=== PATIENT | female | born 1970 | race Caucasian/White ===

== ENCOUNTER 2016-11-30 18:28 | Emergency (ER) | payer MEDICAID ==
[~2016-11-30] VITALS: Ht 160 cm; Wt 90.7 kg
[~2016-11-30 18:28] MED LIST: ALBU2.5V4 IH; ALPR1T PO; AMAN50SY PEG; BC PILL PO; BISA10SU6 RC; CARB15DR74 OU; CEPH-507 PO; CHOL4PAC2 PEG; CITA20TA7 PEG; DOCU50LI22 PEG; HEPA500017 INJ; HYDR-707 PO; HYDR1CAP2 PO; HYDR1TAB86 PO; HYOS0.1283 SL; IPRA0.2S51 INH; LACT-72 PEG; MAGN800O GT; MELA1TAB10 PO; METH5TAB86 PEG; METO50TA2 PEG; MTP100TCR PO; NITR-33 PO; OMEP20CA12 PO; ONDA8TAB9 PO; OXYC5SOL19 GT; PHEN100C4 PO; PHEN125O2 GT; SULF1TAB38 PO; ZLP10T PO; [UNRECOGNIZED DRUG - CODE] TP
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
[2016-11-30 19:06] LABS: BILIRUBIN,URINE NEGATIVE (NEGATIVE); KETONES,URINE NEGATIVE (NEGATIVE); LEUKOCYTE ESTERASE ,URINE 1+ (NEGATIVE); NITRITE,URINE NEGATIVE (NEGATIVE); PH,URINE 6.5 (5-9); PROTEIN,URINE NEGATIVE (NEGATIVE); UROBILINOGEN,URINE 1 MG/DL (NORMAL)
[2016-11-30 19:16] LABS: BASOPHILS % (AUTO) 1 % (0-10); EOSINOPHILS # (AUTO) 0.1 10^3/uL (0.0-0.3); EOSINOPHILS % (AUTO) 2 % (0-10); LYMPHOCYTES # (AUTO) 2.2 X 10^3 (1.0-4.0); LYMPHOCYTES % (AUTO) 35 % (12-44); MEAN CORPUSCULAR HEMOGLOBIN 32 PG (25-34); MEAN CORPUSCULAR HGB CONC 34 G/DL (32-36); MEAN CORPUSCULAR VOLUME 94 FL (80-99); MEAN PLATELET VOLUME 9.9 FL (7.4-10.4); MONOCYTES # (AUTO) 0.9 X 10^3 (0.0-1.0); MONOCYTES % (AUTO) 14 % (0-12); NEUTROPHILS # (AUTO) 3.1 X 10^3 (1.8-7.8); NEUTROPHILS % (AUTO) 49 % (42-75); PLATELET COUNT 288 10^3/uL (130-400); RED BLOOD COUNT 4.44 10^6/uL (4.35-5.85); RED CELL DISTRIBUTION WIDTH 13.1 % (10.0-14.5); WHITE BLOOD COUNT 6.3 10^3/uL (4.3-11.0)
[2016-11-30 19:31] LABS: ALBUMIN 3.9 G/DL (3.2-4.5); BILIRUBIN,TOTAL 0.3 MG/DL (0.1-1.0); CALCIUM 9.2 MG/DL (8.5-10.1); CREATININE SERUM 1.23 MG/DL (0.60-1.30); POTASSIUM 4.1 MMOL/L (3.6-5.0); TOTAL PROTEIN 7.4 G/DL (6.4-8.2)
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
[2016-11-30 20:38] VITALS: BP 102/72
== END 2016-11-30 20:38 ==
LOC: EDUNIT# 18:28 → ER 18:30
DX: R41.82 Altered mental status, unspecified (principal); Z93.1 Gastrostomy status; G81.94 Hemiplegia, unspecified affecting left nondominant side; G40.909 Epilepsy, unspecified, not intractable, without status epilepticus; Z87.820 Personal history of traumatic brain injury; Z79.899 Other long term (current) drug therapy; Z98.2 Presence of cerebrospinal fluid drainage device
CPT/HCPCS: 36415; 51701; 70450; 80053; 80164; 81000; 85025; 99284

== ENCOUNTER → 2017-04-03 | Outpatient (CLI) | payer MEDICAID ==
--- NOTE | 2017-04-03 15:37 | Diagnostic Imaging Report ---
PROCEDURE: CT head without contrast. TECHNIQUE: Multiple contiguous axial images were obtained through the brain without the use of intravenous contrast. INDICATION: Seizure and headache. Comparison made with prior examination of 11/30/2016. FINDINGS: There is prominence of the ventricles and sulci. There is some moderate chronic microvascular ischemic disease. There has been previous right craniotomy and right temporal craniectomy. There is unchanged decreased attenuation in the posterior inferior aspect of the right temporal lobe. There is some enlargement of the temporal horn of the right lateral ventricle. A left parietal ventriculostomy tube remains in place. There is no mass, hemorrhage, or extra-axial fluid collection. The visualized paranasal sinuses and mastoid air cells are clear. IMPRESSION: Atrophy and some chronic microvascular ischemic disease with unchanged decreased attenuation in the posterior inferior right temporal lobe. Previous right craniotomy and right temporal craniectomy with some underlying dural thickening which is unchanged. A left parietal ventriculostomy tube remains in place. Dictated by: Dictated on workstation # [id number]
== END ==
LOC: RAD 14:16
PROVIDERS: ATTEND Psychiatry & Neurology Neurology
DX: G31.9 Degenerative disease of nervous system, unspecified (principal); Z98.890 Other specified postprocedural states; Z98.2 Presence of cerebrospinal fluid drainage device; G40.909 Epilepsy, unspecified, not intractable, without status epilepticus; R51 Headache
CPT/HCPCS: 70450

== ENCOUNTER 2017-04-06 19:05 | Emergency (ER) | payer MEDICAID ==
[~2017-04-06] VITALS: Ht 160 cm; Wt 90.7 kg
[~2017-04-06 19:05] MED LIST changes: -HEPA500017 INJ; +HEPA500018 INJ
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
--- OUTSIDE RECORDS SUMMARY | 2017-04-06 19:12 | XMS REPORT ---
Author Author WILTON ANDERSON [facility] Address [address] [place] [address] Care Team Providers Care Requisition Approver Name Role Phone WILTON ANDERSON Unavailable PROBLEMS Type Condition ICD9-CM Code HPW79-CP Code Onset Dates Condition Status SNOMED Code Problem Right-sided low back pain without sciatica M54.5 Active 139499974 Problem Anxiety F41.9 Active 55089372 Problem History of brain shunt Z98.2 Active 882521054 Problem Inappropriate social behavior F99 Active 339548767 Problem Head injury due to trauma, sequela S09.90XS Active 66033622 Problem History of hypertension Z86.79 Active 831440911 Problem Hemiplegia, unspecified affecting left dominant side G81.92 Active 665762213 Problem Reactive depression F32.9 Active 07438624 ALLERGIES Unknown Allergies SOCIAL HISTORY No smoking Hx information available PLAN OF CARE VITAL SIGNS MEDICATIONS Medication Instructions Dosage Frequency Start Date End Date Duration Status Bactrim DS 800-160 MG Orally Twice a day 1 tablet 12h Jul,Jul 07 days Active RESULTS No Results PROCEDURES No Known procedures IMMUNIZATIONS No Known Immunizations
--- NOTE | 2017-04-06 19:56 | Diagnostic Imaging Report ---
PROCEDURE: CT head and CT cervical spine without contrast. TECHNIQUE: Multiple contiguous axial images were obtained through the brain and cervical spine without the use of intravenous contrast. Sagittal and coronal reformations through the cervical spine were then performed. INDICATION: Fall with head and neck injury CT head: Comparison is made to the study of 04/03/2017. Similar to the previous study, ventricles and sulci remain prominent. Left parietal ventriculoperitoneal shunt tube is in stable position as well. The 0.5 cm high density dural thickening along the right convexity is unchanged. There is no evidence of new hemorrhage or infarct. The calvarium is stable and the visualized paranasal sinuses are clear. IMPRESSION: Postoperative changes similar to previous study. Hyperdensity along right convexity remains compatible with dural thickening without significant change or new abnormality. CT cervical spine: There is straightening of cervical lordosis. Vertebral body heights are maintained. There is mild disc space narrowing and endplate spurring in the cervical spine, however, no fracture or subluxation is identified. There is no evidence of paraspinous hematoma. IMPRESSION: Mild cervical spondylosis without CT evidence of acute cervical spinal abnormality. Dictated by: Dictated on workstation # [id number]
--- NOTE | 2017-04-06 19:57 | Diagnostic Imaging Report ---
INDICATION: Fall with pelvic pain Single AP view of the pelvis is obtained. FINDINGS: Ventriculoperitoneal shunt tube reaches the midline of the pelvis. There is no evidence of disruption of the catheter in the visualized portions. No acute fracture or dislocation is identified. No abnormal lytic or sclerotic focus is seen, and there is no radiopaque foreign body. Left femur is rotated which limits its evaluation. IMPRESSION: No acute abnormality. Dictated by: Dictated on workstation # [id number]
--- NOTE | 2017-04-06 19:59 | Diagnostic Imaging Report ---
INDICATION: Fall with back pain. TECHNIQUE: Multiple contiguous axial CT images of the thoracic and lumbar spine are obtained with sagittal and coronal reformatted images produced. CT thoracic spine: There is mild right convexity curvature of the thoracic spine. Endplate spurring at the T8-T9 level does result in bony encroachment upon the spinal canal and causes [id number] spinal stenosis. There is also mild degenerative change at the T9-T10 and T10-T11 levels without associated stenosis. There is no evidence of acute fracture or subluxation. IMPRESSION: Endplate spurring at T8-T9 results in djig-fw-dpjwruos central spinal stenosis however there is no evidence of acute thoracic spinal abnormality. CT lumbar spine: Lumbar spinal curvature and alignment are within normal limits. There is no evidence of fracture or malalignment. Incidental note is made of bilateral renal calculi without evidence of hydronephrosis or hydroureter. There is also mild aortoiliac atherosclerotic calcification noted. There is bilateral L5 spondylolysis without significant spondylolisthesis. IMPRESSION: No CT evidence of acute lumbar spinal abnormality. Dictated by: Dictated on workstation # [id number]
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
[2017-04-06 21:26] VITALS: BP 122/80
== END 2017-04-06 21:25 ==
LOC: EDUNIT# 19:05 → ER 19:06
DX: S16.1XXA Strain of muscle, fascia and tendon at neck level, initial encounter (principal); S39.012A Strain of muscle, fascia and tendon of lower back, initial encounter; S00.83XA Contusion of other part of head, initial encounter; M54.5 Low back pain; G89.29 Other chronic pain; G40.909 Epilepsy, unspecified, not intractable, without status epilepticus; F32.9 Major depressive disorder, single episode, unspecified; Z87.820 Personal history of traumatic brain injury; Z87.442 Personal history of urinary calculi; Z98.2 Presence of cerebrospinal fluid drainage device; Z93.0 Tracheostomy status; Z87.891 Personal history of nicotine dependence; V00.811A Fall from moving wheelchair (powered), initial encounter; Y92.129 Unspecified place in nursing home as the place of occurrence of the external cause
CPT/HCPCS: 70450; 72125; 72128; 72131; 72170; 99283

== ENCOUNTER → 2017-08-04 | Outpatient (CLI) | payer MEDICAID ==
[~2017-08-04] MED LIST changes: +METO50TA15 PEG; -METO50TA2 PEG
[2017-08-04 19:31] LABS: BILIRUBIN,URINE NEGATIVE (NEGATIVE); CLARITY,URINE CLEAR; COLOR,URINE YELLOW; GLUCOSE, URINE (UA) NEGATIVE (NEGATIVE); KETONES,URINE NEGATIVE (NEGATIVE); LEUKOCYTE ESTERASE ,URINE 2+ (NEGATIVE); NITRITE,URINE NEGATIVE (NEGATIVE); PH,URINE 6 (5-9); PROTEIN,URINE 1+ (NEGATIVE); UROBILINOGEN,URINE 1 MG/DL (NORMAL)
[2017-08-04 19:39] LABS: BACTERIA,URINE FEW /HPF; RBC,URINE 0-2 /HPF
== END ==
LOC: LABNPT 19:24
PROVIDERS: ATTEND Internal Medicine
DX: N17.9 Acute kidney failure, unspecified (principal); R82.90 Unspecified abnormal findings in urine
CPT/HCPCS: 81000; 82570; 84156; 87088; 87186

== ENCOUNTER → 2017-09-01 | Outpatient (CLI) | payer MEDICAID ==
--- NOTE | 2017-09-01 11:13 | Diagnostic Imaging Report ---
INDICATION: Difficulty swallowing. TECHNIQUE: The procedure was performed in conjunction with speech pathology. Videofluoroscopy was performed during the swallowing of barium of multiple consistencies. A total of 1 minute and 4 seconds of fluoroscopy time was utilized. FINDINGS: Patient ingested thin and thick liquid as well as semisolid and solid consistency. The patient swallowed without difficulty. There is normal epiglottic tilt and laryngeal elevation. No laryngeal penetration or aspiration was observed. There is mild vallecular and piriform sinus residue which did clear after a repeat swallow. IMPRESSION: Essentially unremarkable modified barium swallow. Dictated by: Dictated on workstation # [id number]
== END ==
LOC: RAD 10:14
PROVIDERS: ATTEND Nurse Practitioner Community Health
DX: R13.10 Dysphagia, unspecified (principal)
CPT/HCPCS: 74230

== ENCOUNTER → 2018-01-09 | Outpatient (CLI) | payer MEDICAID ==
[~2018-01-09] MED LIST changes: +CARB15DR OU; -CARB15DR74 OU; -CITA20TA7 PEG; +CITA20TA9 PEG; -PHEN125O2 GT; +PHEN125O3 GT
--- NOTE | 2018-01-09 11:55 | Diagnostic Imaging Report ---
INDICATION: Hypertension and stage III kidney disease. TECHNIQUE: Multiple real-time grayscale images were obtained of the kidneys in various projections. Doppler evaluation of the renal arteries was also performed. FINDINGS: Right kidney measures 8.8 x 5.1 x 4.4 cm. The left kidney measures 9.7 x 4 x 4.2 cm. Both kidneys grossly demonstrate normal renal cortical thickness and echogenicity. Resistive indices in the right range from 0.59 to 0.66. Resistive indices in the left range from 0.52 to 0.71. The right main renal artery was obscured by bowel gas. The visualized portions of the left renal artery are unremarkable. There is no hydronephrosis, calculi or mass. Neither ureteral jet was visualized. Bladder is grossly unremarkable. IMPRESSION: Unremarkable sonographic appearance of the kidneys. Nonvisualization of the right renal artery. No evidence of a hemodynamically significant stenosis in the visualized portions of the left renal artery. Dictated by: Dictated on workstation # [id number]
== END ==
LOC: RAD 09:48
PROVIDERS: ATTEND Internal Medicine Nephrology
DX: I70.1 Atherosclerosis of renal artery (principal); I12.9 Hypertensive chronic kidney disease with stage 1 through stage 4 chronic kidney disease, or unspecified chronic kidney disease; N18.3 Chronic kidney disease, stage 3 (moderate); D63.1 Anemia in chronic kidney disease
CPT/HCPCS: 93975

== ENCOUNTER 2018-05-28 05:39 | Outpatient (CLI) | payer MEDICAID ==
[~2018-05-28] VITALS: Ht 160 cm; Wt 90.7 kg
[2018-05-28] MEDS ORDERED: AMAN100C18 PO (10:38)
[2018-05-28] MEDS ORDERED: METO50TA15 PO (10:38)
[2018-05-28] MEDS ORDERED: POTA-51 PO (10:38)
[2018-05-28] MEDS ORDERED: ACET-2267 PO (10:38)
[2018-05-28] MEDS ORDERED: CHOL500049 PO (10:38)
[2018-05-28] MEDS ORDERED: MELA1TAB27 PO (10:38)
[2018-05-28] MEDS ORDERED: TOPI100T PO (10:38)
[2018-05-28] MEDS ORDERED: MAGN400O7 PO (10:38)
[2018-05-28] MEDS ORDERED: CITA40TA19 PO (10:38)
[2018-05-28] MEDS ORDERED: ASPI-999 PO (10:38)
[2018-05-28] MEDS ORDERED: IRON100V2 IV (10:38)
[2018-05-28] MEDS ORDERED: GUAI400T71 PO (10:38)
[2018-05-28] MEDS ORDERED: DONE10TA12 PO (10:38)
[2018-05-28] MEDS ORDERED: LEVE750T19 PO (10:38)
[2018-05-28] MEDS ORDERED: METO-333 PO (10:38)
[2018-05-28] MEDS ORDERED: POLY17PO6 PO (10:38)
--- NOTE | 2018-05-28 12:56 | History & Physicial ---
History of Present Illness History of Present Illness Reason for visit/HPI to undergo Byykky-f-Xhgt placement, to address poor venous access. 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 Date of Admission 05/29/18 Date Seen by a Provider: May 28, 2018 Time Seen by a Provider: 12:52 I consulted on this patient on 05/28/18 12:51 Attending Physician Merari Kaur MD Admitting Physician Loi Villatoro MD Consult Allergies and Home Medications Allergies Coded Allergies: No Known Drug Allergies (Unverified , 05/24/10) Home Medications Acetaminophen 500 Mg Tablet, 1,000 MG PO Q6H PRN for PAIN-MILD, (Reported) Amantadine HCl 100 Mg Capsule, 100 MG PO BID, (Reported) Aspirin 81 Mg Tab.chew, 81 MG PO DAILY, (Reported) Bisacodyl 10 Mg Supp.rect, 10 MG RC DAILY PRN for CONSTIPATION, (Reported) Cholecalciferol (Vitamin D3) 50,000 Unit Capsule, 50,000 UNIT PO Sa, (Reported) Citalopram Hydrobromide 40 Mg Tablet, 40 MG PO DAILY, (Reported) Donepezil HCl 10 Mg Tablet, 20 MG PO DAILY, (Reported) Guaifenesin 400 Mg Tablet, 400 MG PO Q4H PRN for COUGH, (Reported) Hyoscyamine Sulfate 0.125 Mg Tab.subl, 1-2 TAB SL Q4H Prescribed by: SHOSHANA CHAVEZ on 03/07/162207 Ipratropium [place] 0.2 Mg/1 Ml Solution, 0.2 MG INH Q6H PRN for SHORTNESS OF BREATH, (Reported) Iron Sucrose Complex 200 Mg/10 Ml Vial, 200 MG IV DAILY, (Reported) Levetiracetam 750 Mg Tablet, 750 MG PO BID, (Reported) Magnesium Hydroxide 400 Mg/5 Ml Oral.susp, 10 ML PO DAILY PRN for CONSTIPATION- 1ST LINE, (Reported) Melatonin/Pyridoxine HCl (B6) 1 Each Tablet, 1 EACH PO DAILY, (Reported) Metoprolol Tartrate 25 Mg Tablet, 25 MG PO BID, (Reported) Metoprolol Tartrate 50 Mg Tablet, 50 MG PO BID, (Reported) Ondansetron 8 Mg Tab.rapdis, 8 MG PO Q4H Prescribed by: SHOSHANA CHAVEZ on 03/07/162207 Polyethylene Glycol 3350 17 Gm Powd.pack, 17 GM PO DAILY PRN for CONSTIPATION- 2ND LINE, (Reported) Potassium Chloride 20 Meq Tablet.er, 20 MEQ PO DAILY, (Reported) Topiramate 100 Mg Tablet, 100 MG PO BID, (Reported) Patient Home Medication List Home Medication List Reviewed: Yes Past Vetzztj-Nwralk-Yrxxhr Hx Patient Social History Employed/Student: unemployed Alcohol Use: Denies Use Recreational Drug Use: No Smoking Status: Never a Smoker Type Used: Cigarettes Recent Foreign Travel: No Contact w/other who traveled: No Recent Hopitalizations: No Recent Infectious Disease Expo: No Immunizations Up To Date Date of Pneumonia Vaccine: Aug 07, 2015 Seasonal Allergies Seasonal Allergies: No Surgeries Yes Abdominal, Gallbladder, Neurological, Renal, Tracheostomy Respiratory Yes (TRACH--REMOVED 01/04/16) Currently Using CPAP: No Currently Using BIPAP: No Cardiovascular Yes (hypotension) Hypotension Neurological Yes Paralysis, Seizure Disorder, Traumatic Brain Injury Reproductive System Hx Reproductive Disorders: No Sexually Transmitted Disease: No HIV/AIDS: No Female Reproductive Disorders: Menstrual Problems Genitourinary Yes Kidney Stones, Renal Failure Gastrointestinal No Chronic Constipation Musculoskeletal Yes Endocrine History of Endocrine Disorders: Yes HEENT History of HEENT Disorders: No Loss of Vision: Denies Hearing Impairment: Denies Cancer No Psychosocial History of Psychiatric Problem: Yes Behavioral Health Disorders: Depression Integumentary History of Skin or Integumenta: No Blood Transfusions History of Blood Disorders: No Adverse Reaction to a Blood Tr: No Review of Systems Constitutional: see HPI EENTM: no symptoms reported Respiratory: no symptoms reported Cardiovascular: no symptoms reported Gastrointestinal: no symptoms reported Genitourinary: see HPI Musculoskeletal: joint pain Skin: see HPI Physical Exam Vital Signs Capillary Refill : Height, Weight, BMI Height: 5'3.00" Weight: 200lbs. 0.0oz. [id number]; 35.4 BMI Method:Stated General Appearance: No Apparent Distress HEENT: Normal ENT Inspection Neck: Normal Inspection Respiratory: Lungs Clear Cardiovascular: Regular Rate, Rhythm Gastrointestinal: Non Tender, Soft Neurologic/Psychiatric: Alert, Oriented x3 Skin: Warm/Dry Assessment/Plan Assessment and Plan lady with chronic renal insufficiency. Poor venous access. 4 Qczawv-c-Ngzs placement Admission Diagnosis Admission Status: Other (Outpt Proc) MERARI KAUR MD May 28, 2018 12:55
[2018-05-29] MEDS ORDERED: ACHD5005 PO (13:44)
== END 2018-05-28 11:04 | disposition home or self-care (01) ==
LOC: PREOP 05:39
PROVIDERS: ATTEND Surgery
DX: Z01.818 Encounter for other preprocedural examination (principal)

== ENCOUNTER 2018-05-29 09:51 | Day surgery (SDC) | payer MEDICAID ==
[~2018-05-29] VITALS: Ht 160 cm; Wt 90.7 kg
[~2018-05-29 09:51] MED LIST changes: +ACET-2267 PO; +AMAN100C18 PO; +ASPI-999 PO; +CHOL500049 PO; +CITA40TA19 PO; +DONE10TA12 PO; +GUAI400T71 PO; +IRON100V2 IV; +LEVE750T19 PO; +MAGN400O7 PO; +MELA1TAB27 PO; +METO-333 PO; +METO50TA15 PO; +POLY17PO6 PO; +POTA-51 PO; +TOPI100T PO
[2018-05-29 10:00] VITALS: BP 107/70
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
--- OUTSIDE RECORDS SUMMARY | 2018-05-29 10:10 | XMS REPORT ---
Author Author MAYNOR KINCAID Organization [facility] Address [address] [place] [address] Care Team Providers Care Import Clerk Name Role Phone MAYNOR KINCAID Unavailable PROBLEMS Type Condition ICD9-CM Code WIV28-HI Code Onset Dates Condition Status SNOMED Code Problem Anxiety F41.9 Active 61625325 Problem Reactive depression F32.9 Active 83359887 Problem Head injury due to trauma, sequela S09.90XS Active 21765509 Problem History of hypertension Z86.79 Active 033383428 Problem Right-sided low back pain without sciatica M54.5 Active 655904188 Problem Chronic kidney disease, unspecified CKD stage N18.9 Active 127366927 Problem Dysphagia, unspecified type R13.10 Active 36436537 Problem Inappropriate social behavior F99 Active 917008166 Problem Hemiplegia, unspecified affecting left dominant side G81.92 Active 765069034 Problem Poor appetite R63.0 Active 74838589 Problem History of brain shunt Z98.2 Active 925293206 ALLERGIES No Information ENCOUNTERS Encounter Location Date Diagnosis [place] [address] [address] Mar, [facility] [id number] [place] [address]27- 6132 Feb, Seizure after head injury R56.1 and Chronic kidney disease, unspecified CKD stage N18.9 [facility] [id number] [place] [address] 09736- 2788 December, [place] [address] [place] [id number] [place] [address] 90226- 9962 December, [place] [id number] [place] [address] 37379- 5674 December, [place] [address] [place] [id number] [address] 2546 December, Physically aggressive behavior R46.89 [facility] [address] [place] [address] [id number] December, [facility] [address], [place] [address] 2546 December, [facility] [id number] [address] 2546 Nov, [facility] [address] [place] [address] [id number] Oct, Head injury due to trauma, sequela S09.90XS [facility] [place] [address] [id number] [place] [address] [id number] Sep, [facility] [place] [id number] [id number] Aug, [facility] [id number], [place] [address] 2546 Aug, [facility] [address] [place] [address] [id number] Aug, Tremor R25.1 ; Head injury due to trauma, sequela S09.90XS and Dysphagia, unspecified type R13.10 [facility] [address] [place] [address] [id number] Aug, Tremor R25.1 ; Poor appetite R63.0 and Acute renal failure with tubular necrosis N17.0 [facility] [place] [id number] [id number] Aug, [facility] [place] [id number] [id number] Aug, [facility] [address] [place] [address] [id number] Aug, Urinary tract infection without hematuria, site unspecified N39.0 and Acute renal failure, unspecified acute renal failure type N17.9 [facility] [place] [id number] [id number] Jul, [facility] [place] [address] [id number] [id number] Jul, [facility] [address] [facility] [id number], [place] [address] Jul, [facility] [address] [facility] [id number], [place] [address] Jun, [facility] [address] [place] [address] [id number] [id number] Jun, [facility] [address] [place] [id number] [id number] May, [facility] [id number], [place] [address] 64[address] May, [facility] [id number] [address] Apr, [facility] [address] [place] [address] [id number] Mar, Head injury due to trauma, sequela S09.90XS and Reactive depression F32.9 [facility] [id number], [place] [address] 4[address] Mar, [facility] [address] [place] [address] [id number] [id number] Mar, [facility] [id number], [place] [address] Mar, [facility] [address] [place] [address] [id number] Feb, Inappropriate social behavior F99 and Head injury due to trauma, sequela S09.90XS [facility] [address] [id number] [id number] Feb, [facility] [address] [id number] [id number] Feb, [facility] [id number], [place] [address] Jan, [facility] [address], [place] [address] Jan, [facility] [address] [place] [address] 86206- 7424 Jan, [facility] [address] [place] [address] 59497- 8048 December, [facility] [address] [place] [address] 66896- 4222 December, Physically aggressive behavior R46.89 [facility] [address] [place] [id number] December, Ingrowing toenail with infection L60.0 ; Physically aggressive behavior R46.89 and Head injury due to trauma, sequela S09.90XS [facility] [address] [place] [address] 56748- 9505 December, Depressive disorder, not elsewhere classified F32.9 and Dementia due to general medical condition, without behavioral disturbance F02.80 [facility] [address] [place] [id number] December, Ingrowing toenail with infection L60.0 and Head injury due to trauma, sequela S09.90XS [facility] [address] [place] [address] 79199- 9912 Nov, [facility] [address] [place] [address] 08974- 7365 Nov, Physically aggressive behavior R46.89 ; Head injury due to trauma, sequela S09.90XS and History of brain shunt Z98.2 [facility] [address], [place] [address]- 6[address] Nov, [facility] [address] [place] [id number] [place] [address] 64968- 9060 Nov, [facility] [id number] [place] [address] 16521- 0748 Nov, Inappropriate social behavior F99 [facility] [place] [address] [id number] Nov, [facility] [place] [id number] [id number] Nov, Gastroesophageal reflux disease with esophagitis K21.0 [facility] [address], [place] [address] Oct, [facility] [address] [place] [id number] Oct, Head injury due to trauma, sequela S09.90XS and Hemiplegia, unspecified affecting left dominant side G81.92 [facility] [place] [id number] [id number] Sep, [facility] [address], [place] [address] Aug, [facility] [address] [place] [id number] Aug, Head injury due to trauma, sequela S09.90XS and Hemiplegia, unspecified affecting left dominant side G81.92 [facility] [address], [place] [address] 9167 Jul, [facility] [address], [place] [address]- 8[address] Jun, [facility] [address] [place] [id number] Jun, Head injury due to trauma, sequela S09.90XS [facility] [address] Jun, [facility] [address] [place] [address] [id number] [address] May, [facility] [address] [place] [address] [id number] May, Head injury due to trauma, sequela S09.90XS [facility] [address] 34[address] May, [facility] [address] [place] [address] 49751- 1224 May, [facility] [address] [place] [address] 49076- 3096 Apr, [facility] [address] [place] [address] 35416- 1426 Apr, [facility] [address] [place] [id number] [place] [address] 92174- 4886 Apr, [facility] [address] [place] [id number] Apr, Head injury due to trauma, sequela S09.90XS [facility] [address] [place] [address] [id number] [place] [address] 64544- 3836 Mar, [facility] [address] [place] [id number] [place] [address] 52941- 9126 Mar, [facility] [address] [place] [id number] [place] [address] 90250- 3731 Mar, [facility] [address] [place] [id number] [place] [address] 02860- 8649 Mar, [facility] [address] [place] [id number] [place] [address] 41564- 3910 Mar, Head injury due to trauma, sequela S09.90XS and Reactive depression F32.9 [facility] [address] [place] [id number] [place] [address] 89969- 1706 Feb, Head injury due to trauma, sequela S09.90XS [facility] [address] [place] [address] [id number] [place] [address] 79676- 8286 Feb, [facility] [address] [place] [address] 73206- 1566 Feb, [facility] [address] [place] [address] [id number] Feb, Head injury due to trauma, sequela S09.90XS [facility] [address] [place] [address] 26892- 6632 Feb, [facility] [address] [place] [address] 93939- 5778 Jan, [facility] [address] [place] [id number] [place] [address] 87705- 1758 Jan, [facility] [address] [place] [id number] [place] [address] 27931- 9076 Jan, [facility] [address] [address]- 6622 Jan, Insomnia due to medical condition G47.01 [place] [address] [address]- 3271 December, Right-sided low back pain without sciatica M54.5 [place] [address] [place] [id number] [place] [address] 34235- 1028 December, Head injury due to trauma, initial encounter S09.90XA [place] [address] [place] [id number] [place] [address] 07146- 1370 December, Gastroesophageal reflux disease with esophagitis K21.0 [place] [address] [place] [id number] [place] [address] 02733- 6858 December, Head injury due to trauma, initial encounter S09.90XA and Essential hypertension I10 [place] [address] [place] [id number] [place] [address] 03946- 4515 Jul, Anxiety F41.9 [place] [address] 17111- 9524 Jun, Anxiety F41.9 [place] [address] [place] [id number] [place] [address] 85356- 7539 14 May, 2015 Right-sided low back pain without sciatica M54.5 ; Anxiety F41.9 and History of hypertension Z86.79 [place] [address] [place] [id number] [place] [address] 70483- 4494 12 May, 2015 [place] [address] [place] [id number] [address]- 7968 May, [facility] [address] [facility] [id number] [place] [address] May, [facility] [address] [facility] [id number] [place] [address]- 5015 May, [facility] [address] [place] [address]- 6214 Apr, [facility] [address] [facility] [id number] [place] [address]- 9117 Apr, [facility] [address] [place] [address]- 3455 Mar, [facility] [address] [place] [address]- 1813 Feb, [facility] [address] [place] [address]- 8028 Feb, [facility] [address] [place] [address]- 8374 Jan, Essential hypertension, benign 401.1 and Anxiety state, unspecified 300.00 [facility] [address] [address]- 8707 Jan, [facility] [address] [id number], [place] [address]- 0764 December, [facility] [id number], [place] [address]- 5100 December, [facility] [address] [id number] [address]- 0354 Nov, [facility] [address], [place] [address]- 5538 Nov, [facility] [id number] [address]- 2006 Oct, [facility] [address] [place] [address]- 6776 Oct, [facility] [place] [facility] [address] [id number] [place] [address]- 6596 Sep, [facility] [place] [facility] [address] [id number] [place] [address]- 8186 Sep, [facility] [place] [facility] [address] [facility] [id number] [place] [address]- 5088 Sep, [facility] [place] [facility] [address] [id number] [place] [address]- 9517 Sep, [facility] [place] [facility] [address] [facility] [id number] [place]- 8513 Sep, [facility] [place] [facility] [address] [facility] [id number] [place] [address]- 3096 Aug, [facility] [place] [facility] [address] [facility] [id number] [place] [address]- 4629 Aug, [facility] [place] [facility] [address] [facility] [id number] [place] [address]- 1875 Aug, [facility] [place] [facility] [address] [facility] [id number] [place] [address]- 3130 Aug, [facility] [place] [facility] [address] [facility] [id number] [place]- 5473 Jul, [facility] [place] [facility] [address] [facility] [id number] [place] [address]- 7451 Jul, [facility] [place] [facility] [address] [facility] [id number] [place] [address]- 1780 Jun, [facility] [place] [facility] [address] [facility] [id number] [place] [address]- 2760 Jun, [facility] [place] [facility] [address] [facility] [id number] [place] [address]- 7642 May, [facility] [place] [facility] [address] [facility] [id number] [place]- 9325 May, [facility] [place] [facility] [address] [id number] [place] [address]- 9857 Apr, [facility] [place] [facility] [address] [id number] [place] [address]- 2722 Apr, [facility] [place] [facility] [address] [id number] [place] [address]- 4878 Mar, [facility] [place] [facility] [address] [id number] [place] [address]- 5641 Mar, [facility] [place] [facility] [address] [id number] [place] [address]- 5263 Feb, [facility] [place] [facility] [address] [id number] [place] [address]- 5582 Feb, [facility] [place] [facility] [address] [id number] [place] [address]- 7989 Jan, [facility] [place] [facility] [address] [id number] [place] [address]- 0050 Jan, [facility] [place] [facility] [address] [id number] [place] [address]- 0730 December, [facility] [place] [facility] [address] [id number] [place] [address]- 8057 December, [facility] [place] [facility] [address] [id number] [place] [address]- 5486 December, [facility] [place] [facility] [address] [id number] [place] [address]- 5955 December, [facility] [place] [facility] [address] [id number] [place] [address]- 8819 December, [facility] [place] [facility] [address] [id number] [place] [address]- 0197 December, [facility] [place] [facility] [address] [id number] [place] [address]- 1102 Nov, [facility] [place] [facility] [address] [id number], [place] [address]- 1422 24 Nov, 2013 [facility] [place] [facility] [address] [id number] [place] [address]- 7098 07 Nov, 2013 [facility] [place] [facility] [address] [id number] [place] [address]- 1641 07 Nov, 2013 [facility] [place] [facility] [address] [id number] [place] [address]- 7786 20 Oct, 2013 [facility] [place] [facility] [address] [id number] [place] [address]- 6253 Oct, [facility] [place] [facility] [address] [id number] [place] [address]- 5642 Oct, [facility] [place] [facility] [address] [id number] [place] [address]- 3298 Oct, [facility] [place] [facility] [address] [id number] [place] [address]- 4189 Oct, [facility] [place] [facility] [address] [id number] [place] [address]- 5405 Oct, [facility] [place] [facility] [address] [id number] [place] [address]- 3116 18 Oct, 2013 [facility] [place] [facility] [address] [id number] [place] [address]- 8172 18 Oct, 2013 [facility] [place] [facility] [address] [id number] [place] [address]- 8506 Oct, [facility] [place] [facility] [address] [id number] [place] [address]- 4586 Oct, [facility] [place] [facility] [address] [id number] [place] [address]- 3103 Oct, [facility] [place] [facility] [address] [id number] [place] [address]- 0484 Oct, [facility] [place] [facility] [address] [id number] [place] [address]- 7167 Sep, [facility] [place] [facility] [address] [facility] [id number] [place] [address]- 4419 Sep, [facility] [address] [facility] [id number], [place] [address]- 5400 Sep, IMMUNIZATIONS No Known Immunizations SOCIAL HISTORY Never Assessed REASON FOR VISIT Infected, ingrown toenail PLAN OF CARE VITAL SIGNS MEDICATIONS Medication Instructions Dosage Frequency Start Date End Date Duration Status Keflex 500 mg Orally 3 times a day 1 capsule 8h Mar, Mar, 07 days Active RESULTS No Results PROCEDURES No Known procedures INSTRUCTIONS MEDICATIONS ADMINISTERED No Known Medications MEDICAL (GENERAL) HISTORY Type Description Date Medical History HYPERTENSION Medical History ANXIETY Medical History ACID REFLUX Surgical History C SECTION 2003 Surgical History cholecystectomy 2003 Surgical History LEFT KNEE SURGERY Hospitalization History New onset seizures--[facility] 02/29/16
--- OUTSIDE RECORDS SUMMARY | 2018-05-29 10:10 | XMS REPORT ---
Author Author MAYNOR KINCAID Organization [facility] Address [address] [place] [address] Care Team Providers Care [employer]ocker Name Role Phone MAYNOR KINCAID Unavailable PROBLEMS Type Condition ICD9-CM Code GCJ13-AX Code Onset Dates Condition Status SNOMED Code Problem Head injury due to trauma, sequela S09.90XS Active 26059995 Problem Hemiplegia, unspecified affecting left dominant side G81.92 Active 400112453 Problem Reactive depression F32.9 Active 87352289 Problem History of hypertension Z86.79 Active 444905895 Problem Right-sided low back pain without sciatica M54.5 Active 643093360 Problem Anxiety F41.9 Active 45087722 Problem Other iron deficiency anemia D50.8 Active 36221053 Problem Chronic kidney disease, unspecified CKD stage N18.9 Active 782706356 Problem History of brain shunt Z98.2 Active 526332617 Problem Inappropriate social behavior F99 Active 046775234 Problem Dysphagia, unspecified type R13.10 Active 04216333 Problem Poor appetite R63.0 Active 58142542 ALLERGIES Substance Reaction Event Type Date Status SulfADIAZINE Unknown Drug Allergy May, Active ENCOUNTERS Encounter Location Date Diagnosis [facility] [id number] [place] [address] 51272- 0026 May, [facility] [address] [id number] May, Chronic kidney disease, unspecified CKD stage N18.9 ; Other iron deficiency anemia D50.8 and Poor venous access I87.8 [facility] [id number] [place] [address] 47841- 2382 May, [facility] [address] [id number] May, Head injury due to trauma, sequela S09.90XS ; Hemiplegia, unspecified affecting left dominant side G81.92 and Right-sided low back pain without sciatica M54.5 [facility] [address] [address] 1298 Apr, [facility] [id number] [place] [address] 73508- 0078 Mar, [facility] [id number] [place] [address] 78023- 7627 Feb, Seizure after head injury R56.1 and Chronic kidney disease, unspecified CKD stage N18.9 [facility] [id number] [place] [address] 50128- 9922 December, [facility] [id number] [place] [address] 01082- 1075 December, [facility] [id number] [place] [address] 56277- 2495 December, [facility] [id number] [place] [address] 46158- 2904 December, Physically aggressive behavior R46.89 [facility]ly [facility] [address] [id number] December, [facility] [id number] [place] [address] 25474- 1186 December, [facility] [id number] [place] [address] 74768- 8906 Nov, [facility] [address] [id number] Oct, Head injury due to trauma, sequela S09.90XS [facility] [address] [id number] [id number] Sep, [facility] [id number] [place] [address] [phone] Aug, [facility] [address] [address] 9876 Aug, [facility] [address] [place] [address] [id number] Aug, Tremor R25.1 ; Head injury due to trauma, sequela S09.90XS and Dysphagia, unspecified type R13.10 [facility] [address] [place] [id number] Aug, Tremor R25.1 ; Poor appetite R63.0 and Acute renal failure with tubular necrosis N17.0 [facility] [id number] [place] [address] [id number] Aug, [facility] [id number] [place] [address] [phone] Aug, [facility] [address] [place] [address] [phone] Aug, Urinary tract infection without hematuria, site unspecified N39.0 and Acute renal failure, unspecified acute renal failure type N17.9 [facility] [id number] [place] [address] [id number] Jul, [facility] [id number] [place] [address] [id number] Jul, [facility] [id number] [place] [address] 74577- 8816 Jul, [facility] [id number] [place] [address] 91310- 2546 Jun, [facility] [id number] [place] [address] [id number] Jun, [facility] [id number] [place] [address] [id number] May, [facility] [id number] [place] [address] 21238- 3346 May, [facility] [id number] [place] [address] 74202- 2546 Apr, [facility] [address] [place] [address] [id number] Mar, Head injury due to trauma, sequela S09.90XS and Reactive depression F32.9 [facility] [id number] [address] 2581 Mar, [facility] [id number] [place] [address] [id number] Mar, [facility] [address] [address] 5618 Mar, [facility] [address] [phone] Feb, Inappropriate social behavior F99 and Head injury due to trauma, sequela S09.90XS [facility] [id number] [place] [address] [id number] Feb, [facility] [id number] [place] [address] [id number] Feb, [facility] [id number] [place] [address] 81805- 6535 Jan, [facility] [id number] [place] [address] 41112- 8266 Jan, [facility] [id number] [place] [address] 60297- 5142 Jan, [facility] [id number] [place] [address] 99413- 8942 December, [facility] [id number] [place] [address] 93044- 6273 December, Physically aggressive behavior R46.89 [facility] [address] [place] [phone] December, Ingrowing toenail with infection L60.0 ; Physically aggressive behavior R46.89 and Head injury due to trauma, sequela S09.90XS [facility] [id number] [place] [address] 17708- 3786 December, Depressive disorder, not elsewhere classified F32.9 and Dementia due to general medical condition, without behavioral disturbance F02.80 [facility] [address] [place] [id number] December, Ingrowing toenail with infection L60.0 and Head injury due to trauma, sequela S09.90XS [facility] [id number] [place] [address] 55436- 3123 Nov, [facility] [id number] [place] [address] 89140- 0049 Nov, Physically aggressive behavior R46.89 ; Head injury due to trauma, sequela S09.90XS and History of brain shunt Z98.2 [facility] [id number] [place] [address] 96158- 6796 Nov, [facility] [id number] [place] [address] 45265- 3387 Nov, [place] [id number] [place] [address] 87708- 5630 Nov, Inappropriate social behavior F99 [facility] [id number] [place] [address] [id number] Nov, [facility] [id number] [place] [address] [id number] Nov, Gastroesophageal reflux disease with esophagitis K21.0 [facility] [id number] [place] [address] 47877- 2710 Oct, [facility] [address] [place] [address] [id number] Oct, Head injury due to trauma, sequela S09.90XS and Hemiplegia, unspecified affecting left dominant side G81.92 [facility] [id number] [place] [address] [id number] Sep, [facility] [id number] [place] [address] [id number] 4862 Aug, [facility] [address] [place] [address] [id number] Aug, Head injury due to trauma, sequela S09.90XS and Hemiplegia, unspecified affecting left dominant side G81.92 [place] [id number] [address]- 8343 Jul, [facility] [address] [id number] [address]- 7422 Jun, [facility] [address] [place] [address] [id number] Jun, Head injury due to trauma, sequela S09.90XS [facility] [address] [id number] [address] 1994 Jun, [facility] [address] [id number] [address]- 0684 May, [facility] [address] [place] [address] [id number] May, Head injury due to trauma, sequela S09.90XS [facility] [address] [facility] [id number] [address]- 3106 May, [facility] [address] [facility] [id number] [address]- 8102 May, [facility] [address] [id number] [address]- 5023 Apr, [facility] [address] [facility] [id number] [address]- 0326 Apr, [facility] [address] [id number] [address]- 7411 Apr, [facility] [address] [id number] Apr, Head injury due to trauma, sequela S09.90XS [facility] [address] [id number] [address]- 7456 Mar, [facility] [address] [facility] [id number] [address]- 4040 Mar, [facility] [address] [facility] [id number] [address]- 0263 Mar, [facility] [id number] [place] [address] 18375- 5264 Mar, [facility] [id number] [place] [address] 59756- 0258 Mar, Head injury due to trauma, sequela S09.90XS and Reactive depression F32.9 [facility] [id number] [place] [address] 85425- 8981 Feb, Head injury due to trauma, sequela S09.90XS [facility] [id number] [place] [address] 70458- 0740 Feb, [facility] [id number] [place] [address] 94634- 8420 Feb, [facility] and [address] [id number] Feb, Head injury due to trauma, sequela S09.90XS [place] [id number] [place] [address] 46236- 1838 Feb, [facility] [id number] [place] [address] 52830- 9023 Jan, [facility] [id number] [place] [address] 00222- 0264 Jan, [facility] [id number] [place] [address] 37419- 2275 Jan, [facility] [id number] [place] [address] 99130- 3890 Jan, Insomnia due to medical condition G47.01 [facility] [id number] [place] [address] 62955- 0565 December, Right-sided low back pain without sciatica M54.5 [facility] [id number] [place] [address] 45911- 9047 December, Head injury due to trauma, initial encounter S09.90XA [facility] [id number] [place] [address] 19252- 7613 December, Gastroesophageal reflux disease with esophagitis K21.0 [facility] [id number] [place] [address] 996962- 1526 December, Head injury due to trauma, initial encounter S09.90XA and Essential hypertension I10 [facility] [id number] [place] [address] 57261- 1826 Jul, Anxiety F41.9 [facility] [address] 20953- 8155 Jun, Anxiety F41.9 [facility] [id number] [place] [address] 342577- 0781 May, Right-sided low back pain without sciatica M54.5 ; Anxiety F41.9 and History of hypertension Z86.79 [facility] [id number] [place] [address] 04636- 0555 May, [facility] [id number] [place] [address] 16362- 8532 May, [facility] [id number] [place] [address] 710916- 0563 May, [facility] [id number] [place] [address] 760713- 5642 May, [facility] [id number] [address]- 4773 Apr, [facility] [id number] [place] [address] 66159- 0267 Apr, [facility] [id number] [place] [address] 63328- 1266 Mar, [facility] [id number] [place] [address] 43008- 2286 Feb, [facility] [id number] [place] [address] 31314- 2546 Feb, [facility] [address] [id number] [address]- 6418 Jan, Essential hypertension, benign 401.1 and Anxiety state, unspecified 300.00 [facility] [address] [place] [address]- 3761 Jan, [facility] [id number] [place] [address]- 9786 December, [facility] [id number] [address]- 5533 December, [facility] [id number] [place] [address]- 2742 Nov, [facility] [address] [address]- 7886 Nov, [facility] [id number] [place] [address]- 6040 Oct, [facility] [address] [address]- 4243 Oct, [facility] [id number] [place] [address]- 6197 Sep, [facility] [address] [address]- 6670 Sep, [facility] [address] [address]- 9522 Sep, [facility] [address] [address]- 6703 Sep, [facility] [address] [place] [address]- 9020 Sep, [facility] [address]- 2600 Aug, [facility] [place] [facility] [address] [address]- 9284 Aug, [facility] [address] [place] [address]- 1177 Aug, [facility] [address] [id number] [place] [address]- 9264 Aug, [facility] [place] [facility] [address] [id number] [place] 9055 Jul, [facility] [place] [facility] [address] [id number] [place] 1517 Jul, [facility] [place] [facility] [address] [id number] [place] [address]- 3311 Jun, [facility] [place] [facility] [address] [id number] [place] [address]- 2511 Jun, [facility] [place] [facility] [address] [id number] [place] [address]- 0812 May, [facility] [place] [facility] [address] [id number] [place] [address]- 1513 May, [facility] [place] [facility] [address] [id number] [place] [address]- 9123 Apr, [facility] [place] [facility] [address] [id number] [place] [address]- 3165 Apr, [facility] [place] [facility] [address] [id number] [place] [address]- 3903 Mar, [facility] [place] [facility] [address] [id number] [place] [address]- 8910 Mar, [facility] [place] [facility] [address] [id number] [place] [address]- 5061 Feb, [facility] [place] [facility] [address] [id number] [place] [address]- 7413 Feb, [facility] [place] [facility] [address] [id number] [place] [address]- 4668 Jan, [facility] [place] [facility] [address] [id number] [place] [address]- 3355 Jan, [facility] [address] [id number] [place] [address]- 0771 December, [facility] [place] [facility] [address] [id number] [place] [address]- 7127 December, [facility] [place] [facility] [address] [id number] [place] [address]- 2462 December, [facility] [place] [facility] [address] [id number] [place] [address]- 4041 December, [facility] [place] [facility] [address] [id number] [place] [address]- 7511 December, [facility] [place] [facility] [address] [id number] [place] [address]- 4156 December, [facility] [place] [facility] [address] [id number] [place] [address]- 9861 Nov, [facility] [place] [facility] [address] [id number] [place] [address]- 3847 Nov, [facility] [place] [facility] [address] [id number] [place] [address]- 6306 Nov, [facility] [place] [facility] [address] [id number] [place] [address]- 0015 Nov, [facility] [place] [facility] [address] [id number] [place] [address]- 6244 Oct, [facility] [place] [facility] [address] [id number] [address]- 1926 Oct, [facility] [place] [facility] [address] [id number] [place] [address]- 1902 Oct, [facility] [place] [facility] [address] [id number] [place] [address]- 8829 Oct, [facility] [place] [facility] [address] [id number] [place] [address]- 1102 Oct, [facility] [place] [facility] [address] [id number] [address]- 5826 Oct, [facility] [address] [address]- 8114 Oct, [facility] [address] [address]- 2379 Oct, [facility] [address] [address]- 3773 Oct, [facility] [id number] [place] [address] 93859- 1536 Oct, [facility] [id number] [place] [address] 77613- 5337 Oct, [facility] [id number] [address]- 1183 Oct, [facility] [address] [address]- 3984 Sep, [facility] [address] [address]- 7864 Sep, [facility] [address] [address]- 1578 Sep, IMMUNIZATIONS No Known Immunizations SOCIAL HISTORY Never Assessed REASON FOR VISIT routine visit --ALEN Nicole PLAN OF CARE Activity Details Follow Up prn Reason: VITAL SIGNS MEDICATIONS Medication Instructions Dosage Frequency Start Date End Date Duration Status Zofran ODT 8 MG Orally every 4 hours as needed 1 tablet Active Levsin/SL 0.125 MG Sublingual every 4 hrs 1-2 tablet under the tongue and allow to dissolve before meals as needed 4h Active Guaifenesin 400 MG Orally every 4 hrs 1 tablet as needed 4h Active Milk of Magnesia Concentrate 2400 MG/10ML Orally Once a day for constipation 10 ml Active Melatonin 3 MG Orally Once a day at HS 1 tablet Jan, Active Aricept 10 mg Orally Once a day 2 tablets 24h Active Ipratropium [place] 0.02 % Inhalation every 6 hours as needed Active Ergocalciferol 31310 UNIT Orally once weekly on monday 1 capsule Active Citalopram Hydrobromide 40 mg Orally Once a day 1 tablet 24h Active Aspirin 81 MG Orally Once a day 1 tablet 24h Active Topamax 100 MG Orally Twice a day 1 tablet 12h Active Amantadine HCl 100 mg Orally Twice a day 1 tablet 12h Aug, Active Bisacodyl 10 MG Rectal Once a day 1 suppository as needed 24h Active Nystatin 213904 UNIT/GM Externally Twice a day as needed 1 application to affected area Active Metoprolol Tartrate 50 MG Orally Twice a day 1 tablet with food 12h Active MiraLax - Orally every other day as directed Jun, Active Klor-Con M20 20 MEQ Orally Once a day 1 tablet with food 24h 30 day(s ) Active Tylenol Extra Strength 500 mg Orally every 6 hrs 1-2 tablets as needed 6h Active Keppra 750 MG Orally Twice a day 1 tablet 12h December, Active RESULTS No Results PROCEDURES Procedure Date Ordered Result Body Site Minor complication (15 mins) May 24, 2018 INSTRUCTIONS MEDICATIONS ADMINISTERED No Known Medications MEDICAL (GENERAL) HISTORY Type Description Date Medical History HYPERTENSION Medical History ANXIETY Medical History ACID REFLUX Surgical History C SECTION 2003 Surgical History cholecystectomy 2003 Surgical History LEFT KNEE SURGERY Hospitalization History New onset seizures--[facility] 02/29/16
--- OUTSIDE RECORDS SUMMARY | 2018-05-29 10:10 | XMS REPORT ---
Author Author MAYNOR KINCAID Organization [facility] Address [address] [place] [address] Care Team Providers Care Packaging Machine Operator Name Role Phone MAYNOR KINCAID Unavailable PROBLEMS Type Condition ICD9-CM Code TQR83-FR Code Onset Dates Condition Status SNOMED Code Problem Anxiety F41.9 Active 78215864 Problem Reactive depression F32.9 Active 93787823 Problem Head injury due to trauma, sequela S09.90XS Active 40176994 Problem History of hypertension Z86.79 Active 748054174 Problem Right-sided low back pain without sciatica M54.5 Active 524116463 Problem Chronic kidney disease, unspecified CKD stage N18.9 Active 015861484 Problem Dysphagia, unspecified type R13.10 Active 64656335 Problem Inappropriate social behavior F99 Active 518034971 Problem Hemiplegia, unspecified affecting left dominant side G81.92 Active 834179099 Problem Poor appetite R63.0 Active 55170671 Problem History of brain shunt Z98.2 Active 474980958 ALLERGIES No Information ENCOUNTERS Encounter Location Date Diagnosis [place] [address] [address] Apr, [facility] [id number] [place] [address] 65188- 2985 Mar, [facility] [id number] [place] [address] 42144- 8112 Feb, Seizure after head injury R56.1 and Chronic kidney disease, unspecified CKD stage N18.9 [facility] [address] [place] [address] 26575- 0884 December, [facility] [id number] [place] [address] 76884- 4089 December, [place] [id number], [place] [address] December, [facility] [id number], [place] [address] December, Physically aggressive behavior R46.89 [facility] [address] [place] [address] [id number] December, [facility] [id number] [address] December, [facility] [id number], [place] [address] 97[address] Nov, [facility] [address] [place] [address] [id number] Oct, Head injury due to trauma, sequela S09.90XS [facility] [id number] [id number] Sep, [facility] [id number] [id number] Aug, [facility] [id number], [place] [address] 57[address] Aug, [facility] [address] [place] [address] [id number] Aug, Tremor R25.1 ; Head injury due to trauma, sequela S09.90XS and Dysphagia, unspecified type R13.10 [facility] [address] [place] [address] [id number] Aug, Tremor R25.1 ; Poor appetite R63.0 and Acute renal failure with tubular necrosis N17.0 [facility] [id number] [id number] Aug, [facility] [id number] [id number] Aug, [facility] [address] [place] [address] [id number] Aug, Urinary tract infection without hematuria, site unspecified N39.0 and Acute renal failure, unspecified acute renal failure type N17.9 [facility] [id number] [id number] Jul, [facility] [id number] [id number] Jul, [facility] [address], [place] [address] 2546 Jul, [facility] [address], [place] [address] 4296 Jun, [facility] [address] [id number] [id number] Jun, [facility] [id number] [place] [address] [id number] May, [facility] [address], [place] [address]- 8556 May, [facility] [address], [place] [address]- 7268 Apr, [facility] [address] [place] [id number] Mar, Head injury due to trauma, sequela S09.90XS and Reactive depression F32.9 [facility] [address], [place] [address]- 7746 Mar, [facility] [id number] [id number] Mar, [facility] [id number], [place] [address] 2546 Mar, [facility] [address] [place] [id number] Feb, Inappropriate social behavior F99 and Head injury due to trauma, sequela S09.90XS [facility] [id number] [id number] Feb, [facility] [id number] [id number] Feb, [facility] [address], [place] [address]- 0700 Jan, [facility] [id number] [place] [address] 14987- 8727 Jan, [facility] [id number] [place] [address] 46264- 1897 Jan, [facility] [address] [place] [address] 15706- 0507 December, [facility] [id number] [place] [address] 24254- 6837 December, Physically aggressive behavior R46.89 [facility] [address] [place] [id number] December, Ingrowing toenail with infection L60.0 ; Physically aggressive behavior R46.89 and Head injury due to trauma, sequela S09.90XS [place] [id number] [place] [address] 68870- 7769 December, Depressive disorder, not elsewhere classified F32.9 and Dementia due to general medical condition, without behavioral disturbance F02.80 [facility] [address] [place] [id number] December, Ingrowing toenail with infection L60.0 and Head injury due to trauma, sequela S09.90XS [facility] [address] [place] [address] 48819- 1682 Nov, [facility] [address] [place] [address] 21338- 5910 Nov, Physically aggressive behavior R46.89 ; Head injury due to trauma, sequela S09.90XS and History of brain shunt Z98.2 [facility] [address] [place] [address] 69026- 5618 Nov, [facility] [address] [place] [address] 23308- 5485 Nov, [facility] [address] [place] [address] 70954- 5675 Nov, Inappropriate social behavior F99 [facility] [id number] [id number] Nov, [facility] [id number] [place] [address] [id number] Nov, Gastroesophageal reflux disease with esophagitis K21.0 [facility] [address], [place] [address]- 6725 Oct, [facility] [address] [place] [id number] Oct, Head injury due to trauma, sequela S09.90XS and Hemiplegia, unspecified affecting left dominant side G81.92 [facility] [id number], [place] [address] Sep, [facility] [address], [place] [address] 4016 Aug, [facility] [address] [place] [id number] Aug, Head injury due to trauma, sequela S09.90XS and Hemiplegia, unspecified affecting left dominant side G81.92 [facility] [address], [place] [address]- 1026 Jul, [facility] [address] Jun, [facility] [address] [place] [address] Jun, Head injury due to trauma, sequela S09.90XS [facility] [address], [place] [address]- 7912 Jun, [facility] [id number] [place] [address] 370162- 2113 May, [facility] [address] [place] [id number] May, Head injury due to trauma, sequela S09.90XS [facility] [address] [place] [address] 73988- 7999 May, [facility] [address] [place] [address] 33029- 5056 May, [facility] [address] [place] [address] 95086- 0496 Apr, [facility] [id number] [place] [address] 38968- 5266 Apr, [facility] [id number] [place] [address] 83084- 5875 Apr, [facility] [address] [place] [id number] Apr, Head injury due to trauma, sequela S09.90XS [facility] [id number] [place] [address] 72311- 1376 Mar, [facility] [id number] [place] [address] 36747- 9510 Mar, [facility] [address] [place] [address] 72654- 4998 Mar, [facility] [id number] [place] [address] 03100- 2851 Mar, [facility] [address] [place] [address] 84179- 7697 Mar, Head injury due to trauma, sequela S09.90XS and Reactive depression F32.9 [facility] [address] [place] [address] 00477- 5615 Feb, Head injury due to trauma, sequela S09.90XS [facility] [address] [place] [address] 52629- 2176 Feb, [facility] [address] [place] [address] 53657 2546 Feb, [facility] [address] [place] [id number] Feb, Head injury due to trauma, sequela S09.90XS [facility] [id number] [place] [address] 52265- 9582 07 Feb, 2016 [facility] [id number] [place] [address] 07488- 3983 Jan, [facility] [id number] [place] [address] 45921- 9190 Jan, [place] [address] [address]32- 0753 Jan, [place] [id number] [place] [address] 82848- 4685 Jan, Insomnia due to medical condition G47.01 [place] [address] 33366- 7367 December, Right-sided low back pain without sciatica M54.5 [place] [address] 65349- 9452 December, Head injury due to trauma, initial encounter S09.90XA [place] [id number] [place] [address] 88151- 0605 December, Gastroesophageal reflux disease with esophagitis K21.0 [place] [address] [id number] [place] [address] 94619- 1576 December, Head injury due to trauma, initial encounter S09.90XA and Essential hypertension I10 [place] [id number] [place] [address] 23837- 4695 07 Jul, 2015 Anxiety F41.9 [place] [id number] [place] [address] 32818- 7389 10 Jun, 2015 Anxiety F41.9 [place] [id number] [place] [address] 54235- 7883 14 May, 2015 Right-sided low back pain without sciatica M54.5 ; Anxiety F41.9 and History of hypertension Z86.79 [place] [address] [id number] [place] [address]- 9183 May, [facility] [address] [id number] [place] [address]- 2012 May, [facility] [address] [facility] [id number] [place] [address]- 5426 May, [facility] [address] [facility] [id number] [place] [address]- 0630 May, [facility] [address] [facility] [id number] [place] [address]- 4009 Apr, [facility] [address] [facility] [id number] [place] [address]- 6080 Apr, [facility] [id number] [place] [address]- 2839 Mar, [facility] [address] [place] [address]- 5815 Feb, [facility] [address] [facility] [id number], [place] [address]- 6978 Feb, [facility] [address], [place] [address]- 3646 Jan, Essential hypertension, benign 401.1 and Anxiety state, unspecified 300.00 [facility] [id number], [place] [address]- 4888 Jan, [facility] [address] [facility] [id number], [place] [address]- 4729 December, [facility] [address] [facility] [id number] [place] [address]- 9660 December, [facility] [id number], [place] [address]- 4032 Nov, [facility] [id number] [place] [address]- 5379 Nov, [facility] [address] [place] [address]- 4548 Oct, [facility] [place] [facility] [address] [id number] [place] [address]- 1693 Oct, [facility] [place] [facility] [address] [id number] [place] 4666 Sep, [facility] [place] [facility] [address] [id number] [place] [address]- 1416 Sep, [facility] [place] [facility] [address] [id number] [place] [address]- 9128 Sep, [facility] [place] [facility] [address] [id number] [place] [address]- 2235 Sep, [facility] [place] [facility] [address] [facility] [id number] [place] [address]- 1873 Sep, [facility] [place] [facility] [id number] [place] [address]- 0200 Aug, [facility] [place] [facility] [address] [facility] [id number] [place] [address]- 2607 Aug, [facility] [place] [facility] [id number] [place] [address]- 6052 Aug, [facility] [place] [facility] [address] [facility] [id number] [place] [address]- 3920 Aug, [facility] [place] [facility] [address] [facility] [id number] [place] [address]- 3165 Jul, [facility] [place] [facility] [address] [id number] [place] [address]- 4886 Jul, [facility] [place] [facility] [address] [facility] [id number] [place] [address]- 1502 Jun, [facility] [place] [facility] [address] [facility] [id number] [place] [address]- 5246 Jun, [facility] [place] [facility] [address] [facility] [id number] [place]- 1479 May, [facility] [place] [facility] [address] [id number] [place] [address]- 8393 May, [facility] [place] [facility] [address] [id number] [place] [address]- 7326 Apr, [facility] [place] [facility] [address] [id number] [place] [address]- 5414 Apr, [facility] [place] [facility] [address] [id number] [place] [address]- 8439 Mar, [facility] [place] [facility] [address] [id number] [place] [address]- 3276 Mar, [facility] [place] [facility] [address] [id number] [place] [address]- 2534 Feb, [facility] [place] [facility] [address] [id number] [place] [address]- 5615 Feb, [facility] [place] [facility] [address] [id number] [place] [address]- 6348 Jan, [facility] [place] [facility] [address] [id number] [place] [address]- 2092 Jan, [facility] [place] [facility] [address] [id number] [place] [address]- 3641 December, [facility] [place] [facility] [address] [id number] [place] [address]- 6505 December, [facility] [place] [facility] [address] [id number] [place] [address]- 9741 December, [facility] [place] [facility] [address] [id number] [place] [address]- 0635 December, [facility] [place] [facility] [address] [id number] [place] [address]- 4191 December, [facility] [place] [facility] [address] [id number] [place] 6044 December, [facility] [place] [facility] [address] [id number], [place] [address]- 5773 24 Nov, 2013 [facility] [place] [facility] [address] [id number] [place] [address]- 2799 24 Nov, 2013 [facility] [place] [facility] [address] [id number] [place] [address]- 3378 Nov, [facility] [place] [facility] [address] [id number] [place] [address]- 0276 Nov, [facility] [place] [facility] [address] [id number] [place] [address]- 9308 20 Oct, 2013 [facility] [place] [facility] [address] [id number] [place] [address]- 1283 Oct, [facility] [place] [facility] [address] [id number] [place] [address]- 8997 Oct, [facility] [place] [facility] [address] [id number] [place] [address]- 8162 Oct, [facility] [place] [facility] [address] [id number] [place] [address]- 1942 Oct, [facility] [place] [facility] [address] [id number] [place] [address]- 6753 Oct, [facility] [place] [facility] [address] [facility] [id number] [place] [address]- 0323 18 Oct, 2013 [facility] [place] [facility] [address] [id number] [place] [address]- 3593 18 Oct, 2013 [facility] [place] [facility] [address] [id number] [place] [address]- 5153 Oct, [facility] [place] [facility] [address] [id number] [place] [address]- 8208 04 Oct, 2013 [facility] [place] [facility] [address] [id number] [place] [address]- 5675 Oct, [facility] [place] [facility] [address] [id number] [place] [address]- 4801 Oct, [facility] [place] [facility] [address] [facility] [id number] [place] [address]- 3168 Sep, [facility] [address] [facility] [id number], [place] [address]- 4088 Sep, [facility] [address] [facility] [id number], [place] [address]- 5524 Sep, IMMUNIZATIONS No Known Immunizations SOCIAL HISTORY Never Assessed REASON FOR VISIT med list update PLAN OF CARE VITAL SIGNS MEDICATIONS Medication Instructions Dosage Frequency Start Date End Date Duration Status Amantadine HCl 100 mg Orally Twice a day 1 tablet 12h Aug, Active Zofran ODT 8 MG Orally every 4 hours as needed 1 tablet Active Keppra 750 MG Orally Twice a day 1 tablet 12h December, Active Aspirin 81 MG Orally Once a day 1 tablet 24h Active Aricept 10 mg Orally Once a day 2 tablets 24h Active Tylenol Extra Strength 500 mg Orally every 6 hrs 1-2 tablets as needed 6h Active Metoprolol Tartrate 50 MG Orally Twice a day 1 tablet with food 12h Active Ipratropium [place] 0.02 % Inhalation every 6 hours as needed Active Levsin/SL 0.125 MG Sublingual every 4 hrs 1-2 tablet under the tongue and allow to dissolve before meals as needed 4h Active Nystatin 829123 UNIT/GM Externally Twice a day as needed 1 application to affected area Active Citalopram Hydrobromide 40 mg Orally Once a day 1 tablet 24h Active Klor-Con M20 20 MEQ Orally Once a day 1 tablet with food 24h 30 day(s ) Active Milk of Magnesia Concentrate 2400 MG/10ML Orally Once a day for constipation 10 ml Active Melatonin 3 MG Orally Once a day at HS 1 tablet Jan, Active Guaifenesin 400 MG Orally every 4 hrs 1 tablet as needed 4h Active Topamax 100 MG Orally Twice a day 1 tablet 12h Active Ergocalciferol 80501 UNIT Orally once weekly on monday 1 capsule Active MiraLax - Orally every other day as directed Jun, Active Bisacodyl 10 MG Rectal Once a day 1 suppository as needed 24h Active RESULTS No Results PROCEDURES No Known procedures INSTRUCTIONS MEDICATIONS ADMINISTERED No Known Medications MEDICAL (GENERAL) HISTORY Type Description Date Medical History HYPERTENSION Medical History ANXIETY Medical History ACID REFLUX Surgical History C SECTION 2004 Surgical History cholecystectomy 2003 Surgical History LEFT KNEE SURGERY Hospitalization History New onset seizures--[facility] 02/29/16
--- OUTSIDE RECORDS SUMMARY | 2018-05-29 10:11 | XMS REPORT ---
Author Author MAYNOR KINCAID Organization [facility] Address [address] [place] [address] Care Team Providers Care Head Lineman Name Role Phone MAYNOR KINCAID Unavailable PROBLEMS Type Condition ICD9-CM Code VEP84-UM Code Onset Dates Condition Status SNOMED Code Problem Anxiety F41.9 Active 69600119 Problem Reactive depression F32.9 Active 54376475 Problem Head injury due to trauma, sequela S09.90XS Active 20366177 Problem History of hypertension Z86.79 Active 624791755 Problem Right-sided low back pain without sciatica M54.5 Active 720991754 Problem Chronic kidney disease, unspecified CKD stage N18.9 Active 060905207 Problem Dysphagia, unspecified type R13.10 Active 12101788 Problem Inappropriate social behavior F99 Active 654336865 Problem Hemiplegia, unspecified affecting left dominant side G81.92 Active 630859815 Problem Poor appetite R63.0 Active 58428766 Problem History of brain shunt Z98.2 Active 325270723 ALLERGIES No Information ENCOUNTERS Encounter Location Date Diagnosis [place] [address] [address] Mar, [facility] [address] [place] [address] 66622- 5689 Feb, Seizure after head injury R56.1 and Chronic kidney disease, unspecified CKD stage N18.9 [facility] [address] [place] [address] 09272- 5921 December, [place] [id number] [place] [id number] [place] [address] 33302- 3722 December, [place] [address] [place] [address] 35950- 0535 December, [place] [address] [place] [id number] [address] 2546 December, Physically aggressive behavior R46.89 [facility] [address] [place] [address] [phone] December, [facility] [address] [address] 2546 December, [facility] [id number] [address] 2546 Nov, [facility] [address] [place] [address] [id number] Oct, Head injury due to trauma, sequela S09.90XS [facility] [id number] [place] [address] [id number] Sep, [facility] [id number] [id number] Aug, [facility] [id number] [address] 2546 Aug, [facility] [address] [place] [address] [phone] Aug, Tremor R25.1 ; Head injury due to trauma, sequela S09.90XS and Dysphagia, unspecified type R13.10 [facility] [address] [place] [address] [id number] Aug, Tremor R25.1 ; Poor appetite R63.0 and Acute renal failure with tubular necrosis N17.0 [facility] [id number] [id number] Aug, [facility] [id number] [place] [id number] Aug, [facility] [address] [place] [address] [phone] Aug, Urinary tract infection without hematuria, site unspecified N39.0 and Acute renal failure, unspecified acute renal failure type N17.9 [facility] [id number] [id number] Jul, [facility] [address] [id number] [place] [id number] Jul, [facility] [address] [facility] [id number] [address] 49[address] Jul, [facility] [address] [facility] [id number] [address] 64[address] Jun, [facility] [address] [address] [id number] [id number] Jun, [facility] [address] [place] [id number] [place] [id number] May, [facility] [id number] [address] 0[address] May, [facility] [id number] [address] Apr, [facility] [address] [place] [address] [id number] Mar, Head injury due to trauma, sequela S09.90XS and Reactive depression F32.9 [facility] [id number] [address]- 4148 Mar, [facility] [address] [place] [id number] [id number] Mar, [facility] [address] [id number] [address]- 8037 Mar, [facility] [address] [place] [address] [phone] Feb, Inappropriate social behavior F99 and Head injury due to trauma, sequela S09.90XS [facility] [address] [id number] [place] [id number] Feb, [facility] [address] [id number] [place] [id number] Feb, [facility] [address] [id number] [address]- 4676 Jan, [facility] [address] [address]- 1070 Jan, [facility] [address] [place] [address] 76055- 8700 Jan, [facility] [address] [place] [address] 68573- 1808 December, [facility] [address] [place] [address] 00882- 4494 December, Physically aggressive behavior R46.89 [facility] [address] [place] [id number] December, Ingrowing toenail with infection L60.0 ; Physically aggressive behavior R46.89 and Head injury due to trauma, sequela S09.90XS [facility] [address] [place] [address] 63904- 5173 December, Depressive disorder, not elsewhere classified F32.9 and Dementia due to general medical condition, without behavioral disturbance F02.80 [facility] [address] [place] [phone] December, Ingrowing toenail with infection L60.0 and Head injury due to trauma, sequela S09.90XS [facility] [address] [place] [address] 30117- 9989 Nov, [facility] [address] [place] [address] 53728- 9790 Nov, Physically aggressive behavior R46.89 ; Head injury due to trauma, sequela S09.90XS and History of brain shunt Z98.2 [facility] [address] [address]- 9846 Nov, [facility] [address] [id number] [place] [address] 37861- 4318 Nov, [facility] [address] [place] [address] 10786- 9218 Nov, Inappropriate social behavior F99 [facility] [address] [id number] Nov, [facility] [id number] [place] [id number] Nov, Gastroesophageal reflux disease with esophagitis K21.0 [facility] [address] [address]- [address] Oct, [facility] [address] [place] [id number] Oct, Head injury due to trauma, sequela S09.90XS and Hemiplegia, unspecified affecting left dominant side G81.92 [facility] [id number] [place] [id number] Sep, [facility] [address] [address]- 9476 Aug, [facility] [address] [place] [id number] Aug, Head injury due to trauma, sequela S09.90XS and Hemiplegia, unspecified affecting left dominant side G81.92 [facility] [address] [address]- 0029 Jul, [facility] [address] [address]- 8981 Jun, [facility] [address] [place] [phone] Jun, Head injury due to trauma, sequela S09.90XS [facility] [address] 4186 Jun, [facility] [address] [place] [id number] [address] 7988 May, [facility] [address] [place] [address] [id number] May, Head injury due to trauma, sequela S09.90XS [facility] [address] [address] May, [facility] [address] [place] [address] 90406- 6330 May, [facility] [address] [place] [address] 69212- 4266 Apr, [facility] [address] [place] [address] 14030- 7096 Apr, [facility] [address] [place] [address] [id number] [place] [address] 72260- 0406 Apr, [facility] [address] [place] [phone] Apr, Head injury due to trauma, sequela S09.90XS [facility] [address] [place] [id number] [place] [address] 81107- 6596 Mar, [facility] [address] [place] [id number] [place] [address] 44748- 7386 Mar, [facility] [address] [id number] [place] [address] 90631- 8372 Mar, [facility] [address] [id number] [place] [address] 87602- 6500 Mar, [facility] [address] [id number] [place] [address] 23169- 6471 Mar, Head injury due to trauma, sequela S09.90XS and Reactive depression F32.9 [facility] [address] [id number] [place] [address] 62476- 7376 Feb, Head injury due to trauma, sequela S09.90XS [facility] [address] [place] [id number] [place] [address] 30941- 2776 Feb, [facility] [address] [place] [address] 18699- 2736 Feb, [facility] [address] [place] [address] [phone] Feb, Head injury due to trauma, sequela S09.90XS [facility] [address] [place] [address] 01214- 1352 Feb, [facility] [address] [place] [address] 69711- 8051 Jan, [facility] [address] [id number] [place] [address] 24518- 2532 Jan, [facility] [address] [place] [address] [id number] [place] [address] 00513- 1144 Jan, [facility] [address] [address]- 3716 Jan, Insomnia due to medical condition G47.01 [place] [address] [address]- 4718 December, Right-sided low back pain without sciatica M54.5 [place] [address] [place] [id number] [place] [address] 34682- 8766 December, Head injury due to trauma, initial encounter S09.90XA [place] [address] [place] [id number] [place] [address] 54829- 7173 December, Gastroesophageal reflux disease with esophagitis K21.0 [place] [address] [place] [id number] [place] [address] 78017- 3645 December, Head injury due to trauma, initial encounter S09.90XA and Essential hypertension I10 [place] [address] [place] [id number] [place] [address] 27340- 7483 Jul, Anxiety F41.9 [place] [address] 49203- 2350 Jun, Anxiety F41.9 [place] [address] [place] [id number] [place] [address] 64641- 6456 14 May, 2015 Right-sided low back pain without sciatica M54.5 ; Anxiety F41.9 and History of hypertension Z86.79 [place] [address] [place] [id number] [place] [address] 76489- 5606 12 May, 2015 [place] [address] [place] [id number] [place] [address]- 5045 May, [facility] [address] [facility] [id number] [place] [address] May, [facility] [address] [facility] [id number] [place] [address]- 9552 May, [facility] [id number] [place] [address]- 6837 Apr, [facility] [address] [facility] [id number] [place] [address]- 3823 Apr, [facility] [id number] [place] [address]- 9793 Mar, [facility] [id number] [place] [address]- 5157 Feb, [facility] [id number] [address]- 8082 Feb, [facility] [id number] [place] [address]- 6614 Jan, Essential hypertension, benign 401.1 and Anxiety state, unspecified 300.00 [facility] [id number] [place] [address]- 2444 Jan, [facility] [address] [place] [id number] [address]- 6145 December, [facility] [address] [place] [id number] [address]- 5346 December, [facility] [address] [place] [address] [id number] [place] [address]- 4017 Nov, [facility] [address] [address]- 7254 Nov, [facility] [address] [place] [id number] [place] [address]- 1791 Oct, [facility] [place] [id number] [place] [address]- 0037 Oct, [facility] [place] [facility] [address] [id number] [place] [address]- 7231 Sep, [facility] [place] [facility] [address] [id number] [place] [address]- 7616 Sep, [facility] [place] [facility] [address] [facility] [place] [id number] [place] [address]- 3829 Sep, [facility] [place] [facility] [address] [id number] [place] [address]- 3036 Sep, [facility] [place] [facility] [address] [facility] [place] [place] [id number] [place] 6814 Sep, [facility] [place] [facility] [address] [facility] [place] [place] [id number] [place] [address]- 0669 Aug, [facility] [place] [facility] [address] [facility] [place] [place] [id number] [place] [address]- 4736 Aug, [facility] [place] [facility] [address] [facility] [place] [place] [id number] [place] [address]- 3950 Aug, [facility] [place] [facility] [address] [facility] [place] [place] [id number] [place] [address]- 4854 Aug, [facility] [place] [facility] [address] [facility] [id number] [place]- 8477 Jul, [facility] [place] [facility] [address] [facility] [id number] [place] [address]- 6530 Jul, [facility] [place] [facility] [address] [facility] [id number] [place] [address]- 2671 Jun, [facility] [place] [facility] [address] [facility] [id number] [place] [address]- 7104 Jun, [facility] [place] [facility] [address] [facility] [id number] [place] [address]- 5224 May, [facility] [place] [facility] [address] [facility] [id number] [place]- 3116 May, [facility] [place] [facility] [address] [id number] [place] [address]- 6329 Apr, [facility] [place] [facility] [address] [id number] [place] [address]- 5730 Apr, [facility] [place] [facility] [address] [id number] [place] [address]- 5916 Mar, [facility] [place] [facility] [address] [id number] [place] [address]- 6337 Mar, [facility] [place] [facility] [address] [id number] [place] [address]- 2094 Feb, [facility] [place] [facility] [address] [id number] [place] [address]- 8744 Feb, [facility] [place] [facility] [address] [id number] [place] [address]- 6707 Jan, [facility] [place] [facility] [address] [id number] [place] [address]- 2989 Jan, [facility] [place] [facility] [address] [id number] [place] [address]- 1519 December, [facility] [place] [facility] [address] [id number] [place] [address]- 4897 December, [facility] [place] [facility] [address] [id number] [place] [address]- 5760 December, [facility] [place] [facility] [address] [id number] [place] [address]- 2767 December, [facility] [place] [facility] [address] [id number] [place] [address]- 9947 December, [facility] [place] [facility] [address] [id number] [place] [address]- 4940 December, [facility] [place] [facility] [address] [id number] [place] [address]- 3702 Nov, [facility] [place] [facility] [address] [id number] [place] [address]- 1311 24 Nov, 2013 [facility] [place] [facility] [address] [id number] [place] [address]- 0261 07 Nov, 2013 [facility] [place] [facility] [address] [id number] [place] [address]- 8640 07 Nov, 2013 [facility] [place] [facility] [address] [id number] [place] [address]- 3399 20 Oct, 2013 [facility] [place] [facility] [address] [id number] [place] [address]- 8769 Oct, [facility] [place] [facility] [address] [id number] [place] [address]- 9985 Oct, [facility] [place] [facility] [address] [id number] [place] [address]- 7164 Oct, [facility] [place] [facility] [address] [id number] [place] [address]- 7815 Oct, [facility] [place] [facility] [address] [id number] [place] [address]- 6135 Oct, [facility] [place] [facility] [address] [id number] [place] [address]- 9806 18 Oct, 2013 [facility] [place] [facility] [address] [id number] [place] [address]- 1754 18 Oct, 2013 [facility] [place] [facility] [address] [id number] [place] [address]- 1045 Oct, [facility] [place] [facility] [address] [id number] [place] [address]- 2705 Oct, [facility] [place] [facility] [address] [id number] [place] [address]- 6624 Oct, [facility] [place] [facility] [address] [id number] [place] [address]- 9922 Oct, [facility] [place] [facility] [address] [id number] [place] [address]- 5620 Sep, [facility] [place] [facility] [address] [facility] [id number] [place] [address]- 0967 Sep, [facility] [address] [facility] [id number] [place] [address] 5445 Sep, IMMUNIZATIONS No Known Immunizations SOCIAL HISTORY Never Assessed REASON FOR VISIT Routine visit PLAN OF CARE Activity Details Follow Up prn Reason: VITAL SIGNS MEDICATIONS Unknown Medications RESULTS No Results PROCEDURES Procedure Date Ordered Result Body Site Minor complication (15 mins) March 01, 2018 INSTRUCTIONS MEDICATIONS ADMINISTERED No Known Medications MEDICAL (GENERAL) HISTORY Type Description Date Medical History HYPERTENSION Medical History ANXIETY Medical History ACID REFLUX Surgical History C SECTION 2003 Surgical History cholecystectomy 2003 Surgical History LEFT KNEE SURGERY Hospitalization History New onset seizures--[facility] 02/29/16
--- OUTSIDE RECORDS SUMMARY | 2018-05-29 10:11 | XMS REPORT ---
Author Author WILTON ANDERSON [facility] Address [address] [place] [address] Care Team Providers Care Hazardous Waste Technician Name Role Phone WILTON ANDERSON Unavailable PROBLEMS Type Condition ICD9-CM Code BCS15-NB Code Onset Dates Condition Status SNOMED Code Problem Anxiety F41.9 Active 35880415 Problem Reactive depression F32.9 Active 77513539 Problem Head injury due to trauma, sequela S09.90XS Active 05592489 Problem History of hypertension Z86.79 Active 008448663 Problem Right-sided low back pain without sciatica M54.5 Active 198349621 Problem Chronic kidney disease, unspecified CKD stage N18.9 Active 379467373 Problem Dysphagia, unspecified type R13.10 Active 91352582 Problem Inappropriate social behavior F99 Active 267883263 Problem Hemiplegia, unspecified affecting left dominant side G81.92 Active 915389516 Problem Poor appetite R63.0 Active 87728104 Problem History of brain shunt Z98.2 Active 781563843 ALLERGIES No Information ENCOUNTERS Encounter Location Date Diagnosis [place] [id number] [place] [address] 81848- 0828 Mar, [place] [id number] [place] [address] 31409- 8585 Feb, Seizure after head injury R56.1 and Chronic kidney disease, unspecified CKD stage N18.9 [facility] [id number] [place] [address] 17170- 1847 December, [place] [id number] [place] [address] 97066- 4141 December, [place] [id number] [place] [address] 48332- 8401 December, [place] [address] [id number] [address] 2546 December, Physically aggressive behavior R46.89 [facility] [address] [place] [address] [id number] December, [facility] [address] [id number] [address] 2546 December, [facility] [address] [id number] [address] 2546 Nov, [facility] [address] [place] [address] [id number] Oct, Head injury due to trauma, sequela S09.90XS [facility] [place] [id number] [place] [address] [id number] Sep, [facility] [place] [id number] [id number] Aug, [facility] [address] [id number] [address] 2546 Aug, [facility] [address] [place] [address] [id number] Aug, Tremor R25.1 ; Head injury due to trauma, sequela S09.90XS and Dysphagia, unspecified type R13.10 [facility] [address] [place] [address] [id number] Aug, Tremor R25.1 ; Poor appetite R63.0 and Acute renal failure with tubular necrosis N17.0 [facility] [place] [address] [id number] [id number] Aug, [facility] [place] [address] [id number] [id number] Aug, [facility] [address] [place] [address] [id number] Aug, Urinary tract infection without hematuria, site unspecified N39.0 and Acute renal failure, unspecified acute renal failure type N17.9 [facility] [place] [address] [id number] [id number] Jul, [facility] [place] [address] [id number] [id number] Jul, [facility] [address] [facility] [id number], [place] [address] 4136 Jul, [facility] [address] [facility] [id number], [place] [address]- 2546 Jun, [facility] [address] [id number] [id number] Jun, [facility] [address] [id number] [id number] May, [facility] [address]00565[address], [place] [address]- 6001 May, [facility] [address] [id number], [place] [address]- 2402 Apr, [facility] [address] [place] [address] [id number] Mar, Head injury due to trauma, sequela S09.90XS and Reactive depression F32.9 [facility] [address] [id number] 9277 Mar, [facility] [address] [id number] [id number] Mar, [facility] [address] [id number], [place] [address]- 3906 Mar, [facility] [address] [id number] Feb, Inappropriate social behavior F99 and Head injury due to trauma, sequela S09.90XS [facility] [place] [facility] [address] [id number][place] [id number] Feb, [facility] [address] [id number][place] [id number] Feb, [facility] [address] [id number], [place] [address]- 0046 Jan, [facility] [address]65[address], [place] [address]- 4538 Jan, [facility] [address]00565100[place], [place] [address]- 5281 Jan, [facility] [id number] [place] [address] 19260- 4084 December, [facility] [address]00565[address], [place] [address]- 5551 December, Physically aggressive behavior R46.89 [facility] [address] [place] [address] [id number] December, Ingrowing toenail with infection L60.0 ; Physically aggressive behavior R46.89 and Head injury due to trauma, sequela S09.90XS [facility] [address] [place] [address] 04239- 1384 December, Depressive disorder, not elsewhere classified F32.9 and Dementia due to general medical condition, without behavioral disturbance F02.80 [facility] [address] [place] [id number] December, Ingrowing toenail with infection L60.0 and Head injury due to trauma, sequela S09.90XS [facility] [address] [place] [address] 39682- 1091 Nov, [facility] [address] [place] [address] 88670- 6554 Nov, Physically aggressive behavior R46.89 ; Head injury due to trauma, sequela S09.90XS and History of brain shunt Z98.2 [facility] [address]00565[address], [place] [address]- 9044 Nov, [facility] [address] [place] [address] 06569- 3604 Nov, [facility] [address]65[address], [place] [address]- 1492 Nov, Inappropriate social behavior F99 [facility] [place] [id number] [place] [address] [id number] Nov, [facility] [place] [id number] [address] Nov, Gastroesophageal reflux disease with esophagitis K21.0 [facility] [address], [place] [address]- 9466 Oct, [facility] [address] [place] [id number] Oct, Head injury due to trauma, sequela S09.90XS and Hemiplegia, unspecified affecting left dominant side G81.92 [facility] [place] [address] [id number] [id number] Sep, [facility] [address] [place] [address] 815805- 4596 Aug, [facility] [address] [place] [id number] Aug, Head injury due to trauma, sequela S09.90XS and Hemiplegia, unspecified affecting left dominant side G81.92 [facility] [address], [place] [address]- 7989 Jul, [facility] [id number] [place] [address] 59076- 8153 Jun, [facility] [address] [place] [id number] Jun, Head injury due to trauma, sequela S09.90XS [facility] [address], [place] [address]- 7891 Jun, [facility] [address], [place] [address]- 8386 May, [facility] [address] [place] [address] [id number] May, Head injury due to trauma, sequela S09.90XS [facility] [address]- 7466 May, [facility] [id number] [place] [address] 64676- 2672 May, [facility] [address] [facility] [id number], [place] [address]- 7116 Apr, [facility] [address] [facility] [id number], [place] [address]- 6576 Apr, [facility] [id number], [place] [address]- 4156 Apr, [facility] [address] [place] [id number] Apr, Head injury due to trauma, sequela S09.90XS [facility] [id number] [place] [address] 87288- 5376 Mar, [facility] [id number] [place] [address] 28774- 0469 Mar, [facility] [id number] [place] [address] 27457- 6084 Mar, [facility] [address] [facility] [id number], [place] [address]- 5716 Mar, [facility] [id number] [place] [address] 81897- 7300 Mar, Head injury due to trauma, sequela S09.90XS and Reactive depression F32.9 [facility] [id number], [place] [address]- 5616 Feb, Head injury due to trauma, sequela S09.90XS [facility] [address] [facility] [id number], [place] [address]- 7406 Feb, [facility] [address] [facility] [id number], [place] [address]- 1130 Feb, [facility] [address] [place] [address] [id number] Feb, Head injury due to trauma, sequela S09.90XS [facility] [id number], [place] [address]- 0676 Feb, [facility] [id number] [place] [address] 52236- 6862 Jan, [facility] [address] 54637- 1662 Jan, [facility] [id number] [place] [address] 78258- 3567 Jan, [facility] [address] 57655- 4096 Jan, Insomnia due to medical condition G47.01 [facility] [address] 74824- 8817 December, Right-sided low back pain without sciatica M54.5 [facility] [address] 82655- 4171 December, Head injury due to trauma, initial encounter S09.90XA [place] [address] 98755- 7120 December, Gastroesophageal reflux disease with esophagitis K21.0 [place] [address] 11283- 7733 December, Head injury due to trauma, initial encounter S09.90XA and Essential hypertension I10 [place] [address] 92053- 1450 Jul, Anxiety F41.9 [place] [address] 68566- 1248 Jun, Anxiety F41.9 [facility] [address] 01130- 2127 14 May, 2015 Right-sided low back pain without sciatica M54.5 ; Anxiety F41.9 and History of hypertension Z86.79 [facility] [address] 32477- 4732 12 May, 2015 [facility] [address] [place] [address]- 3096 May, [facility] [id number]- 4971 May, [facility] [address] [facility] [id number] [place] [address]- 1910 May, [facility] [id number], [place] [address]- 9639 Apr, [facility] [address] [facility] [id number], [place] [address]- 4520 Apr, [facility] [address] [place] [address]- 1357 Mar, [facility] [address], [place] [address]- 0363 Feb, [facility] [address], [place] [address]- 2841 Feb, [facility] [address], [place] [address]- 1599 Jan, Essential hypertension, benign 401.1 and Anxiety state, unspecified 300.00 [facility] [address], [place] [address]- 4588 Jan, [facility] [id number], [place] [address]- 3002 December, [facility] [address], [place] [address]- 6194 December, [facility] [id number], [place] [address]- 3342 Nov, [facility] [address], [place] [address]- 7371 Nov, [facility] [id number], [place] [address]- 3168 Oct, [facility] [address], [place] [address]- 6876 Oct, [facility] [place] [facility] [address] [id number] [place] [address]- 4824 Sep, [facility] [place] [facility] [address] [id number] [place] [address]- 2026 Sep, [facility] [place] [facility] [address] [id number] [place] [address]- 9636 Sep, [facility] [place] [facility] [address] [id number] [place]- 4249 Sep, [facility] [place] [facility] [address] [id number] [place]- 6687 Sep, [facility] [place] [facility] [address] [facility] [id number] [place] [address]- 2953 Aug, [facility] [place] [facility] [address] [facility] [id number] [place] [address]- 5922 Aug, [facility] [place] [facility] [address] [facility] [id number] [place] [address]- 2347 Aug, [facility] [place] [facility] [address] [facility] [id number] [place] [address]- 6375 Aug, [facility] [place] [facility] [address] [facility] [id number] [place] [address]- 2163 Jul, [facility] [place] [facility] [address] [facility] [id number] [place]- 8784 Jul, [facility] [place] [facility] [address] [facility] [id number] [place] [address]- 3119 Jun, [facility] [place] [facility] [address] [id number] [place] [address]- 5015 Jun, [facility] [place] [facility] [address] [facility] [id number] [place]- 9471 May, [facility] [place] [facility] [address] [facility] [id number] [place] 6411 May, [facility] [place] [facility] [address] [id number] [place] [address]- 3402 Apr, [facility] [place] [facility] [address] [id number] [place] [address]- 8096 Apr, [facility] [place] [facility] [address] [id number] [place] [address]- 6098 Mar, [facility] [place] [facility] [address] [id number] [place] [address]- 0696 Mar, [facility] [place] [facility] [address] [id number] [place] [address]- 5026 Feb, [facility] [place] [facility] [address] [id number] [place] [address]- 5652 Feb, [facility] [place] [facility] [address] [id number] [place] [address]- 3062 Jan, [facility] [place] [facility] [address] [id number] [place] [address]- 4258 Jan, [facility] [place] [facility] [address] [id number] [place] [address]- 9566 December, [facility] [place] [facility] [address] [id number] [place] [address]- 5705 December, [facility] [place] [facility] [address] [id number] [place] [address]- 9709 December, [facility] [place] [facility] [address] [id number] [place] [address]- 8033 December, [facility] [place] [facility] [address] [id number] [place] [address]- 9203 December, [facility] [place] [facility] [address] [id number] [place] [address]- 4980 December, [facility] [place] [facility] [address] [id number] [place] [address]- 3274 Nov, [facility] [place] [facility] [address] [id number] [place] [address]- 0704 24 Nov, 2013 [facility] [place] [facility] [address] [id number] [place] [address]- 0608 Nov, [facility] [place] [facility] [address] [id number] [place] [address]- 5786 07 Nov, 2013 [facility] [place] [facility] [address] [id number] [place] [address]- 1278 Oct, [facility] [place] [facility] [address] [id number] [place] [address]- 0259 Oct, [facility] [place] [facility] [address] [id number] [place] [address]- 6805 Oct, [facility] [place] [facility] [address] [id number] [place] [address]- 6828 Oct, [facility] [place] [facility] [address] [id number] [place] [address]- 2237 Oct, [facility] [place] [facility] [address] [id number] [place] [address]- 3533 Oct, [facility] [place] [facility] [address] [id number] [place] [address]- 8261 Oct, [facility] [place] [facility] [address] [id number] [place] [address]- 7423 Oct, [facility] [place] [facility] [address] [id number] [place] [address]- 9568 Oct, [facility] [place] [facility] [address] [id number] [place] [address]- 4816 Oct, [facility] [place] [facility] [address] [id number] [place] [address]- 8635 Oct, [facility] [place] [facility] [address] [id number] [place] [address]- 6446 Oct, [facility] [place] [facility] [address] [id number] [place] [address]- 7782 Sep, [facility] [place] [facility] [address] [facility] [id number] [place] [address]- 6784 Sep, [facility] [address] [facility] [id number] [place] [address]- 0185 Sep, IMMUNIZATIONS No Known Immunizations SOCIAL HISTORY Never Assessed REASON FOR VISIT Routine Visit PLAN OF CARE Activity Details Follow Up 2 Months Reason: VITAL SIGNS MEDICATIONS Medication Instructions Dosage Frequency Start Date End Date Duration Status Menthol-Zinc Oxide 0.44-20 % Externally 2 times a day apply to buttocks 12h Active Metoprolol Tartrate 50 MG Orally Twice a day 1 tablet with food 12h Active Zofran ODT 8 MG Orally every 4 hours as needed 1 tablet Active Refresh Tears 0.5 % Ophthalmic 3 times a day 1 drop into both eyes 8h Active Cholestyramine 4 GM Orally Twice a day 1 packet mixed with water or non- carbonated drink 12h Active Bisacodyl 10 MG Rectal Once a day 1 suppository as needed 24h Active Triple Antibiotic Plus 1 % topically 2 times a day left big toe Active Melatonin 3 MG Orally Once a day at HS 1 tablet at bedtime as needed with food Jan, Active Risperdal 1 MG Orally twice a day 1 tablet at hs for 7 days the 1 tab 12h Nov, 30 day(s) Active Heparin Combination 5000 8h Active Depakote 500 mg Orally 2 times a day as directed 12h Nov, Active Levsin/SL 0.125 MG Sublingual every 4 hrs 1-2 tablet under the tongue and allow to dissolve before meals as needed 4h Active Citalopram Hydrobromide 40 MG 1 TABLET ONCE A DAY ORALLY Active MiraLax - Orally Once a day as directed 24h Jun, Active Ipratropium [place] 0.02 % Inhalation every 6 hours as needed Active Keppra 500 MG Orally every 12 hrs 1 tablet 12h Mar, 90 days Active Phenytoin Sodium Extended 100 MG Orally 2 times a day (#180) 3 capsule Feb, Active Milk of Magnesia Concentrate 2400 MG/10ML Orally Once a day for constipation 10 ml Active Nuedexta 20-10 MG Orally every 12 hrs 1 capsule 12h Nov, 30 day (s) Active Amantadine HCl 50 MG/5ML Orally Twice a day 10 ml 12h Active Jevity 1.5 Gaudencio Orally every 4 hours as needed flush with 50 ml of H2O six times a day Active Albuterol Sulfate (2.5 MG/3ML) 0.083% Inhalation Three times a day 3 ml 8h Active Tramadol HCl 50 mg Orally 2 times a day 1 tablet 12h 30 Aug, 2016 28 days Active RESULTS No Results PROCEDURES Procedure Date Ordered Result Body Site Minor complication (15 mins) December 05, 2016 INSTRUCTIONS MEDICATIONS ADMINISTERED No Known Medications MEDICAL (GENERAL) HISTORY Type Description Date Medical History HYPERTENSION Medical History ANXIETY Medical History ACID REFLUX Surgical History C SECTION 2003 Surgical History cholecystectomy 2003 Surgical History LEFT KNEE SURGERY Hospitalization History New onset seizures--[facility] 02/29/16
--- OUTSIDE RECORDS SUMMARY | 2018-05-29 10:12 | XMS REPORT ---
Author Author MAYNOR KINCAID Organization [facility] Address [address] [place] [address] Care Team Providers Care Chief Deputy Court Clerk Name Role Phone MAYNOR KINCAID Unavailable PROBLEMS Type Condition ICD9-CM Code LSJ81-QT Code Onset Dates Condition Status SNOMED Code Problem Anxiety F41.9 Active 57232265 Problem Reactive depression F32.9 Active 93311387 Problem Head injury due to trauma, sequela S09.90XS Active 65040665 Problem History of hypertension Z86.79 Active 700667071 Problem Right-sided low back pain without sciatica M54.5 Active 798290763 Problem Chronic kidney disease, unspecified CKD stage N18.9 Active 198357878 Problem Dysphagia, unspecified type R13.10 Active 20021170 Problem Inappropriate social behavior F99 Active 161803831 Problem Hemiplegia, unspecified affecting left dominant side G81.92 Active 240489692 Problem Poor appetite R63.0 Active 20027304 Problem History of brain shunt Z98.2 Active 698828061 ALLERGIES No Information ENCOUNTERS Encounter Location Date Diagnosis [place] [address] [address] Mar, [facility] [id number] [place] [address]- 4884 Feb, Seizure after head injury R56.1 and Chronic kidney disease, unspecified CKD stage N18.9 [facility] [id number] [place] [address] 86962- 1163 December, [place] [address] [place] [address] [id number] [place] [address] 38399- 9618 December, [place] [id number] [place] [address] 63993- 6083 December, [place] [address] [id number] [address] 2546 December, Physically aggressive behavior R46.89 [facility] [address] [place] [address] [id number] December, [facility] [address], [place] [address] 2546 December, [facility] [id number] [address] 2546 Nov, [facility] [address] [place] [address] [id number] Oct, Head injury due to trauma, sequela S09.90XS [facility] [id number] [place] [address] [id number] Sep, [facility] [address] [id number] [id number] Aug, [facility] [id number] [address] 2546 Aug, [facility] [address] [place] [address] [id number] Aug, Tremor R25.1 ; Head injury due to trauma, sequela S09.90XS and Dysphagia, unspecified type R13.10 [facility] [address] [place] [address] [id number] Aug, Tremor R25.1 ; Poor appetite R63.0 and Acute renal failure with tubular necrosis N17.0 [facility] [id number] [id number] Aug, [facility] [id number] [id number] Aug, [facility] [address] [place] [address] [id number] Aug, Urinary tract infection without hematuria, site unspecified N39.0 and Acute renal failure, unspecified acute renal failure type N17.9 [facility] [id number] [id number] Jul, [facility] [address] [id number] [id number] Jul, [facility] [address] [facility] [id number], [place] [address] Jul, [facility] [address] [facility] [id number], [place] [address] 7846 Jun, [facility] [address] [id number] [id number] Jun, [facility] [address] [id number] [id number] May, [facility] [id number] [address] 54[address] May, [facility] [id number] [address] Apr, [facility] [address] [place] [address] [id number] Mar, Head injury due to trauma, sequela S09.90XS and Reactive depression F32.9 [facility] [id number] [address] 6[address] Mar, [facility] [address] [id number] [id number] Mar, [facility] [id number] [address]- 2764 Mar, [facility] [address] [place] [address] [id number] Feb, Inappropriate social behavior F99 and Head injury due to trauma, sequela S09.90XS [facility] [address] [id number] [id number] Feb, [facility] [address] [id number] [id number] Feb, [facility] [id number], [place] [address]- 9986 Jan, [facility] [address], [place] [address] 3144 Jan, [facility] [id number] [place] [address] 51795- 8069 Jan, [facility] [id number] [place] [address] 88551- 2130 December, [facility] [address] [place] [address] 36734- 8308 December, Physically aggressive behavior R46.89 [facility] [address] [place] [id number] December, Ingrowing toenail with infection L60.0 ; Physically aggressive behavior R46.89 and Head injury due to trauma, sequela S09.90XS [facility] [address] [place] [address] 02629- 3579 December, Depressive disorder, not elsewhere classified F32.9 and Dementia due to general medical condition, without behavioral disturbance F02.80 [facility] [address] [place] [id number] December, Ingrowing toenail with infection L60.0 and Head injury due to trauma, sequela S09.90XS [facility] [address] [place] [address] 12880- 1450 Nov, [facility] [address] [place] [address] 67398- 2971 Nov, Physically aggressive behavior R46.89 ; Head injury due to trauma, sequela S09.90XS and History of brain shunt Z98.2 [facility] [address], [place] [address]- 1714 Nov, [facility] [id number] [place] [address] 27234- 1927 Nov, [facility] [id number] [place] [address] 29030- 7509 Nov, Inappropriate social behavior F99 [facility] [address] [id number] Nov, [facility] [id number][place] [id number] Nov, Gastroesophageal reflux disease with esophagitis K21.0 [facility] [address], [place] [address]- 4[address] Oct, [facility] [address] [place] [id number] Oct, Head injury due to trauma, sequela S09.90XS and Hemiplegia, unspecified affecting left dominant side G81.92 [facility] [id number], [place] [id number] Sep, [facility] [address], [place] [address]- 57[address] Aug, [facility] [address] [place] [id number] Aug, Head injury due to trauma, sequela S09.90XS and Hemiplegia, unspecified affecting left dominant side G81.92 [facility] [address], [place] [address]- 7041 Jul, [facility] [address], [place] [address]- 7058 Jun, [facility] [address] [place] [id number] Jun, Head injury due to trauma, sequela S09.90XS [facility] [address] [address]26 Jun, [facility] [id number] [address]- [address]33 May, [facility] [address] [place] [address] [phone] May, Head injury due to trauma, sequela S09.90XS [facility] [address]- 8676 May, [facility] [id number] [place] [address] 00987- 5202 May, [facility] [id number] [place] [address] 73313- 7356 Apr, [facility] [id number] [place] [address] 32380- 1376 Apr, [facility] [id number] [place] [address] 61353- 9256 Apr, [facility] [address] [place] [id number] Apr, Head injury due to trauma, sequela S09.90XS [facility] [id number] [place] [address] 24381- 8746 Mar, [facility] [id number] [place] [address] 63249- 9486 Mar, [facility] [id number] [place] [address] 54381- 7621 Mar, [facility] [id number] [place] [address] 78364- 3571 Mar, [facility] [id number] [place] [address] 50567- 0008 Mar, Head injury due to trauma, sequela S09.90XS and Reactive depression F32.9 [facility] [id number] [place] [address] 92370- 4016 Feb, Head injury due to trauma, sequela S09.90XS [facility] [id number] [place] [address] 24931- 9456 Feb, [facility] [address] [place] [address] 01318- 4456 Feb, [facility] [address] [place] [address] [id number] Feb, Head injury due to trauma, sequela S09.90XS [facility] [id number] [place] [address] 07596- 2300 Feb, [facility] [id number] [place] [address] 98767- 8695 Jan, [facility] [id number] [place] [address] 52813- 8709 Jan, [facility] [id number] [place] [address] 04746- 3426 Jan, [facility] [address] 7[address]68- 1421 Jan, Insomnia due to medical condition G47.01 [place] [address] 99047- 0246 December, Right-sided low back pain without sciatica M54.5 [place] [address] [id number] [place] [address] 12455- 2871 December, Head injury due to trauma, initial encounter S09.90XA [place] [id number] [place] [address] 30288- 5237 December, Gastroesophageal reflux disease with esophagitis K21.0 [place] [id number] [place] [address] 46311- 6739 December, Head injury due to trauma, initial encounter S09.90XA and Essential hypertension I10 [place] [address] [id number] [place] [address] 81625- 7478 Jul, Anxiety F41.9 [place] [address] 48284- 6827 Jun, Anxiety F41.9 [place] [address] [address] [id number] [place] [address] 14636- 4747 14 May, 2015 Right-sided low back pain without sciatica M54.5 ; Anxiety F41.9 and History of hypertension Z86.79 [place] [id number] [place] [address] 46107- 6626 12 May, 2015 [place] [address] [place] [address] [id number] [place] [address]- 8435 May, [facility] [address] [facility] [id number] [place] [address] May, [facility] [address] [facility] [id number] [place] [address]- 2739 May, [facility] [address] [address]- 4798 Apr, [facility] [address] [facility] [id number] [place] [address]- 1121 Apr, [facility] [address] [address]- 4113 Mar, [facility] [address] [address]- 3397 Feb, [facility] [address] [address]- 6565 Feb, [facility] [address] [address]- 1775 Jan, Essential hypertension, benign 401.1 and Anxiety state, unspecified 300.00 [facility] [address] [address]- 9769 Jan, [facility] [id number] [address]- 3865 December, [facility] [id number] [address]- 5229 December, [facility] [id number] [address]- 1409 Nov, [facility] [address] [address]- 2289 Nov, [facility] [id number] [address]- 5740 Oct, [facility] [address] [address]- 8605 Oct, [facility] [place] [facility] [address] [id number] [place] [address]- 6878 Sep, [facility] [place] [facility] [address] [id number] [place] [address]- 4036 Sep, [facility] [place] [facility] [address] [facility] [id number] [place] [address]- 0325 Sep, [facility] [place] [facility] [address] [id number] [place] [address]- 4294 Sep, [facility] [place] [facility] [address] [facility] [id number] [place] 8995 Sep, [facility] [place] [facility] [address] [facility] [id number] [place] [address]- 5266 Aug, [facility] [place] [facility] [address] [facility] [id number] [place] [address]- 2346 Aug, [facility] [place] [facility] [address] [facility] [id number] [place] [address]- 4323 Aug, [facility] [place] [facility] [address] [facility] [id number] [place] [address]- 5267 Aug, [facility] [place] [facility] [address] [facility] [id number] [place] 7852 Jul, [facility] [place] [facility] [address] [facility] [id number] [place] [address]- 3759 Jul, [facility] [place] [facility] [address] [facility] [id number] [place] [address]- 8704 Jun, [facility] [place] [facility] [address] [facility] [id number] [place] [address]- 1158 Jun, [facility] [place] [facility] [address] [facility] [id number] [place] [address]- 9865 May, [facility] [place] [facility] [address] [facility] [id number] [place] 4527 May, [facility] [place] [facility] [address] [id number] [place] [address]- 8023 Apr, [facility] [place] [facility] [address] [id number] [place] [address]- 6256 Apr, [facility] [place] [facility] [address] [id number] [place] [address]- 8145 Mar, [facility] [place] [facility] [address] [id number] [place] [address]- 7359 Mar, [facility] [place] [facility] [address] [id number] [place] [address]- 0993 Feb, [facility] [place] [facility] [address] [id number] [place] [address]- 7091 Feb, [facility] [place] [facility] [address] [id number] [place] [address]- 3074 Jan, [facility] [place] [facility] [address] [id number] [place] [address]- 0595 Jan, [facility] [place] [facility] [address] [id number] [place] [address]- 5820 December, [facility] [place] [facility] [address] [id number] [place] [address]- 3075 December, [facility] [place] [facility] [address] [id number] [place] [address]- 7435 December, [facility] [place] [facility] [address] [id number] [place] [address]- 5102 December, [facility] [place] [facility] [address] [id number] [place] [address]- 4290 December, [facility] [place] [facility] [address] [id number] [place] [address]- 3760 December, [facility] [place] [facility] [address] [id number] [place] [address]- 3358 Nov, [facility] [place] [facility] [address] [id number], [place] [address]- 3678 24 Nov, 2013 [facility] [place] [facility] [address] [id number] [place] [address]- 5214 07 Nov, 2013 [facility] [place] [facility] [address] [id number] [place] [address]- 9809 07 Nov, 2013 [facility] [place] [facility] [address] [id number] [place] [address]- 2747 20 Oct, 2013 [facility] [place] [facility] [address] [id number] [place] [address]- 5116 Oct, [facility] [place] [facility] [address] [id number] [place] [address]- 1088 Oct, [facility] [place] [facility] [address] [id number] [place] [address]- 7219 Oct, [facility] [place] [facility] [address] [id number] [place] [address]- 1912 Oct, [facility] [place] [facility] [address] [id number] [place] [address]- 2439 Oct, [facility] [place] [facility] [address] [id number] [place] [address]- 2466 18 Oct, 2013 [facility] [place] [facility] [address] [id number] [place] [address]- 6659 18 Oct, 2013 [facility] [place] [facility] [address] [id number] [place] [address]- 0766 Oct, [facility] [place] [facility] [address] [id number] [place] [address]- 9728 Oct, [facility] [place] [facility] [address] [id number] [place] [address]- 4642 Oct, [facility] [place] [facility] [address] [id number] [place] [address]- 1502 Oct, [facility] [place] [facility] [address] [id number] [place] [address]- 9866 Sep, [facility] [place] [facility] [address] [facility] [id number] [place] [address] 4505 Sep, [facility] [address] [facility] [id number], [place] [address]- 1423 Sep, IMMUNIZATIONS No Known Immunizations SOCIAL HISTORY Never Assessed REASON FOR VISIT decrease Keppra per Pharmacy PLAN OF CARE VITAL SIGNS MEDICATIONS Medication Instructions Dosage Frequency Start Date End Date Duration Status Keppra 750 MG Orally Twice a day 1 tablet 12h December, Active RESULTS No Results PROCEDURES No Known procedures INSTRUCTIONS MEDICATIONS ADMINISTERED No Known Medications MEDICAL (GENERAL) HISTORY Type Description Date Medical History HYPERTENSION Medical History ANXIETY Medical History ACID REFLUX Surgical History C SECTION 2003 Surgical History cholecystectomy 2003 Surgical History LEFT KNEE SURGERY Hospitalization History New onset seizures--[facility] 02/29/16
--- OUTSIDE RECORDS SUMMARY | 2018-05-29 10:12 | XMS REPORT ---
Author Author WILTON ANDERSON [facility] Address [address] [place] [address] Care Team Providers Care Corrosion Engineer Name Role Phone WILTON ANDERSON Unavailable PROBLEMS Type Condition ICD9-CM Code SCT42-LB Code Onset Dates Condition Status SNOMED Code Problem Anxiety F41.9 Active 31922104 Problem Reactive depression F32.9 Active 46984241 Problem Head injury due to trauma, sequela S09.90XS Active 83216086 Problem History of hypertension Z86.79 Active 645696387 Problem Right-sided low back pain without sciatica M54.5 Active 231872284 Problem Chronic kidney disease, unspecified CKD stage N18.9 Active 393388769 Problem Dysphagia, unspecified type R13.10 Active 81658221 Problem Inappropriate social behavior F99 Active 916157779 Problem Hemiplegia, unspecified affecting left dominant side G81.92 Active 682602303 Problem Poor appetite R63.0 Active 10577232 Problem History of brain shunt Z98.2 Active 407560603 ALLERGIES No Information ENCOUNTERS Encounter Location Date Diagnosis [place] [id number] [place] [address]23- 4781 Mar, [place] [id number] [place] [address] 03982- 6619 Feb, Seizure after head injury R56.1 and Chronic kidney disease, unspecified CKD stage N18.9 [facility] [id number] [place] [address] 31049- 3538 December, [place] [id number] [place] [address] 52691- 0864 December, [place] [id number] [place] [address] 31889- 7233 December, [place] [id number] [address] 2546 December, Physically aggressive behavior R46.89 [facility] [address] [place] [address] [phone] December, [facility] [id number] [address] 2546 December, [facility] [address] [id number] [address] 2546 Nov, [facility] [address] [place] [address] [phone] Oct, Head injury due to trauma, sequela S09.90XS [facility] [place] [id number] [place] [address] [id number] Sep, [facility] [place] [id number] [id number] Aug, [facility] [address] [id number] [address] 2546 Aug, [facility] [address] [place] [address] [id number] Aug, Tremor R25.1 ; Head injury due to trauma, sequela S09.90XS and Dysphagia, unspecified type R13.10 [facility] [address] [place] [address] [phone] Aug, Tremor R25.1 ; Poor appetite R63.0 and Acute renal failure with tubular necrosis N17.0 [facility] [place] [address] [id number] [id number] Aug, [facility] [place] [address] [id number] [id number] Aug, [facility] [address] [place] [address] [phone] Aug, Urinary tract infection without hematuria, site unspecified N39.0 and Acute renal failure, unspecified acute renal failure type N17.9 [facility] [place] [address] [id number] [id number] Jul, [facility] [place] [address] [id number] [id number] Jul, [facility] [address] [facility] [id number] [address] 3766 Jul, [facility] [address] [facility] [id number] [address]- 2546 Jun, [facility] [address] [id number] [id number] Jun, [facility] [address] [id number] [id number] May, [facility] [address] [address]- 7980 May, [facility] [address] [id number] [address]- 9375 Apr, [facility] [address] [place] [address] [id number] Mar, Head injury due to trauma, sequela S09.90XS and Reactive depression F32.9 [facility] [address] [id number] 3[address] Mar, [facility] [address] [id number] [id number] Mar, [facility] [address] [id number] [address]- 4276 Mar, [facility] [address] [place] [id number] Feb, Inappropriate social behavior F99 and Head injury due to trauma, sequela S09.90XS [facility] [place] [facility] [address] [id number] [place] [id number] Feb, [facility] [address] [id number] [id number] Feb, [facility] [id number] [address]- 7926 Jan, [facility] [id number] [address]- 4089 Jan, [facility] [id number] [address]- 5090 Jan, [facility] [id number] [place] [address] 94434- 6998 December, [facility] [address]65100[place] [address]- 7620 December, Physically aggressive behavior R46.89 [facility] [address] [place] [address] [phone] December, Ingrowing toenail with infection L60.0 ; Physically aggressive behavior R46.89 and Head injury due to trauma, sequela S09.90XS [facility] [id number] [place] [address] 21620- 5253 December, Depressive disorder, not elsewhere classified F32.9 and Dementia due to general medical condition, without behavioral disturbance F02.80 [facility] [address] [place] [id number] December, Ingrowing toenail with infection L60.0 and Head injury due to trauma, sequela S09.90XS [facility] [id number] [place] [address] 53671- 8960 Nov, [facility] [id number] [place] [address] 46088- 4584 Nov, Physically aggressive behavior R46.89 ; Head injury due to trauma, sequela S09.90XS and History of brain shunt Z98.2 [facility] [address]65[address] [address]- 3477 Nov, [facility] [id number] [place] [address] 87042- 6286 Nov, [facility] [address]100[place] [address]- 5713 Nov, Inappropriate social behavior F99 [facility] [place] [id number] [place] [address] [phone] Nov, [facility] [place] [id number] [place] [id number] Nov, Gastroesophageal reflux disease with esophagitis K21.0 [facility] [address]65100[place] [address]- 2576 Oct, [facility] [address] [place] [id number] Oct, Head injury due to trauma, sequela S09.90XS and Hemiplegia, unspecified affecting left dominant side G81.92 [facility] [place] [address] [id number] [id number] Sep, [facility] [id number] [place] [address] 211798- 4126 Aug, [facility] [address] [place] [id number] Aug, Head injury due to trauma, sequela S09.90XS and Hemiplegia, unspecified affecting left dominant side G81.92 [facility] [address] [address]- 3178 Jul, [facility] [id number] [place] [address] 42978- 0263 Jun, [facility] [address] [place] [id number] Jun, Head injury due to trauma, sequela S09.90XS [facility] [address] [address]- 4360 Jun, [facility] [id number] [address]- 7349 May, [facility] [address] [place] [address] [id number] May, Head injury due to trauma, sequela S09.90XS [facility] [address]- 8626 May, [facility] [id number] [place] [address] 58730- 8748 May, [facility] [address] [facility] [id number] [address]- 4256 Apr, [facility] [address] [facility] [id number] [address]- 1926 Apr, [facility] [address] [id number] [address]- 5356 Apr, [facility] [address] [place] [id number] Apr, Head injury due to trauma, sequela S09.90XS [facility] [id number] [place] [address] 12968- 3926 Mar, [facility] [id number] [place] [address] 28062- 6104 Mar, [facility] [id number] [place] [address] 60496- 9422 Mar, [facility] [address] [facility] [id number] [address]- 0220 Mar, [facility] [id number] [place] [address] 46209- 6695 Mar, Head injury due to trauma, sequela S09.90XS and Reactive depression F32.9 [facility] [id number] [address]- 3576 Feb, Head injury due to trauma, sequela S09.90XS [facility] [address] [facility] [id number] [address]- 7976 Feb, [facility] [address] [facility] [id number] [address]- 4370 Feb, [facility] [address] [place] [address] [phone] Feb, Head injury due to trauma, sequela S09.90XS [facility] [address] [id number] [address]- 6806 Feb, [facility] [id number] [place] [address] 27555- 9164 Jan, [facility] [address] 51477- 6805 Jan, [facility] [id number] [place] [address] 47991- 0497 Jan, [facility] [address] 02491- 5418 Jan, Insomnia due to medical condition G47.01 [facility] [address] [address]- 1962 December, Right-sided low back pain without sciatica M54.5 [facility] [address] 93032- 6569 December, Head injury due to trauma, initial encounter S09.90XA [place] [address] 71280- 7322 December, Gastroesophageal reflux disease with esophagitis K21.0 [place] [address] 53952- 7474 December, Head injury due to trauma, initial encounter S09.90XA and Essential hypertension I10 [place] [address] 47811- 3695 Jul, Anxiety F41.9 [place] [address] 51924- 9761 Jun, Anxiety F41.9 [facility] [address] 75250- 9084 14 May, 2015 Right-sided low back pain without sciatica M54.5 ; Anxiety F41.9 and History of hypertension Z86.79 [facility] [address] 82814- 7120 12 May, 2015 [facility] [address] [place] [address]- 1836 May, [facility] [id number]- 3629 May, [facility] [address] [facility] [id number] [place] [address]- 5699 May, [facility] [address] [id number] [address]- 8865 Apr, [facility] [address] [facility] [id number] [place] [address]- 3617 Apr, [facility] [address] [place] [address]- 9088 Mar, [facility] [address] [address]- 6487 Feb, [facility] [address] [address]- 7078 Feb, [facility] [address] [address]- 4941 Jan, Essential hypertension, benign 401.1 and Anxiety state, unspecified 300.00 [facility] [id number] [address]- 3949 Jan, [facility] [address] [id number] [address]- 5525 December, [facility] [id number] [address]- 1994 December, [facility] [address] [id number] [address]- 5868 Nov, [facility] [id number] [address]- 6646 Nov, [facility] [address] [id number] [address]- 0656 Oct, [facility] [address] [address]- 9052 Oct, [facility] [place] [facility] [address] [id number] [place] [address]- 3553 Sep, [facility] [place] [facility] [address] [id number] [place] [address]- 7746 Sep, [facility] [place] [facility] [address] [id number] [place] [address]- 0056 Sep, [facility] [place] [facility] [address] [id number] [place] 3984 Sep, [facility] [place] [facility] [address] [id number] [place] [address]4 Sep, [facility] [place] [facility] [address] [facility] [id number] [place] [address]- 0137 Aug, [facility] [place] [facility] [address] [facility] [id number] [place] [address]- 2729 Aug, [facility] [place] [facility] [address] [facility] [id number] [place] [address]- 2784 Aug, [facility] [place] [facility] [address] [facility] [id number] [place] [address]- 4263 Aug, [facility] [place] [facility] [address] [facility] [id number] [place] [address]- 8431 Jul, [facility] [place] [facility] [address] [facility] [id number] [place] 7834 Jul, [facility] [place] [facility] [address] [facility] [id number] [place] [address]- 8205 Jun, [facility] [place] [facility] [address] [id number] [place] [address]- 2316 Jun, [facility] [place] [facility] [address] [facility] [id number] [place] 7117 May, [facility] [place] [facility] [address] [facility] [id number] [place] 3792 May, [facility] [place] [facility] [address] [id number] [place] [address]- 9280 Apr, [facility] [place] [facility] [address] [id number] [place] [address]- 1960 Apr, [facility] [place] [facility] [address] [id number] [place] [address]- 0607 Mar, [facility] [place] [facility] [address] [id number] [place] [address]- 1694 Mar, [facility] [place] [facility] [address] [id number] [place] [address]- 4233 Feb, [facility] [place] [facility] [address] [id number] [place] [address]- 9172 Feb, [facility] [place] [facility] [address] [id number] [place] [address]- 7785 Jan, [facility] [place] [facility] [address] [id number] [place] [address]- 0954 Jan, [facility] [place] [facility] [address] [id number] [place] [address]- 5366 December, [facility] [place] [facility] [address] [id number] [place] [address]- 9208 December, [facility] [place] [facility] [address] [id number] [place] [address]- 2597 December, [facility] [place] [facility] [address] [id number] [place] [address]- 5579 December, [facility] [place] [facility] [address] [id number] [place] [address]- 6987 December, [facility] [place] [facility] [address] [id number] [place] [address]- 0421 December, [facility] [place] [facility] [address] [id number] [place] [address]- 7942 Nov, [facility] [place] [facility] [address] [id number] [place] [address]- 3352 24 Nov, 2013 [facility] [place] [facility] [address] [id number] [place] [address]- 0240 Nov, [facility] [place] [facility] [address] [id number] [place] [address]- 5726 07 Nov, 2013 [facility] [place] [facility] [address] [id number] [place] [address]- 4580 Oct, [facility] [place] [facility] [address] [id number] [place] [address]- 0460 Oct, [facility] [place] [facility] [address] [id number] [place] [address]- 0787 Oct, [facility] [place] [facility] [address] [id number] [place] [address]- 2842 Oct, [facility] [place] [facility] [address] [id number] [place] [address]- 1503 Oct, [facility] [place] [facility] [address] [id number] [place] [address]- 9831 Oct, [facility] [place] [facility] [address] [id number] [place] [address]- 5998 Oct, [facility] [place] [facility] [address] [id number] [place] [address]- 0964 Oct, [facility] [place] [facility] [address] [id number] [place] [address]- 4694 Oct, [facility] [place] [facility] [address] [id number] [place] [address]- 7978 Oct, [facility] [place] [facility] [address] [id number] [place] [address]- 5909 Oct, [facility] [place] [facility] [address] [id number] [place] [address]- 6244 Oct, [facility] [place] [facility] [address] [id number] [place] [address]- 8675 Sep, [facility] [place] [facility] [address] [facility] [id number] [place] [address]- 5002 Sep, [facility] [place] [facility] [address] [facility] [id number] [place] [address]- 5788 Sep, IMMUNIZATIONS No Known Immunizations SOCIAL HISTORY Never Assessed REASON FOR VISIT routine visit PLAN OF CARE Activity Details Follow Up 2 Months Reason: VITAL SIGNS MEDICATIONS Medication Instructions Dosage Frequency Start Date End Date Duration Status Ipratropium [place] 0.02 % Inhalation every 6 hours as needed Active Topamax 100 MG Orally Twice a day 1 tablet 12h Active Melatonin 3 MG Orally Once a day at HS 1 tablet Jan, Active Levsin/SL 0.125 MG Sublingual every 4 hrs 1-2 tablet under the tongue and allow to dissolve before meals as needed 4h Active Amantadine HCl 100 mg Orally Twice a day 1 tablet 12h Aug, Active Albuterol Sulfate (2.5 MG/3ML) 0.083% Inhalation every 6 hrs as needed 3 ml Active Nystatin 895108 UNIT/GM Externally Twice a day as needed 1 application to affected area Active Aricept 10 mg Orally Once a day 2 tablets 24h Active MiraLax - Orally every other day as directed Jun, Active Zofran ODT 8 MG Orally every 4 hours as needed 1 tablet Active Milk of Magnesia Concentrate 2400 MG/10ML Orally Once a day for constipation 10 ml Active Bisacodyl 10 MG Rectal Once a day 1 suppository as needed 24h Active Potassium Chloride Natalee ER 20 meq Orally Once a day 1 tablet with food 24h Aug, December, 30 day(s) Active Metoprolol Tartrate 50 MG Orally Twice a day 1 tablet with food 12h Active Depakote 500 mg Orally 2 times a day as directed Nov, Active Guaifenesin 400 MG Orally every 4 hrs 1 tablet as needed 4h Active Tylenol Extra Strength 500 mg Orally every 6 hrs 1-2 tablets as needed 6h Active Aspirin 81 MG Orally Once a day 1 tablet 24h Active RESULTS No Results PROCEDURES Procedure Date Ordered Result Body Site Stable Visit (10 minutes) October 19, 2017 INSTRUCTIONS MEDICATIONS ADMINISTERED No Known Medications MEDICAL (GENERAL) HISTORY Type Description Date Medical History HYPERTENSION Medical History ANXIETY Medical History ACID REFLUX Surgical History C SECTION 2003 Surgical History cholecystectomy 2003 Surgical History LEFT KNEE SURGERY Hospitalization History New onset seizures--[facility] 02/29/16
--- OUTSIDE RECORDS SUMMARY | 2018-05-29 10:13 | XMS REPORT ---
Author Author MAYNOR KINCAID Organization [facility] Address [address] [place] [address] Care Team Providers Care Unit Operator Name Role Phone MAYNOR KINCAID Unavailable PROBLEMS Type Condition ICD9-CM Code HHZ79-NH Code Onset Dates Condition Status SNOMED Code Problem Anxiety F41.9 Active 14282895 Problem Reactive depression F32.9 Active 00992912 Problem Head injury due to trauma, sequela S09.90XS Active 30250674 Problem History of hypertension Z86.79 Active 508057972 Problem Right-sided low back pain without sciatica M54.5 Active 352266308 Problem Chronic kidney disease, unspecified CKD stage N18.9 Active 323527817 Problem Dysphagia, unspecified type R13.10 Active 09610099 Problem Inappropriate social behavior F99 Active 773954026 Problem Hemiplegia, unspecified affecting left dominant side G81.92 Active 309685532 Problem Poor appetite R63.0 Active 40997920 Problem History of brain shunt Z98.2 Active 224699163 ALLERGIES No Information ENCOUNTERS Encounter Location Date Diagnosis [place] [address] [address] Mar, [facility] [address] [place] [address]- 2062 Feb, Seizure after head injury R56.1 and Chronic kidney disease, unspecified CKD stage N18.9 [facility] [address] [place] [address] 39108- 8939 December, [place] [address] [place] [id number] [place] [address] 05564- 9838 December, [place] [address] [place] [address] 26885- 5536 December, [place] [address] [place] [id number] [address] 2546 December, Physically aggressive behavior R46.89 [facility] [address] [place] [address] [id number] December, [facility] [address], [place] [address] 2546 December, [facility] [id number] [address] 2546 Nov, [facility] [address] [place] [phone] Oct, Head injury due to trauma, sequela S09.90XS [facility] [address] [id number] [place] [id number] Sep, [facility] [address] [id number] [id number] Aug, [facility] [id number], [place] [address] 2546 Aug, [facility] [address] [place] [address] [phone] Aug, Tremor R25.1 ; Head injury due to trauma, sequela S09.90XS and Dysphagia, unspecified type R13.10 [facility] [address] [place] [address] [id number] Aug, Tremor R25.1 ; Poor appetite R63.0 and Acute renal failure with tubular necrosis N17.0 [facility] [id number] [id number] Aug, [facility] [id number] [id number] Aug, [facility] [address] [place] [address] [phone] Aug, Urinary tract infection without hematuria, site unspecified N39.0 and Acute renal failure, unspecified acute renal failure type N17.9 [facility] [id number] [id number] Jul, [facility] [address] [id number] [id number] Jul, [facility] [address] [facility] [id number], [place] [address] Jul, [facility] [address] [facility] [id number], [place] [address]- 7[address] Jun, [facility] [address] [place] [address] [id number] [id number] Jun, [facility] [address] [id number] [id number] May, [facility] [id number], [place] [address]- 4113 May, [facility] [id number] [address] Apr, [facility] [address] [place] [address] [id number] Mar, Head injury due to trauma, sequela S09.90XS and Reactive depression F32.9 [facility] [id number], [place] [address] 9[address] Mar, [facility] [address] [id number] [id number] Mar, [facility] [id number], [place] [address]- 0[address] Mar, [facility] [address] [place] [address] [id number] Feb, Inappropriate social behavior F99 and Head injury due to trauma, sequela S09.90XS [facility] [address] [id number] [id number] Feb, [facility] [address] [id number] [id number] Feb, [facility] [address] [id number], [place] [address] 0416 Jan, [facility] [address], [place] [address] 8[address] Jan, [facility] [address] [place] [address] 87932- 7510 Jan, [facility] [address] [place] [address] 10284- 7937 December, [facility] [address] [place] [address] 41196- 8839 December, Physically aggressive behavior R46.89 [facility] [address] [place] [id number] December, Ingrowing toenail with infection L60.0 ; Physically aggressive behavior R46.89 and Head injury due to trauma, sequela S09.90XS [facility] [address] [place] [address] 23837- 1600 December, Depressive disorder, not elsewhere classified F32.9 and Dementia due to general medical condition, without behavioral disturbance F02.80 [facility] [address] [place] [id number] December, Ingrowing toenail with infection L60.0 and Head injury due to trauma, sequela S09.90XS [facility] [address] [place] [address] 05058- 5233 Nov, [facility] [address] [place] [address] 36009- 4326 Nov, Physically aggressive behavior R46.89 ; Head injury due to trauma, sequela S09.90XS and History of brain shunt Z98.2 [facility] [address], [place] [address]- 4[address] Nov, [facility] [address] [place] [address] [id number] [place] [address] 66271- 4589 Nov, [facility] [address] [place] [address] 21378- 4881 Nov, Inappropriate social behavior F99 [facility] [address] [id number] Nov, [facility] [id number] [id number] Nov, Gastroesophageal reflux disease with esophagitis K21.0 [facility] [address], [place] [address]- 4766 Oct, [facility] [address] [place] [id number] Oct, Head injury due to trauma, sequela S09.90XS and Hemiplegia, unspecified affecting left dominant side G81.92 [facility] [id number], [place] [id number] Sep, [facility] [address], [place] [address] Aug, [facility] [address] [place] [id number] Aug, Head injury due to trauma, sequela S09.90XS and Hemiplegia, unspecified affecting left dominant side G81.92 [facility] [address], [place] [address]- 2346 Jul, [facility] [address], [place] [address]- 287[address] Jun, [facility] [address] [place] [id number] Jun, Head injury due to trauma, sequela S09.90XS [facility] [address] [address] Jun, [facility] [address] [place] [id number] [address] May, [facility] [address] [place] [address] [id number] May, Head injury due to trauma, sequela S09.90XS [facility] [address] May, [facility] [address] [place] [address] 03032- 8976 May, [facility] [address] [place] [address] 96560- 1796 Apr, [facility] [address] [place] [address] 41297- 1756 Apr, [facility] [address] [place] [id number] [place] [address] 93766- 3116 Apr, [facility] [address] [place] [id number] Apr, Head injury due to trauma, sequela S09.90XS [facility] [address] [place] [id number] [place] [address] 86425- 2376 Mar, [facility] [address] [place] [address] [id number] [place] [address] 42226- 4806 Mar, [facility] [address] [place] [address] [id number] [place] [address] 59840- 9896 Mar, [facility] [address] [place] [address] [id number] [place] [address] 98780- 1952 Mar, [facility] [address] [place] [address] [id number] [place] [address] 27653- 5174 Mar, Head injury due to trauma, sequela S09.90XS and Reactive depression F32.9 [facility] [address] [place] [address] [id number] [place] [address] 46730- 8656 Feb, Head injury due to trauma, sequela S09.90XS [facility] [address] [place] [address] [id number] [place] [address] 11099- 7086 Feb, [facility] [address] [place] [address] 90241- 1386 Feb, [facility] [address] [place] [address] [phone] Feb, Head injury due to trauma, sequela S09.90XS [facility] [address] [place] [address] 21605- 2813 Feb, [facility] [address] [place] [address] 41750- 8350 Jan, [facility] [address] [place] [id number] [place] [address] 28120- 6342 Jan, [facility] [address] [place] [id number] [place] [address] 74938- 6493 Jan, [facility] [address] [address]- 2231 Jan, Insomnia due to medical condition G47.01 [place] [address] [address]34- 7991 December, Right-sided low back pain without sciatica M54.5 [place] [address] [place] [id number] [place] [address] 65673- 2148 December, Head injury due to trauma, initial encounter S09.90XA [place] [address] [place] [id number] [place] [address] 83605- 2839 December, Gastroesophageal reflux disease with esophagitis K21.0 [place] [address] [place] [id number] [place] [address] 10895- 3417 December, Head injury due to trauma, initial encounter S09.90XA and Essential hypertension I10 [place] [address] [place] [id number] [place] [address] 49931- 1574 Jul, Anxiety F41.9 [place] [address] 15112- 4345 Jun, Anxiety F41.9 [place] [address] [place] [id number] [place] [address] 80792- 1076 14 May, 2015 Right-sided low back pain without sciatica M54.5 ; Anxiety F41.9 and History of hypertension Z86.79 [place] [address] [place] [id number] [place] [address] 50277- 7453 12 May, 2015 [place] [address] [place] [id number] [place] [address]- 3821 May, [facility] [address] [facility] [id number] [place] [address]2 May, [facility] [address] [facility] [id number] [place] [address]- 7851 May, [facility] [address] [place] [address]- 9724 Apr, [facility] [address] [facility] [id number] [place] [address]- 6152 Apr, [facility] [address] [place] [address]- 4620 Mar, [facility] [address] [place] [address]- 8006 Feb, [facility] [address] [place] [address]- 3835 Feb, [facility] [address] [place] [address]- 1285 Jan, Essential hypertension, benign 401.1 and Anxiety state, unspecified 300.00 [facility] [address] [place] [address]- 0083 Jan, [facility] [address] [place] [id number], [place] [address]- 2179 December, [facility] [id number], [place] [address]- 1154 December, [facility] [address] [place] [address] [id number] [address]- 5618 Nov, [facility] [address], [place] [address]- 4957 Nov, [facility] [address] [id number] [place] [address]- 4839 Oct, [facility] [address] [place] [address]- 5396 Oct, [facility] [place] [facility] [address] [id number] [place] [address]- 0422 Sep, [facility] [place] [facility] [address] [id number] [place] [address]- 8186 Sep, [facility] [place] [facility] [address] [facility] [id number] [place] [address]- 4496 Sep, [facility] [place] [facility] [address] [id number] [place] [address]- 5677 Sep, [facility] [place] [facility] [address] [facility] [id number] [place]- 8861 Sep, [facility] [place] [facility] [address] [facility] [id number] [place] [address]- 4777 Aug, [facility] [place] [facility] [address] [facility] [id number] [place] [address]- 5399 Aug, [facility] [place] [facility] [address] [facility] [id number] [place] [address]- 9648 Aug, [facility] [place] [facility] [address] [facility] [id number] [place] [address]- 3651 Aug, [facility] [place] [facility] [address] [facility] [id number] [place]- 9477 Jul, [facility] [place] [facility] [address] [facility] [id number] [place] [address]- 1430 Jul, [facility] [place] [facility] [address] [facility] [id number] [place] [address]- 3228 Jun, [facility] [place] [facility] [address] [facility] [id number] [place] [address]- 9890 Jun, [facility] [place] [facility] [address] [facility] [id number] [place] [address]- 3931 May, [facility] [place] [facility] [address] [facility] [id number] [place]- 7863 May, [facility] [place] [facility] [address] [id number] [place] [address]- 2620 Apr, [facility] [place] [facility] [address] [id number] [place] [address]- 9949 Apr, [facility] [place] [facility] [address] [id number] [place] [address]- 4439 Mar, [facility] [place] [facility] [address] [id number] [place] [address]- 4579 Mar, [facility] [place] [facility] [address] [id number] [place] [address]- 0011 Feb, [facility] [place] [facility] [address] [id number] [place] [address]- 6276 Feb, [facility] [place] [facility] [address] [id number] [place] [address]- 5138 Jan, [facility] [place] [facility] [address] [id number] [place] [address]- 8582 Jan, [facility] [place] [facility] [address] [id number] [place] [address]- 2753 December, [facility] [place] [facility] [address] [id number] [place] [address]- 9254 December, [facility] [place] [facility] [address] [id number] [place] [address]- 7534 December, [facility] [place] [facility] [address] [id number] [place] [address]- 6958 December, [facility] [place] [facility] [address] [id number] [place] [address]- 8726 December, [facility] [place] [facility] [address] [id number] [place] [address]- 4175 December, [facility] [place] [facility] [address] [id number] [place] [address]- 8223 Nov, [facility] [place] [facility] [address] [id number], [place] [address]- 5141 24 Nov, 2013 [facility] [place] [facility] [address] [id number] [place] [address]- 1737 07 Nov, 2013 [facility] [place] [facility] [address] [id number] [place] [address]- 9779 07 Nov, 2013 [facility] [place] [facility] [address] [id number] [place] [address]- 0681 20 Oct, 2013 [facility] [place] [facility] [address] [id number] [place] [address]- 7917 Oct, [facility] [place] [facility] [address] [id number] [place] [address]- 5498 Oct, [facility] [place] [facility] [address] [id number] [place] [address]- 8892 Oct, [facility] [place] [facility] [address] [id number] [place] [address]- 4711 Oct, [facility] [place] [facility] [address] [id number] [place] [address]- 3500 Oct, [facility] [place] [facility] [address] [id number] [place] [address]- 1248 18 Oct, 2013 [facility] [place] [facility] [address] [id number] [place] [address]- 2540 18 Oct, 2013 [facility] [place] [facility] [address] [id number] [place] [address]- 9625 Oct, [facility] [place] [facility] [address] [id number] [place] [address]- 2127 Oct, [facility] [place] [facility] [address] [id number] [place] [address]- 5508 Oct, [facility] [place] [facility] [address] [id number] [place] [address]- 5114 Oct, [facility] [place] [facility] [address] [id number] [place] [address]- 4063 Sep, [facility] [place] [facility] [address] [facility] [id number] [place] [address]- 6016 Sep, [facility] [address] [facility] [id number] [address]- 4104 Sep, IMMUNIZATIONS No Known Immunizations SOCIAL HISTORY Never Assessed REASON FOR VISIT Pt to Dr. Leung PLAN OF CARE VITAL SIGNS MEDICATIONS Medication Instructions Dosage Frequency Start Date End Date Duration Status Risperdal 1 MG Orally at bedtime 1 tablet December, 30 day(s) Active RESULTS No Results PROCEDURES No Known procedures INSTRUCTIONS MEDICATIONS ADMINISTERED No Known Medications MEDICAL (GENERAL) HISTORY Type Description Date Medical History HYPERTENSION Medical History ANXIETY Medical History ACID REFLUX Surgical History C SECTION 2003 Surgical History cholecystectomy 2003 Surgical History LEFT KNEE SURGERY Hospitalization History New onset seizures--[facility] 02/29/16
--- OUTSIDE RECORDS SUMMARY | 2018-05-29 10:13 | XMS REPORT ---
Author Author MAYNOR KINCAID Organization [facility] Address [address] [place] [address] Care Team Providers Care Negative Spotter Name Role Phone MAYNOR KINCAID Unavailable PROBLEMS Type Condition ICD9-CM Code VOM46-LX Code Onset Dates Condition Status SNOMED Code Problem Anxiety F41.9 Active 98866423 Problem Reactive depression F32.9 Active 65469786 Problem Head injury due to trauma, sequela S09.90XS Active 90891894 Problem History of hypertension Z86.79 Active 572265408 Problem Right-sided low back pain without sciatica M54.5 Active 844675430 Problem Chronic kidney disease, unspecified CKD stage N18.9 Active 731842120 Problem Dysphagia, unspecified type R13.10 Active 84226908 Problem Inappropriate social behavior F99 Active 303643467 Problem Hemiplegia, unspecified affecting left dominant side G81.92 Active 144156995 Problem Poor appetite R63.0 Active 65013707 Problem History of brain shunt Z98.2 Active 498795145 ALLERGIES No Information ENCOUNTERS Encounter Location Date Diagnosis [place] [address], [place] [address] Mar, [facility] [id number] [place] [address] 20178- 7796 Feb, Seizure after head injury R56.1 and Chronic kidney disease, unspecified CKD stage N18.9 [facility] [id number] [place] [address] 65373- 8182 December, [place] [address] [place] [id number] [place] [address] 17051- 7502 December, [place] [id number] [place] [address] 68784- 3528 December, [place] [address] [place] [id number] [address] 2546 December, Physically aggressive behavior R46.89 [facility] [address] [place] [address] [phone] December, [facility] [address], [place] [address] 2546 December, [facility] [id number], [place] [address] 2546 Nov, [facility] [address] [place] [address] [phone] Oct, Head injury due to trauma, sequela S09.90XS [facility] [id number] [place] [address] [id number] Sep, [facility] [id number] [id number] Aug, [facility] [id number], [place] [address] 2546 Aug, [facility] [address] [place] [address] [phone] Aug, Tremor R25.1 ; Head injury due to trauma, sequela S09.90XS and Dysphagia, unspecified type R13.10 [facility] [address] [place] [address] [id number] Aug, Tremor R25.1 ; Poor appetite R63.0 and Acute renal failure with tubular necrosis N17.0 [facility] [id number] [id number] Aug, [facility] [id number] [id number] Aug, [facility] [address] [place] [address] [id number] Aug, Urinary tract infection without hematuria, site unspecified N39.0 and Acute renal failure, unspecified acute renal failure type N17.9 [facility] [id number] [id number] Jul, [facility] [address] [id number] [id number] Jul, [facility] [address] [facility] [id number], [place] [address] 7[address] Jul, [facility] [address] [facility] [id number], [place] [address] 5[address] Jun, [facility] [address] [place] [id number] [id number] Jun, [facility] [address] [place] [id number] [id number] May, [facility] [id number], [place] [address]- 5787 May, [facility] [address] [place] [id number] 8[address] Apr, [facility] [address] [place] [address] [phone] Mar, Head injury due to trauma, sequela S09.90XS and Reactive depression F32.9 [facility] [id number], [place] [address]- 5546 Mar, [facility] [address] [address] [id number] [id number] Mar, [facility] [address] [id number], [place] [address]- 1[address] Mar, [facility] [address] [place] [address] [id number] Feb, Inappropriate social behavior F99 and Head injury due to trauma, sequela S09.90XS [facility] [address] [id number] [id number] Feb, [facility] [address] [id number] [id number] Feb, [facility] [address] [id number], [place] [address]- 9186 Jan, [facility] [address], [place] [address]- 0289 Jan, [facility] [id number] [place] [address] 78871- 5161 Jan, [facility] [address] [place] [address] 72926- 3670 December, [facility] [address] [place] [address] 91844- 9553 December, Physically aggressive behavior R46.89 [facility] [address] [place] [phone] December, Ingrowing toenail with infection L60.0 ; Physically aggressive behavior R46.89 and Head injury due to trauma, sequela S09.90XS [facility] [address] [place] [address] 96513- 4022 December, Depressive disorder, not elsewhere classified F32.9 and Dementia due to general medical condition, without behavioral disturbance F02.80 [facility] [address] [place] [phone] December, Ingrowing toenail with infection L60.0 and Head injury due to trauma, sequela S09.90XS [facility] [address] [place] [address] 00528- 1355 Nov, [facility] [address] [place] [address] 46521- 7716 Nov, Physically aggressive behavior R46.89 ; Head injury due to trauma, sequela S09.90XS and History of brain shunt Z98.2 [facility] [address], [place] [address]- 6985 Nov, [facility] [address] [place] [id number] [place] [address] 10685- 1359 Nov, [facility] [id number] [place] [address] 31722- 5507 Nov, Inappropriate social behavior F99 [facility] [address] [id number] Nov, [facility] [id number] [id number] Nov, Gastroesophageal reflux disease with esophagitis K21.0 [facility] [address], [place] [address]- 4[address] Oct, [facility] [address] [place] [phone] Oct, Head injury due to trauma, sequela S09.90XS and Hemiplegia, unspecified affecting left dominant side G81.92 [facility] [id number] [id number] Sep, [facility] [address], [place] [address]- 2716 Aug, [facility] [address] [place] [phone] Aug, Head injury due to trauma, sequela S09.90XS and Hemiplegia, unspecified affecting left dominant side G81.92 [facility] [address], [place] [address]- 6607 Jul, [facility] [address], [place] [address]- 3915 Jun, [facility] [address] [place] [phone] Jun, Head injury due to trauma, sequela S09.90XS [facility] [address] 5986 Jun, [facility] [address] [place] [id number] [address] 6639 May, [facility] [address] [place] [address] [phone] May, Head injury due to trauma, sequela S09.90XS [facility] [address] 3156 May, [facility] [id number] [place] [address] 34391- 8564 May, [facility] [id number] [place] [address] 09890- 5286 Apr, [facility] [address] [place] [address] 48972- 4716 Apr, [facility] [address] [place] [id number] [place] [address] 40708- 9736 Apr, [facility] [address] [place] [id number] Apr, Head injury due to trauma, sequela S09.90XS [facility] [address] [id number] [place] [address] 27468- 5546 Mar, [facility] [address] [id number] [place] [address] 64919- 4096 Mar, [facility] [address] [place] [id number] [place] [address] 43355- 1702 Mar, [facility] [address] [id number] [place] [address] 83852- 9809 Mar, [facility] [address] [place] [id number] [place] [address] 09317- 4255 Mar, Head injury due to trauma, sequela S09.90XS and Reactive depression F32.9 [facility] [address] [id number] [place] [address] 20912- 8916 Feb, Head injury due to trauma, sequela S09.90XS [facility] [address] [id number] [place] [address] 51612- 0246 Feb, [facility] [address] [place] [address] 67629- 6406 Feb, [facility] [address] [place] [address] [phone] Feb, Head injury due to trauma, sequela S09.90XS [facility] [address] [place] [address] 96143- 6328 Feb, [facility] [id number] [place] [address] 90903- 7153 Jan, [facility] [address] [place] [id number] [place] [address] 04648- 1838 Jan, [facility] [address] [place] [id number] [place] [address] 64670- 0087 Jan, [facility] [address] 20810- 9868 Jan, Insomnia due to medical condition G47.01 [place] [address] 64508- 4272 December, Right-sided low back pain without sciatica M54.5 [place] [address] [place] [id number] [place] [address] 97574- 7454 December, Head injury due to trauma, initial encounter S09.90XA [place] [address] [place] [id number] [place] [address] 29413- 3584 December, Gastroesophageal reflux disease with esophagitis K21.0 [place] [address] [place] [id number] [place] [address] 73044- 1466 December, Head injury due to trauma, initial encounter S09.90XA and Essential hypertension I10 [place] [address] [place] [id number] [place] [address] 38222- 0042 Jul, Anxiety F41.9 [place] [address] 97060- 1253 Jun, Anxiety F41.9 [place] [address] [place] [id number] [place] [address] 34711- 3614 14 May, 2015 Right-sided low back pain without sciatica M54.5 ; Anxiety F41.9 and History of hypertension Z86.79 [place] [address] [place] [id number] [place] [address] 43004- 3625 12 May, 2015 [place] [address] [place] [id number] [place] [address]- 3288 May, [facility] [address] [facility] [id number] [place] 3267 May, [facility] [address] [facility] [id number] [place] [address]- 7944 May, [facility] [address] [place] [address]- 1152 Apr, [facility] [address] [facility] [id number] [place] [address]- 6449 Apr, [facility] [address] [place] [address]- 9648 Mar, [facility] [address] [place] [address]- 6592 Feb, [facility] [address] [place] [address]- 1322 Feb, [facility] [address] [place] [address]- 4572 Jan, Essential hypertension, benign 401.1 and Anxiety state, unspecified 300.00 [facility] [address] [place] [address]- 3065 Jan, [facility] [address] [id number], [place] [address]- 1606 December, [facility] [id number], [place] [address]- 5607 December, [facility] [address] [place] [id number] [place] [address]- 7742 Nov, [facility] [address], [place] [address]- 6413 Nov, [facility] [id number] [place] [address]- 7209 Oct, [facility] [address] [place] [address]- 1769 Oct, [facility] [place] [facility] [address] [id number] [place] [address]- 7347 Sep, [facility] [place] [facility] [address] [id number] [place] [address]- 4486 Sep, [facility] [place] [facility] [address] [facility] [id number] [place] [address]- 9129 Sep, [facility] [place] [facility] [address] [id number] [place] [address]- 9610 Sep, [facility] [place] [facility] [address] [facility] [id number] [place] 4327 Sep, [facility] [place] [facility] [address] [facility] [id number] [place] [address]- 7647 Aug, [facility] [place] [facility] [address] [facility] [id number] [place] [address]- 5895 Aug, [facility] [place] [facility] [address] [facility] [id number] [place] [address]- 5632 Aug, [facility] [place] [facility] [address] [facility] [id number] [place] [address]- 2104 Aug, [facility] [place] [facility] [address] [facility] [id number] [place] 8506 Jul, [facility] [place] [facility] [address] [facility] [id number] [place] [address]- 4931 Jul, [facility] [place] [facility] [address] [facility] [id number] [place] [address]- 5979 Jun, [facility] [place] [facility] [address] [facility] [id number] [place] [address]- 7460 Jun, [facility] [place] [facility] [address] [facility] [id number] [place] [address]- 3320 May, [facility] [place] [facility] [address] [facility] [id number] [place] 1627 May, [facility] [place] [facility] [address] [id number] [place] [address]- 1378 Apr, [facility] [place] [facility] [address] [id number] [place] [address]- 4027 Apr, [facility] [place] [facility] [address] [id number] [place] [address]- 4313 Mar, [facility] [place] [facility] [address] [id number] [place] [address]- 2130 Mar, [facility] [place] [facility] [address] [id number] [place] [address]- 5552 Feb, [facility] [place] [facility] [address] [id number] [place] [address]- 8082 Feb, [facility] [place] [facility] [address] [id number] [place] [address]- 3048 Jan, [facility] [place] [facility] [address] [id number] [place] [address]- 3681 Jan, [facility] [place] [facility] [address] [id number] [place] [address]- 7879 December, [facility] [place] [facility] [address] [id number] [place] [address]- 4803 December, [facility] [place] [facility] [address] [id number] [place] [address]- 1777 December, [facility] [place] [facility] [address] [id number] [place] [address]- 4962 December, [facility] [place] [facility] [address] [id number] [place] [address]- 4916 December, [facility] [place] [facility] [address] [id number] [place] [address]- 1722 December, [facility] [place] [facility] [address] [id number] [place] [address]- 3373 Nov, [facility] [place] [facility] [address] [id number], [place] [address]- 2967 24 Nov, 2013 [facility] [place] [facility] [address] [id number] [place] [address]- 1723 07 Nov, 2013 [facility] [place] [facility] [address] [id number] [place] [address]- 4446 07 Nov, 2013 [facility] [place] [facility] [address] [id number] [place] [address]- 0733 20 Oct, 2013 [facility] [place] [facility] [address] [id number] [place] [address]- 6316 Oct, [facility] [place] [facility] [address] [id number] [place] [address]- 9407 Oct, [facility] [place] [facility] [address] [id number] [place] [address]- 4501 Oct, [facility] [place] [facility] [address] [id number] [place] [address]- 8172 Oct, [facility] [place] [facility] [address] [id number] [place] [address]- 4141 Oct, [facility] [place] [facility] [address] [id number] [place] [address]- 8641 18 Oct, 2013 [facility] [place] [facility] [address] [id number] [place] [address]- 7652 18 Oct, 2013 [facility] [place] [facility] [address] [id number] [place] [address]- 4862 Oct, [facility] [place] [facility] [address] [id number] [place] [address]- 4044 Oct, [facility] [place] [facility] [address] [id number] [place] [address]- 5092 Oct, [facility] [place] [facility] [address] [id number] [place] [address]- 6818 Oct, [facility] [place] [facility] [address] [id number] [place] [address]- 9868 Sep, [facility] [place] [facility] [address] [facility] [id number] [place] [address]- 8220 Sep, [facility] [address] [facility] [id number][place]- 1039 Sep, IMMUNIZATIONS No Known Immunizations SOCIAL HISTORY Never Assessed REASON FOR VISIT PLAN OF CARE VITAL SIGNS MEDICATIONS Unknown Medications RESULTS No Results PROCEDURES No Known procedures INSTRUCTIONS MEDICATIONS ADMINISTERED No Known Medications MEDICAL (GENERAL) HISTORY Type Description Date Medical History HYPERTENSION Medical History ANXIETY Medical History ACID REFLUX Surgical History C SECTION 2003 Surgical History cholecystectomy 2003 Surgical History LEFT KNEE SURGERY Hospitalization History New onset seizures--[facility] 02/29/16
--- OUTSIDE RECORDS SUMMARY | 2018-05-29 10:13 | XMS REPORT ---
Author Author MAYNOR KINCAID Organization [facility] Address [address] [place] [address] Care Team Providers Care Foot And Ankle Surgeon Name Role Phone MAYNOR KINCAID Unavailable PROBLEMS Type Condition ICD9-CM Code ROA20-JX Code Onset Dates Condition Status SNOMED Code Problem Anxiety F41.9 Active 82334689 Problem Reactive depression F32.9 Active 00411801 Problem Head injury due to trauma, sequela S09.90XS Active 35683841 Problem History of hypertension Z86.79 Active 916766755 Problem Right-sided low back pain without sciatica M54.5 Active 892099549 Problem Chronic kidney disease, unspecified CKD stage N18.9 Active 841246435 Problem Dysphagia, unspecified type R13.10 Active 59875586 Problem Inappropriate social behavior F99 Active 120441906 Problem Hemiplegia, unspecified affecting left dominant side G81.92 Active 674869483 Problem Poor appetite R63.0 Active 62766398 Problem History of brain shunt Z98.2 Active 027713331 ALLERGIES No Information ENCOUNTERS Encounter Location Date Diagnosis [place] [address] [address] Mar, [facility] [address] [place] [address]373- 8[address] Feb, Seizure after head injury R56.1 and Chronic kidney disease, unspecified CKD stage N18.9 [facility] [address] [place] [address] 50205- 7797 December, [place] [address] [place] [id number] [place] [address] 96270- 0774 December, [place] [address] [place] [address] 74699- 9145 December, [place] [address] [place] [id number] [address] 2546 December, Physically aggressive behavior R46.89 [facility] [address] [place] [address] [phone] December, [facility] [address] [address] 2546 December, [facility] [id number] [address] 2546 Nov, [facility] [address] [place] [address] [id number] Oct, Head injury due to trauma, sequela S09.90XS [facility] [id number] [place] [address] [id number] Sep, [facility] [id number] [id number] Aug, [facility] [id number] [address] 2546 Aug, [facility] [address] [place] [address] [id number] Aug, Tremor R25.1 ; Head injury due to trauma, sequela S09.90XS and Dysphagia, unspecified type R13.10 [facility] [address] [place] [address] [phone] Aug, Tremor R25.1 ; Poor appetite R63.0 and Acute renal failure with tubular necrosis N17.0 [facility] [id number] [id number] Aug, [facility] [id number] [id number] Aug, [facility] [address] [place] [address] [phone] Aug, Urinary tract infection without hematuria, site unspecified N39.0 and Acute renal failure, unspecified acute renal failure type N17.9 [facility] [id number] [id number] Jul, [facility] [address] [id number] [id number] Jul, [facility] [address] [facility] [id number] [address] Jul, [facility] [address] [facility] [id number] [address] 49[address] Jun, [facility] [address] [place] [id number] [id number] Jun, [facility] [address] [place] [id number] [id number] May, [facility] [address] [id number] [address] 74[address] May, [facility] [address] [id number] [address] Apr, [facility] [address] [place] [address] [phone] Mar, Head injury due to trauma, sequela S09.90XS and Reactive depression F32.9 [facility] [address] [id number] [address] 0[address] Mar, [facility] [id number] [id number] Mar, [facility] [address] [place] [id number] [address]- 0833 Mar, [facility] [address] [place] [address] [phone] Feb, Inappropriate social behavior F99 and Head injury due to trauma, sequela S09.90XS [facility] [address] [id number] [id number] Feb, [facility] [address] [id number] [id number] Feb, [facility] [address] [place] [id number] [address] 8906 Jan, [facility] [address] [address]- 5560 Jan, [facility] [address] [place] [address] 78765- 8546 Jan, [facility] [address] [place] [address] 78670- 6076 December, [facility] [address] [place] [address] 74114- 5329 December, Physically aggressive behavior R46.89 [facility] [address] [id number] December, Ingrowing toenail with infection L60.0 ; Physically aggressive behavior R46.89 and Head injury due to trauma, sequela S09.90XS [facility] [address] [place] [address] 52384- 6211 December, Depressive disorder, not elsewhere classified F32.9 and Dementia due to general medical condition, without behavioral disturbance F02.80 [facility] [address] [id number] December, Ingrowing toenail with infection L60.0 and Head injury due to trauma, sequela S09.90XS [facility] [address] [place] [address] 03298- 8201 Nov, [facility] [address] [place] [address] 56438- 3146 Nov, Physically aggressive behavior R46.89 ; Head injury due to trauma, sequela S09.90XS and History of brain shunt Z98.2 [facility] [address] [address]- 2841 Nov, [facility] [address] [place] [id number] [place] [address] 70802- 5901 Nov, [facility] [address] [place] [address] 23513- 9537 Nov, Inappropriate social behavior F99 [facility] [address] [id number] Nov, [facility] [id number] [id number] Nov, Gastroesophageal reflux disease with esophagitis K21.0 [facility] [address] [address]- 47[address] Oct, [facility] [address] [id number] Oct, Head injury due to trauma, sequela S09.90XS and Hemiplegia, unspecified affecting left dominant side G81.92 [facility] [id number] [place] [address] Sep, [facility] [address] [address]- 3846 Aug, [facility] [address] [place] [id number] Aug, Head injury due to trauma, sequela S09.90XS and Hemiplegia, unspecified affecting left dominant side G81.92 [facility] [address] [address]- 8279 Jul, [facility] [address] [address]- 9025 Jun, [facility] [address] [id number] Jun, Head injury due to trauma, sequela S09.90XS [facility] [address] [address] 1596 Jun, [facility] [address] [place] [id number] [address]- 6[address] May, [facility] [address] [place] [address] [id number] May, Head injury due to trauma, sequela S09.90XS [facility] [address] 8746 May, [facility] [address] [place] [address] 36898- 4442 May, [facility] [address] [place] [address] 13835- 4856 Apr, [facility] [address] [place] [address] 61160- 2466 Apr, [facility] [address] [place] [id number] [place] [address] 40548- 9546 Apr, [facility] [address] [place] [id number] Apr, Head injury due to trauma, sequela S09.90XS [facility] [address] [place] [id number] [place] [address] 65264- 4766 Mar, [facility] [address] [place] [id number] [place] [address] 39416- 7386 Mar, [facility] [address] [place] [address] [id number] [place] [address] 78111- 0838 Mar, [facility] [address] [place] [address] [id number] [place] [address] 96465- 0953 Mar, [facility] [address] [place] [address] [id number] [place] [address] 91946- 4764 Mar, Head injury due to trauma, sequela S09.90XS and Reactive depression F32.9 [facility] [address] [place] [address] [id number] [place] [address] 98444- 2406 Feb, Head injury due to trauma, sequela S09.90XS [facility] [address] [place] [id number] [place] [address] 41205- 9466 Feb, [facility] [address] [place] [address] 32103- 5606 Feb, [facility] [address] [place] [address] [id number] Feb, Head injury due to trauma, sequela S09.90XS [facility] [address] [place] [address] 66985- 0271 Feb, [facility] [address] [place] [address] 58903- 0215 Jan, [facility] [address] [place] [id number] [place] [address] 99264- 9908 Jan, [facility] [address] [place] [id number] [place] [address] 12978- 7722 Jan, [facility] [address] [address]995- 6704 Jan, Insomnia due to medical condition G47.01 [place] [address] 15598- 8221 December, Right-sided low back pain without sciatica M54.5 [place] [address] [place] [id number] [place] [address] 31042- 9283 December, Head injury due to trauma, initial encounter S09.90XA [place] [address] [place] [id number] [place] [address] 18322- 0166 December, Gastroesophageal reflux disease with esophagitis K21.0 [place] [address] [place] [id number] [place] [address] 18835- 5534 December, Head injury due to trauma, initial encounter S09.90XA and Essential hypertension I10 [place] [address] [place] [id number] [place] [address] 49064- 4251 Jul, Anxiety F41.9 [place] [address] 61075- 5146 Jun, Anxiety F41.9 [place] [address] [place] [id number] [place] [address] 31361- 4915 14 May, 2015 Right-sided low back pain without sciatica M54.5 ; Anxiety F41.9 and History of hypertension Z86.79 [place] [address] [place] [id number] [place] [address] 57068- 9822 12 May, 2015 [place] [address] [place] [id number] [place] [address]- 5656 May, [facility] [address] [facility] [id number] [place]- 7733 May, [facility] [address] [facility] [id number] [place] [address]- 3026 May, [facility] [address] [place] [address]- 3509 Apr, [facility] [address] [facility] [id number] [place] [address]- 5805 Apr, [facility] [address] [place] [address]- 0228 Mar, [facility] [address] [place] [address]- 9188 Feb, [facility] [address] [place] [address]- 8980 Feb, [facility] [address] [place] [address]- 0956 Jan, Essential hypertension, benign 401.1 and Anxiety state, unspecified 300.00 [facility] [address] [place] [address]- 7020 Jan, [facility] [address] [place] [id number] [address]- 8612 December, [facility] [address] [id number] [address]- 3755 December, [facility] [address] [place] [id number] [place] [address]- 8164 Nov, [facility] [address] [address]- 8680 Nov, [facility] [address] [place] [address] [id number] [place] [address]- 8706 Oct, [facility] [address] [place] [address]- 7153 Oct, [facility] [place] [facility] [address] [id number] [place] [address]- 9335 Sep, [facility] [place] [facility] [address] [id number] [place] [address]- 2136 Sep, [facility] [place] [facility] [address] [facility] [id number] [place] [address]- 0895 Sep, [facility] [place] [facility] [address] [id number] [place] [address]- 7947 Sep, [facility] [place] [facility] [address] [facility] [id number] [place] 1691 Sep, [facility] [place] [facility] [address] [facility] [id number] [place] [address]- 2519 Aug, [facility] [place] [facility] [address] [facility] [id number] [place] [address]- 7635 Aug, [facility] [place] [facility] [address] [facility] [id number] [place] [address]- 2550 Aug, [facility] [place] [facility] [address] [facility] [id number] [place] [address]- 5855 Aug, [facility] [place] [facility] [address] [facility] [id number] [place]- 1045 Jul, [facility] [place] [facility] [address] [facility] [id number] [place] [address]- 7201 Jul, [facility] [place] [facility] [address] [facility] [id number] [place] [address]- 5590 Jun, [facility] [place] [facility] [address] [facility] [id number] [place] [address]- 8904 Jun, [facility] [place] [facility] [address] [facility] [id number] [place] [address]- 2002 May, [facility] [place] [facility] [address] [facility] [id number] [place]- 0930 May, [facility] [place] [facility] [address] [id number] [place] [address]- 9522 Apr, [facility] [place] [facility] [address] [id number] [place] [address]- 7027 Apr, [facility] [place] [facility] [address] [id number] [place] [address]- 6771 Mar, [facility] [place] [facility] [address] [id number] [place] [address]- 3421 Mar, [facility] [place] [facility] [address] [id number] [place] [address]- 7666 Feb, [facility] [place] [facility] [address] [id number] [place] [address]- 3963 Feb, [facility] [place] [facility] [address] [id number] [place] [address]- 6113 Jan, [facility] [place] [facility] [address] [id number] [place] [address]- 4589 Jan, [facility] [place] [facility] [address] [id number] [place] [address]- 6781 December, [facility] [place] [facility] [address] [id number] [place] [address]- 5483 December, [facility] [place] [facility] [address] [id number] [place] [address]- 4066 December, [facility] [place] [facility] [address] [id number] [place] [address]- 4562 December, [facility] [place] [facility] [address] [id number] [place] [address]- 5683 December, [facility] [place] [facility] [address] [id number] [place] [address]- 8960 December, [facility] [place] [facility] [address] [id number] [place] [address]- 0057 Nov, [facility] [place] [facility] [address] [id number] [address]- 7386 24 Nov, 2013 [facility] [place] [facility] [address] [id number] [place] [address]- 6309 07 Nov, 2013 [facility] [place] [facility] [address] [id number] [place] [address]- 5363 07 Nov, 2013 [facility] [place] [facility] [address] [id number] [place] [address]- 3055 20 Oct, 2013 [facility] [place] [facility] [address] [id number] [place] [address]- 1378 Oct, [facility] [place] [facility] [address] [id number] [place] [address]- 0844 Oct, [facility] [place] [facility] [address] [id number] [place] [address]- 2485 Oct, [facility] [place] [facility] [address] [id number] [place] [address]- 6445 Oct, [facility] [place] [facility] [address] [id number] [place] [address]- 3441 Oct, [facility] [place] [facility] [address] [id number] [place] [address]- 9187 18 Oct, 2013 [facility] [place] [facility] [address] [id number] [place] [address]- 8849 18 Oct, 2013 [facility] [place] [facility] [address] [id number] [place] [address]- 9881 Oct, [facility] [place] [facility] [address] [id number] [place] [address]- 6340 Oct, [facility] [place] [facility] [address] [id number] [place] [address]- 4012 Oct, [facility] [place] [facility] [address] [id number] [place] [address]- 9945 Oct, [facility] [place] [facility] [address] [id number] [place] [address]- 6513 Sep, [facility] [place] [facility] [address] [facility] [id number] [place] [address]- 3324 Sep, [facility] [address] [facility] [id number] [place] [address]- 9263 Sep, IMMUNIZATIONS No Known Immunizations SOCIAL HISTORY Never Assessed REASON FOR VISIT Lab Result/Recommendation PLAN OF CARE VITAL SIGNS MEDICATIONS Unknown Medications RESULTS No Results PROCEDURES No Known procedures INSTRUCTIONS MEDICATIONS ADMINISTERED No Known Medications MEDICAL (GENERAL) HISTORY Type Description Date Medical History HYPERTENSION Medical History ANXIETY Medical History ACID REFLUX Surgical History C SECTION 2003 Surgical History cholecystectomy 2003 Surgical History LEFT KNEE SURGERY Hospitalization History New onset seizures--[facility] 02/29/16
--- OUTSIDE RECORDS SUMMARY | 2018-05-29 10:14 | XMS REPORT ---
Author Author MAYNOR KINCAID Organization [facility] Address [address] [place] [address] Care Team Providers Care Deodorizer Operator Name Role Phone MAYNOR KINCAID Unavailable PROBLEMS Type Condition ICD9-CM Code [id number] Code Onset Dates Condition Status SNOMED Code Problem Right-sided low back pain without sciatica M54.5 Active 900727165 Problem Head injury due to trauma, sequela S09.90XS Active 37447098 Problem Anxiety F41.9 Active 38622396 Problem History of hypertension Z86.79 Active 382506124 Problem Dysphagia, unspecified type R13.10 Active 62106426 Problem Poor appetite R63.0 Active 34318939 Problem Hemiplegia, unspecified affecting left dominant side G81.92 Active 852096501 Problem Reactive depression F32.9 Active 80893298 Problem History of brain shunt Z98.2 Active 222384897 Problem Inappropriate social behavior F99 Active 405094028 ALLERGIES No Information ENCOUNTERS Encounter Location Date Diagnosis [facility] [address] [address] December, [facility] [address] [id number] [address] December, [facility] [id number] [place] [address]- [address] December, [facility] [address] [address] December, Physically aggressive behavior R46.89 [facility] [address] [place] [id number] December, [facility] [address]100[place] [address] December, [facility] [address] [id number] [address] Nov, [facility] [address] [id number] Oct, Head injury due to trauma, sequela S09.90XS [facility] [id number] [id number] Sep, [facility] [address] [id number] [address] Aug, [facility] [address] [id number] [address] Aug, [facility] [address] [place] [id number] Aug, Tremor R25.1 ; Head injury due to trauma, sequela S09.90XS and Dysphagia, unspecified type R13.10 [facility] [address] [place] [id number] Aug, Tremor R25.1 ; Poor appetite R63.0 and Acute renal failure with tubular necrosis N17.0 [facility] [id number] [place] [id number] Aug, [facility] [id number] [address] Aug, [facility] [address] [place] [id number] Aug, Urinary tract infection without hematuria, site unspecified N39.0 and Acute renal failure, unspecified acute renal failure type N17.9 [facility] [address] [id number] [id number] Jul, [facility] [id number] [id number] Jul, [facility] [address] [id number] [address] Jul, [facility] [address] [id number] [address] 8[address] Jun, [facility] [id number] [id number] Jun, [facility] [address] [id number] [address] May, [facility] [id number] [place] [address]- 4[address] May, [facility] [address] [address] Apr, [facility] [address] [id number] Mar, Head injury due to trauma, sequela S09.90XS and Reactive depression F32.9 [facility] [id number] [place] [address] 48080- 4456 Mar, [facility] [id number] [place] [address] [id number] Mar, [facility] [id number] [place] [address] 07028- 4606 Mar, [facility] [address] [id number] Feb, Inappropriate social behavior F99 and Head injury due to trauma, sequela S09.90XS [facility] [id number] [place] [address] [id number] Feb, [facility] [id number] [place] [address] [id number] Feb, [facility] [address] [address] 267[address] Jan, [facility] [address] [id number] [address] Jan, [facility] [address] [address]- 15[address] Jan, [facility] [address] [id number] [address]- [address] December, [facility] [id number] [place] [address]44- 4144 December, Physically aggressive behavior R46.89 [facility] [address] [id number] December, Ingrowing toenail with infection L60.0 ; Physically aggressive behavior R46.89 and Head injury due to trauma, sequela S09.90XS [facility] [address] [place] [address]34- 8879 December, Depressive disorder, not elsewhere classified F32.9 and Dementia due to general medical condition, without behavioral disturbance F02.80 [facility] [address] [id number] December, Ingrowing toenail with infection L60.0 and Head injury due to trauma, sequela S09.90XS [facility] [address] [place] [address] 62203- 0998 Nov, [facility] [id number] [place] [address] 42400- 5297 Nov, Physically aggressive behavior R46.89 ; Head injury due to trauma, sequela S09.90XS and History of brain shunt Z98.2 [facility] [id number] [place] [address] 05579- 8217 Nov, [facility] [id number] [place] [address] 25419- 8843 Nov, [facility] [id number] [place] [address] 53715- 6807 Nov, Inappropriate social behavior F99 [facility] [id number] [place] [address] [id number] Nov, [facility] [id number] [place] [address] [id number] Nov, Gastroesophageal reflux disease with esophagitis K21.0 [facility] [id number] [place] [address] 56289- 7514 Oct, [facility] [address] [id number] Oct, Head injury due to trauma, sequela S09.90XS and Hemiplegia, unspecified affecting left dominant side G81.[address] [facility] [id number] [place] [address] [id number] Sep, [facility] [address] [id number] [address] Aug, [facility] [address] [place] [id number] Aug, Head injury due to trauma, sequela S09.90XS and Hemiplegia, unspecified affecting left dominant side G81.92 [facility] [id number] [place] [address] 58096- 9586 Jul, [facility] [id number] [place] [address] 06916- 1926 Jun, [facility] [address] [place] [address] [id number] Jun, Head injury due to trauma, sequela S09.90XS [facility] [address] [address]- 9326 Jun, [facility] [id number] [place] [address] 18013- 4196 May, [facility] [address] [place] [id number] May, Head injury due to trauma, sequela S09.90XS [facility] [address] [address]- 4[address] May, [facility] [address] [id number] [address]- 1256 May, [facility] [id number] [place] [address] 71493- 0596 Apr, [facility] [address] [id number] [address]- 0[address] Apr, [facility] [id number] [place] [address] 53009- 7382 Apr, [facility] [address] [id number] Apr, Head injury due to trauma, sequela S09.90XS [facility] [address] [facility] [id number] [address]- 3[address] Mar, [facility] [id number] [place] [address] 62580- 7986 Mar, [facility] [id number] [place] [address] 67354- 4104 Mar, [facility] [address] [facility] [id number] [place] [address] 83333- 9356 Mar, [facility] [id number] [place] [address] 27793- 2885 Mar, Head injury due to trauma, sequela S09.90XS and Reactive depression F32.9 [facility] [id number] [place] [address] 98731- 2337 Feb, Head injury due to trauma, sequela S09.90XS [facility] [id number] [place] [address] 13037- 7896 Feb, [facility] [id number] [place] [address] 89577- 3415 Feb, [facility] [address] [place] [id number] Feb, Head injury due to trauma, sequela S09.90XS [facility] [address] [id number] [address]- 6966 Feb, [facility] [id number] [place] [address] 68296- 9804 Jan, [facility] [address] [id number] [address]- 4706 Jan, [facility] [id number] [place] [address] 21136- 3837 Jan, [facility] [id number] [place] [address] 03231- 0431 Jan, Insomnia due to medical condition G47.01 [facility] [address] [address]- 2690 December, Right-sided low back pain without sciatica M54.5 [facility] [address] 24516- 3887 December, Head injury due to trauma, initial encounter S09.90XA [facility] [id number] [place] [address] 99405- 0858 December, Gastroesophageal reflux disease with esophagitis K21.0 [place] [address] [address]- 9821 December, Head injury due to trauma, initial encounter S09.90XA and Essential hypertension I10 [place] [address] [address] 08087- 9739 Jul, Anxiety F41.9 [place] [address] 64365- 5346 Jun, Anxiety F41.9 [place] [address] 02409- 3214 May, Right-sided low back pain without sciatica M54.5 ; Anxiety F41.9 and History of hypertension Z86.79 [facility] [id number] [place] [address] 80582- 5592 May, [facility] [address] 47055- 2887 May, [facility] [address] 07421- 9575 May, [facility] [id number] [place] [address] 29957- 5354 May, [facility] [address] 23874- 4797 Apr, [facility] [address] [address]- 3341 Apr, [facility] [address] [address]- 9473 Mar, [facility] [address] [address]- 8395 Feb, [facility] [id number] [place] [address] 82035- 9099 Feb, [facility] [id number] [place] [address] 606524- 1740 Jan, Essential hypertension, benign 401.1 and Anxiety state, unspecified 300.00 [facility] [address] [address]- 0027 Jan, [facility] [id number] [place] [address] 52138- 3311 December, [facility] [address] [address]- 7301 December, [facility] [address] [address]- 4975 Nov, [facility] [address] [address]- 3074 Nov, [facility] [address] [address]- 8406 Oct, [facility] [address]- 6907 Oct, [facility] [address]- 6646 Sep, [facility] [address]- 7056 Sep, [facility] [address] [address]- 1847 Sep, [facility] [place] [facility] [address] [id number] [place] [address]- 0947 Sep, [facility] [place] [facility] [address] [id number] [place] [address]- 7448 Sep, [facility] [place] [facility] [address] [facility] [id number] [place] [address]- 0341 Aug, [facility] [place] [facility] [address] [id number] [place] [address]- 2674 Aug, [facility] [place] [facility] [address] [id number] [place] [address]- 9699 Aug, [facility] [place] [facility] [address] [id number] [place] [address]- 8693 Aug, [facility] [place] [facility] [address] [facility] [id number] [place] [address]- 9820 Jul, [facility] [place] [facility] [address] [facility] [id number] [place] [address]- 4637 Jul, [facility] [place] [facility] [address] [facility] [id number] [place] [address]- 3730 Jun, [facility] [place] [facility] [address] [facility] [id number] [place] [address]- 8531 Jun, [facility] [place] [facility] [address] [id number] [place] [address]- 0732 May, [facility] [place] [facility] [address] [id number] [address]- 1077 May, [facility] [place] [facility] [address] [id number] [place] [address]- 9317 Apr, [facility] [place] [facility] [address] [id number] [place] [address]- 1851 Apr, [facility] [place] [facility] [address] [facility] [id number] [address]- 2653 Mar, [facility] [place] [facility] [address] [id number] [place] [address]- 8679 Mar, [facility] [place] [facility] [address] [id number] [place] [address]- 1045 Feb, [facility] [place] [facility] [address] [id number] [place] [address]- 8839 Feb, [facility] [place] [facility] [address] [id number] [place] [address]- 6427 Jan, [facility] [place] [facility] [address] [id number] [place] [address]- 2860 Jan, [facility] [place] [facility] [address] [id number] [place] [address]- 7805 December, [facility] [place] [facility] [address] [id number] [place] [address]- 5514 December, [facility] [place] [facility] [address] [id number] [place] [address]- 2310 December, [facility] [place] [facility] [address] [id number] [place] [address]- 5582 December, [facility] [place] [facility] [address] [id number] [place] [address]- 0679 December, [facility] [place] [facility] [address] [id number] [place] [address]- 6466 December, [facility] [place] [facility] [address] [id number] [place] [address]- 2288 Nov, [facility] [place] [facility] [address] [id number] [place] [address]- 9156 Nov, [facility] [place] [facility] [address] [id number] [place] [address]- 9309 Nov, [facility] [place] [facility] [address] [id number] [place] [address]- 2622 Nov, [facility] [place] [facility] [address] [id number] [place] [address]- 0374 Oct, [facility] [address] [id number] [address]- 8929 Oct, [facility] [address] [facility] [id number] [address]- 6732 Oct, [facility] [address] [address]- 5077 Oct, [facility] [address] [address]- 0464 Oct, [facility] [address] [address]- 9255 Oct, [facility] [address] [address]- 0687 Oct, [facility] [address] [address]- 0926 Oct, [facility] [address] [address]- 8258 Oct, [facility] [address] [address]- 1987 Oct, [facility] [address] [address]- 8623 Oct, [facility] [address] [address]- 1234 Oct, [facility] [address] [address]- 5088 Sep, [facility] [address] [address]- 3090 Sep, [facility] [address] [address]- 3841 Sep, IMMUNIZATIONS No Known Immunizations SOCIAL HISTORY Never Assessed REASON FOR VISIT care home PLAN OF CARE Activity Details Follow Up prn Reason: VITAL SIGNS MEDICATIONS Unknown Medications RESULTS No Results PROCEDURES Procedure Date Ordered Result Body Site Minor complication (15 mins) Aug 17, 2017 INSTRUCTIONS MEDICATIONS ADMINISTERED No Known Medications MEDICAL (GENERAL) HISTORY Type Description Date Medical History HYPERTENSION Medical History ANXIETY Medical History ACID REFLUX Surgical History C SECTION 2003 Surgical History cholecystectomy 2003 Surgical History LEFT KNEE SURGERY Hospitalization History New onset seizures--[facility] 02/29/16
--- OUTSIDE RECORDS SUMMARY | 2018-05-29 10:14 | XMS REPORT ---
Author Author MAYNOR KINCAID Organization [facility] Address [address] [place] [address] Care Team Providers Care Clinical Director Name Role Phone MAYNOR KINCAID Unavailable PROBLEMS Type Condition ICD9-CM Code [id number] Code Onset Dates Condition Status SNOMED Code Problem Anxiety F41.9 Active 36121238 Problem Reactive depression F32.9 Active 04860339 Problem Head injury due to trauma, sequela S09.90XS Active 38525663 Problem History of hypertension Z86.79 Active 995983080 Problem Right-sided low back pain without sciatica M54.5 Active 861255236 Problem Chronic kidney disease, unspecified CKD stage N18.9 Active 344619288 Problem Dysphagia, unspecified type R13.10 Active 43278251 Problem Inappropriate social behavior F99 Active 440935268 Problem Hemiplegia, unspecified affecting left dominant side G81.92 Active 096208756 Problem Poor appetite R63.0 Active 93092102 Problem History of brain shunt Z98.2 Active 210340321 ALLERGIES No Information ENCOUNTERS Encounter Location Date Diagnosis [place] [address] [address] Mar, [facility] [address] [place] [address] 97140- 3166 Feb, Seizure after head injury R56.1 and Chronic kidney disease, unspecified CKD stage N18.9 [facility] [address] [place] [address] 15625- 4086 December, [place] [address] [place] [id number] [place] [address] 06369- 8605 December, [place] [address] [place] [address] 35894- 3072 December, [place] [address] [place] [id number] [address] 2546 December, Physically aggressive behavior R46.89 [facility] [address] [place] [address] [phone] December, [facility] [address] [address] 2546 December, [facility] [id number] [address] 2546 Nov, [facility] [address] [place] [address] [phone] Oct, Head injury due to trauma, sequela S09.90XS [facility] [id number] [place] [address] [id number] Sep, [facility] [id number] [id number] Aug, [facility] [id number] [address] 2546 Aug, [facility] [address] [place] [address] [id number] Aug, Tremor R25.1 ; Head injury due to trauma, sequela S09.90XS and Dysphagia, unspecified type R13.10 [facility] [address] [place] [address] [phone] Aug, Tremor R25.1 ; Poor appetite R63.0 and Acute renal failure with tubular necrosis N17.0 [facility] [id number] [id number] Aug, [facility] [id number] [id number] Aug, [facility] [address] [place] [address] [id number] Aug, Urinary tract infection without hematuria, site unspecified N39.0 and Acute renal failure, unspecified acute renal failure type N17.9 [facility] [id number] [id number] Jul, [facility] [address] [id number] [id number] Jul, [facility] [address] [facility] [id number], [place] [address] Jul, [facility] [address] [facility] [id number], [place] [address] 9[address] Jun, [facility] [address] [id number] [id number] Jun, [facility] [address] [id number] [id number] May, [facility] [id number] [address]- 5087 May, [facility] [id number] 9[address] Apr, [facility] [address] [place] [address] [id number] Mar, Head injury due to trauma, sequela S09.90XS and Reactive depression F32.9 [facility] [address] [id number] [address] 289[address] Mar, [facility] [id number] [id number] Mar, [facility] [address] [id number] [address] 5[address] Mar, [facility] [address] [place] [address] [id number] Feb, Inappropriate social behavior F99 and Head injury due to trauma, sequela S09.90XS [facility] [address] [id number] [id number] Feb, [facility] [address] [id number][place] [id number] Feb, [facility] [id number] [address]- 6946 Jan, [facility] [address], [place] [address] 92[address] Jan, [facility] [address] [place] [address] 98566- 2087 Jan, [facility] [address] [place] [address] 52692- 9533 December, [facility] [address] [place] [address] 90378- 4567 December, Physically aggressive behavior R46.89 [facility] [address] [place] [id number] December, Ingrowing toenail with infection L60.0 ; Physically aggressive behavior R46.89 and Head injury due to trauma, sequela S09.90XS [facility] [address] [place] [address] 28933- 7397 December, Depressive disorder, not elsewhere classified F32.9 and Dementia due to general medical condition, without behavioral disturbance F02.80 [facility] [address] [place] [id number] December, Ingrowing toenail with infection L60.0 and Head injury due to trauma, sequela S09.90XS [facility] [address] [place] [address] 53921- 4777 Nov, [facility] [address] [place] [address] 65325- 8690 Nov, Physically aggressive behavior R46.89 ; Head injury due to trauma, sequela S09.90XS and History of brain shunt Z98.2 [facility] [address] [address]- 3489 Nov, [facility] [address] [place] [address] [id number] [place] [address] 70378- 7272 Nov, [facility] [address] [place] [address] 21382- 5712 Nov, Inappropriate social behavior F99 [facility] [address] [id number] Nov, [facility] [id number][place] [id number] Nov, Gastroesophageal reflux disease with esophagitis K21.0 [facility] [address], [place] [address]- 5[address] Oct, [facility] [address] [place] [id number] Oct, Head injury due to trauma, sequela S09.90XS and Hemiplegia, unspecified affecting left dominant side G81.92 [facility] [id number][place] [address] Sep, [facility] [address], [place] [address]- 8896 Aug, [facility] [address] [place] [id number] Aug, Head injury due to trauma, sequela S09.90XS and Hemiplegia, unspecified affecting left dominant side G81.92 [facility] [address], [place] [address]- 6876 Jul, [facility] [address], [place] [address]- 0433 Jun, [facility] [address] [place] [id number] Jun, Head injury due to trauma, sequela S09.90XS [facility] [address] [address]706 Jun, [facility] [address] [place] [id number] [address]- 4497 May, [facility] [address] [place] [address] [id number] May, Head injury due to trauma, sequela S09.90XS [facility] [address] [address]396 May, [facility] [address] [place] [address] 39479- 3625 May, [facility] [address] [place] [address] 81205- 8806 Apr, [facility] [address] [place] [address] 22025- 6516 Apr, [facility] [address] [id number] [place] [address] 64134- 4986 Apr, [facility] [address] [place] [id number] Apr, Head injury due to trauma, sequela S09.90XS [facility] [address] [place] [id number] [place] [address] 02275- 2786 Mar, [facility] [id number] [place] [address] 53340- 6756 Mar, [facility] [id number] [place] [address] 80248- 0942 Mar, [facility] [id number] [place] [address] 20661- 2270 Mar, [facility] [id number] [place] [address] 32252- 5562 Mar, Head injury due to trauma, sequela S09.90XS and Reactive depression F32.9 [facility] [id number] [place] [address] 66380- 6566 Feb, Head injury due to trauma, sequela S09.90XS [facility] [address] [id number] [place] [address] 16348- 0256 Feb, [facility] [address] [place] [address] 60551- 0596 Feb, [facility] [address] [place] [address] [id number] Feb, Head injury due to trauma, sequela S09.90XS [facility] [address] [place] [address] 15013- 5457 Feb, [facility] [address] [place] [address] 68751- 7451 Jan, [facility] [address] [id number] [place] [address] 12753- 6205 Jan, [facility] [address] [place] [id number] [place] [address] 99981- 8952 Jan, [facility] [address] [address]- 5415 Jan, Insomnia due to medical condition G47.01 [place] [address] 12671- 6621 December, Right-sided low back pain without sciatica M54.5 [place] [address] [place] [id number] [place] [address] 51593- 3941 December, Head injury due to trauma, initial encounter S09.90XA [place] [address] [place] [id number] [place] [address] 53978- 8259 December, Gastroesophageal reflux disease with esophagitis K21.0 [place] [address] [place] [id number] [place] [address] 51810- 0021 December, Head injury due to trauma, initial encounter S09.90XA and Essential hypertension I10 [place] [address] [place] [id number] [place] [address] 56179- 6905 Jul, Anxiety F41.9 [place] [address] 44904- 5686 Jun, Anxiety F41.9 [place] [address] [place] [id number] [place] [address] 67613- 8836 14 May, 2015 Right-sided low back pain without sciatica M54.5 ; Anxiety F41.9 and History of hypertension Z86.79 [place] [address] [place] [id number] [place] [address] 31072- 4755 12 May, 2015 [place] [address] [place] [id number] [place] [address]- 4342 May, [facility] [address] [facility] [id number] [place]- 2627 May, [facility] [address] [facility] [id number] [place] [address]- 0951 May, [facility] [address] [place] [address]- 4251 Apr, [facility] [address] [facility] [id number] [place] [address]- 2873 Apr, [facility] [address] [place] [address]- 8281 Mar, [facility] [address] [place] [address]- 1325 Feb, [facility] [address] [place] [address]- 8380 Feb, [facility] [address] [place] [address]- 1552 Jan, Essential hypertension, benign 401.1 and Anxiety state, unspecified 300.00 [facility] [address] [place] [address]- 3624 Jan, [facility] [address] [id number] [address]- 6295 December, [facility] [address] [id number] [address]- 6731 December, [facility] [address] [place] [id number] [place] [address]- 1274 Nov, [facility] [address], [place] [address]- 9742 Nov, [facility] [address] [place] [id number] [place] [address]- 6720 Oct, [facility] [address] [place] [address]- 7052 Oct, [facility] [place] [facility] [address] [id number] [place] [address]- 6650 Sep, [facility] [place] [facility] [address] [id number] [place] [address]- 0066 Sep, [facility] [place] [facility] [address] [facility] [id number] [place] [address]- 5907 Sep, [facility] [place] [facility] [address] [id number] [place] [address]- 1305 Sep, [facility] [place] [facility] [address] [facility] [id number] [place]- 0838 Sep, [facility] [place] [facility] [address] [facility] [id number] [place] [address]- 0520 Aug, [facility] [place] [facility] [address] [facility] [id number] [place] [address]- 6078 Aug, [facility] [place] [facility] [address] [facility] [id number] [place] [address]- 9694 Aug, [facility] [place] [facility] [address] [facility] [id number] [place] [address]- 5821 Aug, [facility] [place] [facility] [address] [facility] [id number] [place]- 2084 Jul, [facility] [place] [facility] [address] [facility] [id number] [place] [address]- 5078 Jul, [facility] [place] [facility] [address] [facility] [id number] [place] [address]- 9150 Jun, [facility] [place] [facility] [address] [facility] [id number] [place] [address]- 4534 Jun, [facility] [place] [facility] [address] [facility] [id number] [place] [address]- 8408 May, [facility] [place] [facility] [address] [facility] [id number] [place]- 2540 May, [facility] [place] [facility] [address] [id number] [place] [address]- 1734 Apr, [facility] [place] [facility] [address] [id number] [place] [address]- 5696 Apr, [facility] [place] [facility] [address] [id number] [place] [address]- 9114 Mar, [facility] [place] [facility] [address] [id number] [place] [address]- 6008 Mar, [facility] [place] [facility] [address] [id number] [place] [address]- 3771 Feb, [facility] [place] [facility] [address] [id number] [place] [address]- 4320 Feb, [facility] [place] [facility] [address] [id number] [place] [address]- 9135 Jan, [facility] [place] [facility] [address] [id number] [place] [address]- 2132 Jan, [facility] [place] [facility] [address] [id number] [place] [address]- 9538 December, [facility] [place] [facility] [address] [id number] [place] [address]- 0516 December, [facility] [place] [facility] [address] [id number] [place] [address]- 4702 December, [facility] [place] [facility] [address] [id number] [place] [address]- 3856 December, [facility] [place] [facility] [address] [id number] [place] [address]- 6885 December, [facility] [place] [facility] [address] [id number] [place] [address]- 1598 December, [facility] [place] [facility] [address] [id number] [place] [address]- 1920 Nov, [facility] [place] [facility] [address] [id number], [place] [address]- 2683 24 Nov, 2013 [facility] [place] [facility] [address] [id number] [place] [address]- 7126 07 Nov, 2013 [facility] [place] [facility] [address] [id number] [place] [address]- 1280 07 Nov, 2013 [facility] [place] [facility] [address] [id number] [place] [address]- 1253 20 Oct, 2013 [facility] [place] [facility] [address] [id number] [place] [address]- 1194 Oct, [facility] [place] [facility] [address] [id number] [place] [address]- 3637 Oct, [facility] [place] [facility] [address] [id number] [place] [address]- 0199 Oct, [facility] [place] [facility] [address] [id number] [place] [address]- 9320 Oct, [facility] [place] [facility] [address] [id number] [place] [address]- 8848 Oct, [facility] [place] [facility] [address] [id number] [place] [address]- 9802 18 Oct, 2013 [facility] [place] [facility] [address] [id number] [place] [address]- 7984 18 Oct, 2013 [facility] [place] [facility] [address] [id number] [place] [address]- 3221 Oct, [facility] [place] [facility] [address] [id number] [place] [address]- 4322 Oct, [facility] [place] [facility] [address] [id number] [place] [address]- 7589 Oct, [facility] [place] [facility] [address] [id number] [place] [address]- 2858 Oct, [facility] [place] [facility] [address] [id number] [place] [address]- 5009 Sep, [facility] [place] [facility] [address] [facility] [id number] [place] [address]- 3545 Sep, [facility] [address] [facility] [id number][place] [address]- 4158 Sep, IMMUNIZATIONS No Known Immunizations SOCIAL HISTORY Never Assessed REASON FOR VISIT FYI PLAN OF CARE VITAL SIGNS MEDICATIONS Unknown Medications RESULTS No Results PROCEDURES No Known procedures INSTRUCTIONS MEDICATIONS ADMINISTERED No Known Medications MEDICAL (GENERAL) HISTORY Type Description Date Medical History HYPERTENSION Medical History ANXIETY Medical History ACID REFLUX Surgical History C SECTION 2003 Surgical History cholecystectomy 2003 Surgical History LEFT KNEE SURGERY Hospitalization History New onset seizures--[facility] 02/29/16
--- OUTSIDE RECORDS SUMMARY | 2018-05-29 10:14 | XMS REPORT ---
Author Author MAYNOR KINCAID Organization [facility] Address [address] [place] [address] Care Team Providers Care Enrolled Nurse Name Role Phone MAYNOR KINCAID Unavailable PROBLEMS Type Condition ICD9-CM Code [id number] Code Onset Dates Condition Status SNOMED Code Problem Anxiety F41.9 Active 97755252 Problem Reactive depression F32.9 Active 69313738 Problem Head injury due to trauma, sequela S09.90XS Active 84442126 Problem History of hypertension Z86.79 Active 886056597 Problem Right-sided low back pain without sciatica M54.5 Active 353717376 Problem Chronic kidney disease, unspecified CKD stage N18.9 Active 070375777 Problem Dysphagia, unspecified type R13.10 Active 53982587 Problem Inappropriate social behavior F99 Active 847586883 Problem Hemiplegia, unspecified affecting left dominant side G81.92 Active 923374135 Problem Poor appetite R63.0 Active 05643488 Problem History of brain shunt Z98.2 Active 472050814 ALLERGIES No Information ENCOUNTERS Encounter Location Date Diagnosis [place] [address] [address] Mar, [facility] [address] [place] [address]- 4949 Feb, Seizure after head injury R56.1 and Chronic kidney disease, unspecified CKD stage N18.9 [facility] [address] [place] [address] 18062- 4890 December, [place] [address] [place] [id number] [place] [address]28- 8774 December, [place] [address] [place] [address]26- 8412 December, [place] [address] [place] [id number] [address]46 December, Physically aggressive behavior R46.89 [facility] [address] [place] [address] [phone] December, [facility] [address], [place] [address] 2546 December, [facility] [id number] [address] 2546 Nov, [facility] [address] [place] [address] [phone] Oct, Head injury due to trauma, sequela S09.90XS [facility] [id number] [place] [address] [id number] Sep, [facility] [id number] [id number] Aug, [facility] [id number], [place] [address] 2546 Aug, [facility] [address] [place] [address] [id number] Aug, Tremor R25.1 ; Head injury due to trauma, sequela S09.90XS and Dysphagia, unspecified type R13.10 [facility] [address] [place] [address] [phone] Aug, Tremor R25.1 ; Poor appetite R63.0 and Acute renal failure with tubular necrosis N17.0 [facility] [id number] [id number] Aug, [facility] [id number] [id number] Aug, [facility] [address] [place] [address] [phone] Aug, Urinary tract infection without hematuria, site unspecified N39.0 and Acute renal failure, unspecified acute renal failure type N17.9 [facility] [id number] [id number] Jul, [facility] [address] [id number] [id number] Jul, [facility] [address] [facility] [id number], [place] [address] Jul, [facility] [address] [facility] [id number] [address] 13[address] Jun, [facility] [address] [id number] [id number] Jun, [facility] [address] [id number] [id number] May, [facility] [id number], [place] [address] 98[address] May, [facility] [id number] [address] Apr, [facility] [address] [place] [id number] Mar, Head injury due to trauma, sequela S09.90XS and Reactive depression F32.9 [facility] [id number], [place] [address] 6[address] Mar, [facility] [id number] [id number] Mar, [facility] [id number], [place] [address] 1347 Mar, [facility] [address] [place] [address] [id number] Feb, Inappropriate social behavior F99 and Head injury due to trauma, sequela S09.90XS [facility] [address] [id number] [id number] Feb, [facility] [address] [id number] [id number] Feb, [facility] [id number], [place] [address] Jan, [facility] [address], [place] [address] Jan, [facility] [address] [place] [address] 84686- 8646 Jan, [facility] [address] [place] [address] 67654- 1886 December, [facility] [address] [place] [address] 82015- 1781 December, Physically aggressive behavior R46.89 [facility] [address] [place] [id number] December, Ingrowing toenail with infection L60.0 ; Physically aggressive behavior R46.89 and Head injury due to trauma, sequela S09.90XS [facility] [address] [place] [address] 56249- 2187 December, Depressive disorder, not elsewhere classified F32.9 and Dementia due to general medical condition, without behavioral disturbance F02.80 [facility] [address] [place] [phone] December, Ingrowing toenail with infection L60.0 and Head injury due to trauma, sequela S09.90XS [facility] [address] [place] [address] 45553- 7461 Nov, [facility] [address] [place] [address] 83194- 5184 Nov, Physically aggressive behavior R46.89 ; Head injury due to trauma, sequela S09.90XS and History of brain shunt Z98.2 [facility] [address], [place] [address] 77[address] Nov, [facility] [id number] [place] [address] 05524- 5398 Nov, [facility] [address] [place] [address] 42106- 0927 Nov, Inappropriate social behavior F99 [facility] [address] [id number] Nov, [facility] [id number] [id number] Nov, Gastroesophageal reflux disease with esophagitis K21.0 [facility] [address], [place] [address] 2796 Oct, [facility] [address] [place] [address] Oct, Head injury due to trauma, sequela S09.90XS and Hemiplegia, unspecified affecting left dominant side G81.92 [facility] [id number] [address] Sep, [facility] [address], [place] [address]26 Aug, [facility] [address] [place] [phone] Aug, Head injury due to trauma, sequela S09.90XS and Hemiplegia, unspecified affecting left dominant side G81.92 [facility] [address], [place] [address] 8[address] Jul, [facility] [address], [place] [address] 4[address] Jun, [facility] [address] [place] [id number] Jun, Head injury due to trauma, sequela S09.90XS [facility] [address] [address] Jun, [facility] [id number] [address] May, [facility] [address] [place] [address] [id number] May, Head injury due to trauma, sequela S09.90XS [facility] [address] May, [facility] [address] [place] [address] 82968- 6678 May, [facility] [address] [place] [address] 20710- 8626 Apr, [facility] [address] [place] [address] 47507- 1846 Apr, [facility] [id number] [place] [address] 15161- 9106 Apr, [facility] [address] [place] [address] Apr, Head injury due to trauma, sequela S09.90XS [facility] [id number] [place] [address] 54296- 0716 Mar, [facility] [id number] [place] [address] 80715- 1776 Mar, [facility] [id number] [place] [address] 52435- 8782 Mar, [facility] [id number] [place] [address] 28629- 4060 Mar, [facility] [id number] [place] [address] 03251- 1497 Mar, Head injury due to trauma, sequela S09.90XS and Reactive depression F32.9 [facility] [id number] [place] [address] 82244- 1416 Feb, Head injury due to trauma, sequela S09.90XS [facility] [id number] [place] [address] 38458- 7486 Feb, [facility] [address] [place] [address] 68080- 0726 Feb, [facility] [address] [place] [address] [phone] Feb, Head injury due to trauma, sequela S09.90XS [facility] [address] [place] [address] 69717- 7141 Feb, [facility] [address] [place] [address] 04046- 2335 Jan, [facility] [id number] [place] [address] 69931- 3266 Jan, [facility] [id number] [place] [address] 79947- 9121 Jan, [facility] [address] 36684- 3879 Jan, Insomnia due to medical condition G47.01 [place] [address] [address]- 3399 December, Right-sided low back pain without sciatica M54.5 [place] [address] [id number] [place] [address] 38064- 8576 December, Head injury due to trauma, initial encounter S09.90XA [place] [address] [id number] [place] [address] 51553- 1816 December, Gastroesophageal reflux disease with esophagitis K21.0 [place] [address] [id number] [place] [address] 81799- 4742 December, Head injury due to trauma, initial encounter S09.90XA and Essential hypertension I10 [place] [address] [address] [id number] [place] [address] 66743- 9021 Jul, Anxiety F41.9 [place] [address] 73227- 5463 Jun, Anxiety F41.9 [place] [address] [address] [id number] [place] [address] 78467- 0137 14 May, 2015 Right-sided low back pain without sciatica M54.5 ; Anxiety F41.9 and History of hypertension Z86.79 [place] [address] [address] [id number] [place] [address] 00218- 4607 12 May, 2015 [place] [address] [place] [id number] [place] [address]- 4201 May, [facility] [address] [facility] [id number] [place] [address] May, [facility] [address] [facility] [id number] [place] [address]- 2591 May, [facility] [address] [place] [address]- 4091 Apr, [facility] [address] [facility] [id number] [place] [address]- 9290 Apr, [facility] [address] [place] [address]- 2179 Mar, [facility] [address] [place] [address]- 7772 Feb, [facility] [address] [place] [address]- 6778 Feb, [facility] [address] [place] [address]- 1614 Jan, Essential hypertension, benign 401.1 and Anxiety state, unspecified 300.00 [facility] [address] [place] [address]- 7201 Jan, [facility] [address] [id number], [place] [address]- 9361 December, [facility] [id number], [place] [address]- 7063 December, [facility] [address] [id number] [address]- 0705 Nov, [facility] [address], [place] [address]- 0515 Nov, [facility] [id number] [address]- 3831 Oct, [facility] [address] [place] [address]- 9249 Oct, [facility] [place] [facility] [address] [id number] [place] [address]- 6335 Sep, [facility] [place] [facility] [address] [id number] [place] [address]- 5186 Sep, [facility] [place] [facility] [address] [facility] [id number] [place] [address]- 7471 Sep, [facility] [place] [facility] [address] [id number] [place] [address]- 6452 Sep, [facility] [place] [facility] [address] [facility] [id number] [place]- 5794 Sep, [facility] [place] [facility] [address] [facility] [id number] [place] [address]- 6744 Aug, [facility] [place] [facility] [address] [facility] [id number] [place] [address]- 0262 Aug, [facility] [place] [facility] [address] [facility] [id number] [place] [address]- 7890 Aug, [facility] [place] [facility] [address] [facility] [id number] [place] [address]- 7075 Aug, [facility] [place] [facility] [address] [facility] [id number] [place] 8355 Jul, [facility] [place] [facility] [address] [facility] [id number] [place] [address]- 7694 Jul, [facility] [place] [facility] [address] [facility] [id number] [place] [address]- 8920 Jun, [facility] [place] [facility] [address] [facility] [id number] [place] [address]- 9524 Jun, [facility] [place] [facility] [address] [facility] [id number] [place] [address]- 9243 May, [facility] [place] [facility] [address] [facility] [id number] [place] 6557 May, [facility] [place] [facility] [address] [id number] [place] [address]- 7107 Apr, [facility] [place] [facility] [address] [id number] [place] [address]- 8969 Apr, [facility] [place] [facility] [address] [id number] [place] [address]- 5610 Mar, [facility] [place] [facility] [address] [id number] [place] [address]- 0341 Mar, [facility] [place] [facility] [address] [id number] [place] [address]- 3496 Feb, [facility] [place] [facility] [address] [id number] [place] [address]- 7460 Feb, [facility] [place] [facility] [address] [id number] [place] [address]- 6865 Jan, [facility] [place] [facility] [address] [id number] [place] [address]- 0384 Jan, [facility] [place] [facility] [address] [id number] [place] [address]- 9364 December, [facility] [place] [facility] [address] [id number] [place] [address]- 2620 December, [facility] [place] [facility] [address] [id number] [place] [address]- 8864 December, [facility] [place] [facility] [address] [id number] [place] [address]- 0466 December, [facility] [place] [facility] [address] [id number] [place] [address]- 3528 December, [facility] [place] [facility] [address] [id number] [place] [address]- 0647 December, [facility] [place] [facility] [address] [id number] [place] [address]- 4732 Nov, [facility] [place] [facility] [address] [id number] [address]- 4892 24 Nov, 2013 [facility] [place] [facility] [address] [id number] [place] [address]- 5854 07 Nov, 2013 [facility] [place] [facility] [address] [id number] [place] [address]- 8072 07 Nov, 2013 [facility] [place] [facility] [address] [id number] [place] [address]- 9215 20 Oct, 2013 [facility] [place] [facility] [address] [id number] [place] [address]- 5819 Oct, [facility] [place] [facility] [address] [id number] [place] [address]- 8969 Oct, [facility] [place] [facility] [address] [id number] [place] [address]- 9038 Oct, [facility] [place] [facility] [address] [id number] [place] [address]- 6429 Oct, [facility] [place] [facility] [address] [id number] [place] [address]- 9377 Oct, [facility] [place] [facility] [address] [id number] [place] [address]- 4938 18 Oct, 2013 [facility] [place] [facility] [address] [id number] [place] [address]- 5409 18 Oct, 2013 [facility] [place] [facility] [address] [id number] [place] [address]- 3397 Oct, [facility] [place] [facility] [address] [id number] [place] [address]- 3765 Oct, [facility] [place] [facility] [address] [id number] [place] [address]- 8813 Oct, [facility] [place] [facility] [address] [id number] [place] [address]- 2071 Oct, [facility] [place] [facility] [address] [id number] [place] [address]- 1107 Sep, [facility] [place] [facility] [address] [facility] [id number] [place] [address] [address]258 Sep, [facility] [address] [facility] [id number], [place] [address]- 3795 Sep, IMMUNIZATIONS No Known Immunizations SOCIAL HISTORY Never Assessed REASON FOR VISIT taper off Depakote and add Keppra PLAN OF CARE VITAL SIGNS MEDICATIONS Medication Instructions Dosage Frequency Start Date End Date Duration Status Depakote 500 mg Orally 1 times a day X 10 days and stop 1 tab Nov, Active Keppra 1000 MG Orally Twice a day to be started after taking Keppra 500mg bid for 10 days 1 tablet December, 30 day(s) Active Keppra 500 mg Orally Twice a day 1 tablet 12h December, 10 days Active RESULTS No Results PROCEDURES No Known procedures INSTRUCTIONS MEDICATIONS ADMINISTERED No Known Medications MEDICAL (GENERAL) HISTORY Type Description Date Medical History HYPERTENSION Medical History ANXIETY Medical History ACID REFLUX Surgical History C SECTION 2003 Surgical History cholecystectomy 2003 Surgical History LEFT KNEE SURGERY Hospitalization History New onset seizures--[facility]ia [facility] 02/29/16
--- OUTSIDE RECORDS SUMMARY | 2018-05-29 10:15 | XMS REPORT ---
Author Author MAYNOR KINCAID [facility] Address [address] [place] [address] Care Team Providers Care Public Works Inspector Name Role Phone MAYNOR KINCAID Unavailable PROBLEMS Type Condition ICD9-CM Code [id number] Code Onset Dates Condition Status SNOMED Code Problem Right-sided low back pain without sciatica M54.5 Active 128678632 Problem History of hypertension Z86.79 Active 360545007 Problem History of brain shunt Z98.2 Active 407789070 Problem Inappropriate social behavior F99 Active 305775846 Problem Head injury due to trauma, sequela S09.90XS Active 40236096 Problem Anxiety F41.9 Active 68153986 Problem Hemiplegia, unspecified affecting left dominant side G81.92 Active 657462283 Problem Reactive depression F32.9 Active 62876539 ALLERGIES No Information SOCIAL HISTORY Never Assessed PLAN OF CARE VITAL SIGNS MEDICATIONS Medication Instructions Dosage Frequency Start Date End Date Duration Status Tramadol HCl 50 mg Orally 2 times a day 1 tablet 12h 30 Aug, 2016 28 days Active RESULTS No Results PROCEDURES No Known procedures IMMUNIZATIONS No Known Immunizations MEDICAL (GENERAL) HISTORY Type Description Date Medical History HYPERTENSION Medical History ANXIETY Medical History ACID REFLUX Surgical History C SECTION 2003 Surgical History cholecystectomy 2003 Surgical History LEFT KNEE SURGERY Hospitalization History New onset seizures--[facility]ia [facility] 02/29/16
--- OUTSIDE RECORDS SUMMARY | 2018-05-29 10:15 | XMS REPORT ---
Author Author MAYNOR KINCAID [facility] Address [address] [place] [address] Care Team Providers Care Hay Rake Operator Name Role Phone MAYNOR KINCAID Unavailable PROBLEMS Type Condition ICD9-CM Code HIB33-BC Code Onset Dates Condition Status SNOMED Code Problem Right-sided low back pain without sciatica M54.5 Active 551562937 Problem History of hypertension Z86.79 Active 049339160 Problem History of brain shunt Z98.2 Active 222412640 Problem Inappropriate social behavior F99 Active 293404835 Problem Head injury due to trauma, sequela S09.90XS Active 00839261 Problem Anxiety F41.9 Active 50706654 Problem Hemiplegia, unspecified affecting left dominant side G81.92 Active 421555703 Problem Reactive depression F32.9 Active 62021968 ALLERGIES No Information SOCIAL HISTORY Never Assessed [...] KNEE SURGERY Hospitalization History New onset seizures--[facility] 02/29/16
--- OUTSIDE RECORDS SUMMARY | 2018-05-29 10:15 | XMS REPORT ---
Author Author MAYNOR KINCAID Organization [facility] Address [address] [place] [address] Care Team Providers Care Dishwasher Name Role Phone MAYNOR KINCAID Unavailable PROBLEMS Type Condition ICD9-CM Code NHS19-MR Code Onset Dates Condition Status SNOMED Code Problem Right-sided low back pain without sciatica M54.5 Active 664733227 Problem Head injury due to trauma, sequela S09.90XS Active 97630635 Problem Anxiety F41.9 Active 71139215 Problem History of hypertension Z86.79 Active 486107094 Problem Dysphagia, unspecified type R13.10 Active 35972676 Problem Poor appetite R63.0 Active 04448965 Problem Hemiplegia, unspecified affecting left dominant side G81.92 Active 449603204 Problem Reactive depression F32.9 Active 14726538 Problem History of brain shunt Z98.2 Active 094300115 Problem Inappropriate social behavior F99 Active 002030831 ALLERGIES No Information ENCOUNTERS Encounter Location Date Diagnosis [facility] [address], [place] [address] December, [facility] [id number], [place] [address] December, [facility] [id number] [place] [address]- 9684 December, [facility] [address], [place] [address] December, Physically aggressive behavior R46.89 [facility] [address] [id number] December, [facility] [address], [place] [address] December, [facility] [address] [id number], [place] [address] Nov, [facility] [address] [id number] Oct, Head injury due to trauma, sequela S09.90XS [facility] [id number] [id number] Sep, [facility] [id number] [id number] Aug, [facility] [id number], [place] [address] Aug, [facility] [address] [place] [id number] Aug, Tremor R25.1 ; Head injury due to trauma, sequela S09.90XS and Dysphagia, unspecified type R13.10 [facility] [address] [place] [id number] Aug, Tremor R25.1 ; Poor appetite R63.0 and Acute renal failure with tubular necrosis N17.0 [facility] [id number] [id number] Aug, [facility] [id number] [id number] Aug, [facility] [address] [place] [id number] Aug, Urinary tract infection without hematuria, site unspecified N39.0 and Acute renal failure, unspecified acute renal failure type N17.9 [facility] [address] [id number] [id number] Jul, [facility] [id number] [id number] Jul, [facility] [id number], [place] [address] Jul, [facility] [id number], [place] [address] Jun, [facility] [id number] [id number] Jun, [facility] [address] [id number] [address] May, [facility] [id number] [place] [address]- 4816 May, [facility] [address], [place] [address] Apr, [facility] [address] [id number] Mar, Head injury due to trauma, sequela S09.90XS and Reactive depression F32.9 [facility] [id number] [place] [address]- 4[address] Mar, [facility] [id number] [place] [id number] Mar, [facility] [address] [place] [address] 8[address]16- 1846 Mar, [facility] [address] [id number] Feb, Inappropriate social behavior F99 and Head injury due to trauma, sequela S09.90XS [facility] [id number] [place] [address] [id number] Feb, [facility] [id number] [place] [address] [id number] Feb, [facility] [address], [place] [address] Jan, [facility] [id number], [place] [address] Jan, [facility] [address], [place] [address] Jan, [facility] [id number], [place] [address] December, [facility] [address] [place] [address]- 3657 December, Physically aggressive behavior R46.89 [facility] [address] [id number] December, Ingrowing toenail with infection L60.0 ; Physically aggressive behavior R46.89 and Head injury due to trauma, sequela S09.90XS [facility] [address] [place] [address]- 7448 December, Depressive disorder, not elsewhere classified F32.9 and Dementia due to general medical condition, without behavioral disturbance F02.80 [facility] [address] [id number] December, Ingrowing toenail with infection L60.0 and Head injury due to trauma, sequela S09.90XS [facility] [address] [place] [address] 71678- 5798 Nov, [facility] [id number] [place] [address] 71169- 8398 Nov, Physically aggressive behavior R46.89 ; Head injury due to trauma, sequela S09.90XS and History of brain shunt Z98.2 [facility] [id number] [place] [address] 03899- 6337 Nov, [facility] [id number] [place] [address] 19028- 4134 Nov, [facility] [id number] [place] [address] 43662- 6894 Nov, Inappropriate social behavior F99 [facility] [id number] [place] [address] [id number] Nov, [facility] [id number] [place] [address] [id number] Nov, Gastroesophageal reflux disease with esophagitis K21.0 [facility] [address] [place] [address]87- 2434 Oct, [facility] [address] [id number] Oct, Head injury due to trauma, sequela S09.90XS and Hemiplegia, unspecified affecting left dominant side G81.92 [facility] [id number] [place] [id number] Sep, [facility] [id number], [place] [address] Aug, [facility] [address] [place] [id number] Aug, Head injury due to trauma, sequela S09.90XS and Hemiplegia, unspecified affecting left dominant side G81.92 [facility] [address] [place] [address] 95068- 3366 Jul, [facility] [id number] [place] [address] 25978- 1686 Jun, [facility] [address] [place] [address] [id number] Jun, Head injury due to trauma, sequela S09.90XS [facility] [address], [place] [address] 97[address] Jun, [facility] [id number] [place] [address] 23417- 4741 May, [facility] [address] [place] [id number] May, Head injury due to trauma, sequela S09.90XS [facility] [address], [place] [address]- 2746 May, [facility] [id number], [place] [address] 4[address] May, [facility] [address] [place] [address] 28562- 3526 Apr, [facility] [id number], [place] [address]- 0966 Apr, [facility] [id number] [place] [address] 09880- 8936 Apr, [facility] [address] [id number] Apr, Head injury due to trauma, sequela S09.90XS [facility] [address] [facility] [id number], [place] [address]- 8[address] Mar, [facility] [id number] [place] [address] 87456- 7316 Mar, [facility] [id number] [place] [address] 85535- 7331 Mar, [facility] [address] [facility] [id number] [place] [address] 63287- 1106 Mar, [facility] [id number] [place] [address] 99290- 3583 Mar, Head injury due to trauma, sequela S09.90XS and Reactive depression F32.9 [facility] [id number] [place] [address] 19058- 8501 Feb, Head injury due to trauma, sequela S09.90XS [facility] [id number] [place] [address] 68109- 9886 Feb, [facility] [id number] [place] [address] 88087- 7768 Feb, [facility] [address] [id number] Feb, Head injury due to trauma, sequela S09.90XS [facility] [id number], [place] [address] Feb, [facility] [id number] [place] [address] 47908- 8832 Jan, [facility] [id number], [place] [address]- 6796 Jan, [facility] [id number] [place] [address] 38471- 4256 Jan, [facility] [id number] [place] [address] 10352- 9739 Jan, Insomnia due to medical condition G47.01 [facility] [address] [address]- [address] December, Right-sided low back pain without sciatica M54.5 [facility] [address] 58015- 8483 December, Head injury due to trauma, initial encounter S09.90XA [facility] [id number] [place] [address] 68420- 7187 December, Gastroesophageal reflux disease with esophagitis K21.0 [place] [address] [address]- 2857 December, Head injury due to trauma, initial encounter S09.90XA and Essential hypertension I10 [address] [address] 35959- 5661 Jul, Anxiety F41.9 [place] [address] 31820- 4460 Jun, Anxiety F41.9 [place] [address] 30448- 2503 May, Right-sided low back pain without sciatica M54.5 ; Anxiety F41.9 and History of hypertension Z86.79 [facility] [id number] [place] [address] 63994- 9170 May, [facility] [address] 35271- 8924 May, [facility] [address] 81751- 4296 May, [facility] [id number] [place] [address] 06567- 0259 May, [facility] [address] 99315- 9597 Apr, [facility] [address], [place] [address] Apr, [facility] [address], [place] [address]- 4972 Mar, [facility] [address], [place] [address]- 1251 Feb, [facility] [id number] [place] [address] 34482- 7198 Feb, [facility] [address] [place] [address] 483201- 7057 Jan, Essential hypertension, benign 401.1 and Anxiety state, unspecified 300.00 [facility] [address], [place] [address]- 6792 Jan, [facility] [id number] [place] [address] 02687- 4227 December, [facility] [address], [place] [address]- 8477 December, [facility] [address], [place] [address]- 9607 Nov, [facility] [address], [place] [address]- 1791 Nov, [facility] [address], [place] [address]- 9891 Oct, [facility] [address] 7363 Oct, [facility] [address] [address] 3835 Sep, [facility] [address] 3246 Sep, [facility] [address], [place] [address]- 9844 Sep, [facility] [place] [facility] [address] [id number] [place] [address]- 8754 Sep, [facility] [place] [facility] [address] [id number] [place] [address]- 3707 Sep, [facility] [place] [facility] [address] [facility] [id number] [place] [address]- 0573 Aug, [facility] [place] [facility] [address] [id number] [place] [address]- 3025 Aug, [facility] [place] [facility] [address] [id number] [place] [address]- 1561 Aug, [facility] [place] [facility] [address] [id number] [place] [address]- 2182 Aug, [facility] [place] [facility] [address] [facility] [id number] [place] [address]- 1312 Jul, [facility] [place] [facility] [address] [facility] [id number] [place] [address]- 3001 Jul, [facility] [place] [facility] [address] [facility] [id number] [place] [address]- 9353 Jun, [facility] [place] [facility] [address] [facility] [id number] [place] [address]- 4343 Jun, [facility] [place] [facility] [address] [id number] [place] [address]- 4730 May, [facility] [place] [facility] [address] [id number], [place] [address]- 8252 May, [facility] [place] [facility] [address] [id number] [place] [address]- 9228 Apr, [facility] [place] [facility] [address] [id number] [place] [address]- 0279 Apr, [facility] [place] [facility] [address] [facility] [id number], [place] [address]- 1334 Mar, [facility] [place] [facility] [address] [id number] [place] [address]- 5732 Mar, [facility] [place] [facility] [address] [id number] [place] [address]- 3933 Feb, [facility] [place] [facility] [address] [id number] [place] [address]- 1147 Feb, [facility] [place] [facility] [address] [id number] [place] [address]- 4172 Jan, [facility] [place] [facility] [address] [id number] [place] [address]- 5614 Jan, [facility] [place] [facility] [address] [id number] [place] [address]- 4542 December, [facility] [place] [facility] [address] [id number] [place] [address]- 6356 December, [facility] [place] [facility] [address] [id number] [place] [address]- 6460 December, [facility] [place] [facility] [address] [id number] [place] [address]- 0020 December, [facility] [place] [facility] [address] [id number] [place] [address]- 7419 December, [facility] [place] [facility] [address] [id number] [place] [address]- 6779 December, [facility] [place] [facility] [address] [id number] [place] [address]- 2654 Nov, [facility] [place] [facility] [address] [id number] [place] [address]- 1619 Nov, [facility] [place] [facility] [address] [id number] [place] [address]- 8276 Nov, [facility] [place] [facility] [address] [id number] [place] [address]- 6518 Nov, [facility] [place] [facility] [address] [id number] [place] [address]- 7979 Oct, [facility] [id number], [place] [address]- 0457 Oct, [facility] [address], [place] [address]- 4184 Oct, [facility] [id number], [place] [address]- 1982 Oct, [facility] [address], [place] [address]- 3245 Oct, [facility] [id number], [place] [address]- 6599 Oct, [facility] [address], [place] [address]- 9985 Oct, [facility] [address], [place] [address]- 8556 Oct, [facility] [address], [place] [address]- 9912 Oct, [facility] [address], [place] [address]- 8046 Oct, [facility] [address], [place] [address]- 7172 Oct, [facility] [address], [place] [address]- 1362 Oct, [facility] [id number], [place] [address]- 7979 Sep, [facility] [id number], [place] [address]- 9752 Sep, [facility] [id number], [place] [address]- 7535 Sep, IMMUNIZATIONS No Known Immunizations SOCIAL HISTORY Never Assessed REASON FOR VISIT Routine Visit PLAN OF CARE Activity Details Follow Up prn Reason: VITAL SIGNS MEDICATIONS Medication Instructions Dosage Frequency Start Date End Date Duration Status Topamax 50 MG 1 TAB BY MOUTH TWICE DAILY Active Menthol-Zinc Oxide 0.44-20 % Externally 2 times a day apply to buttocks 12h Active Bisacodyl 10 MG Rectal Once a day 1 suppository as needed 24h Active Zofran ODT 8 MG Orally every 4 hours as needed 1 tablet Active Melatonin 3 MG Orally Once a day at HS 1 tablet at bedtime as needed with food Jan, Active Triple Antibiotic Plus 1 % topically 2 times a day left big toe Active Albuterol Sulfate (2.5 MG/3ML) 0.083% Inhalation Three times a day 3 ml 8h Active Milk of Magnesia Concentrate 2400 MG/10ML Orally Once a day for constipation 10 ml Active Depakote 500 mg Orally 2 times a day as directed 12h Nov, Active Citalopram Hydrobromide 40 MG 1 TABLET ONCE A DAY ORALLY Active Tramadol HCl 50 mg Orally 2 times a day 1 tablet 12h Aug, 28 days Active Cholestyramine 4 GM Orally Twice a day 1 packet mixed with water or non- carbonated drink 12h Active Tylenol Extra Strength 500 mg Orally every 6 hrs 1-2 tablets as needed 6h Active Metoprolol Tartrate 50 MG Orally Twice a day 1 tablet with food 12h Active Keppra 500 MG Orally every 12 hrs 1 tablet 12h Active MiraLax - Orally every other day as directed Jun, Active Risperdal 0.5 MG Orally twice a day 1 tablet 12h December, Active Ipratropium [place] 0.02 % Inhalation every 6 hours as needed Active Refresh Tears 0.5 % Ophthalmic 3 times a day 1 drop into both eyes 8h Active Phenytoin Sodium Extended 100 MG Orally 2 times a day (#180) 3 capsule Feb, Active Levsin/SL 0.125 MG Sublingual every 4 hrs 1-2 tablet under the tongue and allow to dissolve before meals as needed 4h Active RESULTS No Results PROCEDURES Procedure Date Ordered Result Body Site Minor complication (15 mins) Aug 08, 2017 INSTRUCTIONS MEDICATIONS ADMINISTERED No Known Medications MEDICAL (GENERAL) HISTORY Type Description Date Medical History HYPERTENSION Medical History ANXIETY Medical History ACID REFLUX Surgical History C SECTION 2003 Surgical History cholecystectomy 2003 Surgical History LEFT KNEE SURGERY Hospitalization History New onset seizures--[facility] 02/29/16
--- OUTSIDE RECORDS SUMMARY | 2018-05-29 10:15 | XMS REPORT ---
Author Author MAYNOR KINCAID Organization [facility] Address [address] [place] [address] Care Team Providers Care Watermelon Inspector Name Role Phone MAYNOR KINCAID Unavailable PROBLEMS Type Condition ICD9-CM Code [id number] Code Onset Dates Condition Status SNOMED Code Problem Right-sided low back pain without sciatica M54.5 Active 593270016 Problem Head injury due to trauma, sequela S09.90XS Active 36891537 Problem Anxiety F41.9 Active 67703122 Problem History of hypertension Z86.79 Active 218626772 Problem Dysphagia, unspecified type R13.10 Active 45724206 Problem Poor appetite R63.0 Active 84758813 Problem Hemiplegia, unspecified affecting left dominant side G81.92 Active 708958199 Problem Reactive depression F32.9 Active 25406144 Problem History of brain shunt Z98.2 Active 762224243 Problem Inappropriate social behavior F99 Active [id number] ALLERGIES No Information ENCOUNTERS Encounter Location Date Diagnosis [facility] [address], [place] [address] December, [facility] [address] [id number], [place] [address] December, [facility] [id number] [place] [address]269- 4965 December, [facility] [address], [place] [address] December, Physically aggressive behavior R46.89 [facility] [address] [id number] December, [facility] [address], [place] [address] December, [facility] [address] [id number], [place] [address] Nov, [facility] [address] [id number] Oct, Head injury due to trauma, sequela S09.90XS [facility] [id number] [id number] Sep, [facility] [id number] [id number] Aug, [facility] [address] [id number], [place] [address] Aug, [facility] [address] [place] [id number] Aug, Tremor R25.1 ; Head injury due to trauma, sequela S09.90XS and Dysphagia, unspecified type R13.10 [facility] [address] [place] [id number] Aug, Tremor R25.1 ; Poor appetite R63.0 and Acute renal failure with tubular necrosis N17.0 [facility] [id number] [id number] Aug, [facility] [id number][place] [id number] Aug, [facility] [address] [place] [id number] Aug, Urinary tract infection without hematuria, site unspecified N39.0 and Acute renal failure, unspecified acute renal failure type N17.9 [facility] [address] [id number] [id number] Jul, [facility] [id number] [id number] Jul, [facility] [address] [id number], [place] [address] Jul, [facility] [id number], [place] [address] Jun, [facility] [id number][place] [id number] Jun, [facility] [address] [id number] [id number] May, [facility] [address] [place] [address]596- 1264 May, [facility] [address], [place] [address] Apr, [facility] [address] [id number] Mar, Head injury due to trauma, sequela S09.90XS and Reactive depression F32.9 [facility] [address] [place] [address] 20157- 9364 Mar, [facility] [id number] [place] [id number] Mar, [facility] [address] [place] [address] 39163- 8926 Mar, [facility] [address] [id number] Feb, Inappropriate social behavior F99 and Head injury due to trauma, sequela S09.90XS [facility] [id number] [place] [id number] Feb, [facility] [id number] [place] [address] [id number] Feb, [facility] [address]100[place], [place] [address] 26[address] Jan, [facility] [id number], [place] [address] 3[address] Jan, [facility] [address]100[place], [place] [address] 2635 Jan, [facility] [address] [id number], [place] [address] 67[address] December, [facility] [address] [place] [address] 49773- 9226 December, Physically aggressive behavior R46.89 [facility] [address] [id number] December, Ingrowing toenail with infection L60.0 ; Physically aggressive behavior R46.89 and Head injury due to trauma, sequela S09.90XS [facility] [address] [place] [address] 47087- 7936 December, Depressive disorder, not elsewhere classified F32.9 and Dementia due to general medical condition, without behavioral disturbance F02.80 [facility] [address] [id number] December, Ingrowing toenail with infection L60.0 and Head injury due to trauma, sequela S09.90XS [facility] [address] [place] [address] 76602- 6654 Nov, [facility] [id number] [place] [address] 35479- 1542 Nov, Physically aggressive behavior R46.89 ; Head injury due to trauma, sequela S09.90XS and History of brain shunt Z98.2 [facility] [id number] [place] [address] 62769- 5536 Nov, [facility] [address] [place] [address] 03056- 3291 Nov, [facility] [id number] [place] [address] 31033- 7068 Nov, Inappropriate social behavior F99 [facility] [place] [id number] [place] [address] [phone] Nov, [facility] [id number] [place] [address] [id number] Nov, Gastroesophageal reflux disease with esophagitis K21.0 [facility] [address] [place] [address] 67450- 5975 Oct, [facility] [address] [id number] Oct, Head injury due to trauma, sequela S09.90XS and Hemiplegia, unspecified affecting left dominant side G81.92 [facility] [id number] [place] [address] [id number] Sep, [facility] [id number], [place] [address] Aug, [facility] [address] [place] [id number] Aug, Head injury due to trauma, sequela S09.90XS and Hemiplegia, unspecified affecting left dominant side G81.92 [facility] [address] [place] [address] 16563- 0846 Jul, [facility] [address] [place] [address] 20723- 0976 Jun, [facility] [address] [place] [address] [id number] Jun, Head injury due to trauma, sequela S09.90XS [facility] [address], [place] [address]- 3293 Jun, [facility] [id number] [place] [address] 13098- 7023 May, [facility] [address] [place] [id number] May, Head injury due to trauma, sequela S09.90XS [facility] [address], [place] [address]- 8[address] May, [facility] [address] [id number], [place] [address] 8236 May, [facility] [address] [place] [address] 78826- 3386 Apr, [facility] [address] [id number], [place] [address]- 3006 Apr, [facility] [address] [place] [address] 28679- 8317 Apr, [facility] [address] [id number] Apr, Head injury due to trauma, sequela S09.90XS [facility] [address] [facility] [id number], [place] [address] 0146 Mar, [facility] [id number] [place] [address] 69904- 3666 Mar, [facility] [id number] [place] [address] 90953- 9402 Mar, [facility] [address] [facility] [id number] [place] [address] 40559- 9276 Mar, [facility] [id number] [place] [address] 61360- 2124 Mar, Head injury due to trauma, sequela S09.90XS and Reactive depression F32.9 [facility] [id number] [place] [address] 26091- 2367 Feb, Head injury due to trauma, sequela S09.90XS [facility] [id number] [place] [address] 55322- 6366 Feb, [facility] [address] [place] [address] 89636- 7541 Feb, [facility] [address] [id number] Feb, Head injury due to trauma, sequela S09.90XS [facility] [id number], [place] [address]- 5576 Feb, [facility] [id number] [place] [address] 55667- 6686 Jan, [facility] [id number], [place] [address]- 4406 Jan, [facility] [address] [place] [address] 00385- 0863 Jan, [facility] [id number] [place] [address] 88501- 2174 Jan, Insomnia due to medical condition G47.01 [facility] [address] [address]- 8412 December, Right-sided low back pain without sciatica M54.5 [facility] [address] 67996- 5314 December, Head injury due to trauma, initial encounter S09.90XA [facility] [id number] [place] [address] 22889- 3901 December, Gastroesophageal reflux disease with esophagitis K21.0 [address] [address] [address]- 1144 December, Head injury due to trauma, initial encounter S09.90XA and Essential hypertension I10 [address] [address]19- 2244 Jul, Anxiety F41.9 [address] [place] [address] 87814- 8024 Jun, Anxiety F41.9 [address] [place] [address] 01546- 9236 May, Right-sided low back pain without sciatica M54.5 ; Anxiety F41.9 and History of hypertension Z86.79 [facility] [id number] [place] [address] 48758- 2539 May, [facility] [address] 93947- 2828 May, [facility] [address] 54624- 4630 May, [facility] [id number] [place] [address] 30852- 8874 May, [facility] [address] 96142- 6226 Apr, [facility] [address], [place] [address]- 6416 Apr, [facility] [address], [place] [address]- 5412 Mar, [facility] [address], [place] [address]- 0709 Feb, [facility] [id number] [place] [address] 72717- 9188 Feb, [facility] [address] [place] [address] 960787- 5343 Jan, Essential hypertension, benign 401.1 and Anxiety state, unspecified 300.00 [facility] [address], [place] [address]- 3137 Jan, [facility] [id number] [place] [address] 06196- 5481 December, [facility] [address], [place] [address]- 5388 December, [facility] [address], [place] [address]- 3579 Nov, [facility] [address], [place] [address]- 5878 Nov, [facility] [address], [place] [address]- 2438 Oct, [facility] [address], [place]- 7845 Oct, [facility] [address]- 9300 Sep, [facility] [address] 7088 Sep, [facility] [address], [place] [address]- 4133 Sep, [facility] [place] [facility] [address] [id number] [place] [address]- 5668 Sep, [facility] [place] [facility] [address] [id number] [place] [address]- 9337 Sep, [facility] [place] [facility] [address] [facility] [id number] [place] [address]- 7067 Aug, [facility] [place] [facility] [address] [id number] [place] [address]- 6663 Aug, [facility] [place] [facility] [address] [id number] [place] [address]- 6702 Aug, [facility] [place] [facility] [address] [id number] [place] [address]- 4456 Aug, [facility] [place] [facility] [address] [facility] [id number] [place] [address]- 2728 Jul, [facility] [place] [facility] [address] [facility] [id number] [place] [address]- 0191 Jul, [facility] [place] [facility] [address] [facility] [id number] [place] [address]- 4664 Jun, [facility] [place] [facility] [address] [facility] [id number] [place] [address]- 2066 Jun, [facility] [place] [facility] [address] [id number] [place] [address]- 9946 May, [facility] [place] [facility] [address] [id number], [place] [address]- 7536 May, [facility] [place] [facility] [address] [id number] [place] [address]- 4586 Apr, [facility] [place] [facility] [address] [id number] [place] [address]- 2143 Apr, [facility] [place] [facility] [address] [facility] [id number] [address]- 2768 Mar, [facility] [place] [facility] [address] [id number] [place] [address]- 4053 Mar, [facility] [place] [facility] [address] [id number] [place] [address]- 1979 Feb, [facility] [place] [facility] [address] [id number] [place] [address]- 6717 Feb, [facility] [place] [facility] [address] [id number] [place] [address]- 8406 Jan, [facility] [place] [facility] [address] [id number] [place] [address]- 3327 Jan, [facility] [place] [facility] [address] [id number] [place] [address]- 3822 December, [facility] [place] [facility] [address] [id number] [place] [address]- 4937 December, [facility] [place] [facility] [address] [id number] [place] [address]- 6135 December, [facility] [place] [facility] [address] [id number] [place] [address]- 5266 December, [facility] [place] [facility] [address] [id number] [place] [address]- 9923 December, [facility] [place] [facility] [address] [id number] [place] [address]- 0566 December, [facility] [place] [facility] [address] [id number] [place] [address]- 5771 Nov, [facility] [place] [facility] [address] [id number] [place] [address]- 6273 Nov, [facility] [place] [facility] [address] [id number] [place] [address]- 6111 Nov, [facility] [place] [facility] [address] [id number] [place] [address]- 8789 Nov, [facility] [place] [facility] [address] [id number] [place] [address]- 3994 Oct, [facility] [id number], [place] [address]- 8992 Oct, [facility] [address], [place] [address]- 0410 Oct, [facility] [address], [place] [address]- 4710 Oct, [facility] [address], [place] [address]- 5109 Oct, [facility] [address] [id number], [place] [address]- 5009 Oct, [facility] [address], [place] [address]- 8196 Oct, [facility] [address], [place] [address]- 8584 Oct, [facility] [address], [place] [address]- 3641 Oct, [facility] [address], [place] [address]- 8180 Oct, [facility] [address], [place] [address]- 3193 Oct, [facility] [address], [place] [address]- 5927 Oct, [facility] [id number], [place] [address]- 2614 Sep, [facility] [id number], [place] [address]- 5419 Sep, [facility] [id number], [place] [address]- 7740 Sep, IMMUNIZATIONS No Known Immunizations SOCIAL HISTORY Never Assessed REASON FOR VISIT lab results PLAN OF CARE VITAL SIGNS MEDICATIONS Unknown [...]
--- OUTSIDE RECORDS SUMMARY | 2018-05-29 10:16 | XMS REPORT ---
Author Author WILTON ANDERSON Organization [facility] Address [address] [place] [address] Care Team Providers Care Circular Shear Operator Name Role Phone WILTON ANDERSON Unavailable PROBLEMS Type Condition ICD9-CM Code RVD46-YA Code Onset Dates Condition Status SNOMED Code Problem Right-sided low back pain without sciatica M54.5 Active 850747328 Problem Head injury due to trauma, sequela S09.90XS Active 02543248 Problem Anxiety F41.9 Active 27764888 Problem History of hypertension Z86.79 Active 334769781 Problem Dysphagia, unspecified type R13.10 Active 31080270 Problem Poor appetite R63.0 Active 00530411 Problem Hemiplegia, unspecified affecting left dominant side G81.92 Active 288477230 Problem Reactive depression F32.9 Active 97702472 Problem History of brain shunt Z98.2 Active 801390155 Problem Inappropriate social behavior F99 Active 952215190 ALLERGIES No Information ENCOUNTERS Encounter Location Date Diagnosis [facility] [address] [place] [address] 13383- 0359 December, [facility] [id number] [place] [address] 73336- 8355 December, [facility] [id number] [place] [address] 04010- 5495 December, Physically aggressive behavior R46.89 [facility] [address] [id number] December, [facility] [id number] [place] [address] 16025- 2466 December, [facility] [id number] [place] [address] 16458- 3596 Nov, [facility] [address] [id number] Oct, Head injury due to trauma, sequela S09.90XS [facility] [address] [id number] [id number] Sep, [facility] [id number] [id number] Aug, [facility] [address] [id number] [address]- 2546 Aug, [facility] [address] [place] [address] [id number] Aug, Tremor R25.1 ; Head injury due to trauma, sequela S09.90XS and Dysphagia, unspecified type R13.10 [facility] [address] [place] [id number] Aug, Tremor R25.1 ; Poor appetite R63.0 and Acute renal failure with tubular necrosis N17.0 [facility] [id number] [place] [id number] Aug, [facility] [address] [id number] [place] [id number] Aug, [facility] [address] [place] [id number] Aug, Urinary tract infection without hematuria, site unspecified N39.0 and Acute renal failure, unspecified acute renal failure type N17.9 [facility] [address] [id number] [place] [id number] Jul, [facility] [address] [id number] [place] [id number] Jul, [facility] [address] [id number] [address] 2546 Jul, [facility] [address] [id number] [address]- 2546 Jun, [facility] [address] [id number] [place] [id number] Jun, [facility] [address] [id number] [place] [id number] May, [facility] [address]00565100[place] [address] 2236 May, [facility] [address]00565100[place] [address] 6[address] Apr, [facility] [address] [id number] Mar, Head injury due to trauma, sequela S09.90XS and Reactive depression F32.9 [facility] [address]00565100[place] [address] 4246 Mar, [facility] [id number] [place] [id number] Mar, [facility] [address]00565100[place] [address] 7[address] Mar, [facility] [address] [id number] Feb, Inappropriate social behavior F99 and Head injury due to trauma, sequela S09.90XS [facility] [address] [id number] [id number] Feb, [facility] [address] [id number] [id number] Feb, [facility] [address]00565100[place] [address]- 7843 Jan, [facility] [address]00565100[place] [address]- 2436 Jan, [facility] [address]00565100[place] [address]- 5263 Jan, [facility] [address]00565100[place] [address]- 0256 December, [facility] [address]00565100[place] [address]- 2566 December, Physically aggressive behavior R46.89 [facility] [address] [place] [id number] December, Ingrowing toenail with infection L60.0 ; Physically aggressive behavior R46.89 and Head injury due to trauma, sequela S09.90XS [facility] [id number] [place] [address] 00963- 9231 December, Depressive disorder, not elsewhere classified F32.9 and Dementia due to general medical condition, without behavioral disturbance F02.80 [facility] [address] [id number] December, Ingrowing toenail with infection L60.0 and Head injury due to trauma, sequela S09.90XS [facility] [id number] [place] [address] 82767- 3157 Nov, [facility] [id number] [place] [address] 21490- 4399 Nov, Physically aggressive behavior R46.89 ; Head injury due to trauma, sequela S09.90XS and History of brain shunt Z98.2 [facility] [address] [place] [address] 28994- 4437 Nov, [facility] [id number] [place] [address] 39474- 7048 Nov, [facility] [id number] [place] [address] 01619- 4848 Nov, Inappropriate social behavior F99 [facility] [id number] [place] [id number] Nov, [facility] [id number] [place] [address] [id number] Nov, Gastroesophageal reflux disease with esophagitis K21.0 [facility] [id number] [place] [address] 58762- 4327 Oct, [facility] [address] [id number] Oct, Head injury due to trauma, sequela S09.90XS and Hemiplegia, unspecified affecting left dominant side G81.92 [facility] [address] [id number] [id number] Sep, [facility] [id number] [place] [address] 90150- 7246 Aug, [facility] [address] [place] [id number] Aug, Head injury due to trauma, sequela S09.90XS and Hemiplegia, unspecified affecting left dominant side G81.92 [facility] [id number] [place] [address] 23551- 0516 Jul, [facility] [id number] [place] [address] 96129- 9743 Jun, [facility] [address] [place] [address] [phone] Jun, Head injury due to trauma, sequela S09.90XS [facility] [id number] [place] [address] 02865- 5051 Jun, [facility] [address] [place] [address] 07018- 1056 May, [facility] [address] [place] [address] May, Head injury due to trauma, sequela S09.90XS [facility] [address] [place] [address] 98417- 8105 May, [facility] [address] [place] [address] 93862- 0716 May, [facility] [address] [place] [address] 39999- 0219 Apr, [facility] [id number] [place] [address] 57518- 0174 Apr, [facility] [address] [place] [address] 68306- 6047 Apr, [facility] [address] [place] [id number] Apr, Head injury due to trauma, sequela S09.90XS [facility] [address] [facility] [id number] [address]- 7886 Mar, [facility] [address] [facility] [id number] [place] [address] 42945- 4126 Mar, [facility] [address] [id number] [address]- 2796 Mar, [facility] [id number] [place] [address] 49459- 1466 Mar, [facility] [address] [facility] [id number] [place] [address] 32336- 9277 Mar, Head injury due to trauma, sequela S09.90XS and Reactive depression F32.9 [facility] [id number] [place] [address] 10267- 8216 Feb, Head injury due to trauma, sequela S09.90XS [facility] [id number] [place] [address] 91531- 7605 Feb, [facility] [id number] [place] [address] 99557- 8148 Feb, [facility] and [address] [id number] Feb, Head injury due to trauma, sequela S09.90XS [facility] [address]00565100[place] [address]- 1937 Feb, [facility] [address] [id number] [address]- 5464 Jan, [facility] [id number] [place] [address] 87192- 4159 Jan, [facility] [id number] [place] [address] 52227- 0895 Jan, [facility] [address]00565100[place] [address]- 7630 Jan, Insomnia due to medical condition G47.01 [facility] [id number] [place] [address] 58140- 6129 December, Right-sided low back pain without sciatica M54.5 [facility] [address] [address]24- 0004 December, Head injury due to trauma, initial encounter S09.90XA [facility] [address] 16135- 8482 December, Gastroesophageal reflux disease with esophagitis K21.0 [facility] [address] 82074- 2472 December, Head injury due to trauma, initial encounter S09.90XA and Essential hypertension [address] 87551- 1795 Jul, Anxiety F41.9 [facility] [address] 17241- 1080 Jun, Anxiety F41.9 [facility] [address] 20614- 5198 May, Right-sided low back pain without sciatica M54.5 ; Anxiety F41.9 and History of hypertension Z86.79 [facility] [address] 96796- 2083 May, [facility] [address] 43762- 2287 May, [facility] [address] 69076- 9954 May, [facility] [address] 72374- 8865 May, [facility] [address] 55828- 0347 Apr, [facility] [address] 90121- 2546 Apr, [facility] [address] [id number] [place] [address]- 1671 Mar, [facility] [address] [id number] [address]- 0726 Feb, [facility] [address] [id number] [place] [address]- 3110 Feb, [facility] [id number] [place] [address] 07747- 3126 Jan, Essential hypertension, benign 401.1 and Anxiety state, unspecified 300.00 [facility] [id number] [place] [address], [place] [address]- 4599 Jan, [facility] [id number] [place] [address] 609272- 6555 December, [facility] [id number] [place] [address], [place] [address]- 8382 December, [facility] [address] [id number] [address]- 0345 Nov, [facility] [address] [place] [address]- 8740 Nov, [facility] [address]65[address]- 6149 Oct, [facility] [address] [id number]- 4946 Oct, [facility] [address] [id number]- 0163 Sep, [facility] [address]65100[facility]- 1776 Sep, [facility] [address] [facility] [id number] [address]- 0468 Sep, [facility] [address]65[address] [address]- 0895 Sep, [facility] [place] [facility] [address] [id number] [place] [address]- 3225 Sep, [facility] [place] [facility] [address] [id number] [place]- 8111 Aug, [facility] [place] [facility] [address] [id number] [place] [address]- 1815 Aug, [facility] [place] [facility] [address] [id number] [place] [address]- 6514 Aug, [facility] [place] [facility] [address] [id number] [place] [address]- 3211 Aug, [facility] [place] [facility] [address] [id number] [place] [address]- 6140 Jul, [facility] [place] [facility] [address] [id number] [place] [address]- 5185 Jul, [facility] [place] [facility] [address] [id number] [place] [address]- 3382 Jun, [facility] [place] [facility] [address] [id number] [place] [address]- 1023 Jun, [facility] [place] [facility] [address] [id number] [place] [address]- 4844 May, [facility] [place] [facility] [address] [id number] [place] [address]- 4389 May, [facility] [place] [facility] [address] [id number] [place] [address]- 2461 Apr, [facility] [place] [facility] [address] [id number] [place] [address]- 6988 Apr, [facility] [place] [facility] [address] [id number] [place] [address]- 1320 Mar, [facility] [place] [facility] [address] [id number] [place] [address]- 5552 Mar, [facility] [place] [facility] [address] [id number] [place] [address]- 2289 14 Feb, 2014 [facility] [address] [id number] [place] [address]- 6365 14 Feb, 2014 [facility] [address] [id number] [place] [address]- 2926 Jan, [facility] [address] [id number] [place] [address]- 4874 Jan, [facility] [address] [id number] [place] [address]- 0395 December, [facility] [address] [id number] [place] [address]- 1912 December, [facility] [address] [id number] [place] [address]- 6327 December, [facility] [address] [id number] [place] [address]- 4313 December, [facility] [address] [id number] [place] [address]- 4990 December, [facility] [address] [id number] [place] [address]- 0173 December, [facility] [address] [id number] [place] [address]- 7159 Nov, [facility] [place] [facility] [address] [id number] [place] [address]- 8259 Nov, [facility] [place] [facility] [address] [id number] [place] [address]- 0272 Nov, [facility] [place] [facility] [address] [id number] [place] [address]- 5592 Nov, [facility] [place] [facility] [address] [id number] [place] [address]- 4946 Oct, [facility] [place] [facility] [address] [id number] [place] [address]- 5470 Oct, [facility] [address] [id number] [address]- 0294 Oct, [facility] [address] [address]- 8241 Oct, [facility] [address] [id number] [address]- 1880 Oct, [facility] [address] [address]- 6276 Oct, [facility] [address] [id number] [address]- 0975 Oct, [facility] [address]65[address] [address]- 5767 Oct, [facility] [address] [address]- 7356 Oct, [facility] [address] [address]- 5345 Oct, [facility] [address]65[address] [address]- 1210 Oct, [facility] [address] [address]- 0249 Oct, [facility] [address] [id number] [address]- 6195 Sep, [facility] [address] [id number] [address]- 6870 Sep, [facility] [address] [id number] [address]- 1238 Sep, IMMUNIZATIONS No Known Immunizations SOCIAL HISTORY Never Assessed REASON FOR VISIT Refill request PLAN OF CARE VITAL SIGNS MEDICATIONS Unknown Medications RESULTS No Results PROCEDURES No Known procedures INSTRUCTIONS MEDICATIONS ADMINISTERED No Known Medications MEDICAL (GENERAL) HISTORY Type Description Date Medical History HYPERTENSION Medical History ANXIETY Medical History ACID REFLUX Surgical History C SECTION 2003 Surgical History cholecystectomy 2003 Surgical History LEFT KNEE SURGERY Hospitalization History New onset seizures--[facility] 02/29/16
--- OUTSIDE RECORDS SUMMARY | 2018-05-29 10:16 | XMS REPORT ---
Author Author MAYNOR KINCAID Organization [facility] Address [address] [place] [address] Care Team Providers Care Innovation Manager Name Role Phone MAYNOR KINCAID Unavailable PROBLEMS Type Condition ICD9-CM Code IFU07-PR Code Onset Dates Condition Status SNOMED Code Problem Right-sided low back pain without sciatica M54.5 Active 301612497 Problem History of hypertension Z86.79 Active 122923984 Problem History of brain shunt Z98.2 Active 055196628 Problem Inappropriate social behavior F99 Active 958790006 Problem Head injury due to trauma, sequela S09.90XS Active 57015838 Problem Anxiety F41.9 Active 27384642 Problem Hemiplegia, unspecified affecting left dominant side G81.92 Active 299622452 Problem Reactive depression F32.9 Active 98327170 ALLERGIES No Information SOCIAL HISTORY Never Assessed PLAN OF CARE Activity Details Follow Up prn Reason: Future/Pending Procedure NAIL REMOVAL SINGLE (COMPLETE OR PARTIAL) VITAL SIGNS MEDICATIONS Medication Instructions Dosage Frequency Start Date End Date Duration Status Risperdal 0.5 MG Orally twice a day 1 tablet 12h December, Active RESULTS No Results PROCEDURES Procedure Date Ordered Result Body Site Minor complication (15 mins) December 15, 2016 REMOVAL OF NAIL PLATE December 15, 2016 IMMUNIZATIONS No Known Immunizations MEDICAL (GENERAL) HISTORY Type Description Date Medical History HYPERTENSION Medical History ANXIETY Medical History ACID REFLUX Surgical History C SECTION 2004 Surgical History cholecystectomy 2004 Surgical History LEFT KNEE SURGERY Hospitalization History New onset seizures--[facility] 02/29/16
--- OUTSIDE RECORDS SUMMARY | 2018-05-29 10:16 | XMS REPORT ---
Author Author MAYNOR KINCAID Organization [facility] Address [address] [place] [address] Care Team Providers Care Buckler And Lacer Name Role Phone MAYNOR KINCAID Unavailable PROBLEMS Type Condition ICD9-CM Code ZOZ49-YW Code Onset Dates Condition Status SNOMED Code Problem Right-sided low back pain without sciatica M54.5 Active 869043225 Problem Head injury due to trauma, sequela S09.90XS Active 48907315 Problem Anxiety F41.9 Active 04744127 Problem History of hypertension Z86.79 Active 876536040 Problem Dysphagia, unspecified type R13.10 Active 48939586 Problem Poor appetite R63.0 Active 24439594 Problem Hemiplegia, unspecified affecting left dominant side G81.92 Active 872161441 Problem Reactive depression F32.9 Active 28941451 Problem History of brain shunt Z98.2 Active 582590653 Problem Inappropriate social behavior F99 Active 765241527 ALLERGIES No Information ENCOUNTERS Encounter Location Date Diagnosis [facility] [address], [place] [address] December, [facility] [id number], [place] [address] December, [facility] [id number] [place] [address] 90[address]- 8327 December, [facility] [id number] [place] [address]53- 5439 December, Physically aggressive behavior R46.89 [facility] [address] [id number] December, [facility] [address], [place] [address] December, [facility] [address] [id number], [place] [address] Nov, [facility] [address] [id number] Oct, Head injury due to trauma, sequela S09.90XS [facility] [id number] [address] Sep, [facility] [id number] [address] Aug, [facility] [id number], [place] [address] Aug, [facility] [address] [place] [id number] Aug, Tremor R25.1 ; Head injury due to trauma, sequela S09.90XS and Dysphagia, unspecified type R13.10 [facility] [address] [place] [id number] Aug, Tremor R25.1 ; Poor appetite R63.0 and Acute renal failure with tubular necrosis N17.0 [facility] [id number] [id number] Aug, [facility] [id number] [id number] Aug, [facility] [address] [place] [id number] Aug, Urinary tract infection without hematuria, site unspecified N39.0 and Acute renal failure, unspecified acute renal failure type N17.9 [facility] [address] [id number] [id number] Jul, [facility] [id number] [id number] Jul, [facility] [id number], [place] [address] 8[address] Jul, [facility] [id number], [place] [address] 4[address] Jun, [facility] [id number] [id number] Jun, [facility] [address] [id number] [id number] May, [facility] [address] [place] [address]60- 1426 May, [facility] [address], [place] [address] Apr, [facility] [address] [id number] Mar, Head injury due to trauma, sequela S09.90XS and Reactive depression F32.9 [facility] [address] [place] [address] 27129- 3720 Mar, [facility] [id number] [place] [id number] Mar, [facility] [address] [place] [address] 65752- 1446 Mar, [facility] [address] [id number] Feb, Inappropriate social behavior F99 and Head injury due to trauma, sequela S09.90XS [facility] [id number] [place] [address] [id number] Feb, [facility] [id number] [place] [address] [id number] Feb, [facility] [address], [place] [address] Jan, [facility] [id number], [place] [address] 0157 Jan, [facility] [address], [place] [address] 0606 Jan, [facility] [id number], [place] [address] December, [facility] [address] [place] [address] 36889- 6079 December, Physically aggressive behavior R46.89 [facility] [address] [id number] December, Ingrowing toenail with infection L60.0 ; Physically aggressive behavior R46.89 and Head injury due to trauma, sequela S09.90XS [facility] [address] [place] [address] 92935- 6641 December, Depressive disorder, not elsewhere classified F32.9 and Dementia due to general medical condition, without behavioral disturbance F02.80 [facility] [address] [id number] December, Ingrowing toenail with infection L60.0 and Head injury due to trauma, sequela S09.90XS [facility] [address] [place] [address] 93459- 7117 Nov, [facility] [id number] [place] [address] 32656- 0996 Nov, Physically aggressive behavior R46.89 ; Head injury due to trauma, sequela S09.90XS and History of brain shunt Z98.2 [facility] [id number] [place] [address] 90824- 2975 Nov, [facility] [address] [place] [address] 39487- 1668 Nov, [facility] [id number] [place] [address] 40320- 1573 Nov, Inappropriate social behavior F99 [facility] [id number] [place] [id number] Nov, [facility] [id number] [place] [address] [id number] Nov, Gastroesophageal reflux disease with esophagitis K21.0 [facility] [address] [place] [address] 93359- 3776 Oct, [facility] [address] [id number] Oct, Head injury due to trauma, sequela S09.90XS and Hemiplegia, unspecified affecting left dominant side G81.92 [facility] [id number] [place] [address] [id number] Sep, [facility] [id number], [place] [address] 6[address] Aug, [facility] [address] [place] [id number] Aug, Head injury due to trauma, sequela S09.90XS and Hemiplegia, unspecified affecting left dominant side G81.92 [facility] [address] [place] [address] 76285- 6846 Jul, [facility] [address] [place] [address] 43096- 1846 Jun, [facility] [address] [place] [address] [id number] Jun, Head injury due to trauma, sequela S09.90XS [facility] [address], [place] [address]- 4361 Jun, [facility] [id number] [place] [address] 66063- 2247 May, [facility] [address] [place] [id number] May, Head injury due to trauma, sequela S09.90XS [facility] [address], [place] [address]- 0086 May, [facility] [id number], [place] [address]- 9726 May, [facility] [address] [place] [address] 18962- 1496 Apr, [facility] [id number], [place] [address]- 2026 Apr, [facility] [address] [place] [address] 63649- 5517 Apr, [facility] [address] [id number] Apr, Head injury due to trauma, sequela S09.90XS [facility] [address] [facility] [id number], [place] [address]- 3846 Mar, [facility] [id number] [place] [address] 82498- 3826 Mar, [facility] [id number] [place] [address] 25001- 9625 Mar, [facility] [address] [facility] [id number] [place] [address] 48548- 0576 Mar, [facility] [id number] [place] [address] 04097- 4889 Mar, Head injury due to trauma, sequela S09.90XS and Reactive depression F32.9 [facility] [id number] [place] [address] 63634- 0140 Feb, Head injury due to trauma, sequela S09.90XS [facility] [id number] [place] [address] 04089- 5776 Feb, [facility] [address] [place] [address] 99769- 2903 Feb, [facility] [address] [id number] Feb, Head injury due to trauma, sequela S09.90XS [facility] [id number], [place] [address]- 0866 Feb, [facility] [id number] [place] [address] 92890- 6988 Jan, [facility] [id number], [place] [address]- 6226 Jan, [facility] [address] [place] [address] 20462- 4147 Jan, [facility] [id number] [place] [address] 51830- 0417 Jan, Insomnia due to medical condition G47.01 [facility] [address] [address]134- 1399 December, Right-sided low back pain without sciatica M54.5 [facility] [address] 19711- 9744 December, Head injury due to trauma, initial encounter S09.90XA [facility] [id number] [place] [address] 96663- 0874 December, Gastroesophageal reflux disease with esophagitis K21.0 [place] [address] 24519- 1222 December, Head injury due to trauma, initial encounter S09.90XA and Essential hypertension I10 [place] [address] 53578- 6869 Jul, Anxiety F41.9 [place] [address] 07162- 3859 Jun, Anxiety F41.9 [place] [address] 16356- 3703 May, Right-sided low back pain without sciatica M54.5 ; Anxiety F41.9 and History of hypertension Z86.79 [facility] [id number] [place] [address] 14329- 2998 May, [facility] [address] 33211- 2336 May, [facility] [address] 30885- 8659 May, [facility] [id number] [place] [address] 90297- 3815 May, [facility] [address] 73816- 3080 Apr, [facility] [address], [place] [address]- 1737 Apr, [facility] [address], [place] [address]- 2566 Mar, [facility] [address], [place] [address]- 5476 Feb, [facility] [id number] [place] [address] 94517- 6817 Feb, [facility] [address] [place] [address] 063907- 9227 Jan, Essential hypertension, benign 401.1 and Anxiety state, unspecified 300.00 [facility] [address], [place] [address]- 1356 Jan, [facility] [id number] [place] [address] 08675- 2141 December, [facility] [address], [place] [address]- 0955 December, [facility] [address], [place] [address]- 2866 Nov, [facility] [address], [place] [address]- 4691 Nov, [facility] [address], [place] [address]- 9127 Oct, [facility] [address]- 6947 Oct, [facility] [address] 1875 Sep, [facility] [address]- 0492 Sep, [facility] [address], [place] [address]- 7677 Sep, [facility] [place] [facility] [address] [id number] [place] [address]- 0265 Sep, [facility] [place] [facility] [address] [id number] [place] [address]- 5261 Sep, [facility] [place] [facility] [address] [facility] [id number] [place] [address]- 4725 Aug, [facility] [place] [facility] [address] [id number] [place] [address]- 7893 Aug, [facility] [place] [facility] [address] [id number] [place] [address]- 7651 Aug, [facility] [place] [facility] [address] [id number] [place] [address]- 7300 Aug, [facility] [place] [facility] [address] [facility] [id number] [place] [address]- 3379 Jul, [facility] [place] [facility] [address] [facility] [id number] [place] [address]- 9248 Jul, [facility] [place] [facility] [address] [facility] [id number] [place] [address]- 5082 Jun, [facility] [place] [facility] [address] [facility] [id number] [place] [address]- 1440 Jun, [facility] [place] [facility] [address] [id number] [place] [address]- 9818 May, [facility] [place] [facility] [address] [id number], [place] [address]- 5218 May, [facility] [place] [facility] [address] [id number] [place] [address]- 1663 Apr, [facility] [place] [facility] [address] [id number] [place] [address]- 3039 Apr, [facility] [place] [facility] [address] [facility] [id number], [place] [address]- 5224 Mar, [facility] [place] [facility] [address] [id number] [place] [address]- 9510 Mar, [facility] [place] [facility] [address] [id number] [place] [address]- 3290 Feb, [facility] [place] [facility] [address] [id number] [place] [address]- 4013 Feb, [facility] [place] [facility] [address] [id number] [place] [address]- 4494 Jan, [facility] [place] [facility] [address] [id number] [place] [address]- 4728 Jan, [facility] [place] [facility] [address] [id number] [place] [address]- 0866 December, [facility] [place] [facility] [address] [id number] [place] [address]- 0828 December, [facility] [place] [facility] [address] [id number] [place] [address]- 7033 December, [facility] [place] [facility] [address] [id number] [place] [address]- 7292 December, [facility] [place] [facility] [address] [id number] [place] [address]- 7835 December, [facility] [place] [facility] [address] [id number] [place] [address]- 6953 December, [facility] [place] [facility] [address] [id number] [place] [address]- 5578 Nov, [facility] [place] [facility] [address] [id number] [place] [address]- 7240 Nov, [facility] [place] [facility] [address] [id number] [place] [address]- 8202 Nov, [facility] [place] [facility] [address] [id number] [place] [address]- 5613 Nov, [facility] [place] [facility] [address] [id number] [place] [address]- 5539 Oct, [facility] [id number], [place] [address]- 2299 Oct, [facility] [address], [place] [address]- 5191 Oct, [facility] [address], [place] [address]- 5484 Oct, [facility] [address], [place] [address]- 2024 Oct, [facility] [address], [place] [address]- 7696 Oct, [facility] [address], [place] [address]- 6308 Oct, [facility] [address], [place] [address]- 0556 Oct, [facility] [address], [place] [address]- 3659 Oct, [facility] [address], [place] [address]- 3763 Oct, [facility] [address], [place] [address]- 7889 Oct, [facility] [address], [place] [address]- 0145 Oct, [facility] [id number], [place] [address]- 2290 Sep, [facility] [address], [place] [address]- 1530 Sep, [facility] [address], [place] [address]- 0878 Sep, IMMUNIZATIONS No Known Immunizations SOCIAL HISTORY Never Assessed REASON FOR VISIT Refill request PLAN OF CARE VITAL SIGNS MEDICATIONS Medication [...] KNEE SURGERY Hospitalization History New onset seizures--[facility] 02/29/16
--- OUTSIDE RECORDS SUMMARY | 2018-05-29 10:17 | XMS REPORT ---
Author Author MAYNOR KINCAID [facility] Address [address] [place] [address] Care Team Providers Care Heating Operators Engineer Name Role Phone MAYNOR KINCAID Unavailable PROBLEMS Type Condition ICD9-CM Code OSM99-GK Code Onset Dates Condition Status SNOMED Code Problem Right-sided low back pain without sciatica M54.5 Active 367011838 Problem History of hypertension Z86.79 Active 206727818 Problem History of brain shunt Z98.2 Active 833010296 Problem Inappropriate social behavior F99 Active 936301710 Problem Head injury due to trauma, sequela S09.90XS Active 93960227 Problem Anxiety F41.9 Active 97362295 Problem Hemiplegia, unspecified affecting left dominant side G81.92 Active 980809666 Problem Reactive depression F32.9 Active 97201536 ALLERGIES Unknown Allergies SOCIAL HISTORY No smoking Hx information available PLAN OF CARE VITAL SIGNS MEDICATIONS Medication Instructions Dosage Frequency Start Date End Date Duration Status Tramadol HCl 50 mg Orally 2 times a day 1 tablet 12h Aug, Sep, 28 days Active RESULTS No Results PROCEDURES No Known procedures IMMUNIZATIONS No Known Immunizations
--- OUTSIDE RECORDS SUMMARY | 2018-05-29 10:17 | XMS REPORT ---
Author Author MAYNOR KINCAID Organization [facility] Address [address] [place] [address] Care Team Providers Care Hotel Receptionist Name Role Phone MAYNOR KINCAID Unavailable PROBLEMS Type Condition ICD9-CM Code OQR01-PW Code Onset Dates Condition Status SNOMED Code Problem Right-sided low back pain without sciatica M54.5 Active 209239207 Problem Head injury due to trauma, sequela S09.90XS Active 65915882 Problem Anxiety F41.9 Active 99550892 Problem History of hypertension Z86.79 Active 584529031 Problem Dysphagia, unspecified type R13.10 Active 97662028 Problem Poor appetite R63.0 Active 70899584 Problem Hemiplegia, unspecified affecting left dominant side G81.92 Active 884360601 Problem Reactive depression F32.9 Active 98286390 Problem History of brain shunt Z98.2 Active 628315789 Problem Inappropriate social behavior F99 Active 138392729 ALLERGIES No Information ENCOUNTERS Encounter Location Date Diagnosis [facility] [address] [id number] Oct, Head injury due to trauma, sequela S09.90XS [facility] [address] [id number] [id number] Sep, [facility] [address] [id number] [id number] Aug, [facility] [address] [facility] [id number], [place] [address] Aug, [facility] [address] [id number] Aug, Tremor R25.1 ; Head injury due to trauma, sequela S09.90XS and Dysphagia, unspecified type R13.10 [facility] [address] [id number] Aug, Tremor R25.1 ; Poor appetite R63.0 and Acute renal failure with tubular necrosis N17.0 [facility] [id number] [place] [id number] Aug, [facility] [address] [id number] [id number] Aug, [facility] [address] [place] [id number] Aug, Urinary tract infection without hematuria, site unspecified N39.0 and Acute renal failure, unspecified acute renal failure type N17.9 [facility] [address] [id number] [address] Jul, [facility] [id number] [place] [address] [id number] Jul, [facility] [id number] [place] [address] 23529- 2546 Jul, [facility] [address] [place] [address] 11334- 2546 Jun, [facility] [id number] [place] [address] [id number] Jun, [facility] [id number] [place] [address] [id number] May, [facility] [address], [place] [address] May, [facility] [address], [place] [address] Apr, [facility] [address] [place] [id number] Mar, Head injury due to trauma, sequela S09.90XS and Reactive depression F32.9 [facility] [address], [place] [address] 2546 Mar, [facility] [address] [id number] [id number] Mar, [facility] [address] [id number] [address] Mar, [facility] [address] [id number] Feb, Inappropriate social behavior F99 and Head injury due to trauma, sequela S09.90XS [facility] [id number] [id number] Feb, [facility] [address] [id number][place] [id number] Feb, [facility] [address] [id number], [place] [address] Jan, [facility] [address], [place] [address] Jan, [facility] [address], [place] [address] 8635 Jan, [facility] [address], [place] [address] 270[address] December, [facility] [address] [id number], [place] [address] December, Physically aggressive behavior R46.89 [facility] [address] [place] [id number] December, Ingrowing toenail with infection L60.0 ; Physically aggressive behavior R46.89 and Head injury due to trauma, sequela S09.90XS [facility] [address] [id number], [place] [address] December, Depressive disorder, not elsewhere classified F32.9 and Dementia due to general medical condition, without behavioral disturbance F02.80 [facility] [address] [place] [id number] December, Ingrowing toenail with infection L60.0 and Head injury due to trauma, sequela S09.90XS [facility] [address] [id number], [place] [address] 8186 Nov, [facility] [address] [place] [address]00- 0065 Nov, Physically aggressive behavior R46.89 ; Head injury due to trauma, sequela S09.90XS and History of brain shunt Z98.2 [facility] [address], [place] [address] 266[address] Nov, [facility] [id number] [place] [address] 20276- 8550 Nov, [facility] [id number] [place] [address] 41739- 7094 Nov, Inappropriate social behavior [address] [id number] Nov, [place] [place] [id number] [place] [address] [id number] Nov, Gastroesophageal reflux disease with esophagitis K21.0 [place] [id number] [place] [address]6086- 9245 Oct, [facility] [address] [id number] Oct, Head injury due to trauma, sequela S09.90XS and Hemiplegia, unspecified affecting left dominant side G81.92 [facility] [id number] [place] [id number] Sep, [facility] [address] [place] [address] 75125- 6875 Aug, [facility] [address] [address] Aug, Head injury due to trauma, sequela S09.90XS and Hemiplegia, unspecified affecting left dominant side G81.92 [facility] [id number] [place] [address] 20249- 0827 Jul, [facility] [id number] [place] [address] 71449- 6678 Jun, [facility] [address] [place] [address] [address] Jun, Head injury due to trauma, sequela S09.90XS [facility] [id number] [place] [address] 57547- 0766 Jun, [facility] [address] [facility] [id number] [place] [address] 59785- 1236 May, [facility] [address] [place] [address] [id number] May, Head injury due to trauma, sequela S09.90XS [facility] [id number] [place] [address] 51608- 2786 May, [facility] [address] [facility] [id number] [place] [address] 01898- 0946 May, [facility] [id number] [place] [address] 73351- 9566 Apr, [facility] [id number] [place] [address] 26797- 8861 Apr, [facility] [id number] [place] [address] 35393- 4290 Apr, [facility] [address] [place] [id number] Apr, Head injury due to trauma, sequela S09.90XS [facility] [address] [id number], [place] [address] 5736 Mar, [facility] [id number] [place] [address] 96028- 8670 Mar, [facility] [address] [facility] [id number], [place] [address] 3476 Mar, [facility] [address] [facility] [id number] [place] [address] 11538- 3826 Mar, [facility] [address] [id number], [place] [address] 3421 Mar, Head injury due to trauma, sequela S09.90XS and Reactive depression F32.9 [facility] [id number] [place] [address] 06085- 4147 Feb, Head injury due to trauma, sequela S09.90XS [facility] [id number] [place] [address] 56012- 6683 Feb, [facility] [address] [address]- [address]3 Feb, [address] [id number] Feb, Head injury due to trauma, sequela S09.90XS [place] [address] [address]- 7369 Feb, [facility] [address] [address] Jan, [facility] [address] [address]- 7826 Jan, [facility] [id number] [place] [address] 50104- 1241 Jan, [place] [address] [address]60- 3859 Jan, Insomnia due to medical condition G47.01 [facility] [id number] [place] [address] 68823- 9595 December, Right-sided low back pain without sciatica M54.5 [facility] [address] [address]84- 0195 December, Head injury due to trauma, initial encounter S09.90XA [facility] [address] 06858- 9839 December, Gastroesophageal reflux disease with esophagitis K21.0 [facility] [id number] [place] [address] 63994- 3063 December, Head injury due to trauma, initial encounter S09.90XA and Essential hypertension I10 [facility] [address], [place] [address]- 0967 07 Jul, 2015 Anxiety F41.9 [facility] [id number] [place] [address] 85803- 4368 Jun, Anxiety F41.9 [facility] [id number] [place] [address] 13348- 5972 May, Right-sided low back pain without sciatica M54.5 ; Anxiety F41.9 and History of hypertension Z86.79 [facility] [address] [place] [address] 28359- 5716 May, [facility] [id number] [place] [address] 63165- 1374 May, [facility] [id number] [place] [address] 41938- 4202 May, [facility] [id number] [place] [address] 45741- 1934 May, [facility] [address] [place] [address] 32374- 2420 Apr, [facility] [id number] [place] [address] 37734- 5332 Apr, [facility] [address] [place] [address] 45746- 5570 Mar, [facility] [address] [place] [address] 01757- 5055 Feb, [facility] [address] [place] [address] 61304- 0498 Feb, [facility] [id number] [place] [address] 69320248- 9849 Jan, Essential hypertension, benign 401.1 and Anxiety state, unspecified 300.00 [facility] [address] [place] [address] 13491- 6459 Jan, [facility] [place] [facility] [address] [id number] [place] [address]- 6505 December, [facility] [place] [facility] [address] [id number] [place] [address]- 1176 December, [facility] [place] [facility] [address] [id number] [place] [address]- 3456 Nov, [facility] [place] [facility] [address] [id number] [place] [address]- 3603 Nov, [facility] [place] [facility] [address] [id number] [place] [address]- 3926 Oct, [facility] [place] [facility] [address] [id number] [place] [address]- 7059 Oct, [facility] [place] [facility] [address] [id number] [place] [address]- 5008 Sep, [facility] [place] [facility] [address] [id number] [place] [address]- 6728 Sep, [facility] [place] [facility] [address] [id number] [place] [address]- 4223 Sep, [facility] [place] [facility] [address] [facility] [id number] [place] [address]- 8088 Sep, [facility] [place] [facility] [address] [id number] [place] [address]- 7494 Sep, [facility] [place] [facility] [address] [id number] [place] [address]- 0234 Aug, [facility] [place] [facility] [address] [id number] [place] [address]- 8645 Aug, [facility] [place] [facility] [address] [id number] [place] [address]- 7051 Aug, [facility] [place] [facility] [address] [id number] [place] [address]- 2248 Aug, [facility] [place] [facility] [address] [id number] [place] [address]- 3137 Jul, [facility] [place] [facility] [address] [id number] [place] 9213 Jul, [facility] [place] [facility] [address] [id number] [place]- 2749 Jun, [facility] [place] [facility] [address] [id number] [place] [address]- 0897 Jun, [facility] [place] [facility] [address] [id number] [place] [address]- 3628 May, [facility] [place] [facility] [address] [id number] [place] [address]- 6795 May, [facility] [place] [facility] [address] [id number] [place] [address]- 1546 Apr, [facility] [place] [facility] [address] [id number] [place] [address]- 2564 Apr, [facility] [place] [facility] [address] [id number] [place] [address]- 0663 Mar, [facility] [place] [facility] [address] [id number] [place] [address]- 0826 Mar, [facility] [place] [facility] [address] [id number] [place] [address]- 3764 Feb, [facility] [place] [facility] [address] [id number] [place] [address]- 5602 Feb, [facility] [place] [facility] [address] [id number] [place] [address]- 1165 Jan, [facility] [place] [facility] [address] [id number] [place] [address]- 1036 Jan, [facility] [place] [facility] [address] [id number] [place] [address]- 0010 December, [facility] [place] [facility] [address] [id number] [place] [address]- 6986 December, [facility] [place] [facility] [address] [id number] [place] [address]- 7413 December, [facility] [place] [facility] [address] [id number] [place] [address]- 0198 December, [facility] [place] [facility] [address] [id number] [place] [address]- 9386 December, [facility] [place] [facility] [address] [id number] [place] [address]- 2748 December, [facility] [place] [facility] [address] [id number] [place] [address]- 8583 Nov, [facility] [place] [facility] [address] [id number] [place] [address]- 6945 Nov, [facility] [place] [facility] [address] [id number] [place] [address]- 0611 Nov, [facility] [place] [facility] [address] [id number] [place] [address]- 3737 Nov, [facility] [place] [facility] [address] [id number] [place] [address]- 4231 Oct, [facility] [place] [facility] [address] [id number] [place] [address]- 4175 Oct, [facility] [place] [facility] [address] [id number] [place] [address]- 7046 Oct, [facility] [place] [facility] [address] [id number] [place] [address]- 3373 Oct, [facility] [place] [facility] [address] [id number] [place] [address]- 4997 Oct, [facility] [place] [facility] [address] [id number] [place] [address]- 5630 Oct, [facility] [place] [facility] [address] [id number] [place] [address]- 1315 Oct, [facility] [place] [facility] [address] [id number] [place] [address]- 4483 Oct, [facility] [address] [facility] [id number], [place] [address]- 3750 Oct, [facility] [address], [place] [address]- 0656 Oct, [facility] [id number], [place] [address]- 6475 Oct, [facility] [address], [place] [address]- 3172 Oct, [facility] [address] [id number], [place] [address]- 4768 Sep, [facility] [address], [place] [address]- 2285 Sep, [facility] [address] [id number], [place] [address]- 4990 Sep, IMMUNIZATIONS No Known Immunizations SOCIAL HISTORY Never Assessed REASON FOR VISIT Refill request PLAN OF CARE VITAL SIGNS MEDICATIONS Medication Instructions Dosage Frequency Start Date End Date Duration Status Tramadol HCl 50 mg Orally 2 times a day 1 tablet 12h Aug, 28 days Active RESULTS No Results PROCEDURES No Known procedures INSTRUCTIONS MEDICATIONS ADMINISTERED No Known Medications MEDICAL (GENERAL) HISTORY Type Description Date Medical History HYPERTENSION Medical History ANXIETY Medical History ACID REFLUX Surgical History C SECTION 2003 Surgical History cholecystectomy 2003 Surgical History LEFT KNEE SURGERY Hospitalization History New onset seizures--[facility] 02/29/16
--- OUTSIDE RECORDS SUMMARY | 2018-05-29 10:17 | XMS REPORT ---
Author Author MAYNOR KINCAID Organization [facility] Address [address] [place] [address] Care Team Providers Care Employee Relations Administrator Name Role Phone MAYNOR KINCAID Unavailable PROBLEMS Type Condition ICD9-CM Code CSO04-II Code Onset Dates Condition Status SNOMED Code Problem Right-sided low back pain without sciatica M54.5 Active 343360479 Problem Head injury due to trauma, sequela S09.90XS Active 86434275 Problem Anxiety F41.9 Active 94139724 Problem History of hypertension Z86.79 Active 937966132 Problem Dysphagia, unspecified type R13.10 Active 90188661 Problem Poor appetite R63.0 Active 13812059 Problem Hemiplegia, unspecified affecting left dominant side G81.92 Active 790733658 Problem Reactive depression F32.9 Active 22351958 Problem History of brain shunt Z98.2 Active 493838617 Problem Inappropriate social behavior F99 Active 983766934 ALLERGIES No Information ENCOUNTERS Encounter Location Date Diagnosis [facility] [address] [address] December, [facility] [id number] [address] December, [facility] [id number] [place] [address]85 December, [facility] [address] [address] December, Physically aggressive behavior R46.89 [facility] [address] [id number] December, [facility] [address] [address] December, [facility] [address] [id number] [address] Nov, [facility] [address] [id number] Oct, Head injury due to trauma, sequela S09.90XS [facility] [id number] [place] [id number] Sep, [facility] [id number] [id number] Aug, [facility] [id number] [address] Aug, [facility] [address] [place] [id number] Aug, Tremor R25.1 ; Head injury due to trauma, sequela S09.90XS and Dysphagia, unspecified type R13.10 [facility] [address] [place] [id number] Aug, Tremor R25.1 ; Poor appetite R63.0 and Acute renal failure with tubular necrosis N17.0 [facility] [id number] [place] [id number] Aug, [facility] [id number] [id number] Aug, [facility] [address] [place] [id number] Aug, Urinary tract infection without hematuria, site unspecified N39.0 and Acute renal failure, unspecified acute renal failure type N17.9 [facility] [address] [id number] [id number] Jul, [facility] [id number] [place] [id number] Jul, [facility] [id number] [address] Jul, [facility] [id number] [address] Jun, [facility] [id number] [place] [id number] Jun, [facility] [address] [id number] [id number] May, [facility] [id number] [place] [address]- 8733 May, [facility] [address] [address] Apr, [facility] [address] [id number] Mar, Head injury due to trauma, sequela S09.90XS and Reactive depression F32.9 [facility] [id number] [place] [address]- 7[address] Mar, [facility] [id number] [place] [id number] Mar, [facility] [id number] [place] [address] 87713- 8596 Mar, [facility] [address] [id number] Feb, Inappropriate social behavior F99 and Head injury due to trauma, sequela S09.90XS [facility] [id number] [place] [address] [id number] Feb, [facility] [id number] [place] [address] [id number] Feb, [facility] [address] [address] 7[address] Jan, [facility] [id number] [address] 0679 Jan, [facility] [address] [address] 15[address] Jan, [facility] [id number] [address] December, [facility] [id number] [place] [address]00- 4355 December, Physically aggressive behavior R46.89 [facility] [address] [id number] December, Ingrowing toenail with infection L60.0 ; Physically aggressive behavior R46.89 and Head injury due to trauma, sequela S09.90XS [facility] [id number] [place] [address]- [address] December, Depressive disorder, not elsewhere classified F32.9 and Dementia due to general medical condition, without behavioral disturbance F02.80 [facility] [address] [id number] December, Ingrowing toenail with infection L60.0 and Head injury due to trauma, sequela S09.90XS [facility] [id number] [place] [address] 72858- 2270 Nov, [facility] [id number] [place] [address] 18507- 2855 Nov, Physically aggressive behavior R46.89 ; Head injury due to trauma, sequela S09.90XS and History of brain shunt Z98.2 [facility] [id number] [place] [address] 79591- 3062 Nov, [facility] [id number] [place] [address] 95046- 2334 Nov, [facility] [id number] [place] [address] 46506- 7181 Nov, Inappropriate social behavior F99 [facility] [id number] [place] [id number] Nov, [facility] [id number] [place] [address] [id number] Nov, Gastroesophageal reflux disease with esophagitis K21.0 [facility] [address] [place] [address] 72933- 2794 Oct, [facility] [address] [id number] Oct, Head injury due to trauma, sequela S09.90XS and Hemiplegia, unspecified affecting left dominant side G81.92 [facility] [id number] [place] [id number] Sep, [facility] [id number] [address] Aug, [facility] [address] [place] [id number] Aug, Head injury due to trauma, sequela S09.90XS and Hemiplegia, unspecified affecting left dominant side G81.92 [facility] [id number] [place] [address] 53203- 4156 Jul, [facility] [id number] [place] [address] 86709- 9696 Jun, [facility] [address] [place] [address] [id number] Jun, Head injury due to trauma, sequela S09.90XS [facility] [address] [address] 5[address] Jun, [facility] [id number] [place] [address] 53383- 8346 May, [facility] [address] [place] [id number] May, Head injury due to trauma, sequela S09.90XS [facility] [address] [address]- 3706 May, [facility] [id number] [address] 1226 May, [facility] [id number] [place] [address] 28448- 0536 Apr, [facility] [id number] [address]- 1496 Apr, [facility] [id number] [place] [address] 74812- 1851 Apr, [facility] [address] [id number] Apr, Head injury due to trauma, sequela S09.90XS [facility] [address] [facility] [id number] [address] Mar, [facility] [id number] [place] [address] 66179- 2326 Mar, [facility] [id number] [place] [address] 40385- 8812 Mar, [facility] [address] [facility] [id number] [place] [address] 93036- 7646 Mar, [facility] [id number] [place] [address] 69579- 2062 Mar, Head injury due to trauma, sequela S09.90XS and Reactive depression F32.9 [facility] [id number] [place] [address] 35831- 6625 Feb, Head injury due to trauma, sequela S09.90XS [facility] [id number] [place] [address] 91483- 8956 Feb, [facility] [id number] [place] [address] 60386- 9595 Feb, [facility] [address] [id number] Feb, Head injury due to trauma, sequela S09.90XS [facility] [id number] [address]- 4646 Feb, [facility] [id number] [place] [address] 59578- 1385 Jan, [facility] [id number] [address]- 1666 Jan, [facility] [id number] [place] [address] 98867- 9985 Jan, [facility] [id number] [place] [address] 56296- 9313 Jan, Insomnia due to medical condition G47.01 [facility] [address] [address]67- 6391 December, Right-sided low back pain without sciatica M54.5 [facility] [address] 27383- 7111 December, Head injury due to trauma, initial encounter S09.90XA [facility] [id number] [place] [address] 68484- 3694 December, Gastroesophageal reflux disease with esophagitis K21.0 [place] [address] [address]- 0404 December, Head injury due to trauma, initial encounter S09.90XA and Essential hypertension I10 [place] [address] 91667- 0264 Jul, Anxiety F41.9 [place] [address] 84494- 4772 Jun, Anxiety F41.9 [place] [address] 78221- 7525 May, Right-sided low back pain without sciatica M54.5 ; Anxiety F41.9 and History of hypertension Z86.79 [facility] [id number] [place] [address] 90914- 0746 May, [facility] [address] 21864- 5962 May, [facility] [address] 72714- 8550 May, [facility] [id number] [place] [address] 38461- 2793 May, [facility] [address] 15558- 3323 Apr, [facility] [address] [address]- 3312 Apr, [facility] [address] [address]- 2783 Mar, [facility] [address] [address]- 2763 Feb, [facility] [id number] [place] [address] 49241- 8592 Feb, [facility] [id number] [place] [address] 817276- 5239 Jan, Essential hypertension, benign 401.1 and Anxiety state, unspecified 300.00 [facility] [address] [address]- 2239 Jan, [facility] [id number] [place] [address] 54360- 0029 December, [facility] [address] [address]- 3201 December, [facility] [address] [address]- 2418 Nov, [facility] [address] [address]- 8279 Nov, [facility] [address] [address]- 9928 Oct, [facility] [address] 1181 Oct, [facility] [address] 8909 Sep, [facility] [address] 3862 Sep, [facility] [address] [address]- 7619 Sep, [facility] [place] [facility] [address] [id number] [place] [address]- 6607 Sep, [facility] [place] [facility] [address] [id number] [place] [address]- 4481 Sep, [facility] [place] [facility] [address] [facility] [id number] [place] [address]- 2753 Aug, [facility] [place] [facility] [address] [id number] [place] [address]- 1719 Aug, [facility] [place] [facility] [address] [id number] [place] [address]- 5900 Aug, [facility] [place] [facility] [address] [id number] [place] [address]- 3107 Aug, [facility] [place] [facility] [address] [facility] [id number] [place] [address]- 1671 Jul, [facility] [place] [facility] [address] [facility] [id number] [place] [address]- 3197 Jul, [facility] [place] [facility] [address] [facility] [id number] [place] [address]- 7419 Jun, [facility] [place] [facility] [address] [facility] [id number] [place] [address]- 5532 Jun, [facility] [place] [facility] [address] [id number] [place] [address]- 6296 May, [facility] [place] [facility] [address] [id number] [address]- 5451 May, [facility] [place] [facility] [address] [id number] [place] [address]- 0779 Apr, [facility] [place] [facility] [address] [id number] [place] [address]- 5929 Apr, [facility] [place] [facility] [address] [facility] [id number] [address]- 5027 Mar, [facility] [place] [facility] [address] [id number] [place] [address]- 9683 Mar, [facility] [place] [facility] [address] [id number] [place] [address]- 7206 Feb, [facility] [place] [facility] [address] [id number] [place] [address]- 1772 Feb, [facility] [place] [facility] [address] [id number] [place] [address]- 7024 Jan, [facility] [place] [facility] [address] [id number] [place] [address]- 0644 Jan, [facility] [place] [facility] [address] [id number] [place] [address]- 8854 December, [facility] [place] [facility] [address] [id number] [place] [address]- 1984 December, [facility] [place] [facility] [address] [id number] [place] [address]- 5170 December, [facility] [place] [facility] [address] [id number] [place] [address]- 0163 December, [facility] [place] [facility] [address] [id number] [place] [address]- 6970 December, [facility] [place] [facility] [address] [id number] [place] [address]- 5906 December, [facility] [place] [facility] [address] [id number] [place] [address]- 7623 Nov, [facility] [place] [facility] [address] [id number] [place] [address]- 3726 Nov, [facility] [place] [facility] [address] [id number] [place] [address]- 8816 Nov, [facility] [place] [facility] [address] [id number] [place] [address]- 6571 Nov, [facility] [place] [facility] [address] [id number] [place] [address]- 5064 Oct, [facility] [id number] [address]- 7433 Oct, [facility] [address] [address]- 4527 Oct, [facility] [address] [address]- 5360 Oct, [facility] [address] [address]- 6524 Oct, [facility] [address] [address]- 8239 Oct, [facility] [address] [address]- 6820 Oct, [facility] [address] [address]- 9542 Oct, [facility] [address] [address]- 5040 Oct, [facility] [address] [address]- 1103 Oct, [facility] [address] [address]- 1977 Oct, [facility] [address] [address]- 8229 Oct, [facility] [id number] [address]- 1443 Sep, [facility] [address] [address]- 7698 Sep, [facility] [address] [address]- 5298 Sep, IMMUNIZATIONS No Known Immunizations SOCIAL HISTORY Never Assessed REASON FOR VISIT Controlled Med Refill PLAN OF CARE VITAL SIGNS MEDICATIONS Medication [...] KNEE SURGERY Hospitalization History New onset seizures--Via [facility] 02/29/16
--- OUTSIDE RECORDS SUMMARY | 2018-05-29 10:18 | XMS REPORT ---
Author Author MAYNOR KINCAID Organization [facility] Address [address] [place] [address] Care Team Providers Care Chlorination Operator Name Role Phone MAYNOR KINCAID Unavailable PROBLEMS Type Condition ICD9-CM Code MAD56-OG Code Onset Dates Condition Status SNOMED Code Problem Right-sided low back pain without sciatica M54.5 Active 274263633 Problem Head injury due to trauma, sequela S09.90XS Active 46042619 Problem Anxiety F41.9 Active 18739059 Problem History of hypertension Z86.79 Active 396249822 Problem Dysphagia, unspecified type R13.10 Active 41030229 Problem Poor appetite R63.0 Active 68666099 Problem Hemiplegia, unspecified affecting left dominant side G81.92 Active 253225851 Problem Reactive depression F32.9 Active 29224269 Problem History of brain shunt Z98.2 Active 787967909 Problem Inappropriate social behavior F99 Active 599432050 ALLERGIES No Information ENCOUNTERS Encounter Location Date Diagnosis [facility] [address] [id number] Oct, Head injury due to trauma, sequela S09.90XS [facility] [address] [id number] [id number] Sep, [facility] [address] [id number] [place] [id number] Aug, [facility] [address] [facility] [id number] [place] [address] Aug, [facility] [address] [id number] Aug, Tremor R25.1 ; Head injury due to trauma, sequela S09.90XS and Dysphagia, unspecified type R13.10 [facility] [address] [id number] Aug, Tremor R25.1 ; Poor appetite R63.0 and Acute renal failure with tubular necrosis N17.0 [facility] [id number] [place] [id number] Aug, [facility] [address] [id number] [id number] Aug, [facility] [address] [place] [id number] Aug, Urinary tract infection without hematuria, site unspecified N39.0 and Acute renal failure, unspecified acute renal failure type N17.9 [facility] [address] [id number] [id number] Jul, [facility] [id number] [place] [address] [id number] Jul, [facility] [id number] [place] [address]109- 2546 Jul, [facility] [id number] [place] [address] 98333- 2546 Jun, [facility] [id number] [place] [id number] Jun, [facility] [id number] [place] [address] [id number] May, [facility] [address]100[place] [address] 25[address] May, [facility] [address] [address] Apr, [facility] [address] [place] [id number] Mar, Head injury due to trauma, sequela S09.90XS and Reactive depression F32.9 [facility] [address]100[place] [address] Mar, [facility] [address] [id number] [id number] Mar, [facility] [address] [id number] [address] Mar, [facility] [address] [id number] Feb, Inappropriate social behavior F99 and Head injury due to trauma, sequela S09.90XS [facility] [id number] [place] [address] Feb, [facility] [address] [id number] [place] [id number] Feb, [facility] [address] [id number] [address] 6[address] Jan, [facility] [address]100[place] [address] 14[address] Jan, [facility] [address]100[place] [address] 9469 Jan, [facility] [address] [address] 99[address] December, [facility] [address] [id number] [address] December, Physically aggressive behavior R46.89 [facility] [address] [place] [id number] December, Ingrowing toenail with infection L60.0 ; Physically aggressive behavior R46.89 and Head injury due to trauma, sequela S09.90XS [facility] [address] [id number] [address] December, Depressive disorder, not elsewhere classified F32.9 and Dementia due to general medical condition, without behavioral disturbance F02.80 [facility] [address] [place] [id number] December, Ingrowing toenail with infection L60.0 and Head injury due to trauma, sequela S09.90XS [facility] [address] [id number] [address] Nov, [facility] [address] [place] [address] 80104- 8444 Nov, Physically aggressive behavior R46.89 ; Head injury due to trauma, sequela S09.90XS and History of brain shunt Z98.2 [facility] [address]100[place] [address] Nov, [facility] [id number] [place] [address] 96313- 1668 Nov, [facility] [id number] [place] [address] 31339- 4290 Nov, Inappropriate social behavior [address] [address] [id number] Nov, [address] [id number] [place] [id number] Nov, Gastroesophageal reflux disease with esophagitis K21.0 [id number] [place] [address] 47473- 7117 Oct, [facility] [address] [id number] Oct, Head injury due to trauma, sequela S09.90XS and Hemiplegia, unspecified affecting left dominant side G81.92 [facility] [id number] [place] [address] [id number] Sep, [facility] [address] [place] [address] 98339- 9320 Aug, [facility] [address] [id number] Aug, Head injury due to trauma, sequela S09.90XS and Hemiplegia, unspecified affecting left dominant side G81.92 [facility] [id number] [place] [address] 05988- 5143 Jul, [facility] [id number] [place] [address] 01444- 9117 Jun, [facility] [address] [id number] Jun, Head injury due to trauma, sequela S09.90XS [facility] [id number] [place] [address] 33079- 2206 Jun, [facility] [address] [facility] [id number] [place] [address] 28061- 1596 May, [facility] [address] [id number] May, Head injury due to trauma, sequela S09.90XS [facility] [id number] [place] [address] 57540- 9436 May, [facility] [address] [facility] [id number] [place] [address] 54289- 3566 May, [facility] [id number] [place] [address] 44189- 5436 Apr, [facility] [id number] [place] [address] 50125- 2059 Apr, [facility] [id number] [place] [address] 07712- 3065 Apr, [facility] [address] [place] [id number] Apr, Head injury due to trauma, sequela S09.90XS [facility] [address] [id number] [address]- 4406 Mar, [facility] [id number] [place] [address] 16713- 7742 Mar, [facility] [address] [facility] [id number] [place] [address] 5256 Mar, [facility] [address] [facility] [id number] [place] [address] 32780- 0486 Mar, [facility] [address] [id number] [address] 9403 Mar, Head injury due to trauma, sequela S09.90XS and Reactive depression F32.9 [facility] [id number] [place] [address] 35280- 3182 Feb, Head injury due to trauma, sequela S09.90XS [facility] [id number] [place] [address] 61546- 0902 Feb, [facility] [address] [address]- 6088 Feb, [address] [id number] Feb, Head injury due to trauma, sequela S09.90XS [address] [address] [address]- 7951 Feb, [facility] [address] 19330- 7187 Jan, [facility] [address] 12775- 5891 Jan, [facility] [id number] [place] [address] 90840- 6246 Jan, [place] [address] [address]- 1892 Jan, Insomnia due to medical condition G47.01 [facility] [id number] [place] [address] 67521- 9967 December, Right-sided low back pain without sciatica M54.5 [facility] [address] [address]- 1925 December, Head injury due to trauma, initial encounter S09.90XA [facility] [address] 01551- 0757 December, Gastroesophageal reflux disease with esophagitis K21.0 [facility] [id number] [place] [address] 96187- 9055 December, Head injury due to trauma, initial encounter S09.90XA and Essential hypertension I10 [facility] [address] [address]- [address] 07 Jul, 2015 Anxiety F41.9 [facility] [id number] [place] [address] 51174- 8372 Jun, Anxiety F41.9 [facility] [id number] [place] [address] 37407- 0466 May, Right-sided low back pain without sciatica M54.5 ; Anxiety F41.9 and History of hypertension Z86.79 [facility] [id number] [place] [address] 07739- 5453 May, [facility] [id number] [place] [address] 06939- 5429 May, [facility] [id number] [place] [address] 10978- 3714 May, [facility] [id number] [place] [address] 11704- 0112 May, [facility] [id number] [place] [address] 97906- 1287 Apr, [facility] [id number] [place] [address] 98214- 3210 Apr, [facility] [id number] [place] [address] 84431- 7392 Mar, [facility] [id number] [place] [address] 85139- 3217 Feb, [facility] [id number] [place] [address] 71791- 1398 Feb, [facility] [id number] [place] [address] [id number]- 1791 Jan, Essential hypertension, benign 401.1 and Anxiety state, unspecified 300.00 [facility] [id number] [place] [address] 56796- 4699 Jan, [facility] [place] [facility] [address] [id number] [place] [address]- 4671 December, [facility] [place] [facility] [address] [id number] [place] [address]- 5816 December, [facility] [place] [facility] [address] [id number] [place] [address]- 2220 Nov, [facility] [place] [facility] [address] [id number] [place] [address]- 3198 Nov, [facility] [place] [facility] [address] [id number] [place] [address]- 2614 Oct, [facility] [place] [facility] [address] [id number] [place] [address]- 9470 Oct, [facility] [place] [facility] [address] [id number] [place] [address]- 1937 Sep, [facility] [place] [facility] [address] [id number] [place] [address]- 7036 Sep, [facility] [place] [facility] [address] [id number] [place] [address]- 6565 Sep, [facility] [place] [facility] [address] [facility] [id number] [place] [address]- 6657 Sep, [facility] [place] [facility] [address] [id number] [place] [address]- 8573 Sep, [facility] [place] [facility] [address] [id number] [place] [address]- 2148 Aug, [facility] [place] [facility] [address] [id number] [place] [address]- 0314 Aug, [facility] [place] [facility] [address] [id number] [place] [address]- 0375 Aug, [facility] [place] [facility] [address] [id number] [place] [address]- 6742 Aug, [facility] [place] [facility] [address] [id number] [place] [address]- 6592 Jul, [facility] [place] [facility] [address] [id number] [place] 1406 Jul, [facility] [place] [facility] [address] [id number] [place]- 9453 Jun, [facility] [place] [facility] [address] [id number] [place] [address]- 2920 Jun, [facility] [place] [facility] [address] [id number] [place] [address]- 9121 May, [facility] [place] [facility] [address] [id number] [place] [address]- 4735 May, [facility] [place] [facility] [address] [id number] [place] [address]- 6101 Apr, [facility] [place] [facility] [address] [id number] [place] [address]- 2614 Apr, [facility] [place] [facility] [address] [id number] [place] [address]- 3277 Mar, [facility] [place] [facility] [address] [id number] [place] [address]- 0545 Mar, [facility] [place] [facility] [address] [id number] [place] [address]- 3781 Feb, [facility] [place] [facility] [address] [id number] [place] [address]- 0740 Feb, [facility] [place] [facility] [address] [id number] [place] [address]- 0510 Jan, [facility] [place] [facility] [address] [id number] [place] [address]- 0687 Jan, [facility] [place] [facility] [address] [id number] [place] [address]- 2380 December, [facility] [place] [facility] [address] [id number] [place] [address]- 5645 December, [facility] [place] [facility] [address] [id number] [place] [address]- 8703 December, [facility] [place] [facility] [address] [id number] [place] [address]- 8578 December, [facility] [place] [facility] [address] [id number] [place] [address]- 7376 December, [facility] [place] [facility] [address] [id number] [place] [address]- 6306 December, [facility] [place] [facility] [address] [id number] [place] [address]- 8451 Nov, [facility] [place] [facility] [address] [id number] [place] [address]- 4846 Nov, [facility] [place] [facility] [address] [id number] [place] [address]- 6386 Nov, [facility] [place] [facility] [address] [id number] [place] [address]- 0244 Nov, [facility] [place] [facility] [address] [id number] [place] [address]- 1820 Oct, [facility] [place] [facility] [address] [id number] [place] [address]- 1310 Oct, [facility] [place] [facility] [address] [id number] [place] [address]- 9865 Oct, [facility] [place] [facility] [address] [id number] [place] [address]- 8221 Oct, [facility] [place] [facility] [address] [id number] [place] [address]- 3064 Oct, [facility] [place] [facility] [address] [id number] [place] [address]- 8869 Oct, [facility] [place] [facility] [address] [id number] [place] [address]- 1154 Oct, [facility] [place] [facility] [address] [id number] [place] [address]- 3447 Oct, [facility] [address] [facility] [id number] [address]- 3303 Oct, [facility] [address] [facility] [id number] [place] [address]- 9496 Oct, [facility] [address] [id number] [address]- 9503 Oct, [facility] [address] [id number] [address]- 9906 Oct, [facility] [address] [facility] [id number] [place] [address]- 6438 Sep, [facility] [address] [place] [address]- 4483 Sep, [facility] [address] [id number] [address]- 4119 Sep, IMMUNIZATIONS No Known Immunizations SOCIAL HISTORY Never Assessed REASON FOR VISIT Request for Tylenol PLAN OF CARE VITAL SIGNS MEDICATIONS Medication Instructions Dosage Frequency Start Date End Date Duration Status Risperdal 0.5 MG Orally twice a day 1/2 tablet 12h December, Active Tylenol Extra Strength 500 mg Orally every 6 hrs 1-2 tablets as needed 6h Active Tramadol HCl 50 mg Orally 2 [...] KNEE SURGERY Hospitalization History New onset seizures--[facility]ia [facility] 02/29/16
--- OUTSIDE RECORDS SUMMARY | 2018-05-29 10:18 | XMS REPORT ---
Author Author MAYNOR KINCAID [facility] Address [address] [place] [address] Care Team Providers Care Electrical And Instrument Engineer Name Role Phone MAYNOR KINCAID Unavailable PROBLEMS Type Condition ICD9-CM Code PEI24-SU Code Onset Dates Condition Status SNOMED Code Problem Right-sided low back pain without sciatica M54.5 Active 210910558 Problem History of hypertension Z86.79 Active 023854918 Problem History of brain shunt Z98.2 Active 381080364 Problem Inappropriate social behavior F99 Active 613208272 Problem Head injury due to trauma, sequela S09.90XS Active 14349968 Problem Anxiety F41.9 Active 73713434 Problem Hemiplegia, unspecified affecting left dominant side G81.92 Active 184621886 Problem Reactive depression F32.9 Active 28452781 ALLERGIES No Information SOCIAL HISTORY Never Assessed PLAN OF CARE VITAL SIGNS MEDICATIONS Medication Instructions Dosage Frequency Start Date End Date Duration Status Risperdal 0.5 MG Orally twice a day 1/2 tablet 12h December, Active RESULTS No Results PROCEDURES No Known procedures IMMUNIZATIONS No Known Immunizations MEDICAL (GENERAL) HISTORY Type Description Date Medical History HYPERTENSION Medical History ANXIETY Medical History ACID REFLUX Surgical History C SECTION 2004 Surgical History cholecystectomy 2003 Surgical History LEFT KNEE SURGERY Hospitalization History New onset seizures--[facility] 02/29/16
--- OUTSIDE RECORDS SUMMARY | 2018-05-29 10:18 | XMS REPORT ---
Author Author MAYNOR KINCAID Organization [facility] Address [address] [place] [address] Care Team Providers Care Blanking Machine Operator Name Role Phone MAYNOR KINCAID Unavailable PROBLEMS Type Condition ICD9-CM Code MRD75-CN Code Onset Dates Condition Status SNOMED Code Problem Right-sided low back pain without sciatica M54.5 Active 770316849 Problem Head injury due to trauma, sequela S09.90XS Active 08552333 Problem Anxiety F41.9 Active 87205298 Problem History of hypertension Z86.79 Active 955340889 Problem Dysphagia, unspecified type R13.10 Active 38703124 Problem Poor appetite R63.0 Active 12229200 Problem Hemiplegia, unspecified affecting left dominant side G81.92 Active 617094537 Problem Reactive depression F32.9 Active 72019313 Problem History of brain shunt Z98.2 Active 426193161 Problem Inappropriate social behavior F99 Active 324041125 ALLERGIES No Information ENCOUNTERS Encounter Location Date Diagnosis [facility] [address] [id number] Oct, Head injury due to trauma, sequela S09.90XS [facility] [address] [id number] [id number] Sep, [facility] [address] [id number] [id number] Aug, [facility] [address] [facility] [id number], [place] [address] Aug, [facility] [address] [address] Aug, Tremor R25.1 ; Head injury due to trauma, sequela S09.90XS and Dysphagia, unspecified type R13.10 [facility] [address] [id number] Aug, Tremor R25.1 ; Poor appetite R63.0 and Acute renal failure with tubular necrosis N17.0 [facility] [id number] [place] [address] [id number] Aug, [facility] [address] [id number] [id number] Aug, [facility] [address] [place] [id number] Aug, Urinary tract infection without hematuria, site unspecified N39.0 and Acute renal failure, unspecified acute renal failure type N17.9 [facility] [address] [id number] [id number] Jul, [facility] [id number] [place] [address] [id number] Jul, [facility] [address] [place] [address] 35246- 2546 Jul, [facility] [address] [place] [address] 98952- 2546 Jun, [facility] [id number] [place] [address] [id number] Jun, [facility] [id number] [place] [address] [id number] May, [facility] [address]65[address], [place] [address] May, [facility] [address]65[address], [place] [address] Apr, [facility] [address] [place] [address] [id number] Mar, Head injury due to trauma, sequela S09.90XS and Reactive depression F32.9 [facility] [address]65[address], [place] [address] 2546 Mar, [facility] [address] [id number] [id number] Mar, [facility] [address] [id number] [address] Mar, [facility] [address] [id number] Feb, Inappropriate social behavior F99 and Head injury due to trauma, sequela S09.90XS [facility] [id number] [id number] Feb, [facility] [address] [id number] [id number] Feb, [facility] [address] [id number], [place] [address] Jan, [facility] [address], [place] [address] Jan, [facility] [address], [place] [address] 3[address] Jan, [facility] [address], [place] [address] December, [facility] [address] [id number], [place] [address] December, Physically aggressive behavior R46.89 [facility] [address] [place] [id number] December, Ingrowing toenail with infection L60.0 ; Physically aggressive behavior R46.89 and Head injury due to trauma, sequela S09.90XS [facility] [address] [id number], [place] [address] December, Depressive disorder, not elsewhere classified F32.9 and Dementia due to general medical condition, without behavioral disturbance F02.80 [facility] [address] [id number] December, Ingrowing toenail with infection L60.0 and Head injury due to trauma, sequela S09.90XS [facility] [address] [id number], [place] [address] Nov, [facility] [address] [place] [address] 09519- 7345 Nov, Physically aggressive behavior R46.89 ; Head injury due to trauma, sequela S09.90XS and History of brain shunt Z98.2 [facility] [address]65[address], [place] [address] Nov, [facility] [id number] [place] [address]92- 2899 Nov, [facility] [id number] [place] [address] 84847- 3991 Nov, Inappropriate social behavior [address] [place] [address] [address] [id number] Nov, [place] [id number] [place] [id number] Nov, Gastroesophageal reflux disease with esophagitis K21.0 [address] [place] [id number] [place] [address]30- 0017 Oct, [facility] [address] [address] Oct, Head injury due to trauma, sequela S09.90XS and Hemiplegia, unspecified affecting left dominant side G81.92 [facility] [id number] [place] [address] [id number] Sep, [facility] [address] [place] [address] 11620- 4322 Aug, [facility] [address] [id number] Aug, Head injury due to trauma, sequela S09.90XS and Hemiplegia, unspecified affecting left dominant side G81.92 [facility] [id number] [place] [address] 82885- 2418 Jul, [facility] [id number] [place] [address] 11781- 6038 Jun, [facility] [address], [place] [address] Jun, Head injury due to trauma, sequela S09.90XS [facility] [id number] [place] [address] 97132- 2426 Jun, [facility] [address] [facility] [id number] [place] [address] 47642- 2516 May, [facility] [address] [address] May, Head injury due to trauma, sequela S09.90XS [facility] [id number] [place] [address] 75145- 1746 May, [facility] [address] [facility] [id number] [place] [address] 55732- 9246 May, [facility] [id number] [place] [address] 58111- 8556 Apr, [facility] [id number] [place] [address] 00266- 1737 Apr, [facility] [id number] [place] [address] 89680- 3019 Apr, [facility] [address] [id number] Apr, Head injury due to trauma, sequela S09.90XS [facility] [address] [id number], [place] [address] Mar, [facility] [id number] [place] [address] 91958- 4267 Mar, [facility] [address] [facility] [id number], [place] [address] 7426 Mar, [facility] [address] [facility] [id number] [place] [address] 31147- 7546 Mar, [facility] [address] [id number], [place] [address]23 Mar, Head injury due to trauma, sequela S09.90XS and Reactive depression F32.9 [facility] [id number] [place] [address] 35511- 3665 Feb, Head injury due to trauma, sequela S09.90XS [facility] [id number] [place] [address] 03474- 1357 Feb, [facility] [address] [address]- [address]78 Feb, [address] [id number] Feb, Head injury due to trauma, sequela S09.90XS [place] [address] [address]- 5919 Feb, [facility] [address] [address]73- 3213 Jan, [facility] [address] 72977- 2582 Jan, [facility] [id number] [place] [address] 78231- 7652 Jan, [place] [address] 9[address]81- 6153 Jan, Insomnia due to medical condition G47.01 [facility] [id number] [place] [address] 11080- 1140 December, Right-sided low back pain without sciatica M54.5 [facility] [address] 26787- 9970 December, Head injury due to trauma, initial encounter S09.90XA [facility] [address] 72211- 9499 December, Gastroesophageal reflux disease with esophagitis K21.0 [facility] [id number] [place] [address] 07574- 8845 December, Head injury due to trauma, initial encounter S09.90XA and Essential hypertension I10 [facility] [address], [place] [address] 07 Jul, 2015 Anxiety F41.9 [facility] [id number] [place] [address] 55364- 1825 Jun, Anxiety F41.9 [facility] [id number] [place] [address] 98658- 2153 May, Right-sided low back pain without sciatica M54.5 ; Anxiety F41.9 and History of hypertension Z86.79 [facility] [address] [place] [address] 12471- 8297 May, [facility] [id number] [place] [address] 70418- 3498 May, [facility] [id number] [place] [address] 25099- 3770 May, [facility] [id number] [place] [address] 29779- 0125 May, [facility] [address] [place] [address] 35833- 9761 Apr, [facility] [id number] [place] [address] 35926- 3241 Apr, [facility] [address] [place] [address] 22430- 0485 Mar, [facility] [address] [place] [address] 97708- 4504 Feb, [facility] [address] [place] [address] 99698- 9437 Feb, [facility] [id number] [place] [address] [id number]- 7080 Jan, Essential hypertension, benign 401.1 and Anxiety state, unspecified 300.00 [facility] [address] [place] [address] 84539- 4274 Jan, [facility] [place] [facility] [address] [id number] [place] [address]- 8638 December, [facility] [place] [facility] [address] [id number] [place] [address]- 3575 December, [facility] [place] [facility] [address] [id number] [place] [address]- 6273 Nov, [facility] [place] [facility] [address] [id number] [place] [address]- 1822 Nov, [facility] [place] [facility] [address] [id number] [place] [address]- 1794 Oct, [facility] [place] [facility] [address] [id number] [place] [address]- 3501 Oct, [facility] [place] [facility] [address] [id number] [place] [address]- 6284 Sep, [facility] [place] [facility] [address] [id number] [place] [address]- 8459 Sep, [facility] [place] [facility] [address] [id number] [place] [address]- 1684 Sep, [facility] [place] [facility] [address] [facility] [id number] [place] [address]- 7776 Sep, [facility] [place] [facility] [address] [id number] [place] [address]- 7215 Sep, [facility] [place] [facility] [address] [id number] [place] [address]- 1713 Aug, [facility] [place] [facility] [address] [id number] [place] [address]- 0797 Aug, [facility] [place] [facility] [address] [id number] [place] [address]- 1907 Aug, [facility] [place] [facility] [address] [id number] [place] [address]- 1210 Aug, [facility] [place] [facility] [address] [id number] [place] [address]- 8756 Jul, [facility] [place] [facility] [address] [id number] [place] 3818 Jul, [facility] [place] [facility] [address] [id number] [place] 6658 Jun, [facility] [place] [facility] [address] [id number] [place] [address]- 7694 Jun, [facility] [place] [facility] [address] [id number] [place] [address]- 3097 May, [facility] [place] [facility] [address] [id number] [place] [address]- 5768 May, [facility] [place] [facility] [address] [id number] [place] [address]- 0302 Apr, [facility] [place] [facility] [address] [id number] [place] [address]- 8705 Apr, [facility] [place] [facility] [address] [id number] [place] [address]- 1996 Mar, [facility] [place] [facility] [address] [id number] [place] [address]- 0071 Mar, [facility] [place] [facility] [address] [id number] [place] [address]- 3135 Feb, [facility] [place] [facility] [address] [id number] [place] [address]- 3594 Feb, [facility] [place] [facility] [address] [id number] [place] [address]- 0704 Jan, [facility] [place] [facility] [address] [id number] [place] [address]- 8788 Jan, [facility] [place] [facility] [address] [id number] [place] [address]- 7103 December, [facility] [place] [facility] [address] [id number] [place] [address]- 1558 December, [facility] [place] [facility] [address] [id number] [place] [address]- 6177 December, [facility] [place] [facility] [address] [id number] [place] [address]- 8706 December, [facility] [place] [facility] [address] [id number] [place] [address]- 5656 December, [facility] [place] [facility] [address] [id number] [place] [address]- 3573 December, [facility] [place] [facility] [address] [id number] [place] [address]- 9746 Nov, [facility] [place] [facility] [address] [id number] [place] [address]- 5087 Nov, [facility] [place] [facility] [address] [id number] [place] [address]- 9229 Nov, [facility] [place] [facility] [address] [id number] [place] [address]- 1805 Nov, [facility] [place] [facility] [address] [id number] [place] [address]- 4685 Oct, [facility] [place] [facility] [address] [id number] [place] [address]- 3485 Oct, [facility] [place] [facility] [address] [id number] [place] [address]- 8252 Oct, [facility] [place] [facility] [address] [id number] [place] [address]- 2505 Oct, [facility] [place] [facility] [address] [id number] [place] [address]- 6805 Oct, [facility] [place] [facility] [address] [id number] [place] [address]- 3268 Oct, [facility] [place] [facility] [address] [id number] [place] [address]- 1324 Oct, [facility] [place] [facility] [address] [id number] [place] [address]- 2136 Oct, [facility] [id number], [place] [address]- 5845 Oct, [facility] [address], [place] [address]- 9076 Oct, [facility] [address] [id number], [place] [address]- 0026 Oct, [facility] [address], [place] [address]- 4272 Oct, [facility] [address], [place] [address]- 1560 Sep, [facility] [address], [place] [address]- 5456 Sep, [facility] [address] [id number], [place] [address]- 7446 Sep, IMMUNIZATIONS No Known Immunizations SOCIAL HISTORY [...] [facility]NEE SURGERY Hospitalization History New onset seizures--[facility] 02/29/16
--- OUTSIDE RECORDS SUMMARY | 2018-05-29 10:18 | XMS REPORT ---
Author Author WILTON ANDERSON [facility] Address [address] [place] [address] Care Team Providers Care Adult Secondary Education Instructor Name Role Phone WILTON ANDERSON Unavailable PROBLEMS Type Condition ICD9-CM Code WYQ04-TC Code Onset Dates Condition Status SNOMED Code Problem Right-sided low back pain without sciatica M54.5 Active 943780488 Problem History of hypertension Z86.79 Active 056337380 Problem History of brain shunt Z98.2 Active 431529347 Problem Inappropriate social behavior F99 Active 589375116 Problem Head injury due to trauma, sequela S09.90XS Active 73495755 Problem Anxiety F41.9 Active 53761841 Problem Hemiplegia, unspecified affecting left dominant side G81.92 Active 054603724 Problem Reactive depression F32.9 Active 31649863 ALLERGIES Unknown Allergies SOCIAL HISTORY No smoking Hx information available PLAN OF CARE Activity Details Follow Up 2 Months Reason: VITAL SIGNS MEDICATIONS No Known Medications RESULTS No Results PROCEDURES Procedure Date Ordered Related Diagnosis Body Site Stable Visit (10 minutes) Jun 16, 2016 IMMUNIZATIONS No Known Immunizations
--- OUTSIDE RECORDS SUMMARY | 2018-05-29 10:19 | XMS REPORT ---
Author Author MAYNOR KINCAID [facility] Address [address] [place] [address] Care Team Providers Care Fire Systems Inspector Name Role Phone MAYNOR KINCAID Unavailable PROBLEMS Type Condition ICD9-CM Code WZZ24-NT Code Onset Dates Condition Status SNOMED Code Problem Right-sided low back pain without sciatica M54.5 Active 947821669 Problem History of hypertension Z86.79 Active 314778219 Problem History of brain shunt Z98.2 Active 275719870 Problem Inappropriate social behavior F99 Active 463479970 Problem Head injury due to trauma, sequela S09.90XS Active 15945661 Problem Anxiety F41.9 Active 55459709 Problem Hemiplegia, unspecified affecting left dominant side G81.92 Active 030263705 Problem Reactive depression F32.9 Active 92618256 ALLERGIES No Information SOCIAL HISTORY Never Assessed [...] KNEE SURGERY Hospitalization History New onset seizures--[facility] 02/29/16
--- OUTSIDE RECORDS SUMMARY | 2018-05-29 10:19 | XMS REPORT ---
Author Author MAYNOR KINCAID Organization [facility] Address [address] [place] [address] Care Team Providers Care Passenger Rate Clerk Name Role Phone MAYNOR KINCAID Unavailable PROBLEMS Type Condition ICD9-CM Code QUT01-YM Code Onset Dates Condition Status SNOMED Code Problem Right-sided low back pain without sciatica M54.5 Active 516705899 Problem Head injury due to trauma, sequela S09.90XS Active 60067204 Problem Anxiety F41.9 Active 61647731 Problem History of hypertension Z86.79 Active 339318532 Problem Dysphagia, unspecified type R13.10 Active 10850420 Problem Poor appetite R63.0 Active 57557070 Problem Hemiplegia, unspecified affecting left dominant side G81.92 Active 020975696 Problem Reactive depression F32.9 Active 62040445 Problem History of brain shunt Z98.2 Active 545442865 Problem Inappropriate social behavior F99 Active [id number] ALLERGIES No Information ENCOUNTERS Encounter Location Date Diagnosis [facility] [address] [address] December, [facility] [id number], [place] [address] December, [facility] [id number] [place] [address]- 2732 December, [facility] [address], [place] [address] December, Physically aggressive behavior R46.89 [facility] [address] [id number] December, [facility] [address], [place] [address] December, [facility] [address] [id number], [place] [address] Nov, [facility] [address] [id number] Oct, Head injury due to trauma, sequela S09.90XS [facility] [id number] [id number] Sep, [facility] [id number] [address] Aug, [facility] [address] [id number], [place] [address] Aug, [facility] [address] [place] [id number] Aug, Tremor R25.1 ; Head injury due to trauma, sequela S09.90XS and Dysphagia, unspecified type R13.10 [facility] [address] [place] [id number] Aug, Tremor R25.1 ; Poor appetite R63.0 and Acute renal failure with tubular necrosis N17.0 [facility] [id number] [id number] Aug, [facility] [id number] [id number] Aug, [facility] [address] [place] [id number] Aug, Urinary tract infection without hematuria, site unspecified N39.0 and Acute renal failure, unspecified acute renal failure type N17.9 [facility] [address] [id number] [id number] Jul, [facility] [id number] [id number] Jul, [facility] [id number], [place] [address] Jul, [facility] [id number], [place] [address] Jun, [facility] [id number] [id number] Jun, [facility] [address] [id number] [address] May, [facility] [address] [place] [address] 77424- 2590 May, [facility] [address], [place] [address] Apr, [facility] [address] [id number] Mar, Head injury due to trauma, sequela S09.90XS and Reactive depression F32.9 [facility] [address] [place] [address]31- 3483 Mar, [facility] [id number] [place] [id number] Mar, [facility] [address] [place] [address] 09524- 4666 Mar, [facility] [address] [id number] Feb, Inappropriate social behavior F99 and Head injury due to trauma, sequela S09.90XS [facility] [id number] [place] [address] [id number] Feb, [facility] [id number] [place] [address] [id number] Feb, [facility] [address], [place] [address] Jan, [facility] [id number], [place] [address] 38[address] Jan, [facility] [address], [place] [address] 89[address] Jan, [facility] [id number], [place] [address] 305[address] December, [facility] [address] [place] [address] 70560- 7278 December, Physically aggressive behavior R46.89 [facility] [address] [id number] December, Ingrowing toenail with infection L60.0 ; Physically aggressive behavior R46.89 and Head injury due to trauma, sequela S09.90XS [facility] [address] [place] [address]148- 5775 December, Depressive disorder, not elsewhere classified F32.9 and Dementia due to general medical condition, without behavioral disturbance F02.80 [facility] [address] [id number] December, Ingrowing toenail with infection L60.0 and Head injury due to trauma, sequela S09.90XS [facility] [address] [place] [address] 74371- 8378 Nov, [facility] [id number] [place] [address] 82563- 6551 Nov, Physically aggressive behavior R46.89 ; Head injury due to trauma, sequela S09.90XS and History of brain shunt Z98.2 [facility] [id number] [place] [address] 17863- 5407 Nov, [facility] [address] [place] [address] 37895- 6278 Nov, [facility] [id number] [place] [address] 96648- 4185 Nov, Inappropriate social behavior F99 [facility] [id number] [place] [address] [id number] Nov, [facility] [id number] [place] [address] [id number] Nov, Gastroesophageal reflux disease with esophagitis K21.0 [facility] [address] [place] [address] 39581- 8338 Oct, [facility] [address] [id number] Oct, Head injury due to trauma, sequela S09.90XS and Hemiplegia, unspecified affecting left dominant side G81.92 [facility] [id number] [place] [address] [id number] Sep, [facility] [id number], [place] [address] Aug, [facility] [address] [place] [id number] Aug, Head injury due to trauma, sequela S09.90XS and Hemiplegia, unspecified affecting left dominant side G81.92 [facility] [address] [place] [address] 75171- 1606 Jul, [facility] [address] [place] [address] 65956- 1046 Jun, [facility] [address] [place] [address] [id number] Jun, Head injury due to trauma, sequela S09.90XS [facility] [address], [place] [address] 8[address] Jun, [facility] [id number] [place] [address] 31132- 5619 May, [facility] [address] [place] [id number] May, Head injury due to trauma, sequela S09.90XS [facility] [address], [place] [address] 3646 May, [facility] [id number], [place] [address]- 0416 May, [facility] [address] [place] [address] 08633- 3386 Apr, [facility] [id number], [place] [address] Apr, [facility] [address] [place] [address] 04444- 7465 Apr, [facility] [address] [id number] Apr, Head injury due to trauma, sequela S09.90XS [facility] [address] [facility] [id number] [address]- 8386 Mar, [facility] [id number] [place] [address] 09730- 9416 Mar, [facility] [id number] [place] [address] 60325- 8625 Mar, [facility] [address] [facility] [id number] [place] [address] 78993- 5436 Mar, [facility] [id number] [place] [address] 84749- 1484 Mar, Head injury due to trauma, sequela S09.90XS and Reactive depression F32.9 [facility] [id number] [place] [address] 32552- 2462 Feb, Head injury due to trauma, sequela S09.90XS [facility] [id number] [place] [address] 20059- 1716 Feb, [facility] [id number] [place] [address] 14256- 9470 Feb, [facility] [address] [id number] Feb, Head injury due to trauma, sequela S09.90XS [facility] [id number], [place] [address]- 3216 Feb, [facility] [id number] [place] [address] 21173- 9187 Jan, [facility] [id number], [place] [address]- 8146 Jan, [facility] [address] [place] [address] 53306- 4124 Jan, [facility] [id number] [place] [address] 40648- 4966 Jan, Insomnia due to medical condition G47.01 [facility] [address] [address]- 7843 December, Right-sided low back pain without sciatica M54.5 [facility] [address] 38250- 3062 December, Head injury due to trauma, initial encounter S09.90XA [facility] [id number] [place] [address] 81862- 9497 December, Gastroesophageal reflux disease with esophagitis K21.0 [address] [place] [address] 08235- 0939 December, Head injury due to trauma, initial encounter S09.90XA and Essential hypertension I10 [address] [address] 47563- 8911 Jul, Anxiety F41.9 [place] [address] 03412- 4020 Jun, Anxiety F41.9 [place] [address] 78474- 3700 May, Right-sided low back pain without sciatica M54.5 ; Anxiety F41.9 and History of hypertension Z86.79 [facility] [id number] [place] [address] 25721- 8843 May, [facility] [address] 99868- 5839 May, [facility] [address] 98072- 2066 May, [facility] [id number] [place] [address] 05574- 8863 May, [facility] [address] 77358- 1801 Apr, [facility] [address], [place] [address]- 8645 Apr, [facility] [address], [place] [address]- 6602 Mar, [facility] [address], [place] [address]- 8589 Feb, [facility] [id number] [place] [address] 29878- 0725 Feb, [facility] [address] [place] [address] 021385- 3374 Jan, Essential hypertension, benign 401.1 and Anxiety state, unspecified 300.00 [facility] [address], [place] [address]- 0136 Jan, [facility] [id number] [place] [address] 97774- 5164 December, [facility] [address], [place] [address]- 5760 December, [facility] [address], [place] [address]- 9764 Nov, [facility] [address], [place] [address]- 9363 Nov, [facility] [address], [place] [address]- 4939 Oct, [facility] [address] 8380 Oct, [facility] [address] 1614 Sep, [facility] [address] 2951 Sep, [facility] [address], [place] [address]- 6842 Sep, [facility] [place] [facility] [address] [id number] [place] [address]- 5767 Sep, [facility] [place] [facility] [address] [id number] [place] [address]- 3371 Sep, [facility] [place] [facility] [address] [facility] [id number] [place] [address]- 8802 Aug, [facility] [place] [facility] [address] [id number] [place] [address]- 3193 Aug, [facility] [place] [facility] [address] [id number] [place] [address]- 7705 Aug, [facility] [place] [facility] [address] [id number] [place] [address]- 6202 Aug, [facility] [place] [facility] [address] [facility] [id number] [place] [address]- 3213 Jul, [facility] [place] [facility] [address] [facility] [id number] [place] [address]- 6607 Jul, [facility] [place] [facility] [address] [facility] [id number] [place] [address]- 8855 Jun, [facility] [place] [facility] [address] [facility] [id number] [place] [address]- 6669 Jun, [facility] [place] [facility] [address] [id number] [place] [address]- 9305 May, [facility] [place] [facility] [address] [id number] [address]- 7488 May, [facility] [place] [facility] [address] [id number] [place] [address]- 0006 Apr, [facility] [place] [facility] [address] [id number] [place] [address]- 8521 Apr, [facility] [place] [facility] [address] [facility] [id number] [address]- 5106 Mar, [facility] [place] [facility] [address] [id number] [place] [address]- 9950 Mar, [facility] [place] [facility] [address] [id number] [place] [address]- 4879 Feb, [facility] [place] [facility] [address] [id number] [place] [address]- 1534 Feb, [facility] [place] [facility] [address] [id number] [place] [address]- 3408 Jan, [facility] [place] [facility] [address] [id number] [place] [address]- 9893 Jan, [facility] [place] [facility] [address] [id number] [place] [address]- 5980 December, [facility] [place] [facility] [address] [id number] [place] [address]- 7912 December, [facility] [place] [facility] [address] [id number] [place] [address]- 5274 December, [facility] [place] [facility] [address] [id number] [place] [address]- 7634 December, [facility] [place] [facility] [address] [id number] [place] [address]- 1715 December, [facility] [place] [facility] [address] [id number] [place] [address]- 8060 December, [facility] [place] [facility] [address] [id number] [place] [address]- 0995 Nov, [facility] [place] [facility] [address] [id number] [place] [address]- 4059 Nov, [facility] [place] [facility] [address] [id number] [place] [address]- 6593 Nov, [facility] [place] [facility] [address] [id number] [place] [address]- 8091 Nov, [facility] [place] [facility] [address] [id number] [place] [address]- 7519 Oct, [facility] [id number], [place] [address]- 5926 Oct, [facility] [address], [place] [address]- 6490 Oct, [facility] [id number], [place] [address]- 0463 Oct, [facility] [address], [place] [address]- 2031 Oct, [facility] [id number], [place] [address]- 2872 Oct, [facility] [address], [place] [address]- 2627 Oct, [facility] [address], [place] [address]- 6365 Oct, [facility] [address], [place] [address]- 3375 Oct, [facility] [address] [address]- 9432 Oct, [facility] [address], [place] [address]- 0728 Oct, [facility] [address], [place] [address]- 4876 Oct, [facility] [id number], [place] [address]- 0284 Sep, [facility] [id number] [address]- 2292 Sep, [facility] [id number], [place] [address]- 5758 Sep, IMMUNIZATIONS No Known Immunizations SOCIAL HISTORY Never Assessed REASON FOR VISIT K+ 3.1 PLAN OF CARE VITAL SIGNS MEDICATIONS Medication Instructions Dosage Frequency Start Date End Date Duration Status Potassium Chloride Natalee ER 20 meq Orally Once a day 1 tablet with food 24h Aug, December, 30 day(s) Active RESULTS No Results PROCEDURES No Known procedures INSTRUCTIONS MEDICATIONS ADMINISTERED No Known Medications MEDICAL (GENERAL) HISTORY Type Description Date Medical History HYPERTENSION Medical History ANXIETY Medical History ACID REFLUX Surgical History C SECTION 2003 Surgical History cholecystectomy 2003 Surgical History LEFT KNEE SURGERY Hospitalization History New onset seizures--[facility]ia [facility] 02/29/16
--- OUTSIDE RECORDS SUMMARY | 2018-05-29 10:19 | XMS REPORT ---
Author Author MAYNOR KINCAID Organization [facility] Address [address] [place] [address] Care Team Providers Care Crutch Maker Name Role Phone MAYNOR KINCAID Unavailable PROBLEMS Type Condition ICD9-CM Code XXI37-KC Code Onset Dates Condition Status SNOMED Code Problem Right-sided low back pain without sciatica M54.5 Active 322272673 Problem Head injury due to trauma, sequela S09.90XS Active 47397156 Problem Anxiety F41.9 Active 60306650 Problem History of hypertension Z86.79 Active 222629342 Problem Dysphagia, unspecified type R13.10 Active 35586256 Problem Poor appetite R63.0 Active 82108199 Problem Hemiplegia, unspecified affecting left dominant side G81.92 Active 419617622 Problem Reactive depression F32.9 Active 10499667 Problem History of brain shunt Z98.2 Active 848538042 Problem Inappropriate social behavior F99 Active [id number] ALLERGIES No Information ENCOUNTERS Encounter Location Date Diagnosis [facility] [address]005[address], [place] [address] December, [facility] [address] [id number] [address] December, [facility] [id number] [place] [address]- 6341 December, [facility] [id number] [place] [address]3544- 7956 December, Physically aggressive behavior R46.89 [facility] [address], [place] [id number] December, [facility] [address], [place] [address] December, [facility] [address] [id number] [address] Nov, [facility] [address] [id number] Oct, Head injury due to trauma, sequela S09.90XS [facility] [id number] [address] Sep, [facility] [address] [id number] [id number] Aug, [facility] [address] [id number], [place] [address] Aug, [facility] [address] [place] [id number] Aug, Tremor R25.1 ; Head injury due to trauma, sequela S09.90XS and Dysphagia, unspecified type R13.10 [facility] [address] [place] [id number] Aug, Tremor R25.1 ; Poor appetite R63.0 and Acute renal failure with tubular necrosis N17.0 [facility] [id number] [id number] Aug, [facility] [id number] [id number] Aug, [facility] [address] [place] [id number] Aug, Urinary tract infection without hematuria, site unspecified N39.0 and Acute renal failure, unspecified acute renal failure type N17.9 [facility] [address] [id number] [address] Jul, [facility] [id number] [address] Jul, [facility] [address] [id number], [place] [address] Jul, [facility] [address] [id number], [place] [address] 9048 Jun, [facility] [id number] [id number] Jun, [facility] [address] [id number] [id number] May, [facility] [id number] [place] [address]120- 8235 May, [facility] [address]65[address], [place] [address] Apr, [facility] [address] [id number] Mar, Head injury due to trauma, sequela S09.90XS and Reactive depression F32.9 [facility] [id number] [place] [address] 69527- 6782 Mar, [facility] [id number] [place] [id number] Mar, [facility] [id number] [place] [address] 67495- 5916 Mar, [facility] [address] [id number] Feb, Inappropriate social behavior F99 and Head injury due to trauma, sequela S09.90XS [facility] [id number] [place] [address] [id number] Feb, [facility] [id number] [place] [address] [id number] Feb, [facility] [address], [place] [address] 79[address] Jan, [facility] [address] [id number], [place] [address] 5[address] Jan, [facility] [address]65[address], [place] [address] 1673 Jan, [facility] [address] [id number], [place] [address] 8737 December, [facility] [address] [place] [address] 47380- 8211 December, Physically aggressive behavior R46.89 [facility] [address] [address] December, Ingrowing toenail with infection L60.0 ; Physically aggressive behavior R46.89 and Head injury due to trauma, sequela S09.90XS [facility] [address] [place] [address] 17120- 5352 December, Depressive disorder, not elsewhere classified F32.9 and Dementia due to general medical condition, without behavioral disturbance F02.80 [facility] [address] [id number] December, Ingrowing toenail with infection L60.0 and Head injury due to trauma, sequela S09.90XS [facility] [address] [place] [address] 80901- 1135 Nov, [facility] [id number] [place] [address] 33207- 3024 Nov, Physically aggressive behavior R46.89 ; Head injury due to trauma, sequela S09.90XS and History of brain shunt Z98.2 [facility] [id number] [place] [address]266- 3257 Nov, [facility] [id number] [place] [address]61- 3333 Nov, [facility] [id number] [place] [address] 56286- 8249 Nov, Inappropriate social behavior F99 [facility] [place] [id number] [place] [address] [id number] Nov, [facility] [id number] [place] [address] [id number] Nov, Gastroesophageal reflux disease with esophagitis K21.0 [facility] [address] [place] [address] 57842- 0654 Oct, [facility] [address] [id number] Oct, Head injury due to trauma, sequela S09.90XS and Hemiplegia, unspecified affecting left dominant side G81.92 [facility] [id number] [place] [address] [id number] Sep, [facility] [address] [id number], [place] [address] 79[address] Aug, [facility] [address] [id number] Aug, Head injury due to trauma, sequela S09.90XS and Hemiplegia, unspecified affecting left dominant side G81.92 [facility] [id number] [place] [address]80- 8606 Jul, [facility] [id number] [place] [address] 04906- 6646 Jun, [facility] [address] [place] [address] [id number] Jun, Head injury due to trauma, sequela S09.90XS [facility] [address], [place] [address] Jun, [facility] [id number] [place] [address] 00534- 4860 May, [facility] [address] [id number] May, Head injury due to trauma, sequela S09.90XS [facility] [address], [place] [address] May, [facility] [address] [id number], [place] [address]056 May, [facility] [id number] [place] [address] 62039- [address] Apr, [facility] [address] [id number], [place] [address]- [address]16 Apr, [facility] [id number] [place] [address] 15420- 3231 Apr, [facility] [address] [id number] Apr, Head injury due to trauma, sequela S09.90XS [facility] [address] [facility] [id number] [address] Mar, [facility] [id number] [place] [address] 36672- 9176 Mar, [facility] [id number] [place] [address] 27380- 3106 Mar, [facility] [address] [facility] [id number] [place] [address] 50427- 0776 Mar, [facility] [id number] [place] [address] 30409- 9793 Mar, Head injury due to trauma, sequela S09.90XS and Reactive depression F32.9 [facility] [id number] [place] [address] 59098- 3726 Feb, Head injury due to trauma, sequela S09.90XS [facility] [id number] [place] [address] 07703- 9806 Feb, [facility] [address] [place] [address] 68879- 1292 Feb, [facility] [address] [address] Feb, Head injury due to trauma, sequela S09.90XS [facility] [address] [id number], [place] [address]- 7326 Feb, [facility] [id number] [place] [address] 47229- 9964 Jan, [facility] [address] [id number], [place] [address]- 5536 Jan, [facility] [address] [place] [address] 66164- 3262 Jan, [facility] [id number] [place] [address] 71709- 3560 Jan, Insomnia due to medical condition G47.01 [facility] [address] [address]- 3268 December, Right-sided low back pain without sciatica M54.5 [facility] [address] 93280- 9524 December, Head injury due to trauma, initial encounter S09.90XA [facility] [id number] [place] [address] 50459- 0256 December, Gastroesophageal reflux disease with esophagitis K21.0 [address] 20061- 5991 December, Head injury due to trauma, initial encounter S09.90XA and Essential hypertension I10 [address] [address] 05319- 1733 Jul, Anxiety F41.9 [address] [address] 48481- 4766 Jun, Anxiety F41.9 [address] [address] 54083- 2511 May, Right-sided low back pain without sciatica M54.5 ; Anxiety F41.9 and History of hypertension Z86.79 [facility] [id number] [place] [address] 32959- 9012 May, [facility] [address] 78010- 3923 May, [facility] [address] 68695- 9579 May, [facility] [id number] [place] [address] 17657- 1328 May, [facility] [address] 14290- 0948 Apr, [facility] [address], [place] [address]- 9785 Apr, [facility] [address], [place] [address]- 7649 Mar, [facility] [address], [place] [address]- 3725 Feb, [facility] [id number] [place] [address] 11431- 5990 Feb, [facility] [address] [place] [address] 468904- 4533 Jan, Essential hypertension, benign 401.1 and Anxiety state, unspecified 300.00 [facility] [address], [place] [address]- 2270 Jan, [facility] [id number] [place] [address] 32637- 2462 December, [facility] [address], [place] [address]- 0998 December, [facility] [address], [place] [address]- 1732 Nov, [facility] [address], [place] [address]- 3808 Nov, [facility] [address], [place] [address]- 4282 Oct, [facility] [address]- 6155 Oct, [facility] [address]- 7438 Sep, [facility] [address]- 9633 Sep, [facility] [address], [place] [address]- 9401 Sep, [facility] [place] [facility] [address] [id number] [place] [address]- 3759 Sep, [facility] [place] [facility] [address] [id number] [place] [address]- 7787 Sep, [facility] [place] [facility] [address] [facility] [id number] [place] [address]- 9072 Aug, [facility] [place] [facility] [address] [id number] [place] [address]- 0867 Aug, [facility] [place] [facility] [address] [id number] [place] [address]- 7448 Aug, [facility] [place] [facility] [address] [id number] [place] [address]- 7945 Aug, [facility] [place] [facility] [address] [facility] [id number] [place] [address]- 7308 Jul, [facility] [place] [facility] [address] [facility] [id number] [place] [address]- 8353 Jul, [facility] [place] [facility] [address] [facility] [id number] [place] [address]- 8591 Jun, [facility] [place] [facility] [address] [facility] [id number] [place] [address]- 7973 Jun, [facility] [place] [facility] [address] [id number] [place] [address]- 9252 May, [facility] [place] [facility] [address] [id number], [place] [address]- 5549 May, [facility] [place] [facility] [address] [id number] [place] [address]- 6253 Apr, [facility] [place] [facility] [address] [id number] [place] [address]- 8948 Apr, [facility] [place] [facility] [address] [facility] [id number], [place] [address]- 2659 Mar, [facility] [place] [facility] [address] [id number] [place] [address]- 0583 Mar, [facility] [place] [facility] [address] [id number] [place] [address]- 6813 Feb, [facility] [place] [facility] [address] [id number] [place] [address]- 4951 Feb, [facility] [place] [facility] [address] [id number] [place] [address]- 6614 Jan, [facility] [place] [facility] [address] [id number] [place] [address]- 2122 Jan, [facility] [place] [facility] [address] [id number] [place] [address]- 3318 December, [facility] [place] [facility] [address] [id number] [place] [address]- 1614 December, [facility] [place] [facility] [address] [id number] [place] [address]- 6944 December, [facility] [place] [facility] [address] [id number] [place] [address]- 6054 December, [facility] [place] [facility] [address] [id number] [place] [address]- 3033 December, [facility] [place] [facility] [address] [id number] [place] [address]- 3508 December, [facility] [place] [facility] [address] [id number] [place] [address]- 1132 Nov, [facility] [place] [facility] [address] [id number] [place] [address]- 0002 Nov, [facility] [place] [facility] [address] [id number] [place] [address]- 7179 Nov, [facility] [place] [facility] [address] [id number] [place] [address]- 2682 Nov, [facility] [place] [facility] [address] [id number] [place] [address]- 2217 Oct, [facility] [address] [id number] [address] 7[address] Oct, [facility] [address]65[address] [address] 6819 Oct, [facility] [address]65[address] [address] 7215 Oct, [facility] [address]65[address] [address]- 7087 Oct, [facility] [address]65[address] [address]- 7975 Oct, [facility] [address] [address] 9317 Oct, [facility] [address] [address] 2492 Oct, [facility] [address]65[address] [address] 9321 Oct, [facility] [address]65[address] [address] 4239 Oct, [facility] [address]65[address] [address] 9601 Oct, [facility] [address] [address]- 7178 Oct, [facility] [address] [id number] [address]- 5647 Sep, [facility] [address], [place] [address]- 5025 Sep, [facility] [address], [place] [address]- 0096 Sep, IMMUNIZATIONS No Known Immunizations SOCIAL HISTORY [...] KNEE SURGERY Hospitalization History New onset seizures--[facility] 02/29/16
[2018-05-29] MEDS ORDERED: LACTATED RINGERS 1,000 ML IV PRN (10:20)
--- OUTSIDE RECORDS SUMMARY | 2018-05-29 10:20 | XMS REPORT ---
Author Author MAYNOR KINCAID Organization [facility] Address [address] [place] [address] Care Team Providers Care Ip Paralegal Name Role Phone MAYNOR KINCAID Unavailable PROBLEMS Type Condition ICD9-CM Code SRW60-TT Code Onset Dates Condition Status SNOMED Code Problem Right-sided low back pain without sciatica M54.5 Active 624065992 Problem Head injury due to trauma, sequela S09.90XS Active 17964888 Problem Anxiety F41.9 Active 46097932 Problem History of hypertension Z86.79 Active 037127025 Problem Dysphagia, unspecified type R13.10 Active 24891208 Problem Poor appetite R63.0 Active 15800222 Problem Hemiplegia, unspecified affecting left dominant side G81.92 Active 989199410 Problem Reactive depression F32.9 Active 63455114 Problem History of brain shunt Z98.2 Active 788613480 Problem Inappropriate social behavior F99 Active 642602415 ALLERGIES No Information ENCOUNTERS Encounter Location Date Diagnosis [facility] [address] [address] December, [facility] [id number] [address] 66[address] December, [facility] [id number] [place] [address]- 2248 December, [facility] [address] [address] December, Physically aggressive behavior R46.89 [facility] [address] [id number] December, [facility] [address] [address] December, [facility] [address] [id number] [address] Nov, [facility] [address] [id number] Oct, Head injury due to trauma, sequela S09.90XS [facility] [id number] [id number] Sep, [facility] [address] [id number] [id number] Aug, [facility] [address] [id number] [address] Aug, [facility] [address] [place] [id number] Aug, Tremor R25.1 ; Head injury due to trauma, sequela S09.90XS and Dysphagia, unspecified type R13.10 [facility] [address] [place] [id number] Aug, Tremor R25.1 ; Poor appetite R63.0 and Acute renal failure with tubular necrosis N17.0 [facility] [id number] [id number] Aug, [facility] [id number] [id number] Aug, [facility] [address] [place] [id number] Aug, Urinary tract infection without hematuria, site unspecified N39.0 and Acute renal failure, unspecified acute renal failure type N17.9 [facility] [address] [id number] [id number] Jul, [facility] [id number] [id number] Jul, [facility] [address] [id number] [address] 2649 Jul, [facility] [address] [id number] [address] 5868 Jun, [facility] [id number] [id number] Jun, [facility] [address] [id number] [id number] May, [facility] [address] [place] [address]39- 6727 May, [facility] [address] [address] 1406 Apr, [facility] [address] [id number] Mar, Head injury due to trauma, sequela S09.90XS and Reactive depression F32.9 [facility] [address] [place] [address]- 7237 Mar, [facility] [id number] [place] [id number] Mar, [facility] [address] [place] [address] 84687- 1796 Mar, [facility] [address] [id number] Feb, Inappropriate social behavior F99 and Head injury due to trauma, sequela S09.90XS [facility] [id number] [place] [address] [id number] Feb, [facility] [id number] [place] [address] [id number] Feb, [facility] [address] [address] 6[address] Jan, [facility] [address] [id number] [address] 7129 Jan, [facility] [address] [address]- 4757 Jan, [facility] [address] [id number] [address]- 6573 December, [facility] [address] [place] [address] 26569- 3577 December, Physically aggressive behavior R46.89 [facility] [address] [address] December, Ingrowing toenail with infection L60.0 ; Physically aggressive behavior R46.89 and Head injury due to trauma, sequela S09.90XS [facility] [address] [place] [address]- 8053 December, Depressive disorder, not elsewhere classified F32.9 and Dementia due to general medical condition, without behavioral disturbance F02.80 [facility] [address] [id number] December, Ingrowing toenail with infection L60.0 and Head injury due to trauma, sequela S09.90XS [facility] [address] [place] [address] 08941- 7584 Nov, [facility] [id number] [place] [address] 301[address]- 3559 Nov, Physically aggressive behavior R46.89 ; Head injury due to trauma, sequela S09.90XS and History of brain shunt Z98.2 [facility] [id number] [place] [address]- 1977 Nov, [facility] [address] [place] [address] 23833- 0053 Nov, [facility] [id number] [place] [address] 20653- 2493 Nov, Inappropriate social behavior F99 [facility] [id number] [place] [address] [id number] Nov, [facility] [id number] [place] [address] [id number] Nov, Gastroesophageal reflux disease with esophagitis K21.0 [facility] [address] [place] [address] 90050- 2113 Oct, [facility] [address] [id number] Oct, Head injury due to trauma, sequela S09.90XS and Hemiplegia, unspecified affecting left dominant side G81.92 [facility] [id number] [place] [id number] Sep, [facility] [address] [id number] [address] 76[address] Aug, [facility] [address] [place] [id number] Aug, Head injury due to trauma, sequela S09.90XS and Hemiplegia, unspecified affecting left dominant side G81.92 [facility] [address] [place] [address] 92578- 0816 Jul, [facility] [address] [place] [address] 09150- 8326 Jun, [facility] [address] [place] [address] [id number] Jun, Head injury due to trauma, sequela S09.90XS [facility] [address] [address]- 8828 Jun, [facility] [id number] [place] [address] 42895- 9304 May, [facility] [address] [place] [id number] May, Head injury due to trauma, sequela S09.90XS [facility] [address] [address]- 1016 May, [facility] [address] [id number] [address]- 4846 May, [facility] [address] [place] [address] 14114- 0136 Apr, [facility] [address] [id number] [address]- 8016 Apr, [facility] [address] [place] [address] 16712- 0530 Apr, [facility] [address] [id number] Apr, Head injury due to trauma, sequela S09.90XS [facility] [address] [facility] [id number] [address]- 4346 Mar, [facility] [id number] [place] [address] 25261- 9636 Mar, [facility] [id number] [place] [address] 71536- 3854 Mar, [facility] [address] [facility] [id number] [place] [address] 40188- 9626 Mar, [facility] [id number] [place] [address] 81613- 5466 Mar, Head injury due to trauma, sequela S09.90XS and Reactive depression F32.9 [facility] [id number] [place] [address] 93880- 7467 Feb, Head injury due to trauma, sequela S09.90XS [facility] [id number] [place] [address] 40080- 4406 Feb, [facility] [address] [place] [address] 17866- 8094 Feb, [facility] [address] [id number] Feb, Head injury due to trauma, sequela S09.90XS [facility] [address] [id number] [address]- 0546 Feb, [facility] [id number] [place] [address] 83564- 3386 Jan, [facility] [id number] [address]- 4836 Jan, [facility] [address] [place] [address] 27320- 6484 Jan, [facility] [id number] [place] [address] 79729- 1442 Jan, Insomnia due to medical condition G47.01 [facility] [address] [address]- 7581 December, Right-sided low back pain without sciatica M54.5 [facility] [address] 96825- 9191 December, Head injury due to trauma, initial encounter S09.90XA [facility] [id number] [place] [address] 80931- 3042 December, Gastroesophageal reflux disease with esophagitis K21.0 [place] [address] 7[address]80- 5562 December, Head injury due to trauma, initial encounter S09.90XA and Essential hypertension I10 [place] [address] 97818- 7527 Jul, Anxiety F41.9 [place] [address] 80253- 7397 Jun, Anxiety F41.9 [place] [address] 14386- 9140 May, Right-sided low back pain without sciatica M54.5 ; Anxiety F41.9 and History of hypertension Z86.79 [facility] [id number] [place] [address] 58814- 7372 May, [facility] [address] 74033- 2990 May, [facility] [address] 78876- 2272 May, [facility] [id number] [place] [address] 00080- 4459 May, [facility] [address] 17870- 2166 Apr, [facility] [address] [address]- 4037 Apr, [facility] [address] [address]- 2669 Mar, [facility] [address]005[address] [address]- 9303 Feb, [facility] [id number] [place] [address] 62654- 4073 Feb, [facility] [address] [place] [address] 546938- 5194 Jan, Essential hypertension, benign 401.1 and Anxiety state, unspecified 300.00 [facility] [address] [address]- 5988 Jan, [facility] [id number] [place] [address] 45531- 9933 December, [facility] [address]005[address] [address]- 2133 December, [facility] [address]005[address] [address]- 5425 Nov, [facility] [address] [address]- 7961 Nov, [facility] [address] [address]- 9418 Oct, [facility] [address]- 8872 Oct, [facility] [address]- 9545 Sep, [facility] [address]- 9126 Sep, [facility] [address]005[address] [address]- 5962 Sep, [facility] [place] [facility] [address] [id number] [place] [address]- 7162 Sep, [facility] [place] [facility] [address] [id number] [place] [address]- 8564 Sep, [facility] [place] [facility] [address] [facility] [id number] [place] [address]- 8154 Aug, [facility] [place] [facility] [address] [id number] [place] [address]- 6492 Aug, [facility] [place] [facility] [address] [id number] [place] [address]- 5421 Aug, [facility] [place] [facility] [address] [id number] [place] [address]- 2327 Aug, [facility] [place] [facility] [address] [facility] [id number] [place] [address]- 9519 Jul, [facility] [place] [facility] [address] [facility] [id number] [place] [address]- 2754 Jul, [facility] [place] [facility] [address] [facility] [id number] [place] [address]- 2475 Jun, [facility] [place] [facility] [address] [facility] [id number] [place] [address]- 2775 Jun, [facility] [place] [facility] [address] [id number] [place] [address]- 1530 May, [facility] [place] [facility] [address] [id number] [address]- 5025 May, [facility] [place] [facility] [address] [id number] [place] [address]- 8498 Apr, [facility] [place] [facility] [address] [id number] [place] [address]- 6765 Apr, [facility] [place] [facility] [address] [facility] [id number] [address]- 7646 Mar, [facility] [place] [facility] [address] [id number] [place] [address]- 7776 Mar, [facility] [place] [facility] [address] [id number] [place] [address]- 7053 Feb, [facility] [place] [facility] [address] [id number] [place] [address]- 1865 Feb, [facility] [place] [facility] [address] [id number] [place] [address]- 6450 Jan, [facility] [place] [facility] [address] [id number] [place] [address]- 5895 Jan, [facility] [place] [facility] [address] [id number] [place] [address]- 9786 December, [facility] [place] [facility] [address] [id number] [place] [address]- 0900 December, [facility] [place] [facility] [address] [id number] [place] [address]- 1673 December, [facility] [place] [facility] [address] [id number] [place] [address]- 7971 December, [facility] [place] [facility] [address] [id number] [place] [address]- 7563 December, [facility] [place] [facility] [address] [id number] [place] [address]- 2675 December, [facility] [place] [facility] [address] [id number] [place] [address]- 8255 Nov, [facility] [place] [facility] [address] [id number] [place] [address]- 3282 Nov, [facility] [place] [facility] [address] [id number] [place] [address]- 9003 Nov, [facility] [place] [facility] [address] [id number] [place] [address]- 5851 Nov, [facility] [place] [facility] [address] [id number] [place] [address]- 9482 Oct, [facility] [address] [id number] [address]- 0753 Oct, [facility] [address] [address]- 9893 Oct, [facility] [address]00565[address] [address]- 4295 Oct, [facility] [address]005[address] [address]- 9678 Oct, [facility] [address]005[address] [address]- 5553 Oct, [facility] [address]100[place] [address]- 8654 Oct, [facility] [address] [address]- 2053 Oct, [facility] [address] [address]- 4217 Oct, [facility] [address]005[address] [address]- 9067 Oct, [facility] [address] [address]- 7178 Oct, [facility] [address]00565[address] [address]- 4985 Oct, [facility] [address] [id number] [address]- 1874 Sep, [facility] [address]65[address] [address]- 4865 Sep, [facility] [address] [id number] [address]- 4889 Sep, IMMUNIZATIONS No Known Immunizations SOCIAL HISTORY Never Assessed REASON FOR VISIT Still not feeling well PLAN OF CARE VITAL SIGNS MEDICATIONS Unknown Medications RESULTS No Results PROCEDURES No Known procedures INSTRUCTIONS MEDICATIONS ADMINISTERED No Known Medications MEDICAL (GENERAL) HISTORY Type Description Date Medical History HYPERTENSION Medical History ANXIETY Medical History ACID REFLUX Surgical History C SECTION 2003 Surgical History cholecystectomy 2003 Surgical History LEFT KNEE SURGERY Hospitalization History New onset seizures--[facility] 02/29/16
--- OUTSIDE RECORDS SUMMARY | 2018-05-29 10:23 | XMS REPORT | Continuity of Care Document ---
Author Author [facility] Address Unknown Phone Unavailable Allergies Active Description Code Type Severity Reaction Onset Reported/Identified Relationship to Patient Clinical Status Yes NO KNOWN DRUG ALLERGIES UNKNOWN NO KNOWN DRUG ALLERG Yes No Known Drug Allergies [id number] Drug Allergy Unknown N/A 05/24/2010 Medications Medication Packaging Start Date Stop Date Route Dosage Sig NORMAL SALINE 500CC IV BAG INJ 0.9 % (NS 500CC IV BAG) ml 12/01/2017 12/01/2017 [id number] CEFTRIAXONE PREMIX IV BAG IV 1 GM/50CC (ROCEPHIN PREMIX IV BAG) GM 12/01/2017 12/01/2017 [id number] Problems Date Dx Coded Attending Type Code Diagnosis Diagnosed By 11/24/2011 Ot 592.1 CALCULUS OF URETER 09/27/2013 BRIGETTE ARGUELLO APRN R 300.00 ANXIETY UNSPEC 09/27/2013 BRIGETTE ARGUELLO APRN R 401.1 HYPERTENSION, BENIGN ESSENTIAL 09/27/2013 BRIGETTE ARGUELLO APRN R 729.1 MYALGIA AND MYOSITIS UNSPECIFIED 09/27/2013 MASON ARGUELLO APRNINA R 300.00 ANXIETY UNSPEC 09/27/2013 BRIGETTE ARGUELLO APRN R 401.1 HYPERTENSION, BENIGN ESSENTIAL 09/27/2013 MASON ARGUELLO APRNINA R 729.1 MYALGIA AND MYOSITIS UNSPECIFIED 09/27/2013 JOS JOHNSON BRIGETTE R 300.00 ANXIETY UNSPEC 09/27/2013 MASON ARGUELLO APRNINA R 401.1 HYPERTENSION, BENIGN ESSENTIAL 09/27/2013 MASON ARGUELLO APRNINA R 729.1 MYALGIA AND MYOSITIS UNSPECIFIED 09/27/2013 JOS JOHNSON BRIGETTE R 300.00 ANXIETY UNSPEC 09/27/2013 BRIGETTE ARGUELLO APRN R 401.1 HYPERTENSION, BENIGN ESSENTIAL 09/27/2013 MASON ARGUELLO APRNINA R 729.1 MYALGIA AND MYOSITIS UNSPECIFIED 09/27/2013 JOS MORTGAGE FUNDER, BRIGETTE R 300.00 ANXIETY UNSPEC 09/27/2013 JOS MORTGAGE FUNDER, BRIGETTE R 401.1 HYPERTENSION, BENIGN ESSENTIAL 09/27/2013 JOS MORTGAGE FUNDER, BRIGETTE R 729.1 MYALGIA AND MYOSITIS UNSPECIFIED 09/27/2013 JOS MORTGAGE FUNDER, BRIGETTE R 300.00 ANXIETY UNSPEC 09/27/2013 JOS MORTGAGE FUNDER, BRIGETTE R 401.1 HYPERTENSION, BENIGN ESSENTIAL 09/27/2013 JOS MORTGAGE FUNDER, BRIGETTE R 729.1 MYALGIA AND MYOSITIS UNSPECIFIED 11/28/2013 JOS MORTGAGE FUNDER, BRIGETTE R 719.46 PAIN IN JOINT INVOLVING LOWER LEG 11/28/2013 JOS MORTGAGE FUNDER, BRIGETTE R 724.2 LUMBAGO/ LOW BACK PAIN 11/28/2013 JOS MORTGAGE FUNDER, BRIGETTE R 719.46 PAIN IN JOINT INVOLVING LOWER LEG 11/28/2013 JOS MORTGAGE FUNDER, BRIGETTE R 724.2 LUMBAGO/ LOW BACK PAIN 11/28/2013 JOS MORTGAGE FUNDER, BRIGETTE R 719.46 PAIN IN JOINT INVOLVING LOWER LEG 11/28/2013 JOS SHAHN, BRIGETTE R 724.2 LUMBAGO/ LOW BACK PAIN 11/28/2013 JOS MORTGAGE FUNDER, BRIGETTE R 719.46 PAIN IN JOINT INVOLVING LOWER LEG 11/28/2013 JOS MORTGAGE FUNDER, BRIGETTE R 724.2 LUMBAGO/ LOW BACK PAIN 05/16/2014 JOS JOHNSON, BRIGETTE R 278.00 OBESITY UNSPECIFIED 05/16/2014 JOS SHAHN, BRIGETTE R 278.00 OBESITY UNSPECIFIED 10/30/2014 JOS JOHNSON, BRIGETTE R 787.01 NAUSEA WITH VOMITING 12/18/2015 Ot 592.0 CALCULUS OF KIDNEY 12/18/2015 Ot 592.1 CALCULUS OF URETER 12/18/2015 Ot V72.81 EXAM-PRE- OPERATIVE CARDIOVASCULAR 12/18/2015 Ot 592.1 CALCULUS OF URETER 12/18/2015 Ot V67.09 SURGERY FOLLOW-UP, OTHER SURGERY 12/18/2015 JUSTIN COTTO, WILTON Alex Ot I50.33 ACUTE ON CHRONIC DIASTOLIC (CONGESTIVE) 12/21/2015 WILTON ANDERSON MD Ot G91.9 HYDROCEPHALUS, UNSPECIFIED 12/21/2015 WILTON ANDERSON MD Ot B95.62 METHICILLIN RESIS STAPH INFCT CAUSING DI 12/21/2015 WILTON ANDERSON MD Ot Z51.81 ENCOUNTER FOR THERAPEUTIC DRUG LEVEL MON 12/21/2015 WILTON ANDERSON MD Ot Z79.2 INTERMEDIATE (CURRENT) USE OF ANTIBIOTICS 12/23/2015 WILTON ANDERSON MD Ot I50.33 ACUTE ON CHRONIC DIASTOLIC (CONGESTIVE) 12/29/2015 WILTON ANDERSON MD, Ot G91.9 HYDROCEPHALUS, UNSPECIFIED 12/30/2015 WILTON ANDERSON MD, Ot I50.33 ACUTE ON CHRONIC DIASTOLIC (CONGESTIVE) 01/04/2016 Ot 592.0 CALCULUS OF KIDNEY 01/04/2016 Ot 592.1 CALCULUS OF URETER 01/04/2016 Ot V72.81 EXAM-PRE- OPERATIVE CARDIOVASCULAR 01/04/2016 Ot 592.1 CALCULUS OF URETER 01/04/2016 Ot V67.09 SURGERY FOLLOW-UP, OTHER SURGERY 01/04/2016 WILTON ANDERSON MD Ot I50.33 ACUTE ON CHRONIC DIASTOLIC (CONGESTIVE) 01/04/2016 WILTON ANDERSON MD, Ot G91.9 HYDROCEPHALUS, UNSPECIFIED 01/04/2016 WILTON ANDERSON MD Ot B95.62 METHICILLIN RESIS STAPH INFCT CAUSING DI 01/04/2016 WILTON ANDERSON MD Ot Z51.81 ENCOUNTER FOR THERAPEUTIC DRUG LEVEL MON 01/04/2016 WILTON ANDERSON MD Ot Z79.2 MECHANICAL TEST ENGINEER (CURRENT) USE OF ANTIBIOTICS 01/04/2016 Ot 592.0 CALCULUS OF KIDNEY 01/04/2016 Ot 592.1 CALCULUS OF URETER 01/04/2016 Ot V72.81 EXAM-PRE- OPERATIVE CARDIOVASCULAR 01/04/2016 Ot 592.1 CALCULUS OF URETER 01/04/2016 Ot V67.09 SURGERY FOLLOW-UP, OTHER SURGERY 01/04/2016 WILTON ANDERSON MD Ot I50.33 ACUTE ON CHRONIC DIASTOLIC (CONGESTIVE) 01/04/2016 WILTON ANDERSON MD, Ot G91.9 HYDROCEPHALUS, UNSPECIFIED 01/04/2016 WILTON ANDERSON MD Ot B95.62 METHICILLIN RESIS STAPH INFCT CAUSING DI 01/04/2016 WILTON ANDERSON MD Ot Z51.81 ENCOUNTER FOR THERAPEUTIC DRUG LEVEL MON 01/04/2016 WILTON ANDERSON MD Ot Z79.2 INTERMEDIATE (CURRENT) USE OF ANTIBIOTICS 01/04/2016 EDE PARKER MD, Ot S06.9X9S UNSP INTRACRANIAL INJURY W LOC OF UNSP D 01/04/2016 EDE PARKER MD Ot Z43.0 ENCOUNTER FOR ATTENTION TO TRACHEOSTOMY 01/04/2016 EDE PARKER MD Ot Z93.1 GASTROSTOMY STATUS 01/05/2016 WILTON ANDERSON MD, Ot B95.62 METHICILLIN RESIS STAPH INFCT CAUSING DI 01/05/2016 WILTON ANDERSON MD, Ot Z51.81 ENCOUNTER FOR THERAPEUTIC DRUG LEVEL MON 01/05/2016 WILTON ANDERSON MD, Ot Z79.2 INTERMEDIATE (CURRENT) USE OF ANTIBIOTICS 01/05/2016 WILTON ANDERSON MD, Ot N39.0 URINARY TRACT INFECTION, SITE NOT SPECIF 01/06/2016 EDE PARKER MD, Ot S06.9X9S UNSP INTRACRANIAL INJURY W LOC OF UNSP D 01/06/2016 EDE PARKER MD, Ot Z43.0 ENCOUNTER FOR ATTENTION TO TRACHEOSTOMY 01/06/2016 EDE PARKER MD Ot Z93.1 GASTROSTOMY STATUS 01/07/2016 Ot 592.0 CALCULUS OF KIDNEY 01/07/2016 Ot 592.1 CALCULUS OF URETER 01/07/2016 Ot V72.81 EXAM-PRE- OPERATIVE CARDIOVASCULAR 01/07/2016 Ot 592.1 CALCULUS OF URETER 01/07/2016 Ot V67.09 SURGERY FOLLOW-UP, OTHER SURGERY 01/07/2016 WILTON ANDERSON MD Ot I50.33 ACUTE ON CHRONIC DIASTOLIC (CONGESTIVE) 01/07/2016 WILTON ANDERSON MD Ot G91.9 HYDROCEPHALUS, UNSPECIFIED 01/07/2016 WILTON ANDERSON MD, Ot B95.62 METHICILLIN RESIS STAPH INFCT CAUSING DI 01/07/2016 WILTON ANDERSON MD Ot Z51.81 ENCOUNTER FOR THERAPEUTIC DRUG LEVEL MON 01/07/2016 WILTON ANDERSON MD, Ot Z79.2 INTERMEDIATE (CURRENT) USE OF ANTIBIOTICS 01/07/2016 WILTON ANDERSON MD, Ot N39.0 URINARY TRACT INFECTION, SITE NOT SPECIF 01/08/2016 WILTON ANDERSON MD Ot K21.0 GASTRO-ESOPHAGEAL REFLUX DISEASE WITH ES 01/08/2016 NICOLE COTTO, EDDI Camejo Ot Z09 ENCNTR FOR F/U EXAM AFT TRTMT FOR COND O 01/08/2016 NICOLE COTTO, EDDI Camejo Ot Z98.89 OTHER SPECIFIED POSTPROCEDURAL STATES 01/13/2016 EDDI RIVERA MD I Ot Z09 ENCNTR FOR F/U EXAM AFT TRTMT FOR COND O 01/13/2016 EDDI RIVERA MD, I Ot Z98.89 OTHER SPECIFIED POSTPROCEDURAL STATES 01/15/2016 WILTON ANDERSON MD Ot N39.0 URINARY TRACT INFECTION, SITE NOT SPECIF 01/20/2016 WILTON ANDERSON MD Ot K21.0 GASTRO-ESOPHAGEAL REFLUX DISEASE WITH ES 01/20/2016 EDDI RIVERA MD, I Ot Z09 ENCNTR FOR F/U EXAM AFT TRTMT FOR COND O 01/20/2016 EDDI RIVERA MD, I Ot Z98.89 OTHER SPECIFIED POSTPROCEDURAL STATES 02/10/2016 WILTON ANDERSON MD Ot N39.0 URINARY TRACT INFECTION, SITE NOT SPECIF 02/10/2016 WILTON ANDERSON MD Ot R53.83 OTHER FATIGUE 02/11/2016 WILTON ANDERSON MD Ot N39.0 URINARY TRACT INFECTION, SITE NOT SPECIF 02/11/2016 WILTON ANDERSON MD Ot R53.83 OTHER FATIGUE 02/13/2016 WILTON ANDERSON MD Ot N39.0 URINARY TRACT INFECTION, SITE NOT SPECIF 02/13/2016 WILTON ANDERSON MD Ot R53.83 OTHER FATIGUE 02/19/2016 WILTON ANDERSON MD Ot N39.0 URINARY TRACT INFECTION, SITE NOT SPECIF 02/19/2016 WILTON ANDERSON MD Ot R53.83 OTHER FATIGUE 03/01/2016 DAHLIA SERRA MD Ot G40.409 OTH GENERALIZED EPILEPSY, NOT INTRACTABL 03/01/2016 DAHLIA SERRA MD Ot G81.92 HEMIPLEGIA, UNSPECIFIED AFFECTING LEFT D 03/01/2016 DAHLIA SERRA MD Ot R13.10 DYSPHAGIA, UNSPECIFIED 03/01/2016 DAHLIA SERRA MD Ot Z87.820 PERSONAL HISTORY OF TRAUMATIC BRAIN INJU 03/01/2016 DAHLIA SERRA MD Ot Z87.891 PERSONAL HISTORY OF NICOTINE DEPENDENCE 03/01/2016 DAHLIA SERRA MD Ot Z93.1 GASTROSTOMY STATUS 03/01/2016 DAHLIA SERRA MD Ot G40.409 OTH GENERALIZED EPILEPSY, NOT INTRACTABL 03/01/2016 DAHLIA SERRA MD Ot G81.92 HEMIPLEGIA, UNSPECIFIED AFFECTING LEFT D 03/01/2016 DAHLIA SERRA MD Ot R13.10 DYSPHAGIA, UNSPECIFIED 03/01/2016 DAHLIA SERRA MD Ot Z87.820 PERSONAL HISTORY OF TRAUMATIC BRAIN INJU 03/01/2016 DAHLIA SERRA MD Ot Z87.891 PERSONAL HISTORY OF NICOTINE DEPENDENCE 03/01/2016 DAHLIA SERRA MD Ot Z93.1 GASTROSTOMY STATUS 03/02/2016 DAHLIA SERRA MD Ot G40.409 OTH GENERALIZED EPILEPSY, NOT INTRACTABL 03/02/2016 DAHLIA SERRA MD Ot G81.92 HEMIPLEGIA, UNSPECIFIED AFFECTING LEFT D 03/02/2016 DAHLIA SERRA MD Ot R13.10 DYSPHAGIA, UNSPECIFIED 03/02/2016 DAHLIA SERRA MD Ot Z87.820 PERSONAL HISTORY OF TRAUMATIC BRAIN INJU 03/02/2016 DAHLIA SERRA MD Ot Z87.891 PERSONAL HISTORY OF NICOTINE DEPENDENCE 03/02/2016 DAHLIA SERRA MD Ot Z93.1 GASTROSTOMY STATUS 03/02/2016 DAHLIA SERRA MD Ot G40.409 OTH GENERALIZED EPILEPSY, NOT INTRACTABL 03/02/2016 DAHLIA SERRA MD Ot G81.92 HEMIPLEGIA, UNSPECIFIED AFFECTING LEFT D 03/02/2016 DAHLIA SERRA MD Ot R13.10 DYSPHAGIA, UNSPECIFIED 03/02/2016 DAHLIA SERRA MD Ot Z87.820 PERSONAL HISTORY OF TRAUMATIC BRAIN INJU 03/02/2016 DAHLIA SERRA MD Ot Z87.891 PERSONAL HISTORY OF NICOTINE DEPENDENCE 03/02/2016 DAHLIA SERRA MD Ot Z93.1 GASTROSTOMY STATUS 03/07/2016 SHOSHANA CHAVEZ DO Ot 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 03/07/2016 SHOSHANA CHAVEZ DO Ot 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 03/07/2016 SHOSHANA CHAVEZ DO Ot K52.9 NONINFECTIVE GASTROENTERITIS AND COLITIS 03/07/2016 KATHYSHOSHANA De Souza DO Ot K57.30 DVRTCLOS OF LG INT W/O PERFORATION OR AB 03/07/2016 KATHY DO SHOSHANA Moon Ot N20.0 CALCULUS OF KIDNEY 03/07/2016 KATHYSHOSHANA De Souza DO Ot R10.84 GENERALIZED ABDOMINAL PAIN 03/07/2016 KATHY DO SHOSHANA Moon Ot R11.0 NAUSEA 03/07/2016 KATHY SHOSHANA Moon Ot 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 03/08/2016 Ot 592.0 CALCULUS OF KIDNEY 03/08/2016 Ot 592.1 CALCULUS OF URETER 03/08/2016 Ot V72.81 EXAM-PRE- OPERATIVE CARDIOVASCULAR 03/08/2016 Ot 592.1 CALCULUS OF URETER 03/08/2016 Ot V67.09 SURGERY FOLLOW-UP, OTHER SURGERY 03/08/2016 WILTON ANDERSON MD Ot I50.33 ACUTE ON CHRONIC DIASTOLIC (CONGESTIVE) 03/08/2016 WILTON ANDERSON MD, Ot G91.9 HYDROCEPHALUS, UNSPECIFIED 03/08/2016 WILTON ANDERSON MD, Ot B95.62 METHICILLIN RESIS STAPH INFCT CAUSING DI 03/08/2016 WILTON ANDERSON MD, Ot Z51.81 ENCOUNTER FOR THERAPEUTIC DRUG LEVEL MON 03/08/2016 WILTON ANDERSON MD, Ot Z79.2 MECHANICAL TEST ENGINEER (CURRENT) USE OF ANTIBIOTICS 03/08/2016 WILTON ANDERSON MD, Ot K21.0 GASTRO-ESOPHAGEAL REFLUX DISEASE WITH ES 03/08/2016 WILTON ANDERSON MD, Ot N39.0 URINARY TRACT INFECTION, SITE NOT SPECIF 03/08/2016 EDDI RIVERA MD, Ot Z09 ENCNTR FOR F/U EXAM AFT TRTMT FOR COND O 03/08/2016 EDDI RIVERA MD, I Ot Z98.89 OTHER SPECIFIED POSTPROCEDURAL STATES 03/08/2016 WILTON ADNERSON MD, Ot N39.0 URINARY TRACT INFECTION, SITE NOT SPECIF 03/08/2016 WILTON ANDERSON MD, Ot R53.83 OTHER FATIGUE 03/11/2016 Ot 592.0 CALCULUS OF KIDNEY 03/11/2016 Ot 592.1 CALCULUS OF URETER 03/11/2016 Ot V72.81 EXAM-PRE- OPERATIVE CARDIOVASCULAR 03/11/2016 Ot 592.1 CALCULUS OF URETER 03/11/2016 Ot V67.09 SURGERY FOLLOW-UP, OTHER SURGERY 03/11/2016 WILTON ANDERSON MD Ot I50.33 ACUTE ON CHRONIC DIASTOLIC (CONGESTIVE) 03/11/2016 WILTON ANDERSON MD, Ot G91.9 HYDROCEPHALUS, UNSPECIFIED 03/11/2016 WILTON ANDERSON MD Ot B95.62 METHICILLIN RESIS STAPH INFCT CAUSING DI 03/11/2016 WILTON ANDERSON MD, Ot Z51.81 ENCOUNTER FOR THERAPEUTIC DRUG LEVEL MON 03/11/2016 WILTON ANDERSON MD, Ot Z79.2 MECHANICAL TEST ENGINEER (CURRENT) USE OF ANTIBIOTICS 03/11/2016 WILTON ANDERSON MD, Ot K21.0 GASTRO-ESOPHAGEAL REFLUX DISEASE WITH ES 03/11/2016 WILTON ANDERSON MD, Ot N39.0 URINARY TRACT INFECTION, SITE NOT SPECIF 03/11/2016 NICOLE COTTO, EDDI Camejo Ot Z09 ENCNTR FOR F/U EXAM AFT TRTMT FOR COND O 03/11/2016 NICOLE COTTO, EDDI Camejo Ot Z98.89 OTHER SPECIFIED POSTPROCEDURAL STATES 03/11/2016 WILTON ANDERSON MD, Ot N39.0 URINARY TRACT INFECTION, SITE NOT SPECIF 03/11/2016 WILTON ANDERSON MD Ot R53.83 OTHER FATIGUE 03/14/2016 WILTON ANDERSON MD, Ot R13.12 DYSPHAGIA, OROPHARYNGEAL PHASE 03/31/2016 SHOSHANA CHAVEZ DO Ot 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 03/31/2016 SHOSHANA CHAVEZ DO Ot 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 03/31/2016 SHOSHANA CHAVEZ DO Ot K52.9 NONINFECTIVE GASTROENTERITIS AND COLITIS 03/31/2016 SHOSHANA CHAVEZ DO Ot K57.30 DVRTCLOS OF LG INT W/O PERFORATION OR AB 03/31/2016 SHOSHANA CHAVEZ DO Ot N20.0 CALCULUS OF KIDNEY 03/31/2016 SHOSHANA CHAVEZ DO Ot R10.84 GENERALIZED ABDOMINAL PAIN 03/31/2016 SHOSHANA CHAVEZ DO Ot R11.0 NAUSEA 03/31/2016 SHOSHANA CHAVEZ DO, Ot 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 04/19/2016 JUSTIN COTTO, WILTON Alex Ot R13.12 DYSPHAGIA, OROPHARYNGEAL PHASE 05/02/2016 ALEJANDRO CARDONA MD Ot I69.952 HEMIPLGA FOL UNSP CEREBVASC DISEASE AFF 05/02/2016 ALEJANDRO CARDONA MD Ot N39.0 URINARY TRACT INFECTION, SITE NOT SPECIF 05/02/2016 ALEJANDRO CARDONA MD Ot R41.0 DISORIENTATION, UNSPECIFIED 05/02/2016 ALEJANDRO CARDONA MD Ot R42 DIZZINESS AND GIDDINESS 05/02/2016 ALEJANDRO CARDONA MD Ot R91.8 OTHER NONSPECIFIC ABNORMAL FINDING OF [place] 05/02/2016 ALEJANDRO CARDONA MD Ot S59.902A UNSPECIFIED INJURY OF LEFT ELBOW, INITIA 05/02/2016 ALEJANDRO CARDONA MD Ot W06.XXXA FALL FROM BED, INITIAL ENCOUNTER 05/02/2016 ALEJANDRO CARDONA MD Ot Y92.[address] 05/02/2016 ALEJANDRO CARDONA MD Ot Y93.84 ACTIVITY, SLEEPING 05/02/2016 ALEJANDRO CARDONA MD Ot Y99.8 OTHER EXTERNAL CAUSE STATUS 05/02/2016 ALEJANDRO CARDONA MD Ot Z79.899 OTHER INTERMEDIATE (CURRENT) DRUG THERAPY 05/02/2016 ALEJANDRO CARDONA MD Ot Z87.820 PERSONAL HISTORY OF TRAUMATIC BRAIN INJU 05/02/2016 ALEJANDRO CARDONA MD Ot Z93.1 GASTROSTOMY STATUS 05/03/2016 ALEJANDRO CARDONA MD Ot 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84 ACTIVITY, SLEEPING 05/03/2016 ALEJANDRO CARDONA MD Ot Y99.8 OTHER EXTERNAL CAUSE STATUS 05/03/2016 ALEJANDRO CARDONA MD Ot Z79.899 OTHER MECHANICAL TEST ENGINEER (CURRENT) DRUG THERAPY 05/03/2016 ALEJANDRO CARDONA MD Ot Z87.820 PERSONAL HISTORY OF TRAUMATIC BRAIN INJU 05/03/2016 ALEJANDRO CARDONA MD Ot Z93.1 GASTROSTOMY STATUS 11/30/2016 SUMI CASTRO APRN Ot G40.909 EPILEPSY, UNSP, NOT INTRACTABLE, WITHOUT 11/30/2016 SUMI CASTRO APRN Ot G81.94 HEMIPLEGIA, UNSPECIFIED AFFECTING LEFT N 11/30/2016 SUMI CASTRO APRN Ot R41.82 ALTERED MENTAL STATUS, UNSPECIFIED 11/30/2016 SUMI CASTRO APRN Ot Z79.899 OTHER INTERMEDIATE (CURRENT) DRUG THERAPY 11/30/2016 SUMI CASRTO APRN Ot Z87.820 PERSONAL HISTORY OF TRAUMATIC BRAIN INJU 11/30/2016 SUMI CASTRO APRN Ot Z93.1 GASTROSTOMY STATUS 11/30/2016 SUMI CASTRO APRN Ot 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 11/30/2016 Ot 592.0 CALCULUS OF KIDNEY 11/30/2016 Ot 592.1 CALCULUS OF URETER 11/30/2016 Ot V72.81 EXAM-PRE- OPERATIVE CARDIOVASCULAR 11/30/2016 Ot 592.1 CALCULUS OF URETER 11/30/2016 Ot V67.09 SURGERY FOLLOW-UP, OTHER SURGERY 11/30/2016 WILTON ANDERSON MD Ot I50.33 ACUTE ON CHRONIC DIASTOLIC (CONGESTIVE) 11/30/2016 WILTON ANDERSON MD Ot G91.9 HYDROCEPHALUS, UNSPECIFIED 11/30/2016 WILTON ANDERSON MD, Ot B95.62 METHICILLIN RESIS STAPH INFCT CAUSING DI 11/30/2016 WILTON ANDERSON MD, Ot Z51.81 ENCOUNTER FOR THERAPEUTIC DRUG LEVEL MON 11/30/2016 WILTON ANDERSON MD, Ot Z79.2 MECHANICAL TEST ENGINEER (CURRENT) USE OF ANTIBIOTICS 11/30/2016 WILTON ANDERSON MD, Ot K21.0 GASTRO-ESOPHAGEAL REFLUX DISEASE WITH ES 11/30/2016 WILTON ANDERSON MD, Ot N39.0 URINARY TRACT INFECTION, SITE NOT SPECIF 11/30/2016 NICOLE COTTO, EDDI Camejo Ot Z09 ENCNTR FOR F/U EXAM AFT TRTMT FOR COND O 11/30/2016 EDDI RIVERA MD, Ot Z98.89 OTHER SPECIFIED POSTPROCEDURAL STATES 11/30/2016 WILTON ANDERSON MD, Ot N39.0 URINARY TRACT INFECTION, SITE NOT SPECIF 11/30/2016 WILTON ANDERSON MD, Ot R53.83 OTHER FATIGUE 11/30/2016 WILTON ANDERSON MD, Ot R13.12 DYSPHAGIA, OROPHARYNGEAL PHASE 12/01/2016 SUMI CASTRO APRN Ot G40.909 EPILEPSY, UNSP, NOT INTRACTABLE, WITHOUT 12/01/2016 SUMI CASTRO APRN Ot G81.94 HEMIPLEGIA, UNSPECIFIED AFFECTING LEFT N 12/01/2016 SUMI CASTRO APRN Ot R41.82 ALTERED MENTAL STATUS, UNSPECIFIED 12/01/2016 SUMI CASTRO APRN Ot Z79.899 OTHER INTERMEDIATE (CURRENT) DRUG THERAPY 12/01/2016 SUMI CASTRO APRN Ot Z87.820 PERSONAL HISTORY OF TRAUMATIC BRAIN INJU 12/01/2016 SUMI CASRTO APRN Ot Z93.1 GASTROSTOMY STATUS 12/01/2016 SUMI CASTRO APRN Ot 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 12/06/2016 SUMI CASTRO APRN Ot G40.909 EPILEPSY, UNSP, NOT INTRACTABLE, WITHOUT 12/06/2016 SUMI CASTRO APRN Ot G81.94 HEMIPLEGIA, UNSPECIFIED AFFECTING LEFT N 12/06/2016 SUMI CASTRO APRN Ot R41.82 ALTERED MENTAL STATUS, UNSPECIFIED 12/06/2016 SUMI CASTRO APRN Ot Z79.899 OTHER MECHANICAL TEST ENGINEER (CURRENT) DRUG THERAPY 12/06/2016 SUMI CASTRO APRN Ot Z87.820 PERSONAL HISTORY OF TRAUMATIC BRAIN INJU 12/06/2016 SUMI CASTRO APRN Ot Z93.1 GASTROSTOMY STATUS 12/06/2016 SUMI CASTRO APRN Ot 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 04/03/2017 Ot 592.0 CALCULUS OF KIDNEY 04/03/2017 Ot 592.1 CALCULUS OF URETER 04/03/2017 Ot V72.81 EXAM-PRE- OPERATIVE CARDIOVASCULAR 04/03/2017 Ot 592.1 CALCULUS OF URETER 04/03/2017 Ot V67.09 SURGERY FOLLOW-UP, OTHER SURGERY 04/03/2017 WILTON ANDERSON MD, Ot I50.33 ACUTE ON CHRONIC DIASTOLIC (CONGESTIVE) 04/03/2017 WILTON ANDERSON MD, Ot G91.9 HYDROCEPHALUS, UNSPECIFIED 04/03/2017 WILTON ANDERSON MD Ot B95.62 METHICILLIN RESIS STAPH INFCT CAUSING DI 04/03/2017 WILTON ANDERSON MD, Ot Z51.81 ENCOUNTER FOR THERAPEUTIC DRUG LEVEL MON 04/03/2017 WILTON ANDERSON MD, Ot Z79.2 INTERMEDIATE (CURRENT) USE OF ANTIBIOTICS 04/03/2017 WILTON ANDERSON MD, Ot K21.0 GASTRO-ESOPHAGEAL REFLUX DISEASE WITH ES 04/03/2017 WILTON ANDERSON MD, Ot N39.0 URINARY TRACT INFECTION, SITE NOT SPECIF 04/03/2017 EDDI RIVERA MD, Ot Z09 ENCNTR FOR F/U EXAM AFT TRTMT FOR COND O 04/03/2017 EDDI RIVERA MD, I Ot Z98.89 OTHER SPECIFIED POSTPROCEDURAL STATES 04/03/2017 WILTON ANDERSON MD, Ot N39.0 URINARY TRACT INFECTION, SITE NOT SPECIF 04/03/2017 WILTON ANDERSON MD Ot R53.83 OTHER FATIGUE 04/03/2017 WILTON ANDERSON MD, Ot R13.12 DYSPHAGIA, OROPHARYNGEAL PHASE 04/06/2017 SHOSHANA CHAVEZ DO Ot F32.9 MAJOR DEPRESSIVE DISORDER, SINGLE EPISOD 04/06/2017 SHOSHANA CHAVEZ DO Ot G40.909 EPILEPSY, UNSP, NOT INTRACTABLE, WITHOUT 04/06/2017 SHOSHANA CHAVEZ DO Ot G89.29 OTHER CHRONIC PAIN 04/06/2017 SHOSHANA CHAVEZ DO Ot M54.5 LOW BACK PAIN 04/06/2017 SHOSHANA CHAVEZ DO Ot R51 HEADACHE 04/06/2017 KATHY SHOSHANA CHARLES Ot S00.83XA CONTUSION OF OTHER PART OF HEAD, INITIAL 04/06/2017 SHOSHANA CHAVEZ DO Ot S16.1XXA STRAIN OF MUSCLE, FASCIA AND TENDON AT N 04/06/2017 KATHY SHOSHANA CHARLES Ot S39.012A STRAIN OF MUSCLE, FASCIA AND TENDON OF L 04/06/2017 KATHY SHOSHANA CHARLES Ot V00.811A FALL FROM MOVING WHEELCHAIR (POWERED), I 04/06/2017 SHOSHANA CHAVEZ DO Ot Y92.[address] IN SENIOR [facility]IVING PLACE 04/06/2017 SHOSHANA CHAVEZ DO Ot Z87.442 PERSONAL HISTORY OF URINARY CALCULI 04/06/2017 SHOSHANA CHAVEZ DO Ot Z87.820 PERSONAL HISTORY OF TRAUMATIC BRAIN INJU 04/06/2017 KATHY SHOSHANA CHARLES Ot Z87.891 PERSONAL HISTORY OF NICOTINE DEPENDENCE 04/06/2017 SHOSHANA CHAVEZ DO Ot Z93.0 TRACHEOSTOMY STATUS 04/06/2017 SHOSHANA CHAVEZ DO Ot 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 04/10/2017 SHOSHANA CHAVEZ DO Ot F32.9 MAJOR DEPRESSIVE DISORDER, SINGLE EPISOD 04/10/2017 SHOSHANA CHAVEZ DO Ot G40.909 EPILEPSY, UNSP, NOT INTRACTABLE, WITHOUT 04/10/2017 SHOSHANA CHAVEZ DO Ot G89.29 OTHER CHRONIC PAIN 04/10/2017 SHOSHANA CHAVEZ DO Ot M54.5 LOW BACK PAIN 04/10/2017 SHOSHANA CHAVEZ DO Ot R51 HEADACHE 04/10/2017 SHOSHANA CHAVEZ DO Ot S00.83XA CONTUSION OF OTHER PART OF HEAD, INITIAL 04/10/2017 SHOSHANA CHAVEZ DO Ot S16.1XXA STRAIN OF MUSCLE, FASCIA AND TENDON AT N 04/10/2017 SHOSHANA CHAVEZ DO Ot S39.012A STRAIN OF MUSCLE, FASCIA AND TENDON OF L 04/10/2017 SHOSHANA CHAVEZ DO Ot V00.811A FALL FROM MOVING WHEELCHAIR (POWERED), I 04/10/2017 SHOSHANA CHAVEZ DO Ot Y92.[address] IN SENIOR [facility]IVING PLACE 04/10/2017 SHOSHANA CHAVEZ DO Red Ot Z87.442 PERSONAL HISTORY OF URINARY CALCULI 04/10/2017 KATHY CHARLES SHOSHANA Red Ot Z87.820 PERSONAL HISTORY OF TRAUMATIC BRAIN INJU 04/10/2017 KATHY CHARLES SHOSHANA Red Ot Z87.891 PERSONAL HISTORY OF NICOTINE DEPENDENCE 04/10/2017 KATHY DO SHOSHANA Red Ot Z93.0 TRACHEOSTOMY STATUS 04/10/2017 KATHY CHARLES SHOSHANA Red Ot 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 05/02/2017 SAMMY TAYLOR MD Ot G31.9 DEGENERATIVE DISEASE OF NERVOUS SYSTEM, 05/02/2017 SAMMY TAYLOR MD Ot G40.909 EPILEPSY, UNSP, NOT INTRACTABLE, WITHOUT 05/02/2017 SAMMY TAYLOR MD Ot R51 HEADACHE 05/02/2017 SAMMY TAYLOR MD Ot 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 05/02/2017 SAMMY TAYLOR MD Ot Z98.890 OTHER SPECIFIED POSTPROCEDURAL STATES 08/11/2017 WILTON ANDERSON MD Ot N17.9 ACUTE KIDNEY FAILURE, UNSPECIFIED 08/11/2017 WILTON ANDERSON MD Ot R82.90 UNSPECIFIED ABNORMAL FINDINGS IN URINE 08/18/2017 WILTON ANDERSON MD Ot N17.9 ACUTE KIDNEY FAILURE, UNSPECIFIED 08/18/2017 WILTON ANDERSON MD Ot R82.90 UNSPECIFIED ABNORMAL FINDINGS IN URINE 09/05/2017 MAYNOR KINCAID Ot R13.10 DYSPHAGIA, UNSPECIFIED 09/07/2017 MAYNOR KINCAID Ot R13.10 DYSPHAGIA, UNSPECIFIED 09/12/2017 MAYNOR KINCAID Ot R13.10 DYSPHAGIA, UNSPECIFIED 12/01/2017 Ruel Elliott 599.0 URINARY TRACT INFECTION, SITE NOT SPECIFIED 12/01/2017 Ruel Elliott N39.0 URINARY TRACT INFECTION, SITE NOT SPECIFIED 12/01/2017 Ruel Elliott V15.52 PERSONAL HISTORY OF TRAUMATIC BRAIN INJURY 12/01/2017 Ruel Elliott Z87.820 PERSONAL HISTORY OF TRAUMATIC BRAIN INJURY 01/05/2018 WILTON ANDERSON MD, Ot I50.33 ACUTE ON CHRONIC DIASTOLIC (CONGESTIVE) 01/05/2018 WILTON ANDERSON MD, Ot G91.9 HYDROCEPHALUS, UNSPECIFIED 01/05/2018 WILTON ANDERSON MD, Ot B95.62 METHICILLIN RESIS STAPH INFCT CAUSING DI 01/05/2018 WILTON ANDERSON MD, Ot Z51.81 ENCOUNTER FOR THERAPEUTIC DRUG LEVEL MON 01/05/2018 WILTON ANDERSON MD, Ot Z79.2 INTERMEDIATE (CURRENT) USE OF ANTIBIOTICS 01/05/2018 WILTON ANDERSON MD, Ot K21.0 GASTRO-ESOPHAGEAL REFLUX DISEASE WITH ES 01/05/2018 WILTON ANDERSON MD, Ot N39.0 URINARY TRACT INFECTION, SITE NOT SPECIF 01/05/2018 EDDI RIVERA MD, Ot Z09 ENCNTR FOR F/U EXAM AFT TRTMT FOR COND O 01/05/2018 EDDI RIVERA MD, Ot Z98.89 OTHER SPECIFIED POSTPROCEDURAL STATES 01/05/2018 WILTON ANDERSON MD, Ot N39.0 URINARY TRACT INFECTION, SITE NOT SPECIF 01/05/2018 WILTON ANDERSON MD Ot R53.83 OTHER FATIGUE 01/05/2018 WILTON ANDERSON MD Ot R13.12 DYSPHAGIA, OROPHARYNGEAL PHASE 01/05/2018 SAMMY TAYLOR MD Ot G31.9 DEGENERATIVE DISEASE OF NERVOUS SYSTEM, 01/05/2018 SAMMY TAYLOR MD Ot G40.909 EPILEPSY, UNSP, NOT INTRACTABLE, WITHOUT 01/05/2018 SAMMY TAYLOR MD Ot R51 HEADACHE 01/05/2018 SAMMY TAYLOR MD Ot 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 01/05/2018 SAMMY TAYLOR MD Ot Z98.890 OTHER SPECIFIED POSTPROCEDURAL STATES 01/05/2018 WILTON ANDERSON MD Ot N17.9 ACUTE KIDNEY FAILURE, UNSPECIFIED 01/05/2018 WILTON ANDERSON MD Ot R82.90 UNSPECIFIED ABNORMAL FINDINGS IN URINE 01/05/2018 MAYNOR KINCAID Ot R13.10 DYSPHAGIA, UNSPECIFIED 01/10/2018 ABOUL-YOVANA BOBO MD, Ot D63.1 ANEMIA IN CHRONIC KIDNEY DISEASE 01/10/2018 YOVANA JARVIS MD Ot I12.9 HYPERTENSIVE CHRONIC KIDNEY DISEASE W ST 01/10/2018 YOVANA JARVIS MD Ot I70.1 ATHEROSCLEROSIS OF RENAL ARTERY 01/10/2018 YOVANA JARVIS MD Ot N18.3 CHRONIC KIDNEY DISEASE, STAGE 3 (MODERAT 01/19/2018 YOVANA JARVIS MD Ot D63.1 ANEMIA IN CHRONIC KIDNEY DISEASE 01/19/2018 YOVANA JARVIS MD Ot I12.9 HYPERTENSIVE CHRONIC KIDNEY DISEASE W ST 01/19/2018 YOVANA JARVIS MD Ot I70.1 ATHEROSCLEROSIS OF RENAL ARTERY 01/19/2018 YOVANA JARVIS MD, Ot N18.3 CHRONIC KIDNEY DISEASE, STAGE 3 (MODERAT 05/28/2018 KIEL COTTO, MERARI Grant Ot Z01.818 ENCOUNTER FOR OTHER PREPROCEDURAL EXAMIN Procedures Code [place] [address] ROUTINE VENIPUNCTURE 09/27/2013 KELVIN FRANZ 09/27/2013 20157 UA W/ CULTURE IF INDICATED 09/27/2013 86510 URINE DRUG SCREEN (IN-HOUSE ) 09/27/2013 85402 CBC 09/27/2013 73823 RA FACTOR 09/28/2013 ANAANA NERIS ANALYZER (SCREEN) 09/28/2013 63849 CMP 09/29/2013 18611 URIC ACID 09/29/2013 Results Test Result Range Complete blood count (CBC) with automated white blood cell (WBC) differential - 03/07/16 20:13 Blood leukocytes automated count (number/volume) 7.4 10*3/uL 4.3-11.0 Blood erythrocytes automated count (number/volume) 4.20 10*6/uL 4.35-5.85 Venous blood hemoglobin measurement (mass/volume) 13.6 g/dL 11.5-16.0 Blood hematocrit (volume fraction) 40 % 35-52 Automated erythrocyte mean corpuscular volume 96 [foz_us] 80-99 Automated erythrocyte mean corpuscular hemoglobin (mass per erythrocyte) 32 pg 25-34 Automated erythrocyte mean corpuscular hemoglobin concentration measurement ( mass/volume) 34 g/dL 32-36 Automated erythrocyte distribution width ratio 13.1 % 10.0-14.5 Automated blood platelet count (count/volume) 376 10*3/uL 130-400 Automated blood platelet mean volume measurement 10.0 [foz_us] 7.4-10.4 Automated blood neutrophils/100 leukocytes 52 % 42-75 Automated blood lymphocytes/100 leukocytes 33 % 12-44 Blood monocytes/100 leukocytes 12 % 0-12 Automated blood eosinophils/100 leukocytes 2 % 0-10 Automated blood basophils/100 leukocytes 1 % 0-10 Blood neutrophils automated count (number/volume) 3.9 10*3 1.8-7.8 Blood lymphocytes automated count (number/volume) 2.4 10*3 1.0-4.0 Blood monocytes automated count (number/volume) 0.9 10*3 0.0-1.0 Automated eosinophil count 0.2 10*3/uL 0.0-0.3 Automated blood basophil count (count/volume) 0.1 10*3/uL 0.0-0.1 Comprehensive metabolic panel - 03/07/16 20:13 Serum or plasma sodium measurement (moles/volume) 138 mmol/L 135-145 Serum or plasma potassium measurement (moles/volume) 3.9 mmol/L 3.6-5.0 Serum or plasma chloride measurement (moles/volume) 100 mmol/L 98-107 Carbon dioxide 23 mmol/L 21-32 Serum or plasma anion gap determination (moles/volume) 15 mmol/L 5-14 Serum or plasma urea nitrogen measurement (mass/volume) 18 mg/dL 7-18 Serum or plasma creatinine measurement (mass/volume) 0.76 mg/dL 0.60-1.30 Serum or plasma urea nitrogen/creatinine mass ratio 24 NRG Serum or plasma creatinine measurement with calculation of estimated glomerular filtration rate > NRG Serum or plasma glucose measurement (mass/volume) 94 mg/dL 70-105 Serum or plasma calcium measurement (mass/volume) 10.2 mg/dL 8.5-10.1 Serum or plasma total bilirubin measurement (mass/volume) 0.2 mg/dL 0.1-1.0 Serum or plasma alkaline phosphatase measurement (enzymatic activity/volume) 278 U/L 40-136 Serum or plasma aspartate aminotransferase measurement (enzymatic activity/ volume) 16 U/L 5-34 Serum or plasma alanine aminotransferase measurement (enzymatic activity/volume ) 38 U/L 0-55 Serum or plasma protein measurement (mass/volume) 8.4 g/dL 6.4-8.2 Serum or plasma albumin measurement (mass/volume) 4.0 g/dL 3.2-4.5 Serum or plasma amylase measurement (enzymatic activity/volume) - 03/07/16 20: 13 Serum or plasma amylase measurement (enzymatic activity/volume) 47 U /L 25-125 Lipase - 03/07/16 20:13 Lipase 14 U/L 8-78 Complete urinalysis with reflex to culture - 03/07/16 20:35 Urine color determination YELLOW NRG Urine clarity determination SLIGHTLY CLOUDY NRG Urine pH measurement by test strip 8 5-9 Specific gravity of urine by test strip 1.015 1.016- 1.022 Urine protein assay by test strip, semi-quantitative 1+ NEGATIVE Urine glucose detection by automated test strip NEGATIVE NEGATIVE Erythrocytes detection in urine sediment by light microscopy NEGATIVE NEGATIVE Urine ketones detection by automated test strip NEGATIVE NEGATIVE Urine nitrite detection by test strip NEGATIVE NEGATIVE Urine total bilirubin detection by test strip NEGATIVE NEGATIVE Urine urobilinogen measurement by automated test strip (mass/volume) NORMAL NORMAL Urine leukocyte esterase detection by dipstick 1+ NEGATIVE Automated urine sediment erythrocyte count by microscopy (number/high power field) NONE NRG Automated urine sediment leukocyte count by microscopy (number/high power field ) [HPF] NRG Bacteria detection in urine sediment by light microscopy NONE NRG Crystals detection in urine sediment by light microscopy PRESENT NRG Casts detection in urine sediment by light microscopy NONE NRG Mucus detection in urine sediment by light microscopy NEGATIVE NRG Complete urinalysis with reflex to culture NO NRG Amorphous sediment detection in urine sediment by light microscopy MOD ORLY PHOSPHATE NRG Complete blood count (CBC) with automated white blood cell (WBC) differential - 05/02/16 19:13 Blood leukocytes automated count (number/volume) 8.6 10*3/uL 4.3-11.0 Blood erythrocytes automated count (number/volume) 3.88 10*6/uL 4.35-5.85 Venous blood hemoglobin measurement (mass/volume) 12.4 g/dL 11.5-16.0 Blood hematocrit (volume fraction) 37 % 35-52 Automated erythrocyte mean corpuscular volume 95 [foz_us] 80-99 Automated erythrocyte mean corpuscular hemoglobin (mass per erythrocyte) 32 pg 25-34 Automated erythrocyte mean corpuscular hemoglobin concentration measurement ( mass/volume) 34 g/dL 32-36 Automated erythrocyte distribution width ratio 13.8 % 10.0-14.5 Automated blood platelet count (count/volume) 326 10*3/uL 130-400 Automated blood platelet mean volume measurement 9.5 [foz_us] 7.4-10.4 Automated blood neutrophils/100 leukocytes 66 % 42-75 Automated blood lymphocytes/100 leukocytes 17 % 12-44 Blood monocytes/100 leukocytes 12 % 0-12 Automated blood eosinophils/100 leukocytes 5 % 0-10 Automated blood basophils/100 leukocytes 0 % 0-10 Blood neutrophils automated count (number/volume) 5.7 10*3 1.8-7.8 Blood lymphocytes automated count (number/volume) 1.5 10*3 1.0-4.0 Blood monocytes automated count (number/volume) 1.0 10*3 0.0-1.0 Automated eosinophil count 0.4 10*3/uL 0.0-0.3 Automated blood basophil count (count/volume) 0.0 10*3/uL 0.0-0.1 Comprehensive metabolic panel - 05/02/16 19:13 Serum or plasma sodium measurement (moles/volume) 139 mmol/L 135-145 Serum or plasma potassium measurement (moles/volume) 4.0 mmol/L 3.6-5.0 Serum or plasma chloride measurement (moles/volume) 106 mmol/L 98-107 Carbon dioxide 20 mmol/L 21-32 Serum or plasma anion gap determination (moles/volume) 13 mmol/L 5-14 Serum or plasma urea nitrogen measurement (mass/volume) 13 mg/dL 7-18 Serum or plasma creatinine measurement (mass/volume) 0.83 mg/dL 0.60-1.30 Serum or plasma urea nitrogen/creatinine mass ratio 16 NRG Serum or plasma creatinine measurement with calculation of estimated glomerular filtration rate > NRG Serum or plasma glucose measurement (mass/volume) 95 mg/dL 70-105 Serum or plasma calcium measurement (mass/volume) 9.3 mg/dL 8.5-10.1 Serum or plasma total bilirubin measurement (mass/volume) 0.4 mg/dL 0.1-1.0 Serum or plasma alkaline phosphatase measurement (enzymatic activity/volume) 203 U/L 40-136 Serum or plasma aspartate aminotransferase measurement (enzymatic activity/ volume) 27 U/L 5-34 Serum or plasma alanine aminotransferase measurement (enzymatic activity/volume ) 53 U/L 0-55 Serum or plasma protein measurement (mass/volume) 7.4 g/dL 6.4-8.2 Serum or plasma albumin measurement (mass/volume) 3.8 g/dL 3.2-4.5 Magnesium - 05/02/16 19:13 Magnesium 2.7 mg/dL 1.8-2.4 Complete urinalysis with reflex to culture - 05/02/16 19:22 Urine color determination YELLOW NRG Urine clarity determination CLEAR NRG Urine pH measurement by test strip 6.5 5-9 Specific gravity of urine by test strip 1.015 1.016- 1.022 Urine protein assay by test strip, semi-quantitative NEGATIVE NEGATIVE Urine glucose detection by automated test strip NEGATIVE NEGATIVE Erythrocytes detection in urine sediment by light microscopy NEGATIVE NEGATIVE Urine ketones detection by automated test strip NEGATIVE NEGATIVE Urine nitrite detection by test strip NEGATIVE NEGATIVE Urine total bilirubin detection by test strip NEGATIVE NEGATIVE Urine urobilinogen measurement by automated test strip (mass/volume) NORMAL NORMAL Urine leukocyte esterase detection by dipstick 1+ NEGATIVE Automated urine sediment erythrocyte count by microscopy (number/high power field) [HPF] NRG Automated urine sediment leukocyte count by microscopy (number/high power field ) [HPF] NRG Bacteria detection in urine sediment by light microscopy FEW NRG Crystals detection in urine sediment by light microscopy NONE NRG Casts detection in urine sediment by light microscopy NONE NRG Mucus detection in urine sediment by light microscopy NEGATIVE NRG Complete urinalysis with reflex to culture YES NRG Bacterial urine culture - 05/02/16 19:22 Bacterial urine culture NG NRG Complete urinalysis with reflex to culture - 11/30/16 18:57 Urine color determination YELLOW NRG Urine clarity determination CLEAR NRG Urine pH measurement by test strip 6.5 5-9 Specific gravity of urine by test strip 1.015 1.016- 1.022 Urine protein assay by test strip, semi-quantitative NEGATIVE NEGATIVE Urine glucose detection by automated test strip NEGATIVE NEGATIVE Erythrocytes detection in urine sediment by light microscopy NEGATIVE NEGATIVE Urine ketones detection by automated test strip NEGATIVE NEGATIVE Urine nitrite detection by test strip NEGATIVE NEGATIVE Urine total bilirubin detection by test strip NEGATIVE NEGATIVE Urine urobilinogen measurement by automated test strip (mass/volume) 1 mg/dL NORMAL Urine leukocyte esterase detection by dipstick 1+ NEGATIVE Automated urine sediment erythrocyte count by microscopy (number/high power field) RARE NRG Automated urine sediment leukocyte count by microscopy (number/high power field ) [HPF] NRG Bacteria detection in urine sediment by light microscopy TRACE NRG Squamous epithelial cells detection in urine sediment by light microscopy 5-10 NRG Crystals detection in urine sediment by light microscopy NONE NRG Casts detection in urine sediment by light microscopy NONE NRG Mucus detection in urine sediment by light microscopy SMALL NRG Complete urinalysis with reflex to culture NO NRG Complete blood count (CBC) with automated white blood cell (WBC) differential - 11/30/16 18:58 Blood leukocytes automated count (number/volume) 6.3 10*3/uL 4.3-11.0 Blood erythrocytes automated count (number/volume) 4.44 10*6/uL 4.35-5.85 Venous blood hemoglobin measurement (mass/volume) 14.0 g/dL 11.5-16.0 Blood hematocrit (volume fraction) 42 % 35-52 Automated erythrocyte mean corpuscular volume 94 [foz_us] 80-99 Automated erythrocyte mean corpuscular hemoglobin (mass per erythrocyte) 32 pg 25-34 Automated erythrocyte mean corpuscular hemoglobin concentration measurement ( mass/volume) 34 g/dL 32-36 Automated erythrocyte distribution width ratio 13.1 % 10.0-14.5 Automated blood platelet count (count/volume) 288 10*3/uL 130-400 Automated blood platelet mean volume measurement 9.9 [foz_us] 7.4-10.4 Automated blood neutrophils/100 leukocytes 49 % 42-75 Automated blood lymphocytes/100 leukocytes 35 % 12-44 Blood monocytes/100 leukocytes 14 % 0-12 Automated blood eosinophils/100 leukocytes 2 % 0-10 Automated blood basophils/100 leukocytes 1 % 0-10 Blood neutrophils automated count (number/volume) 3.1 10*3 1.8-7.8 Blood lymphocytes automated count (number/volume) 2.2 10*3 1.0-4.0 Blood monocytes automated count (number/volume) 0.9 10*3 0.0-1.0 Automated eosinophil count 0.1 10*3/uL 0.0-0.3 Automated blood basophil count (count/volume) 0.0 10*3/uL 0.0-0.1 Comprehensive metabolic panel - 11/30/16 18:58 Serum or plasma sodium measurement (moles/volume) 141 mmol/L 135-145 Serum or plasma potassium measurement (moles/volume) 4.1 mmol/L 3.6-5.0 Serum or plasma chloride measurement (moles/volume) 107 mmol/L 98-107 Carbon dioxide 24 mmol/L 21-32 Serum or plasma anion gap determination (moles/volume) 10 mmol/L 5-14 Serum or plasma urea nitrogen measurement (mass/volume) 12 mg/dL 7-18 Serum or plasma creatinine measurement (mass/volume) 1.23 mg/dL 0.60-1.30 Serum or plasma urea nitrogen/creatinine mass ratio 10 NRG Serum or plasma creatinine measurement with calculation of estimated glomerular filtration rate 47 NRG Serum or plasma glucose measurement (mass/volume) 92 mg/dL 70-105 Serum or plasma calcium measurement (mass/volume) 9.2 mg/dL 8.5-10.1 Serum or plasma total bilirubin measurement (mass/volume) 0.3 mg/dL 0.1-1.0 Serum or plasma alkaline phosphatase measurement (enzymatic activity/volume) 166 U/L 40-136 Serum or plasma aspartate aminotransferase measurement (enzymatic activity/ volume) 13 U/L 5-34 Serum or plasma alanine aminotransferase measurement (enzymatic activity/volume ) 18 U/L 0-55 Serum or plasma protein measurement (mass/volume) 7.4 g/dL 6.4-8.2 Serum or plasma albumin measurement (mass/volume) 3.9 g/dL 3.2-4.5 Valproic acid - 11/30/16 18:58 Valproic acid 38.0 ug/mL 50.0-100.0 Complete urinalysis with reflex to culture - 08/04/17 17:45 Urine color determination YELLOW NRG Urine clarity determination CLEAR NRG Urine pH measurement by test strip 6 5-9 Specific gravity of urine by test strip 1.020 1.016- 1.022 Urine protein assay by test strip, semi-quantitative 1+ NEGATIVE Urine glucose detection by automated test strip NEGATIVE NEGATIVE Erythrocytes detection in urine sediment by light microscopy 1+ NEGATIVE Urine ketones detection by automated test strip NEGATIVE NEGATIVE Urine nitrite detection by test strip NEGATIVE NEGATIVE Urine total bilirubin detection by test strip NEGATIVE NEGATIVE Urine urobilinogen measurement by automated test strip (mass/volume) 1 mg/dL NORMAL Urine leukocyte esterase detection by dipstick 2+ NEGATIVE Automated urine sediment erythrocyte count by microscopy (number/high power field) [HPF] NRG Automated urine sediment leukocyte count by microscopy (number/high power field ) [HPF] NRG Bacteria detection in urine sediment by light microscopy FEW NRG Squamous epithelial cells detection in urine sediment by light microscopy 2-5 NRG Crystals detection in urine sediment by light microscopy NONE NRG Casts detection in urine sediment by light microscopy NONE NRG Mucus detection in urine sediment by light microscopy NEGATIVE NRG Complete urinalysis with reflex to culture YES NRG Urine protein/creatinine mass ratio - 08/04/17 17:45 Urine protein measurement (mass/volume) 20 mg/dL 6-12 Urine creatinine measurement (mass/volume) 135 mg/dL 30- 125 Urine protein/creatinine mass ratio 0.15 NRG Bacterial urine culture - 08/04/17 17:45 Bacterial urine culture SEE COMMEN NRG COLONY COUNT . NRG FTX;REPORTABLE SENSITIVITY REPORTED NRG FREE TEXT ENTRY 2 ESBL NRG Bacterial susceptibility panel - 08/04/17 17:45 Gentamicin susceptibility test by minimum inhibitory concentration < = NRG Trimethoprim/sulfamethoxazole susceptibility test by minimum inhibitoryconcentration R NRG Ampicillin susceptibility test by minimum inhibitory concentration > = NRG Tobramycin susceptibility test by minimum inhibitory concentration < = NRG Cefazolin susceptibility test by minimum inhibitory concentration > = NRG Ceftriaxone susceptibility test by minimum inhibitory concentration >= NRG Ampicillin/sulbactam susceptibility test by minimum inhibitory concentration R NRG Ciprofloxacin susceptibility test by minimum inhibitory concentration >= NRG Meropenem susceptibility test by minimum inhibitory concentration < = NRG Nitrofurantoin susceptibility test by minimum inhibitory concentration <= NRG Aztreonam susceptibility test by minimum inhibitory concentration > = NRG Extended spectrum beta lactamase (ESBL) producing bacteria susceptibility test by minimum inhibitory concentration + NRG Cefepime susceptibility test by minimum inhibitory concentration R NRG Amikacin susceptibility test by minimum inhibitory concentration S NRG Valproic Acid - 12/01/17 14:21 Valproic Acid 78.5 ug/mL 55.0-105.0 Encounters ACCT No. Visit Date/Time Discharge Status Pt. Type Provider Facility Loc./Unit Complaint [id number] 10/30/2014 10:56:00 10/30/2014 23:59:59 CLS Outpatient BRIGETTE ARGUELLO APRN [id number] 05/16/2014 10:47:00 05/16/2014 23:59:59 CLS Outpatient MASON ARGUELLO APRNINA R [id number] 01/17/2014 10:16:00 01/17/2014 23:59:59 CLS Outpatient MASON ARGUELLO APRNINA R [id number] 11/28/2013 08:31:00 11/28/2013 23:59:59 CLS Outpatient MASON ARGUELLO APRNINA R [id number] 10/24/2013 08:58:00 10/24/2013 23:59:59 CLS Outpatient MASON ARGUELLO APRNINA R [id number] 09/27/2013 10:39:00 09/27/2013 23:59:59 CLS Outpatient JOS JOHNSON BRIGETTE R [id number] 12/01/2017 14:06:00 12/01/2017 18:10:00 [id number] 12/01/2017 16:14:06 Document Registration [id number] 06/01/2017 09:40:00 06/01/2017 23:59:59 CLS Outpatient MAYNOR KINCAID APRN [facility] [id number] 05/28/2018 05:39:00 05/28/2018 11:04:00 DIS Outpatient KIEL COTTO, MERARI Grant [facility] PREOP POOR VENOUS ACCESS [id number] 01/09/2018 09:48:00 01/09/2018 23:59:59 CLS Outpatient MATHEUS COTTO, YOVANA Diamond [facility] RAD CHRONIC KIDNEY DISEASE STAGE 3,ANEMIA [id number] 09/01/2017 10:14:00 09/01/2017 23:59:59 CLS Outpatient MAYNOR KINCAID [facility] RAD DYSPHAGIA [id number] 08/04/2017 19:24:00 08/04/2017 23:59:59 CLS Outpatient JUSTIN COTTO, WILTON Alex [facility] LABNPT [id number] 04/06/2017 19:06:00 04/06/2017 21:25:00 DIS Emergency SHOSHANA CHAVEZ DO [facility] ER FALL [id number] 04/03/2017 14:16:00 04/03/2017 23:59:59 CLS Outpatient CLAUDIA COTTO, SAMMY Moon [facility] RAD SEIZURE,HEADACHE [id number] 11/30/2016 07:16:00 11/30/2016 23:59:59 CLS Preadmit MAYNOR KINCAID [facility] RAD S09.90XS [id number] 11/30/2016 18:30:00 11/30/2016 20:38:00 DIS Emergency SUMI CASTRO APRN [facility] ER SWELLING ON HEAD [id number] 05/02/2016 18:08:00 05/02/2016 20:49:00 DIS Emergency DULCE COTTO, ALEJANDRO Hurst [facility] ER FALL [id number] 03/11/2016 10:41:00 03/11/2016 23:59:59 CLS Outpatient JUSTIN COTTO, WILTON Alex [facility] RAD HEAD INJURY DUE TO TRAUMA [id number] 03/07/2016 20:06:00 03/07/2016 23:06:00 DIS Emergency SHOSHANA CHAVEZ DO [facility] ER ABD PAIN [id number] 02/29/2016 20:10:00 03/01/2016 13:28:00 DIS Inpatient PONCE COTTO, DAHLIA Bustos [facility] 4TH NEW ONSET SEIZURE [id number] 02/06/2016 13:53:00 02/06/2016 23:59:59 CLS Outpatient WILTON ANDERSON MD [facility] LABNPT UTI, PT IS LETHARGIC AND NON RESPONSIVE [id number] 01/07/2016 09:52:00 01/07/2016 23:59:59 CLS Outpatient EDDI RIVERA MD, I [facility] RAD S/P CRANIOTOMY [id number] 01/07/2016 09:49:00 01/07/2016 23:59:59 CLS Outpatient WILTON ANDERSON MD [facility] RAD GASTROESOPHAGEAL REFLUX [id number] 01/04/2016 08:06:00 01/04/2016 09:17:00 DIS Emergency KEITH COTTO, EDE Moon [facility] ER PULLED OUT TRACH TUBE [id number] 01/01/2016 16:58:00 01/01/2016 23:59:59 CLS Outpatient WILTON ANDERSON MD [facility] UTI [id number] 12/20/2015 10:17:00 12/20/2015 23:59:59 CLS Outpatient WILTON ANDERSON MD [facility] METHICILLIN RESISTANT STAPHYLOCOCCUS INFECTION [id number] 12/18/2015 13:51:00 12/18/2015 23:59:59 CLS Outpatient WILTON ANDERSON MD [facility] HYDOCEPHALUS, UNSPECIFEID [id number] 12/17/2015 16:42:00 12/17/2015 23:59:59 CLS Outpatient WILTON ANDERSON MD [facility] ACUTE ON CHRONIC DIASTOLIC CONGESTIVE HEART FAILUR [id number] 05/29/2018 09:51:00 ACT Outpatient KIEL COTTO, MERARI Grant [facility] SD POOR VENOUS ACCESS [id number] 12/06/2011 13:54:00 Document Registration [id number] 11/24/2011 05:39:00 Document Registration [id number] 11/23/2011 13:39:00 Document Registration
[2018-05-29] MEDS ORDERED: CATHETER FLUSH 10 ML SYR IV PRN (10:30)
[2018-05-29] MEDS ORDERED: ceFAZolin 2 GM IV Premixed 50 ML IV ONE (10:30)
[2018-05-29] MEDS ORDERED: FAMOTIDINE 20MG/2ML IV (PEPCID) IV ONE (10:45)
[2018-05-29] MEDS ORDERED: MIDAZOLAM 2 MG/2 ML (VERSED) VIAL IV ONE (10:45)
[2018-05-29] MEDS ORDERED: ONDANSETRON 4 MG/2 ML (SDV) Z0FRAN IV ONE (10:45)
[2018-05-29] MEDS ORDERED: DEXAMETHASONE 10 MG/ML (DECADRON) 1 ML VIAL ONE (10:48)
[2018-05-29] MEDS ORDERED: ONDANSETRON 4 MG/2 ML (SDV) Z0FRAN ONE ×2 (10:48→10:52)
[2018-05-29] MEDS ORDERED: fentaNYL INJECTION 100 MCG/2 ML AMP ONE (10:48)
[2018-05-29] MEDS ORDERED: proPOfol 200 MG/20 ML (DIPRIVAN) VIAL IV ONE ×2 (10:48→13:28)
[2018-05-29] MEDS ORDERED: LIDOCAINE PF 2% 5 ML (XYLOCAINE) VIAL ONE (10:48)
[2018-05-29] MEDS ORDERED: MIDAZOLAM 2 MG/2 ML (VERSED) VIAL ONE ×2 (10:52→12:28)
[2018-05-29] MEDS ORDERED: FAMOTIDINE 20MG/2ML IV (PEPCID) ONE (10:52)
[2018-05-29] MEDS ORDERED: BUP/EPI 0.5% 1:200,000 (SENSORCAINE) 30 ML VIAL ONE (11:21)
[2018-05-29] MEDS ORDERED: 0.9% SODIUM CHLORIDE PF INJ 20 ML VIAL ONE (11:22)
[2018-05-29] MEDS ORDERED: HEParin (CENTRAL IV FLUSH) 500 UNIT/5 ML SYR ONE (11:22)
--- NOTE | 2018-05-29 11:55 | Progress Note-Pre Operative ---
Pre-Operative Progress Note H&P Reviewed The H&P was reviewed, patient examined and no changes noted. Date Seen by Provider: May 29, 2018 Time Seen by Provider: 11:55 Date H&P Reviewed: May 29, 2018 Time H&P Reviewed: 11:55 Pre-Operative Diagnosis: Poor venous access MERARI DYSON MD May 29, 2018 11:55
[2018-05-29] MEDS ORDERED: PROPOFOL INJECTION 50 ML IV ONE (13:05)
--- NOTE | 2018-05-29 13:43 | Operative Report ---
Operative Report Date of Procedure/Surgery May 29, 2018 Surgeon (s) MERARI DYSON MD Bioanalyst (s): Jimmie Fleming ( Med Student III) Post-Operative Diagnosis Same Procedure Performed Phqolh-w-[id number] placement Description of Procedure Anesthesia Type: General Estimated blood loss (mL): Minimal Specimen(s) collected/removed None Description of the Procedure Indication for the procedure: This lady has poor venous access and requires intermittent iron infusion. Therefore, it was felt reasonable to place an [id number]-t-Qhhf. Informed consent was obtained after reviewing the procedure in detail. Description of the procedure: She was placed supine on the operating table and general anesthesia induced. A gram of Ancef was administered intravenously as prophylaxis against wound infection. Sequential compression devices were placed around her legs, to minimize the risk of venous thrombosis. Her neck and upper chest were prepared and draped in the usual sterile manner. Right internal jugular vein was localized using a 10 MHz ultrasound probe and a floppy guidewire introduced into the heart, under fluoroscopy. A subcutaneous pocket was created over the infraclavicular fossa and the Reza catheter brought into the neck, in a retrograde fashion. It was then advanced into the heart, under fluoroscopy, using the peel-away sheath. The catheter was then pulled back to the superior vena cava and connected to the Oyssyt-b-Uqfn, that had been primed with heparinized saline. I was able to aspirate and flush the system without any difficulty. The port was then secured to the pectoralis tissue using 2-0 Prolene sutures. The incision was then closed using 3-0 Vicryl for the subcutaneous tissue and 4-0 Vicryl for skin, in a subcuticular fashion. 0.5 percent Marcaine with epinephrine was infiltrated along the incision both preemptively and at the conclusion of the operation. She tolerated the procedure well, was extubated in the operating room and taken to the recovery room in a stable condition. Findings of the Procedure See operative report Allergies and Home Medications Allergies Coded Allergies: No Known Drug Allergies (Unverified , 05/24/10) Home Medications Acetaminophen 500 Mg Tablet, 1,000 MG PO Q6H PRN for PAIN-MILD, (Reported) Amantadine HCl 100 Mg Capsule, 100 MG PO BID, (Reported) Aspirin 81 Mg Tab.chew, 81 MG PO DAILY, (Reported) Bisacodyl 10 Mg Supp.rect, 10 MG RC DAILY PRN for CONSTIPATION, (Reported) Cholecalciferol (Vitamin D3) 50,000 Unit Capsule, 50,000 UNIT PO Sa, (Reported) Citalopram Hydrobromide 40 Mg Tablet, 40 MG PO DAILY, (Reported) Donepezil HCl 10 Mg Tablet, 20 MG PO DAILY, (Reported) Guaifenesin 400 Mg Tablet, 400 MG PO Q4H PRN for COUGH, (Reported) Hyoscyamine Sulfate 0.125 Mg Tab.subl, 1-2 TAB SL Q4H Prescribed by: SHOSHANA CHAVEZ on 03/07/162207 Ipratropium [place] 0.2 Mg/1 Ml Solution, 0.2 MG INH Q6H PRN for SHORTNESS OF BREATH, (Reported) Iron Sucrose Complex 200 Mg/10 Ml Vial, 200 MG IV DAILY, (Reported) Levetiracetam 750 Mg Tablet, 750 MG PO BID, (Reported) Magnesium Hydroxide 400 Mg/5 Ml Oral.susp, 10 ML PO DAILY PRN for CONSTIPATION- 1ST LINE, (Reported) Melatonin/Pyridoxine HCl (B6) 1 Each Tablet, 1 EACH PO DAILY, (Reported) Metoprolol Tartrate 25 Mg Tablet, 25 MG PO BID, (Reported) Metoprolol Tartrate 50 Mg Tablet, 50 MG PO BID, (Reported) Ondansetron 8 Mg Tab.rapdis, 8 MG PO Q4H Prescribed by: SHOSHANA CHAVEZ on 03/07/162207 Polyethylene Glycol 3350 17 Gm Powd.pack, 17 GM PO DAILY PRN for CONSTIPATION- 2ND LINE, (Reported) Potassium Chloride 20 Meq Tablet.er, 20 MEQ PO DAILY, (Reported) Topiramate 100 Mg Tablet, 100 MG PO BID, (Reported) Patient Home Medication List Home Medication List Reviewed: Yes MERARI DYSON MD May 29, 2018 13:43
[2018-05-29] MEDS ORDERED: ACHD5005 PO (13:44)
--- NOTE | 2018-05-29 13:45 | Discharge Inst-Simple/Standard ---
Discharge Inst-Standard Discharge Medications New, Converted or Re-Newed RX: RX on Chart Patient Instructions/Follow Up Plan of Care/Instructions/FU: Dressings off in 48 hours. May use the Ijeheo-z-Livu. Activity as Tolerated: Yes Discharge Diet: No Restrictions MERARI DYSON MD May 29, 2018 13:45
--- NOTE | 2018-05-29 13:56 | Diagnostic Imaging Report ---
INDICATION: Fluoroscopy for port placement. FINDINGS: Fluoroscopy was provided in the OR during port placement. 55 seconds of fluoroscopy was utilized. The right-sided port has its tip overlying the SVC. IMPRESSION: Fluoroscopy during port placement. Dictated by: Dictated on workstation # [id number]
[2018-05-29] MEDS ORDERED: fentaNYL INJECTION 100 MCG/2 ML AMP IVP ONE (14:00)
[2018-05-29] MEDS ORDERED: ONDANSETRON 4 MG/2 ML (SDV) Z0FRAN IVP PRN (14:00)
[2018-05-29 14:25] VITALS: BP 110/67
[2018-05-29 14:55] VITALS: BP 103/70
[2018-05-29 15:25] VITALS: BP 114/67
[2018-05-29 15:27] VITALS: BP 103/70
== END 2018-05-29 15:30 | disposition home or self-care (01) ==
LOC: SDC 09:51
PROVIDERS: ATTEND Surgery
DX: I87.2 Venous insufficiency (chronic) (peripheral) (principal); N18.9 Chronic kidney disease, unspecified; I95.9 Hypotension, unspecified; G40.909 Epilepsy, unspecified, not intractable, without status epilepticus; G83.9 Paralytic syndrome, unspecified; K59.09 Other constipation; Z87.820 Personal history of traumatic brain injury; Z79.82 Long term (current) use of aspirin; Z79.899 Other long term (current) drug therapy
CPT/HCPCS: 36415; 84703; 87081

== ENCOUNTER → 2021-06-21 | Outpatient (CLI) | payer MEDICARE, MEDICAID ==
[~2021-06-21] MED LIST changes: +ACHD5005 PO; -BISA10SU6 RC; +BISA10SU8 RC; -DOCU50LI22 PEG; +DOCU50LI26 PEG; -GUAI400T71 PO; +GUAI400T86 PO; -MAGN800O GT; +MOM10U GT; -OMEP20CA12 PO; +OMEP20CA18 PO
--- NOTE | 2021-06-21 15:59 | Diagnostic Imaging Report ---
PROCEDURE: CT head without contrast. TECHNIQUE: Multiple contiguous axial images were obtained through the brain without the use of intravenous contrast. Auto Exposure Controls were utilized during the CT exam to meet ALARA standards for radiation dose reduction. INDICATION: 50-year-old female with increasing headaches with light sensitivity, previous history of brain surgery with shunt placement. COMPARISONS: 04/06/2017. FINDINGS: Midline structures are not displaced. Lateral, third and fourth ventricles are unchanged. 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 There is a previous right temporal craniotomy. There is no midline shift, mass effect, hydrocephalus, or hemorrhage. A left parietal LAV CREWMAN shunt tubing is again seen crossing the midline, stable. Some chronic dural thickening along the right lateral surface is unchanged. Perez-white differentiation is maintained and there is no sulcal effacement. There are no abnormal extra-axial fluid collections or hemorrhage. Basilar cisterns appear normal. Sinuses show development of severe chronic left maxillary sinus disease. Underlying superinfection with possible fungal infection cannot be excluded. Orbits and mastoid air cells are otherwise grossly unremarkable. IMPRESSION: 1. Previous right temporal craniotomy. There is also encephalomalacia in the right temporal lobe with volume loss with associated ex-vacuo dilatation of the right lateral ventricle. 2. Overall, no acute findings identified by nonenhanced CT criteria. 3. Severe chronic-appearing left maxillary sinus disease has developed since the prior exam, correlate clinically. 4. Stable left parietal LAV CREWMAN shunt. Additional nonemergent findings as described above. Dictated by: Dictated on workstation # [id number]
== END ==
LOC: RAD 14:15
PROVIDERS: ATTEND Nurse Practitioner Community Health
DX: G93.89 Other specified disorders of brain (principal); J32.0 Chronic maxillary sinusitis; Z98.2 Presence of cerebrospinal fluid drainage device; Z98.890 Other specified postprocedural states
CPT/HCPCS: 70450

== ENCOUNTER → 2021-07-29 | Outpatient (CLI) | payer MEDICARE, MEDICAID ==
[~2021-07-29] MED LIST changes: -AMAN100C18 PO; +AMAN100C20 PO
--- NOTE | 2021-07-29 18:19 | Diagnostic Imaging Report ---
PROCEDURE: CT sinuses without contrast TECHNIQUE: Multiple contiguous axial images were obtained through the sinuses without the use of intravenous contrast. Coronal and sagittal reformations were then performed. Auto Exposure Controls were utilized during the CT exam to meet ALARA standards for radiation dose reduction. INDICATION: Chronic sinusitis. The frontal sinus is clear. Ethmoid air cells and sphenoid sinus are clear. Right maxillary sinus is clear. There is near complete opacification of the left maxillary sinus. A right ostiomeatal complex is patent. Left ostiomeatal complex demonstrates significant mucosal thickening. No significant nasal septal deviation is seen. Mastoid air cells are well aerated. IMPRESSION: Left maxillary sinusitis. Dictated by: Dictated on workstation # [id number]
== END ==
LOC: RAD 13:15
PROVIDERS: ATTEND Otolaryngology Otolaryngology/Facial Plastic Surgery
DX: J32.0 Chronic maxillary sinusitis (principal)
CPT/HCPCS: 70486